=== PATIENT | female | born 1930 | race Asian ===

== ENCOUNTER 2016-11-07 13:39 | Inpatient (IN) | payer MEDICARE, OTHER ==
[~2016-11-07] VITALS: Ht 149.9 cm; Wt 54.9 kg
[~2016-11-07 13:39] MED LIST: ACET-2047 PO; AMLO-145 PO; APIX2.5T PO; DOCU-144 PO; LINA5TAB PO; NIT4 SL; OMEP40CA6 PO
[2016-11-07 17:00] VITALS: BP 135/63; PULSE 96; RESP 18
[2016-11-07 19:21] LABS: ADD UMIC YES; URINE BILIRUBIN (Dip) NEGATIVE (NEGATIVE); URINE BLOOD (Dip) 2+ (NEGATIVE); URINE COLOR LT. YELLOW (YELLOW); URINE KETONES (Dip) TRACE (NEGATIVE); URINE LEUKOCYTE ESTERASE (Dip) NEGATIVE (NEGATIVE); URINE NITRITE (Dip) NEGATIVE (NEGATIVE); URINE TOTAL PROTEIN (Dip) 4+ (NEGATIVE); URINE UROBILINOGEN (Dip) 0.2 E.U./dL (0.1-1.0)
[2016-11-07] MEDS ORDERED: ACETAMINOPHEN 325 MG TAB PO PRN (19:30)
[2016-11-07] MEDS ORDERED: DOCUSATE SODIUM 100 MG CAP PO PRN (19:30)
[2016-11-07 19:35] LABS: BACTERIA,URINE FEW
[2016-11-07] MEDS ORDERED: MAGNESIUM HYDROXIDE 30ML CUP PO PRN (20:00)
[2016-11-07] MEDS ORDERED: NACL 0.9% 3 ML SYG IV SCH (20:00)
[2016-11-07] MEDS ORDERED: BISACODYL 10 MG SUPP PR PRN (20:00)
[2016-11-07] MEDS ORDERED: ONDANSETRON 4 MG INJ IV PRN (20:00)
[2016-11-07] MEDS ORDERED: NITROGLYCERIN (SL) 0.4 MG TAB SL PRN (20:00)
[2016-11-07] MEDS ORDERED: LACTULOSE 30ML CUP PO PRN (20:00)
[2016-11-07] MEDS ORDERED: INSULIN GLARGINE [LANtus] 3 ML PEN SC SCH (20:00)
[2016-11-07] MEDS: ALBUTEROL/IPRATROPIUM (NEB) 3 ML AMP HHN SCH (20:09)
[2016-11-07 20:45] VITALS: BP 149/67; RESP 18
[2016-11-07] MEDS: INSULIN ASPART [NOVOLOG] 3 ML PEN SC SCH (20:54)
[2016-11-07] MEDS: SENNA TAB PO SCH (20:54)
[2016-11-07] MEDS: MEGESTROL (40 MG/ML) 10ML CUP PO SCH (20:54)
[2016-11-07] MEDS: DOCUSATE SODIUM 100 MG CAP PO SCH (20:54)
[2016-11-07] MEDS: METOPROLOL 25 MG TAB PO SCH (20:55)
[2016-11-07] MEDS: AMLODIPINE 5 MG TAB PO SCH (20:55)
[2016-11-07] MEDS: APIXABAN 5 MG TABLET PO SCH (21:10)
[2016-11-07 22:00] VITALS: BP 140/63; PULSE 100; RESP 20
[2016-11-08] MEDS: PANTOPRAZOLE (EC) 40 MG TAB PO SCH (05:31)
[2016-11-08] MEDS ORDERED: FUROSEMIDE 40 MG TAB PO SCH (06:00)
[2016-11-08 06:43] LABS: ADD SCAN DIFF NO
[2016-11-08 06:47] LABS: BASOPHIL # 0.1 10^3/ul (0.0-0.1); BASOPHILS % 0.7 % (0.0-2.0); EOSINOPHILS # 0.3 10^3/ul (0.0-0.5); HEMATOCRIT 28.7 % (37.0-47.0); HEMOGLOBIN 9.3 g/dl (12.0-16.0); LYMPHOCYTES # 1.4 10^3/ul (0.8-2.9); LYMPHOCYTES % 15.3 % (15.0-51.0); MEAN CORPUSCULAR HEMOGLOBIN 30.2 pg (29.0-33.0); MEAN CORPUSCULAR HGB CONC 32.4 g/dl (32.0-37.0); MEAN CORPUSCULAR VOLUME 93.2 fl (82.0-101.0); MEAN PLATELET VOLUME 9.7 fl (7.4-10.4); MONOCYTE # 0.8 10^3/ul (0.3-0.9); MONOCYTES % 9.2 % (0.0-11.0); NEUTROPHIL # 6.4 10^3/ul (1.6-7.5); NEUTROPHILS % 71.4 % (39.0-77.0); NUCLEATED RED BLOOD CELLS% 0.2 /100WBC (0.0-0.0); PLATELET COUNT 376 10^3/UL (140-415); RED BLOOD COUNT 3.08 10^6/ul (4.20-5.40); RED CELL DISTRIBUTION WIDTH 17.5 % (11.5-14.5); WHITE BLOOD COUNT 8.9 10^3/ul (4.8-10.8)
[2016-11-08 07:01] LABS: ALBUMIN 2.8 g/dl (3.3-4.9); POTASSIUM 4.6 mmol/L (3.5-5.1)
[2016-11-08 07:03] LABS: BILIRUBIN,INDIRECT 0.1 mg/dl (0-1.1); BILIRUBIN,TOTAL 0.1 mg/dl (0.2-1.3); CREATININE 3.57 mg/dl (0.44-1.00)
[2016-11-08 07:04] LABS: ALBUMIN/GLOBULIN RATIO 0.73; CALCIUM 7.8 mg/dl (8.4-10.2); TOTAL PROTEIN 6.6 g/dl (6.1-8.1)
[2016-11-08 08:00] VITALS: BP 179/78; PULSE 95; RESP 18
[2016-11-08] MEDS: INSULIN ASPART [NOVOLOG] 3 ML PEN SC SCH ×4 (08:21→21:32)
[2016-11-08] MEDS: DOCUSATE SODIUM 100 MG CAP PO SCH ×2 (08:21→21:26)
[2016-11-08] MEDS: AMLODIPINE 5 MG TAB PO SCH ×2 (08:22→21:26)
[2016-11-08] MEDS: LINAGLIPTIN 5 MG TABLET PO SCH (08:22)
[2016-11-08] MEDS: MEGESTROL (40 MG/ML) 10ML CUP PO SCH ×2 (08:22→21:24)
[2016-11-08] MEDS: METOPROLOL 25 MG TAB PO SCH ×2 (08:22→21:26)
[2016-11-08] MEDS: APIXABAN 5 MG TABLET PO SCH ×2 (08:23→21:25)
[2016-11-08] MEDS: ALBUTEROL/IPRATROPIUM (NEB) 3 ML AMP HHN SCH (08:26)
--- NOTE | 2016-11-08 10:39 | PN ---
DATE: 11/08/2016 CARDIOLOGY FOLLOWUP SUBJECTIVE: Discussed with the staff. The patient has been transferred to rehab. Currently, is mo re awake and alert. Responds appropriately. Denies any chest pain to me. Mild shortness of breath . MEDICATIONS: Reviewed which include: 1. Tradjenta. 2. Lasix 40 mg p.o. b.i.d. 3. Protonix. 4. Amlodipine 5 b.i.d. 5. Eliquis 2.5 b.i.d. 6. Metoprolol 25 b.i.d. 7. Albuterol. 8. Hydralazine p.r.n. PHYSICAL EXAMINATION: VITAL SIGNS: Temperature 99.2, heart rate of 93, blood pressure 140/63, respiratory rate of 20. HEENT: Normocephalic, atraumatic. Elderly female. Pupils are equal. CARDIOVASCULAR: Regular rate and rhythm, systolic murmur. PULMONARY: With no wheezes anteriorly, but diffuse rhonchi. GASTROINTESTINAL: Soft, nontender. EXTREMITIES: Trivial edema. NEUROLOGIC: Awake and alert. Responds appropriately. PSYCHIATRIC: Appears to be calm. LABORATORY DATA: WBC of 8.9, hemoglobin 9.3, platelets 376. Sodium 147, potassium 4.6, BUN of 35, creatinine 3.57, glucose 180, albumin is 2.8. ASSESSMENT AND PLAN: 1. History of heart block. Currently, heart rate has remained stable. 2. Acute renal failure on chronic kidney disease. 3. Congestive heart failure and fluid overload secondary to diastolic dysfunction and renal failure . 4. Anemia. 5. Encephalopathy. 6. Possible pneumonia. 7. Diabetes. 8. History of paroxysmal atrial fibrillation. RECOMMENDATIONS: Diuresis as per renal. Continue current blood pressure medication. Heart rate patel s remained stable. We will hold off on the pacemaker given the multiple comorbidities and worsening function at this point. We will monitor her though. Respiratory care and physical therapy in reha b will be continued as well. Dictated By: SUNDAR JACOBO MD AV/DESTINY Conf#: [id number] DID#: [id number] CC: ROXANA RODRIGUEZ MD;*EndCC*
--- NOTE | 2016-11-08 11:16 | PN ---
DATE: 11/08/2016 SUBJECTIVE: The patient was transferred from [facility] for acute rehabilitation. The patient is cli nically stable, no acute events overnight. No fevers, chills, nausea, vomiting. OBJECTIVE: VITAL SIGNS: Blood pressure is 140/60, respirations 20, pulse 100, temperature 99.2. HEENT: Head is normocephalic. NECK: Supple. HEART: Regular rate. LUNGS: Show diminished breath sounds at the base. ABDOMEN: Soft, nontender to palpation. No rebound or guarding. EXTREMITIES: Negative for clubbing, cyanosis, no edema. DERMATOLOGIC: No rashes. MUSCULOSKELETAL: No joint effusions. NEUROLOGIC: No change in exam. MEDICATIONS: The patient's medications have been reviewed. LABORATORY DATA: Sodium 147, potassium 4.6, chloride 111, BUN 35, creatinine 3.57. White count 8.9 , hemoglobin 9.3, hematocrit 28.7, platelet count 376. ASSESSMENT AND PLAN: 1. Nonoliguric acute kidney injury on top of chronic kidney disease stage IV with unknown baseline creatinine, possibly around 3 mg/dL. The patient's renal function declined in the last 24 hours, kimberly shirley due to diuretic therapy. Plan at this point is to hold Lasix. Will continue to monitor renal function closely. Follow up renal panel in the a.m. and otherwise continue supportive care, renally dose all meds, avoid nephrotoxins. 2. 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 The patient is currently in acute kidney injury as stated above. We will norma nue current treatment plan. Otherwise, disease factor modification with good glycemic and blood pre ssure control. 3. Acute congestive heart failure exacerbation. The patient is clinically improved. Will hold diu retic therapy as renal function has worsened. Continue to monitor. 4. Anemia. Continue to monitor hemoglobin and hematocrit levels. 5. Hypernatremia. Continue to encourage free water intake. 6. Pneumonia. Patient completing antibiotic course. 7. Encephalopathy, etiology is toxic metabolic. Continue to monitor. 8. Acute respiratory failure secondary to congestive heart failure, pneumonia. Continue current tr eatment plan. 9. Diabetes, continue Accu-Cheks and sliding scale. 10. Paroxysmal atrial fibrillation, continue to monitor. Dictated By: TIFFANIE MCHUGH/DESTINY Conf#: [id number] [facility]#: [id number]
--- NOTE | 2016-11-08 11:21 | CONS ---
DATE OF ADMISSION: 11/07/2016 DATE OF CONSULTATION: 11/08/2016 TYPE OF CONSULTATION: Rehabilitation post-admission physician evaluation REHABILITATION IMPAIRMENT CATEGORY: Toxic metabolic encephalopathy superimposed on meningioma. ACTIVE COMORBIDITIES: 1. Dysphagia. 2. Congestive heart failure. 3. Acute on chronic renal insufficiency. 4. Urinary tract infection. 5. Paroxysmal atrial fibrillation. 6. Diabetes mellitus. 7. Hypertension. 8. Anemia 9. History of heart block. 10. Impairments in self-care, mobility and cognition. HISTORY OF PRESENT ILLNESS: The patient is a pleasant 85-year-old Filipina female with a history o f multiple medical comorbidities, who was admitted with increased weakness, confusion and notable de hydration. The patient was also noted to have pneumonia, acute on chronic kidney disease, acute res piratory failure secondary to congestive heart failure. The patient was felt likely to have acute t oxic metabolic encephalopathy contributing to the cognitive impairment. The patient was also noted to have dysphagia requiring mechanical soft diet. The patient's medical status has continued to imp rove. The patient has now been cleared to transfer to the rehabilitation unit for comprehensive int erdisciplinary rehab care. FUNCTIONAL HISTORY: Prior to recent events, she was independent in self-care tasks and mobility. C urrently, she requires maximal assist for self-care and mobility tasks. I have reviewed the preadmission screen and the patient's current functional status is consistent wi th the preadmission screen. SOCIAL HISTORY: The patient reportedly lives at home with family and hopes to return there upon dis charge. PAST MEDICAL HISTORY: 1. Congestive heart failure. 2. Diabetes mellitus type 2. 3. Chronic kidney disease stage IV. 4. Anemia. 5. Paroxysmal atrial fibrillation. 6. Hypertension. 7. Degenerative joint disease. CURRENT MEDICATIONS: 1. Insulin sliding scale. 2. Albuterol inhaler. 3. Norvasc 5 mg p.o. b.i.d. 4. Eliquis 2.5 mg p.o. b.i.d. 5. Lasix 40 mg b.i.d. 6. Lantus 4 units subcutaneous daily. 7. Tradjenta 5 mg p.o. daily. 8. Lopressor 25 mg p.o. b.i.d. 9. Protonix 40 mg p.o. daily. 10. Zofran p.r.n. ALLERGIES: THE PATIENT WITH NO KNOWN DRUG ALLERGIES. PHYSICAL EXAMINATION: VITAL SIGNS: The patient is currently afebrile, blood pressure 179/78, pulse 95, respiratory rate 2 0. HEENT: The extraocular motions appear intact. Oropharynx reveals the patient with dentures in plac e. NECK: Supple. LUNGS: Clear anteriorly. CARDIAC: S1, S2. ABDOMEN: Soft, nontender, positive bowel sounds. NEUROLOGIC: She is awake and oriented to person only. She will follow simple 1-step commands. She demonstrates antigravity strength in bilateral upper extremity and lower extremity. She does have some impaired static and dynamic balance. PLAN: The patient has been admitted for comprehensive interdisciplinary acute rehab and is anticipa hitesh to tolerate 3 hours of daily therapy in divided doses for at least 5/7 days a week. The treatme nt plan will include: 1. Physical therapy to focus on bed mobility, transfers, and household ambulation with the goal of having the patient reach standby assist level. 2. Occupational therapy to focus on hygiene, grooming, dressing, bathing, and toileting activities with the goal of having the patient reach a standby assist level. 3. Speech therapy for full cognitive assessment in addition to dysphagia management with the goal o f having the patient return to baseline cognition and meet nutritional needs by mouth. 4. Rehabilitation nursing for carryover of therapeutic interventions, the goal of continent of roldan l and bladder, and the goal of patient and family education with regards to the aforementioned issue s. ESTIMATED LENGTH OF STAY: 14 days. DISPOSITION GOAL: Home with family. REHABILITATION BARRIER: Dysphagia. INTERVENTION FOR BARRIER: Speech therapy. I acknowledge that I performed a full physical examination on this patient within 24 hours of admiss ion to the rehabilitation unit, and believe the patient is a good candidate for comprehensive interd isciplinary rehab care and is anticipated to make reasonable goals in a reasonable period of time as outlined above. Dictated By: TIM GARSIA/DESTINY Conf#: [id number] DID#: [id number]
[2016-11-08 12:00] VITALS: BP 150/76; PULSE 90; RESP 18
--- NOTE | 2016-11-08 16:01 | HP ---
DATE OF ADMISSION: 11/07/2016 REASON FOR ADMISSION: Generalized weakness, debilitated state, weight loss, status post congestive heart failure exacerbation, mild UTI, bronchitis, and possible pneumonia. HISTORY OF PRESENT ILLNESS: The patient is an 85-year-old Filipina female, very well known to me, w ith a history of diabetes mellitus, hypertension, anemia, CKD stage IV, a history of meningioma, a h istory of heart block, previously refused pacemaker placement, paroxysmal atrial fibrillation, on El iquis, who unfortunately has been declining over the past few weeks. She has been losing weight and not eating much, noted to be more confused and more subdued. The patient was admitted to the [facility] as she was found to have possible early pneumonia, a mild UTI and congestive heart failure exace rbation. During her hospital stay the patient was treated at [facility] with Roce phin, azithromycin and diuretic therapy and she was seen by multiple physicians, including Dr. Maxwell flores, the rehabilitation aide/scheduler, and Dr. Triana, the tree faller. The patient improved, but overall remains q uite debilitated, still slightly withdrawn, and it was decided to send her to acute rehab for rehabi litation, strengthening, with the goal for her to get stronger and go back home. In addition, pace maker placement is also being delayed or postponed, as clinically the patient's condition and functi onal capacity has worsened. She was transferred to rehab for further care. I have been in touch wi th her daughter on a regular basis. Her name is Edwige. Upon evaluation of the patient, the patient today appears to be slightly better and no specific complaints. Currently denies any chest pain or shortness of breath. The patient is admitted for further care. PAST MEDICAL HISTORY: Includes diabetes mellitus, hypertension, osteoarthritis, meningioma, rina escobar fracture of the vertebral body, CKD, I would say stage IV, a history of paroxysmal atrial fibri llation, and diastolic dysfunction heart failure. ALLERGIES: NO KNOWN DRUG ALLERGIES. SOCIAL HISTORY: No history of IV drug use, alcohol or tobacco use. The patient is +3. 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 She is from the [facility]. SURGICAL HISTORY: Cataract surgery. FAMILY HISTORY: Noncontributory. PREVIOUS MEDICATIONS: Include: 1. Eliquis 2.5 b.i.d. 2. Amlodipine 5 mg daily. 3. Nitrostat p.r.n. 4. Tylenol p.r.n. 5. Colace p.r.n. 6. Omeprazole 40 mg daily. 7. Tradjenta 5 mg daily. Current medications since her recent hospitalization include: 1. Tradjenta 5 mg daily. 2. Protonix 40 mg daily. 3. Norvasc 5 mg b.i.d. 4. Eliquis 2.5 b.i.d. 5. Colace 100 b.i.d. 6. Insulin aspart per sliding scan. 7. Megace 400 b.i.d. 8. Lopressor 25 b.i.d. 9. Senna 1 tab at bedtime. 10. DuoNeb q.6h. 11. Hydralazine p.r.n. 12. Lantus 4 units every day. 13. Milk of Magnesia p.r.n. 14. Nitroglycerin p.r.n. 15. Zofran p.r.n. 16. Tylenol p.r.n. 17. Dulcolax and Lactulose p.r.n. 18. DuoNebs p.r.n. 19. Colace p.r.n. PAST SURGICAL HISTORY: No surgery, but she had recently a GI workup back in 2010 that showed esopha gitis, gastritis and . In 2011 a colonoscopy showed external hemorrhoids, anal tag, and poor p reparation. PHYSICAL EXAMINATION: VITAL SIGNS: Temperature is 99.2, pulse 93, respirations 20, blood pressure 140/63, saturation 96% on 2 liters. GENERAL: The patient in no acute distress. The patient is pale. HEENT: The patient has dentures. CARDIOVASCULAR: S1 and S2. A positive systolic ejection murmur heard throughout. LUNGS: Decreased bilaterally, but now clear. ABDOMEN: Soft, nontender. EXTREMITIES: No clubbing, cyanosis, or edema. Patient with a slight depressed mood. LABORATORY: White count is 8.9, hemoglobin 9.3, hematocrit 29, platelet count 376, with normal diff erential. Chemistry: Sodium 147, potassium 4.6, chloride 111, bicarbonate 25, BUN 35, creatinine w orsened to 3.57, glucose of 180. Glucose levels are slightly high at 205 and 159. Labs done at a r ecent hospitalization at that time CEA was 4.2, B12 was greater than 1000, iron levels showed TIBC w as low at 147, iron levels were normal, and stool occult blood was negative. ASSESSMENT AND PLAN: This is an 85-year-old [place] Citizen female with a history of diastolic dysfunction heart failure, paroxysmal atrial fibrillation, diabetes mellitus, CKD stage IV, anemia and osteoart hritis, who is status post recent hospitalization. She was treated for CHF exacerbation, possible b ronchitis, pneumonia and a mild urinary tract infection. Overall she has been declining over the co urse of a few weeks, with significant weight loss and clinically more withdrawn. 1. Respiratory. Hold diuretic therapy as currently kidney function has worsened and clinically no evidence of fluid overload state. Continue O2 support as needed and will monitor. Status post annie tment with Rocephin and azithromycin for possible pulmonary infection. 2. Cardiovascular. The patient previously was recommended to have a pacemaker placed. In the meant milo, continue medical management. The patient is on Eliquis and beta blockers. Cardiology is foll owing. Further discussion regarding a pacemaker will be made with the tree faller. 3. Decreased p.o. intake. I started the patient on Megace. Speech therapy to follow regarding laura d consistency and safety. 4. Continue deep vein thrombosis prophylaxis and gastrointestinal prophylaxis. The patient is on E liquis and Protonix. 5. Anemia. The patient with anemia of chronic disease. Observe. May benefit from Epogen. 6. Chronic kidney disease with acute component secondary to diuretic therapy. Lasix is now placed on hold. Will continue to monitor kidney function. Will discontinue the Self, as we now finish he r Lasix treatment. 7. Continue stool softeners. 8. May consider an antidepressant and may consider a psychology consult, as her mood appears to be somewhat depressed. 9. Diabetes mellitus. On Tradjenta. Will increase insulin sliding, as glucose levels are in the h igh 100s to low 200s. Will monitor the patient closely. Case discussed with the daughter, Edwige. Dictated By: ROXNAA JEFFRIES/DESTINY Conf#: [id number] DID#: [id number]
[2016-11-08] MEDS ORDERED: INSULIN GLARGINE [LANtus] 3 ML PEN SC SCH (20:00)
[2016-11-08 20:06] VITALS: BP 159/75; RESP 18
[2016-11-08] MEDS: SENNA TAB PO SCH (21:26)
[2016-11-09] MEDS: PANTOPRAZOLE (EC) 40 MG TAB PO SCH (05:39)
[2016-11-09 07:42] LABS: ADD SCAN DIFF NO; BASOPHIL # 0.1 10^3/ul (0.0-0.1); BASOPHILS % 0.5 % (0.0-2.0); EOSINOPHILS # 0.3 10^3/ul (0.0-0.5); HEMATOCRIT 29.3 % (37.0-47.0); HEMOGLOBIN 9.5 g/dl (12.0-16.0); LYMPHOCYTES # 1.2 10^3/ul (0.8-2.9); MEAN CORPUSCULAR HEMOGLOBIN 30.5 pg (29.0-33.0); MEAN CORPUSCULAR HGB CONC 32.4 g/dl (32.0-37.0); MEAN CORPUSCULAR VOLUME 94.2 fl (82.0-101.0); MONOCYTE # 0.7 10^3/ul (0.3-0.9); MONOCYTES % 7.7 % (0.0-11.0); NEUTROPHILS % 75.3 % (39.0-77.0); PLATELET COUNT 387 10^3/UL (140-415); RED BLOOD COUNT 3.11 10^6/ul (4.20-5.40); WHITE BLOOD COUNT 9.4 10^3/ul (4.8-10.8)
[2016-11-09 08:00] VITALS: BP 166/67; PULSE 93; RESP 20
[2016-11-09 08:05] LABS: POTASSIUM 4.5 mmol/L (3.5-5.1)
[2016-11-09 08:08] LABS: CREATININE 3.41 mg/dl (0.44-1.00)
[2016-11-09 08:09] LABS: MAGNESIUM 2.1 mg/dl (1.7-2.5); PHOSPHORUS 3.8 mg/dl (2.5-4.9)
[2016-11-09] MEDS: INSULIN ASPART [NOVOLOG] 3 ML PEN SC SCH ×4 (08:24→21:17)
[2016-11-09] MEDS: APIXABAN 5 MG TABLET PO SCH ×2 (08:25→20:51)
[2016-11-09] MEDS: LINAGLIPTIN 5 MG TABLET PO SCH (08:25)
[2016-11-09] MEDS: DOCUSATE SODIUM 100 MG CAP PO SCH ×2 (08:25→20:50)
[2016-11-09] MEDS: AMLODIPINE 5 MG TAB PO SCH ×2 (08:26→20:50)
[2016-11-09] MEDS: METOPROLOL 25 MG TAB PO SCH ×2 (08:26→20:51)
[2016-11-09] MEDS: MEGESTROL (40 MG/ML) 10ML CUP PO SCH ×2 (08:26→20:50)
[2016-11-09] MEDS: ALBUTEROL/IPRATROPIUM (NEB) 3 ML AMP NEB PRN (10:30)
--- NOTE | 2016-11-09 10:32 | PN ---
DATE: SUBJECTIVE: The patient is noted to have ____ on examination. The patient overnight, however, was stable on 2 liters nasal cannula. No hemoptysis, hematemesis, or hematochezia. OBJECTIVE: VITAL SIGNS: Blood pressure 115/75, respiration 18, pulse 95, temperature 98.3. HEENT: Head is normocephalic. NECK: Supple. HEART: Regular rate. LUNGS: Positive expiratory wheezes, mild rhonchi, no rales noted. ABDOMEN: Soft, nontender to palpation. No rebound or guarding. EXTREMITIES: Negative for clubbing, cyanosis, no edema. DERMATOLOGIC: No rashes. MUSCULOSKELETAL: No joint effusions. NEUROLOGIC: No change in exam. LABORATORY DATA: Shows sodium 146, potassium 4.5, chloride 109, BUN 35, creatinine 3.41, calcium 8. 0. White count 9.4, hemoglobin 9.5, hematocrit 29.3, platelet count is 387. ASSESSMENT AND PLAN: 1. Nonoliguric acute kidney injury on top of chronic kidney disease stage IV with previous baseline creatinine presumed to be around 3 mg/dL. Etiology of current acute kidney injury was secondary to hemodynamics, likely diuretic therapy. The patient's Lasix has been on hold. Creatinine has mildl y improved in the last 24 hours. At this point, continue to hold diuretic therapy and monitor renal function closely. 2. Chronic kidney disease, stage IIIB/IV, with nephrotic range proteinuria. Etiology is likely sec ondary to diabetic nephropathy. The patient is currently in acute kidney injury as stated above. C ontinue current treatment plan. Continue disease factor modification, good glycemic and blood press ure control. 3. Acute congestive heart failure exacerbation. The patient appears clinically improved, holding d iuretic therapy as worsening renal function. We will monitor closely. 4. Acute respiratory failure. Etiology is secondary to congestive heart failure, pneumonia, possib le component of reactive airway disease. Continue nebulizer therapy. Continue supplemental oxygen. Continue antibiotic therapy. Holding diuretic therapy as stated above due to worsening renal func tion. 5. Anemia. Continue to monitor hemoglobin and hematocrit levels. 6. Hypernatremia. Continue to encourage free water intake. 7. Sepsis secondary to pneumonia. Continue current antibiotic regimen. 8. Encephalopathy, etiology toxic metabolic. The patient's mental status appears stable. 9. Diabetes. Continue Accu-Cheks and sliding scale. 10. Paroxysmal atrial fibrillation. Continue current medical management and monitor. Dictated By: TIFFANIE MCHUGH/DESTINY Conf#: [id number] DID#: [id number]
--- NOTE | 2016-11-09 13:05 | CONS ---
Date/Time of Note Date/Time of Note DATE: 11/09/16 TIME: 13:04 Consult Date/Type/Reason Admit Date/Time Nov 07, 2016 at 16:51 Initial Consult Date Subjective Comfortable Objective pulm-cta abd-soft Vital Signs Date Time Temp Pulse Resp B/P Pulse Ox O2 Delivery O2 Flow Rate FiO2 11/09/16 10:30 96 22 95 Nasal Cannula 2.0 11/08/16 20:06 98.3 159/75 Intake and Output 11/08/16 11/08/16 11/09/16 14:59 22:59 06:59 Intake Total 400 ml 800 ml Output Total 700 ml 500 ml Balance -700 ml -100 ml 800 ml Results/Medications Result Diagram: 11/09/16 0647 11/09/16 0647 Results 24 hrs Laboratory Tests Test 11/08/16 17:24 11/08/16 21:18 11/09/16 02:26 11/09/16 06:47 Bedside Glucose 200 233 H 192 Anion Gap 17 H Basophils # 0.1 Basophils % 0.5 Blood Urea Nitrogen 35 H Calcium Level 8.0 L Carbon Dioxide Level 25 Chloride Level 109 Creatinine 3.41 H Eosinophils # 0.3 Eosinophils % 3.0 Glucose Level 203 Hematocrit 29.3 L Hemoglobin 9.5 L Lymphocytes # 1.2 Lymphocytes % 13.0 L Magnesium Level 2.1 Mean Corpuscular Hemoglobin 30.5 Mean Corpuscular Hemoglobin Concent 32.4 Mean Corpuscular Volume 94.2 Mean Platelet Volume 10.0 Monocytes # 0.7 Monocytes % 7.7 Neutrophils # 7.0 Neutrophils % 75.3 Nucleated Red Blood Cells # 0.0 Nucleated Red Blood Cells % 0.0 Phosphorus Level 3.8 Platelet Count 387 Potassium Level 4.5 Red Blood Count 3.11 L Red Cell Distribution Width 18.0 H Sodium Level 146 H White Blood Count 9.4 Test 11/09/16 07:54 11/09/16 12:17 Bedside Glucose 209 195 Medications Current Medications Amlodipine Besylate (Norvasc) 5 mg BID PO Last administered on 11/09/16 08:26 ; Admin Dose 5 MG; Start 11/07/16 at 21:00 Apixaban (Eliquis) 2.5 mg BID PO Last administered on 11/09/16 08:25; Admin Dose 2.5 MG; Start 11/07/16 at 21:00 Docusate Sodium (Colace) 100 mg Q12H PRN PO CONSTIPATION; Start 11/07/16 at 19: 30 Docusate Sodium (Colace) 100 mg BID PO Last administered on 11/09/16 08:25; Admin Dose 100 MG; Start 11/07/16 at 21:00 Hydralazine HCl (Apresoline) 25 mg Q4H PRN PO ELEVATED SYSTOLIC BP; Start 11/07 at 20:00 Linagliptin (Tradjenta) 5 mg DAILY PO Last administered on 11/09/16 08:25; Admin Dose 5 MG; Start 11/08/16 at 09:00 Magnesium Hydroxide (Milk Of Mag) 30 ml DAILY PRN PO CONSTIPATION; Start at 20:00 Megestrol Acetate (Megace Susp) 400 mg BID PO Last administered on 11/09/16 08 :26; Admin Dose 400 MG; Start 11/07/16 at 21:00 Metoprolol Tartrate (Lopressor) 25 mg BID PO Last administered on 11/09/16 08: 26; Admin Dose 25 MG; Start 11/07/16 at 21:00 Nitroglycerin (Nitroglycerin (Sl Tab) 0.4 Mg) 1 tab [id number] PRN SL CHEST PAIN ; Start 11/07/16 at 20:00 Ondansetron HCl (Zofran Inj) 4 mg Q6H PRN IV NAUSEA AND/OR VOMITING; Start at 20:00 Pantoprazole (Protonix Tab) 40 mg DAILY@06 PO Last administered on 11/09/16 05 :39; Admin Dose 40 MG; Start 11/08/16 at 06:00 Senna (Senokot) 1 tab HS PO Last administered on 11/08/16 21:26; Admin Dose 1 TAB; Start 11/07/16 at 21:00 Acetaminophen (Tylenol Tab) 650 mg Q4H PRN PO PAIN; Start 11/07/16 at 20:00 Bisacodyl (Dulcolax Supp) 10 mg DAILY PRN [place] CONSTIPATION; Start 11/07/16 at 20 :00 Lactulose (Enulose) 20 gm DAILY PRN PO CONSTIPATION; Start 11/07/16 at 20:00 Insulin Glargine (Lantus) 6 unit DAILY@20 SC Last administered on 11/08/16t 21: 33; Admin Dose 6 UNIT; Start 11/08/16 at 20:00 Assessment/Plan Additional Assessment/Plan Rehab- Toxic metabolic encephalopathy superimposed on meningioma. [place] current rehab program Dysphagia. Congestive heart failure. Acute on chronic renal insufficiency. Urinary tract infection. Paroxysmal atrial fibrillation. Diabetes mellitus. Hypertension. Anemia History of heart block. TIM HORTON MD Nov 09, 2016 13:04
[2016-11-09] MEDS: ACETAMINOPHEN 325 MG TAB PO PRN (14:39)
--- NOTE | 2016-11-09 17:56 | PN ---
DATE: 11/09/2016 SUBJECTIVE: The patient seen lying in bed comfortably. She takes off oxygen, but overall feels com fortable. The patient with no specific complaints. She denies any shortness of breath. PHYSICAL EXAMINATION: VITAL SIGNS: Temperature 98.3, pulse 76, respirations 22, blood pressure 159/75, saturation 95% on 2 liters. GENERAL: The patient is in no acute distress. The patient is pale. Decreased dentition, the patie nt has dentures. CARDIOVASCULAR: S1 and S2, regular rate. LUNGS: Faint rhonchi. ABDOMEN: Soft, nontender. EXTREMITIES: No clubbing, cyanosis, or edema. LABORATORY DATA: White count is 9.4, hemoglobin 9.5, hematocrit 29, platelet count 387, neutrophils 75%, lymphocytes 13%. Chemistry: Sodium 146, potassium 4.5, chloride 109, bicarbonate 25, BUN is 35, creatinine 3.41, yesterday was 3.57 so there is improvement, glucose of 203, recent glucose leve ls are 195 and 209. Urine culture negative. MRSA of the nares negative. CURRENT MEDICATIONS: Include: 1. Lantus 6 units daily. 2. Tradjenta 5 mg daily. 3. Protonix 40 mg daily. 4. Norvasc 5 mg b.i.d. 5. Eliquis 2.5 b.i.d. 6. Colace 100 b.i.d. 7. Insulin aspart per sliding scale. 8. Megace 400 b.i.d. 9. Metoprolol tartrate 25 b.i.d. 10. Senna 1 tab at bedtime. 11. Hydralazine p.r.n. 12. Milk of magnesia p.r.n. 13. Nitroglycerin p.r.n. 14. Zofran p.r.n. 15. Tylenol p.r.n. 16. Dulcolax p.r.n. 17. Lactulose p.r.n. 18. DuoNeb p.r.n. 19. Colace p.r.n. ASSESSMENT AND PLAN: This is an 85-year-old Filip[place] female with history of diastolic dysfunction h eart failure, paroxysmal atrial fibrillation, heart block, diabetes mellitus, chronic kidney disease stage IV, anemia, osteoarthritis, who was admitted recently for congestive heart failure exacerbati on, possible acute bronchitis and pneumonia and urinary tract infection. Overall, she unfortunately has been declining at home in the past few weeks with decreased p.o. intake, weight loss and she is more withdrawn. 1. Respiratory, appears to be stable, status post diuretic therapy for CHF. Diuretics now on hold secondary to worsening kidney function. The patient appears to be now euvolemic. Observe. Status post antibiotic treatment for pulmonary infection. 2. Cardiovascular. The patient is too weak to undergo any invasive procedure such as pacemaker duy cement. In the meantime, we will monitor closely. Cardiology has been following her. Remains on m edical treatment on Eliquis for deep venous prophylaxis, for paroxysmal atrial fibrillation. On aml odipine, Lopressor, p.r.n. hydralazine. Again, titrate blood pressure medications up as needed to k eep normotensive. Further discussion regarding pacemaker placement will be made pending patient's f unctional status. 3. Decreased p.o. intake, now on Megace. Observe. 4. Continue deep vein thrombosis prophylaxis and gastrointestinal prophylaxis. 5. Anemia. Hemoglobin and hematocrit are stable. No need for transfusion. May benefit from Epoge n as patient has anemia of chronic disease secondary to chronic kidney disease. 6. Acute on chronic renal insufficiency stage IV. Lasix is on hold. Kidney function slightly impr oving. Currently no indication for dialysis. Self was removed. 7. Continue stool softeners. 8. May consider antidepressants as patient has a depressed mood. May benefit from psychiatry evalu ation. 9. Diabetes mellitus. Increase further Levemir to 8 units. Continue Tradjenta. Continue to monit or glucose level. 10. Generalized weakness and debilitated state. The patient is undergoing physical therapy, occupa tional therapy, speech therapy, help with activities of daily living. We will monitor progress. 11. The patient is FULL CODE. We will follow closely. Dictated By: ROXANA JEFFRIES/DESTINY Conf#: [id number] DID#: [id number]
--- NOTE | 2016-11-09 19:57 | PN ---
DATE: 11/09/2016 SUBJECTIVE: Discussed with the staff, Dr. Weiner. No new cardiac event. The patient with no report ed chest pain or pressure. Her heart rate and blood pressure have been overall stable. MEDICATIONS: Reviewed. PHYSICAL EXAMINATION: VITAL SIGNS: Temperature 98.3, heart rate of 96, blood pressure 115/75, respiratory rate of 22, sat urating 95%. HEENT: Normocephalic, atraumatic. Pupils are equal. CARDIOVASCULAR: Regular rate and rhythm. PULMONARY: No wheezes anteriorly. GASTROINTESTINAL: Soft, nontender. EXTREMITIES: Trivial edema. NEUROLOGIC: Awake and alert. LABORATORY: WBC of 9.4, hemoglobin 9.5, platelets of 387. Sodium 146, potassium 4.5, BUN of 35, cr eatinine of 3.41, glucose of 203. ASSESSMENT AND PLAN: 1. Acute renal failure. 2. Fluid overload secondary to congestive heart failure. 3. Status post respiratory failure. 4. Severe anemia. 5. History of heart block. 6. Hypertension. 7. Diabetes. 8. Paroxysmal atrial fibrillation, on anticoagulation. RECOMMENDATIONS: Diuresis will be deferred to renal team. Continue physical therapy and rehab. Bl ood pressure control will be continued. Anticoagulation for the time being will be continued. I sukumar salazar check the EKG as well. Dictated By: SUNDAR MAHER/DESTINY Conf#: [id number] DID#: [id number]
[2016-11-09 20:00] VITALS: BP 133/87; RESP 18
[2016-11-09] MEDS: SENNA TAB PO SCH (20:50)
[2016-11-09] MEDS: INSULIN GLARGINE [LANtus] 3 ML PEN SC SCH (21:18)
[2016-11-10] MEDS: ALBUTEROL/IPRATROPIUM (NEB) 3 ML AMP NEB PRN (04:30)
[2016-11-10] MEDS: PANTOPRAZOLE (EC) 40 MG TAB PO SCH (06:04)
--- NOTE | 2016-11-10 08:26 | CONS ---
Date/Time of Note Date/Time of Note DATE: 11/10/16 TIME: 08:26 Consult Date/Type/Reason Admit Date/Time Nov 07, 2016 at 16:51 Subjective No new complaints Objective pulm-cta abd-soft Vital Signs Date Time Temp Pulse Resp B/P Pulse Ox O2 Delivery O2 Flow Rate FiO2 11/10/16 04:32 2.0 11/10/16 04:32 95 20 96 Nasal Cannula 11/09/16 20:00 98.2 133/87 Intake and Output 11/09/16 11/09/16 11/10/16 15:00 23:00 07:00 Intake Total 450 ml 300 ml Output Total 300 ml Balance 150 ml 300 ml Results/Medications Result Diagram: 11/09/16 0647 11/09/16 0647 Results 24 hrs Laboratory Tests Test 11/09/16 12:17 11/09/16 17:09 11/09/16 20:42 11/10/16 02:17 Bedside Glucose 195 221 H 219 192 Test 11/10/16 07:46 Bedside Glucose 227 H Medications Current Medications Amlodipine Besylate (Norvasc) 5 mg BID PO Last administered on 11/09/16 20:50 ; Admin Dose 5 MG; Start 11/07/16 at 21:00 Apixaban (Eliquis) 2.5 mg BID PO Last administered on 11/09/16 20:51; Admin Dose 2.5 MG; Start 11/07/16 at 21:00 Docusate Sodium (Colace) 100 mg Q12H PRN PO CONSTIPATION; Start 11/07/16 at 19: 30 Docusate Sodium (Colace) 100 mg BID PO Last administered on 11/09/16 20:50; Admin Dose 100 MG; Start 11/07/16 at 21:00 Hydralazine HCl (Apresoline) 25 mg Q4H PRN PO ELEVATED SYSTOLIC BP; Start 11/07 at 20:00 Linagliptin (Tradjenta) 5 mg DAILY PO Last administered on 11/09/16 08:25; Admin Dose 5 MG; Start 11/08/16 at 09:00 Magnesium Hydroxide (Milk Of Mag) 30 ml DAILY PRN PO CONSTIPATION; Start at 20:00 Megestrol Acetate (Megace Susp) 400 mg BID PO Last administered on 11/09/16 20 :50; Admin Dose 400 MG; Start 11/07/16 at 21:00 Metoprolol Tartrate (Lopressor) 25 mg BID PO Last administered on 11/09/16 20: 51; Admin Dose 25 MG; Start 11/07/16 at 21:00 Nitroglycerin (Nitroglycerin (Sl Tab) 0.4 Mg) 1 tab [id number] PRN SL CHEST PAIN ; Start 11/07/16 at 20:00 Ondansetron HCl (Zofran Inj) 4 mg Q6H PRN IV NAUSEA AND/OR VOMITING; Start at 20:00 Pantoprazole (Protonix Tab) 40 mg DAILY@06 PO Last administered on 11/10/16 06 :04; Admin Dose 40 MG; Start 11/08/16 at 06:00 Senna (Senokot) 1 tab HS PO Last administered on 11/09/16 20:50; Admin Dose 1 TAB; Start 11/07/16 at 21:00 Acetaminophen (Tylenol Tab) 650 mg Q4H PRN PO PAIN Last administered on 14:39; Admin Dose 650 MG; Start 11/07/16 at 20:00 Bisacodyl (Dulcolax Supp) 10 mg DAILY PRN [place] CONSTIPATION; Start 11/07/16 at 20 :00 Lactulose (Enulose) 20 gm DAILY PRN PO CONSTIPATION; Start 11/07/16 at 20:00 Insulin Glargine (Lantus) 8 unit DAILY@20 SC Last administered on 11/09/16 21: 18; Admin Dose 8 UNIT; Start 11/09/16 at 20:00 Assessment/Plan Additional Assessment/Plan Rehab- Toxic metabolic encephalopathy superimposed on meningioma. Needs encouragement for activities. Continue rehab program Dysphagia. Congestive heart failure. Acute on chronic renal insufficiency. Urinary tract infection. Paroxysmal atrial fibrillation. Diabetes mellitus. Hypertension. Anemia History of heart block. TIM HORTON MD Nov 10, 2016 08:26
[2016-11-10] MEDS: INSULIN ASPART [NOVOLOG] 3 ML PEN SC SCH ×4 (08:31→21:15)
[2016-11-10] MEDS: DOCUSATE SODIUM 100 MG CAP PO SCH ×2 (08:31→21:10)
[2016-11-10] MEDS: MEGESTROL (40 MG/ML) 10ML CUP PO SCH ×2 (08:31→21:10)
[2016-11-10] MEDS: APIXABAN 5 MG TABLET PO SCH ×2 (08:33→21:11)
[2016-11-10] MEDS: AMLODIPINE 5 MG TAB PO SCH ×2 (08:34→21:11)
[2016-11-10] MEDS: METOPROLOL 25 MG TAB PO SCH ×2 (08:34→21:11)
[2016-11-10] MEDS: LINAGLIPTIN 5 MG TABLET PO SCH (08:34)
[2016-11-10 08:43] VITALS: BP 190/84; PULSE 97; RESP 18
--- NOTE | 2016-11-10 09:21 | CONS ---
Date/Time of Note Date/Time of Note DATE: 11/10/16 TIME: 09:19 Consult Date/Type/Reason Admit Date/Time Nov 07, 2016 at 16:51 Initial Consult Date Subjective The patient overnight, however, was stable on 2 liters nasal cannula. No hemoptysis, hematemesis, or hematochezia. continues good uo. poc reviewed with dr. lagos. OBJECTIVE: HEENT: Head is normocephalic. NECK: Supple. HEART: Regular rate. LUNGS: Positive expiratory wheezes, mild rhonchi, no rales noted. ABDOMEN: Soft, nontender to palpation. No rebound or guarding. EXTREMITIES: Negative for clubbing, cyanosis, no edema. DERMATOLOGIC: No rashes. MUSCULOSKELETAL: No joint effusions. NEUROLOGIC: No change in exam. Objective Vital Signs Date Time Temp Pulse Resp B/P Pulse Ox O2 Delivery O2 Flow Rate FiO2 11/10/16 08:43 97 18 190/84 97 Nasal Cannula 2.0 11/09/16 20:00 98.2 Intake and Output 11/09/16 11/09/16 11/10/16 15:00 23:00 07:00 Intake Total 450 ml 300 ml Output Total 300 ml Balance 150 ml 300 ml Results/Medications Result Diagram: 11/09/16 0647 11/09/16 0647 Results 24 hrs Laboratory Tests Test 11/09/16 12:17 11/09/16 17:09 11/09/16 20:42 11/10/16 02:17 Bedside Glucose 195 221 H 219 192 Test 11/10/16 07:46 Bedside Glucose 227 H Medications Current Medications Amlodipine Besylate (Norvasc) 5 mg BID PO Last administered on 11/10/16 08:34 ; Admin Dose 5 MG; Start 11/07/16 at 21:00 Apixaban (Eliquis) 2.5 mg BID PO Last administered on 11/10/16 08:33; Admin Dose 2.5 MG; Start 11/07/16 at 21:00 Docusate Sodium (Colace) 100 mg Q12H PRN PO CONSTIPATION; Start 11/07/16 at 19: 30 Docusate Sodium (Colace) 100 mg BID PO Last administered on 11/10/16 08:31; Admin Dose 100 MG; Start 11/07/16 at 21:00 Hydralazine HCl (Apresoline) 25 mg Q4H PRN PO ELEVATED SYSTOLIC BP; Start 11/07 at 20:00 Linagliptin (Tradjenta) 5 mg DAILY PO Last administered on 11/10/16 08:34; Admin Dose 5 MG; Start 11/08/16 at 09:00 Magnesium Hydroxide (Milk Of Mag) 30 ml DAILY PRN PO CONSTIPATION; Start at 20:00 Megestrol Acetate (Megace Susp) 400 mg BID PO Last administered on 11/10/16 08 :31; Admin Dose 400 MG; Start 11/07/16 at 21:00 Metoprolol Tartrate (Lopressor) 25 mg BID PO Last administered on 11/10/16 08: 34; Admin Dose 25 MG; Start 11/07/16 at 21:00 Nitroglycerin (Nitroglycerin (Sl Tab) 0.4 Mg) 1 tab [id number] PRN SL CHEST PAIN ; Start 11/07/16 at 20:00 Ondansetron HCl (Zofran Inj) 4 mg Q6H PRN IV NAUSEA AND/OR VOMITING; Start at 20:00 Pantoprazole (Protonix Tab) 40 mg DAILY@06 PO Last administered on 11/10/16 06 :04; Admin Dose 40 MG; Start 11/08/16 at 06:00 Senna (Senokot) 1 tab HS PO Last administered on 11/09/16 20:50; Admin Dose 1 TAB; Start 11/07/16 at 21:00 Acetaminophen (Tylenol Tab) 650 mg Q4H PRN PO PAIN Last administered on 14:39; Admin Dose 650 MG; Start 11/07/16 at 20:00 Bisacodyl (Dulcolax Supp) 10 mg DAILY PRN [place] CONSTIPATION; Start 11/07/16 at 20 :00 Lactulose (Enulose) 20 gm DAILY PRN PO CONSTIPATION; Start 11/07/16 at 20:00 Insulin Glargine (Lantus) 8 unit DAILY@20 SC Last administered on 11/09/16 21: 18; Admin Dose 8 UNIT; Start 11/09/16 at 20:00 Assessment/Plan Chief Complaint/Hosp Course ASSESSMENT AND PLAN: 1. Nonoliguric acute kidney injury on top of chronic kidney disease stage IV with previous baseline creatinine presumed to be around 3 mg/dL. Etiology of current acute kidney injury was secondary to hemodynamics, likely diuretic therapy. The patient's Lasix has been on hold. Creatinine has mildly improved in the last 24 hours. At this point, continue to hold diuretic therapy and monitor renal function closely. 2. Chronic kidney disease, stage IIIB/IV, with nephrotic range proteinuria. Etiology is likely secondary to diabetic nephropathy. The patient is currently in acute kidney injury as stated above. Continue current treatment plan. Continue disease factor modification, good glycemic and blood pressure control. 3. Acute congestive heart failure exacerbation. The patient appears clinically improved, holding diuretic therapy as worsening renal function. We will monitor closely. 4. Acute respiratory failure. Etiology is secondary to congestive heart failure, pneumonia, possible component of reactive airway disease. Continue nebulizer therapy. Continue supplemental oxygen. Continue antibiotic therapy. Holding diuretic therapy as stated above due to worsening renal function. 5. Anemia. Continue to monitor hemoglobin and hematocrit levels. 6. Hypernatremia. Continue to encourage free water intake. 7. Sepsis secondary to pneumonia. Continue current antibiotic regimen. 8. Encephalopathy, etiology toxic metabolic. The patient's mental status appears stable. 9. Diabetes. Continue Accu-Cheks and sliding scale. 10. Paroxysmal atrial fibrillation. Continue current medical management and monitor. Problems: HANK GARCÍA MD Nov 10, 2016 09:20
[2016-11-10 11:10] LABS: POTASSIUM 4.2 mmol/L (3.5-5.1)
[2016-11-10 11:13] LABS: CREATININE 3.46 mg/dl (0.44-1.00)
[2016-11-10 11:14] LABS: CALCIUM 8.5 mg/dl (8.4-10.2); MAGNESIUM 2.1 mg/dl (1.7-2.5); PHOSPHORUS 3.9 mg/dl (2.5-4.9)
[2016-11-10] MEDS: ACETAMINOPHEN 325 MG TAB PO PRN (13:24)
--- NOTE | 2016-11-10 14:51 | PN ---
DATE: 11/10/2016 SUBJECTIVE: Patient seen lying in bed comfortably. She stated she had some back pain, now better. The patient denies any shortness of breath. Noted nephrology input. Blood pressure slightly eleva hitesh today. PHYSICAL EXAMINATION: VITAL SIGNS: Temperature 98.2, pulse 97, respirations 18, blood pressure 190/84, saturation 97% on 2 liters. GENERAL: The patient is in no distress. The patient is pale. The patient has dentures. No lympha denopathy. CARDIOVASCULAR: Positive S1 and S2, regular rate. LUNGS: Decreased bilaterally. ABDOMEN: Soft, nontender. EXTREMITIES: No clubbing, cyanosis, or edema. LABORATORY DATA: White count is 9.4 with hemoglobin of 9.5 yesterday. Basic metabolic panel: [place] um 145, potassium 4.2, chloride 109, bicarbonate 24, BUN 40, creatinine 3.46, glucose of 132. Last glucose level 130. This BNP is from today. Urine culture negative. MRSA of the nares negative. MEDICATIONS: Include: 1. Lantus 8 units every day. 2. Tradjenta 5 mg daily. 3. Protonix 40 mg daily. 4. Norvasc 5 mg b.i.d. 5. Eliquis 2.5 b.i.d. 6. Colace 100 b.i.d. 7. Insulin aspart per sliding scale. 8. Megace 400 b.i.d. 9. Lopressor 25 b.i.d. 10. Senna 1 tab at bedtime. 11. Hydralazine p.r.n. 12. Milk of magnesia p.r.n. 13. Nitroglycerin p.r.n. 14. Zofran p.r.n. 15. Tylenol p.r.n. 16. Dulcolax p.r.n. 17. Lactulose p.r.n. 18. DuoNeb p.r.n. 19. Colace p.r.n. ASSESSMENT AND PLAN: This is an 85-year-old [place] female with history of diastolic dysfunction, heart failure, paroxysmal atrial fibrillation, heart block, diabetes mellitus, chronic kidney diseas e stage IV, anemia, osteoarthritis who was admitted recently for CHF exacerbation, and mild urinary tract infection and pneumonia. In addition, she has been declining over the past few weeks with cornelia oing weight loss and more withdrawn in general. 1. Respiratory. Stable. Diuretic therapy is on hold secondary to worsening kidney function. Clin ically appears to be euvolemic. 2. Cardiovascular. The patient with tendency to tachycardia on beta blockers. Cardiology to cammie santo May consider possible digoxin to lower patient's heart rate. Cardiology continues to follow. C kaye Lexyshurichie as patient has paroxysmal atrial fibrillation. May need to start her on hydralazine routine, as blood pressure is more elevated today. Continue with low salt diet. 3. Decreased p.o. intake. Continue Megace. Monitor weight. Monitor p.o. intake. 4. Continue deep vein thrombosis prophylaxis and gastrointestinal prophylaxis. 5. Acute on chronic renal insufficiency, now off diuretic therapy, continue to monitor electrolytes . Nephrology is following closely. Currently, no indication for hemodialysis. 8. May consider antidepressants. The patient does have a depressed mood. May benefit from psychol ogy/psychiatry followup. 9. Diabetes mellitus, currently glucose level in the low 100s. Continue Levemir 18 units at night and Tradjenta daily. 10. Generalized weakness, debilitated state, undergoing physical therapy, help with activities of d aily living. Make sure patient is comfortable. We will follow. Dictated By: ROXANA JEFFRIES/DESTINY Conf#: [id number] DID#: [id number]
[2016-11-10 21:00] VITALS: BP 150/62; PULSE 96; RESP 21
[2016-11-10] MEDS: SENNA TAB PO SCH (21:10)
[2016-11-10] MEDS: INSULIN GLARGINE [LANtus] 3 ML PEN SC SCH (21:16)
[2016-11-11] MEDS: PANTOPRAZOLE (EC) 40 MG TAB PO SCH (05:25)
[2016-11-11] MEDS: INSULIN ASPART [NOVOLOG] 3 ML PEN SC SCH ×7 (07:35→20:52)
[2016-11-11 08:19] VITALS: BP 149/87; PULSE 95; RESP 20
[2016-11-11] MEDS: DOCUSATE SODIUM 100 MG CAP PO SCH ×2 (09:00→20:47)
[2016-11-11] MEDS: MEGESTROL (40 MG/ML) 10ML CUP PO SCH ×2 (09:20→20:46)
[2016-11-11] MEDS: APIXABAN 5 MG TABLET PO SCH ×2 (09:20→20:48)
[2016-11-11] MEDS: METOPROLOL 25 MG TAB PO SCH ×2 (09:20→20:47)
[2016-11-11] MEDS: LINAGLIPTIN 5 MG TABLET PO SCH (09:21)
[2016-11-11] MEDS: AMLODIPINE 5 MG TAB PO SCH ×2 (09:21→20:47)
--- NOTE | 2016-11-11 11:42 | CONS ---
Date/Time of Note Date/Time of Note DATE: 11/11/16 TIME: 11:42 Consult Date/Type/Reason Admit Date/Time Nov 07, 2016 at 16:51 Subjective The patient overnight, however, was stable on 2 liters nasal cannula. No hemoptysis, hematemesis, or hematochezia. continues good uo. poc reviewed with dr. lagos. OBJECTIVE: HEENT: Head is normocephalic. NECK: Supple. HEART: Regular rate. LUNGS: Positive expiratory wheezes, mild rhonchi, no rales noted. ABDOMEN: Soft, nontender to palpation. No rebound or guarding. EXTREMITIES: Negative for clubbing, cyanosis, no edema. DERMATOLOGIC: No rashes. MUSCULOSKELETAL: No joint effusions. NEUROLOGIC: No change in exam Objective Vital Signs Date Time Temp Pulse Resp B/P Pulse Ox O2 Delivery O2 Flow Rate FiO2 11/11/16 08:33 Nasal Cannula 2.0 11/11/16 08:19 98.4 95 20 149/87 100 Intake and Output 11/10/16 11/10/16 11/11/16 15:00 23:00 07:00 Intake Total 240 ml Balance 240 ml Results/Medications Result Diagram: 11/09/16 0647 11/10/16 1047 Results 24 hrs Laboratory Tests Test 11/10/16 11:46 11/10/16 16:51 11/10/16 20:15 11/11/16 02:31 Bedside Glucose 130 252 H 319 H 106 Test 11/11/16 07:45 Bedside Glucose 126 Medications Current Medications Amlodipine Besylate (Norvasc) 5 mg BID PO Last administered on 11/11/16 09:21 ; Admin Dose 5 MG; Start 11/07/16 at 21:00 Apixaban (Eliquis) 2.5 mg BID PO Last administered on 11/11/16 09:20; Admin Dose 2.5 MG; Start 11/07/16 at 21:00 Docusate Sodium (Colace) 100 mg Q12H PRN PO CONSTIPATION; Start 11/07/16 at 19: 30 Docusate Sodium (Colace) 100 mg BID PO Last administered on 11/10/16 21:10; Admin Dose 100 MG; Start 11/07/16 at 21:00 Hydralazine HCl (Apresoline) 25 mg Q4H PRN PO ELEVATED SYSTOLIC BP; Start 11/07 at 20:00 Linagliptin (Tradjenta) 5 mg DAILY PO Last administered on 11/11/16 09:21; Admin Dose 5 MG; Start 11/08/16 at 09:00 Magnesium Hydroxide (Milk Of Mag) 30 ml DAILY PRN PO CONSTIPATION; Start at 20:00 Megestrol Acetate (Megace Susp) 400 mg BID PO Last administered on 11/11/16 09 :20; Admin Dose 400 MG; Start 11/07/16 at 21:00 Metoprolol Tartrate (Lopressor) 25 mg BID PO Last administered on 11/11/16 09: 20; Admin Dose 25 MG; Start 11/07/16 at 21:00 Nitroglycerin (Nitroglycerin (Sl Tab) 0.4 Mg) 1 tab [id number] PRN SL CHEST PAIN ; Start 11/07/16 at 20:00 Ondansetron HCl (Zofran Inj) 4 mg Q6H PRN IV NAUSEA AND/OR VOMITING; Start at 20:00 Pantoprazole (Protonix Tab) 40 mg DAILY@06 PO Last administered on 11/11/16 05 :25; Admin Dose 40 MG; Start 11/08/16 at 06:00 Senna (Senokot) 1 tab HS PO Last administered on 11/10/16 21:10; Admin Dose 1 TAB; Start 11/07/16 at 21:00 Acetaminophen (Tylenol Tab) 650 mg Q4H PRN PO PAIN Last administered on 13:24; Admin Dose 650 MG; Start 11/07/16 at 20:00 Bisacodyl (Dulcolax Supp) 10 mg DAILY PRN [place] CONSTIPATION; Start 11/07/16 at 20 :00 Lactulose (Enulose) 20 gm DAILY PRN PO CONSTIPATION; Start 11/07/16 at 20:00 Insulin Glargine (Lantus) 8 unit DAILY@20 SC Last administered on 11/10/16 21: 16; Admin Dose 8 UNIT; Start 11/09/16 at 20:00 Assessment/Plan Chief Complaint/Hosp Course ASSESSMENT AND PLAN: 1. Nonoliguric acute kidney injury on top of chronic kidney disease stage IV with previous baseline creatinine presumed to be around 3 mg/dL. Etiology of current acute kidney injury was secondary to hemodynamics, likely diuretic therapy. The patient's Lasix has been on hold. Creatinine has mildly improved in the last 24 hours. At this point, continue to hold diuretic therapy and monitor renal function closely. 2. Chronic kidney disease, stage IIIB/IV, with nephrotic range proteinuria. Etiology is likely secondary to diabetic nephropathy. The patient is currently in acute kidney injury as stated above. Continue current treatment plan. Continue disease factor modification, good glycemic and blood pressure control. 3. Acute congestive heart failure exacerbation. The patient appears clinically improved, holding diuretic therapy as worsening renal function. We will monitor closely. 4. Acute respiratory failure. Etiology is secondary to congestive heart failure, pneumonia, possible component of reactive airway disease. Continue nebulizer therapy. Continue supplemental oxygen. Continue antibiotic therapy. Holding diuretic therapy as stated above due to worsening renal function. 5. Anemia. Continue to monitor hemoglobin and hematocrit levels. 6. Hypernatremia. Continue to encourage free water intake. 7. Sepsis secondary to pneumonia. Continue current antibiotic regimen. 8. Encephalopathy, etiology toxic metabolic. The patient's mental status appears stable. 9. Diabetes. Continue Accu-Cheks and sliding scale. 10. Paroxysmal atrial fibrillation. Continue current medical management and monitor. Problems: HANK GARCÍA MD Nov 11, 2016 11:42
--- NOTE | 2016-11-11 17:49 | PN ---
DATE: 11/11/2016 SUBJECTIVE: Patient seen at bedside, currently with no complaints, lying in bed comfortably. Case discussed with nursing staff. PHYSICAL EXAMINATION: VITAL SIGNS: The patient is afebrile. Temperature 98.4, pulse is 95. Still remains with heart rat e in the high normal range, respirations 20, blood pressure 149/87, saturation is 100% on 2 liters. GENERAL: The patient is in no acute distress. The patient is pale. HEENT: Decreased dentition. She has dentures. CARDIOVASCULAR: S1 and S2. LUNGS: Decreased bilaterally, the patient has faint wheezing. ABDOMEN: Soft, nontender. EXTREMITIES: No clubbing, cyanosis, or edema. LABORATORY DATA: No new labs today. Labs on 11/09/2016 were all reviewed. Last glucose levels imp roved 131, 126 and 106, as I started her on around the clock NovoLog as patient's glucose levels wer e noted to be higher yesterday evening. Case discussed with nursing staff. MEDICATIONS: Include: 1. Insulin aspart 4 units q.a.c. meals. 2. Lantus 8 units daily. 3. Tradjenta 5 mg daily. 4. Protonix 40 mg daily. 5. Norvasc 5 mg b.i.d. 6. Eliquis 2.5 b.i.d. 7. Colace 100 b.i.d. 8. Insulin aspart per sliding scale. 9. Megace 400 b.i.d. 10. Lopressor 25 b.i.d. 11. Senna 1 tab at bedtime. 12. Hydralazine p.r.n. 13. Milk of magnesia p.r.n. 14. Nitroglycerin p.r.n. 15. Zofran p.r.n. 16. Hypoglycemia protocol p.r.n. 17. Lactulose p.r.n. 18. DuoNebs p.r.n. 19. Colace p.r.n. ASSESSMENT AND PLAN: This is an 85-year-old Filip[place] female with history of diastolic dysfunction, heart failure, paroxysmal atrial fibrillation, heart block, diabetes mellitus, chronic kidney diseas e stage IV, anemia, osteoarthritis who was admitted recently for CHF exacerbation and mild urinary t ract infection and pneumonia. She has been unfortunately declining over the past few weeks with cornelia oing weight loss and appears to be more withdrawn. 1. Respiratory. Stable status post diuretic therapy and treat with antibiotics and breathing treat ments. Observe. 2. Cardiovascular. Patient with history of tachycardia on beta blockers previously, history of hea rt block. Previously was recommended to undergo pacemaker placement. Until now she refused, but no w family may consider it but the patient is too weak. Cardiology to follow and further recommendati ons to follow. 3. Decreased p.o. intake is improved on Megace. Monitor weight. Monitor p.o. intake. 4. Continue deep vein thrombosis prophylaxis and gastrointestinal prophylaxis. 5. Acute on chronic renal insufficiency. Monitor electrolytes. 6. The patient has stage IV chronic kidney disease. Follow up a.m. labs. The patient recently was on diuretic therapy with slightly worsened kidney function. 7. May consider antidepressants may benefit from psychology or psychiatry followup. May consider S SRI. 8. Diabetes mellitus, improved with above regimen of NovoLog 4 units q.a.c. meals and Lantus 8 unit s at bedtime. Continue Tradjenta, as well. 9. Generalized weakness, debilitated state and ongoing decline over the past few weeks. Undergoing physical therapy, occupational therapy, help with activities of daily living. The patient's daught er, Edwige, is well aware of the patient's condition and plan of care. We will follow. Dictated By: ROXANA JEFFRIES/DESTINY Conf#: [id number] DID#: [id number]
[2016-11-11 19:49] VITALS: BP 144/65; RESP 18
[2016-11-11] MEDS: SENNA TAB PO SCH (20:47)
[2016-11-11] MEDS: INSULIN GLARGINE [LANtus] 3 ML PEN SC SCH (20:51)
[2016-11-12] MEDS: PANTOPRAZOLE (EC) 40 MG TAB PO SCH (06:21)
[2016-11-12 06:31] LABS: ADD SCAN DIFF NO
[2016-11-12 06:52] LABS: BASOPHIL # 0.1 10^3/ul (0.0-0.1); EOSINOPHILS # 0.2 10^3/ul (0.0-0.5); EOSINOPHILS % 2.3 % (0.0-7.0); HEMATOCRIT 31.3 % (37.0-47.0); LYMPHOCYTES # 1.5 10^3/ul (0.8-2.9); MAGNESIUM 2.1 mg/dl (1.7-2.5); MEAN CORPUSCULAR HEMOGLOBIN 29.8 pg (29.0-33.0); MEAN CORPUSCULAR HGB CONC 31.9 g/dl (32.0-37.0); MEAN CORPUSCULAR VOLUME 93.2 fl (82.0-101.0); MEAN PLATELET VOLUME 9.7 fl (7.4-10.4); MONOCYTE # 0.6 10^3/ul (0.3-0.9); MONOCYTES % 8.7 % (0.0-11.0); NEUTROPHIL # 4.9 10^3/ul (1.6-7.5); NEUTROPHILS % 67.6 % (39.0-77.0); NUCLEATED RED BLOOD CELLS% 0.3 /100WBC (0.0-0.0); PHOSPHORUS 4.3 mg/dl (2.5-4.9); PLATELET COUNT 415 10^3/UL (140-415); RED BLOOD COUNT 3.36 10^6/ul (4.20-5.40); RED CELL DISTRIBUTION WIDTH 18.5 % (11.5-14.5); WHITE BLOOD COUNT 7.3 10^3/ul (4.8-10.8)
[2016-11-12 06:53] LABS: POTASSIUM 4.9 mmol/L (3.5-5.1)
[2016-11-12 06:55] LABS: CREATININE 3.75 mg/dl (0.44-1.00)
[2016-11-12 06:56] LABS: CALCIUM 8.6 mg/dl (8.4-10.2)
[2016-11-12 07:30] VITALS: BP 161/74; RESP 18
[2016-11-12] MEDS: INSULIN ASPART [NOVOLOG] 3 ML PEN SC SCH ×7 (07:35→21:21)
[2016-11-12] MEDS: MEGESTROL (40 MG/ML) 10ML CUP PO SCH ×2 (08:39→21:08)
[2016-11-12] MEDS: APIXABAN 5 MG TABLET PO SCH ×2 (08:39→21:23)
[2016-11-12] MEDS: AMLODIPINE 5 MG TAB PO SCH ×2 (08:39→21:10)
[2016-11-12] MEDS: LINAGLIPTIN 5 MG TABLET PO SCH (08:40)
[2016-11-12] MEDS: DOCUSATE SODIUM 100 MG CAP PO SCH ×2 (08:40→21:10)
[2016-11-12] MEDS: METOPROLOL 25 MG TAB PO SCH ×2 (08:40→21:09)
[2016-11-12] MEDS: ALBUTEROL/IPRATROPIUM (NEB) 3 ML AMP NEB PRN (09:26)
[2016-11-12] MEDS ORDERED: AL HYDROX/MG HYDROX/SIMETH 30 ML CUP PO PRN ×2 (12:00)
--- NOTE | 2016-11-12 12:05 | CONS ---
Date/Time of Note Date/Time of Note DATE: 11/12/16 TIME: 12:04 Consult Date/Type/Reason Admit Date/Time Nov 07, 2016 at 16:51 Subjective Nausea/vomitting this morning Objective Vital Signs Date Time Temp Pulse Resp B/P Pulse Ox O2 Delivery O2 Flow Rate FiO2 11/12/16 09:26 90 24 98 21 11/11/16 22:28 Nasal Cannula 2.0 11/11/16 19:49 98.2 144/65 Intake and Output 11/11/16 11/11/16 11/12/16 15:00 23:00 07:00 Intake Total 1180 ml 240 ml Output Total 200 ml 150 ml Balance 980 ml 90 ml INTERDISCIPLINARY TEAM CONFERENCE BOWEL- Cont BLADDER-Cont/incont SKIN- intact OT- DRESSING-mod BATHING-mod TOILETING-mod PT- BED MOBILITY-mod TRANSFERS-mod AMBULATION-mod SPEECH- COGNITION-mod DYPHAGIA A/P- Interdisciplinary team conference held today. Please see interdisciplinary sheet. Working toward d.c. on 11/16 with post discharge follow up of physical therapy, occupational therapy. Results/Medications Result Diagram: 11/12/16 0615 11/12/16 0500 Results 24 hrs Laboratory Tests Test 11/11/16 12:17 11/11/16 17:21 11/11/16 20:36 11/12/16 02:17 Bedside Glucose 131 163 229 H 155 Test 11/12/16 05:00 11/12/16 06:15 11/12/16 07:34 Anion Gap 16 Blood Urea Nitrogen 50 H Calcium Level 8.6 Carbon Dioxide Level 23 Chloride Level 111 H Creatinine 3.75 H Glucose Level 115 Potassium Level 4.9 Sodium Level 145 H Basophils # 0.1 Basophils % 1.0 Eosinophils # 0.2 Eosinophils % 2.3 Hematocrit 31.3 L Hemoglobin 10.0 L Lymphocytes # 1.5 Lymphocytes % 20.0 Magnesium Level 2.1 Mean Corpuscular Hemoglobin 29.8 Mean Corpuscular Hemoglobin Concent 31.9 L Mean Corpuscular Volume 93.2 Mean Platelet Volume 9.7 Monocytes # 0.6 Monocytes % 8.7 Neutrophils # 4.9 Neutrophils % 67.6 Nucleated Red Blood Cells # 0.0 Nucleated Red Blood Cells % 0.3 H Phosphorus Level 4.3 Platelet Count 415 Red Blood Count 3.36 L Red Cell Distribution Width 18.5 H White Blood Count 7.3 # Bedside Glucose 108 Medications Current Medications Amlodipine Besylate (Norvasc) 5 mg BID PO Last administered on 11/12/16 08:39 ; Admin Dose 5 MG; Start 11/07/16 at 21:00 Apixaban (Eliquis) 2.5 mg BID PO Last administered on 11/12/16 08:39; Admin Dose 2.5 MG; Start 11/07/16 at 21:00 Docusate Sodium (Colace) 100 mg Q12H PRN PO CONSTIPATION; Start 11/07/16 at 19: 30 Docusate Sodium (Colace) 100 mg BID PO Last administered on 11/12/16 08:40; Admin Dose 100 MG; Start 11/07/16 at 21:00 Hydralazine HCl (Apresoline) 25 mg Q4H PRN PO ELEVATED SYSTOLIC BP; Start 11/07 at 20:00 Linagliptin (Tradjenta) 5 mg DAILY PO Last administered on 11/12/16 08:40; Admin Dose 5 MG; Start 11/08/16 at 09:00 Magnesium Hydroxide (Milk Of Mag) 30 ml DAILY PRN PO CONSTIPATION; Start at 20:00 Megestrol Acetate (Megace Susp) 400 mg BID PO Last administered on 11/12/16 08 :39; Admin Dose 400 MG; Start 11/07/16 at 21:00 Metoprolol Tartrate (Lopressor) 25 mg BID PO Last administered on 11/12/16 08: 40; Admin Dose 25 MG; Start 11/07/16 at 21:00 Nitroglycerin (Nitroglycerin (Sl Tab) 0.4 Mg) 1 tab [id number] PRN SL CHEST PAIN ; Start 11/07/16 at 20:00 Ondansetron HCl (Zofran Inj) 4 mg Q6H PRN IV NAUSEA AND/OR VOMITING Last administered on 11/12/16 08:57; Admin Dose 4 MG; Start 11/07/16 at 20:00 Pantoprazole (Protonix Tab) 40 mg DAILY@06 PO Last administered on 11/12/16 06 :21; Admin Dose 40 MG; Start 11/08/16 at 06:00 Senna (Senokot) 1 tab HS PO Last administered on 11/11/16 20:47; Admin Dose 1 TAB; Start 11/07/16 at 21:00 Acetaminophen (Tylenol Tab) 650 mg Q4H PRN PO PAIN Last administered on 13:24; Admin Dose 650 MG; Start 11/07/16 at 20:00 Bisacodyl (Dulcolax Supp) 10 mg DAILY PRN [place] CONSTIPATION; Start 11/07/16 at 20 :00 Lactulose (Enulose) 20 gm DAILY PRN PO CONSTIPATION; Start 11/07/16 at 20:00 Insulin Glargine (Lantus) 8 unit DAILY@20 SC Last administered on 11/11/16 20: 51; Admin Dose 8 UNIT; Start 11/09/16 at 20:00 Al Hydrox/Mg Hydrox/Simethicone (Mag-Al Plus) 30 ml BID PRN PO GASTROINTESTINAL UPSET; Start 11/12/16 at 12:00 TIM HORTON MD Nov 12, 2016 12:05
--- NOTE | 2016-11-12 12:55 | RADRPT ---
PROCEDURE: CHEST 1VW CLINICAL INDICATION: Shortness of breath TECHNIQUE: Single frontal view of the chest was obtained COMPARISON: 11/04/2016 FINDINGS: The cardiac size is mild to moderately enlarged. Aortic vascular calcifications are demonstrated. There is mild pulmonary vascular congestion. The lungs are otherwise clear. No consolidation, effusion, or pneumothorax. Mild degenerative changes of the visualized osseous structures are visualized. IMPRESSION: 1. Stable cardiomegaly with stable mild pulmonary vascular congestion. 2. Atherosclerosis. RPTAT:PP .Gary Montero MD, MD Date Time Electronically viewed and signed by .Gary Montero MD, MD on 11/12/2016 12:55 .V/
--- NOTE | 2016-11-12 15:13 | PN ---
DATE: 11/12/2016 SUBJECTIVE: This morning, the patient has noted to be coughing with active wheezing. No other even ts noted. No hemoptysis, hematemesis. OBJECTIVE: VITAL SIGNS: Blood pressure is 144/65, respiration 18, pulse 97, temperature 98.2. HEENT: Head is normocephalic. NECK: Supple. HEART: Regular rate. LUNGS: Showed mild diminished breath sounds at base. Positive audible wheezing. EXTREMITIES: Negative for clubbing, cyanosis, no edema. DERMATOLOGIC: No rashes. MUSCULOSKELETAL: No joint effusions. NEUROLOGIC: No change on exam. MEDICATIONS: The patient's medications have been reviewed. LABORATORY DATA: Shows a sodium 145, potassium ____, chloride 111, BUN 50, creatinine 3.75. White count 7.3, hemoglobin 10.0, hematocrit 31.3, platelet count 450. ASSESSMENT AND PLAN: 1. Nonoliguric acute kidney injury on top of chronic kidney disease stage IV with a previous baseli ne creatinine presumed to be around 3 mg/dL. Etiology of acute kidney injury is multifactorial sec ondary to acute tubular necrosis and hemodynamics. The patient's renal function has declined over t he last 24 to 48 hours and this may be due to underlying hemodynamics. At this point, plan would be to encourage free water intake. Will repeat urinalysis. Will otherwise continue supportive care, renally dose all meds, avoid nephrotoxins. There is no immediate need for renal replacement therapy at this time. 2. Hypernatremia. The patient has free water deficit of approximately 1 liter. Would encourage to increase free water intake. 3. Chronic kidney disease, stage IIIB/IV with nephrotic range proteinuria. Etiology is likely seco ndary to diabetic nephropathy. The patient is currently in acute kidney injury as stated above. Co ntinue current treatment plan. Continue disease factor modification. 4. Congestive heart failure exacerbation. The patient appears clinically improved. Will hold diur etic therapy. We will repeat an x-ray. 5. Acute respiratory failure secondary to congestive heart failure exacerbation, pneumonia and reac tive airway disease. The patient has no wheezing on exam. Continue nebulizer therapy, holding diur etic therapy at this time. 6. Anemia. Continue to monitor hemoglobin and hematocrit. 7. Sepsis secondary to pneumonia. Patient is completing antibiotic course. 9. Follow up encephalopathy, etiology is toxic metabolic. Continue to monitor. 10. Diabetes, continue Accu-Cheks and sliding scale. 11. Paroxysmal atrial fibrillation. Continue current medical management. Dictated By: TIFFANIE MCHUGH/DESTINY Conf#: [id number] DID#: [id number]
[2016-11-12 20:21] VITALS: BP 145/67; RESP 20
[2016-11-12] MEDS: SENNA TAB PO SCH (21:11)
[2016-11-12] MEDS: INSULIN GLARGINE [LANtus] 3 ML PEN SC SCH (21:19)
[2016-11-13] MEDS: PANTOPRAZOLE (EC) 40 MG TAB PO SCH (05:47)
[2016-11-13 06:41] LABS: ADD SCAN DIFF NO
[2016-11-13 06:45] LABS: BASOPHIL # 0.1 10^3/ul (0.0-0.1); BASOPHILS % 0.9 % (0.0-2.0); EOSINOPHILS # 0.2 10^3/ul (0.0-0.5); EOSINOPHILS % 3.1 % (0.0-7.0); HEMATOCRIT 30.1 % (37.0-47.0); HEMOGLOBIN 9.5 g/dl (12.0-16.0); LYMPHOCYTES # 1.4 10^3/ul (0.8-2.9); LYMPHOCYTES % 19.3 % (15.0-51.0); MEAN CORPUSCULAR HGB CONC 31.6 g/dl (32.0-37.0); MEAN PLATELET VOLUME 9.4 fl (7.4-10.4); MONOCYTE # 0.7 10^3/ul (0.3-0.9); MONOCYTES % 9.9 % (0.0-11.0); NEUTROPHIL # 4.7 10^3/ul (1.6-7.5); NEUTROPHILS % 66.4 % (39.0-77.0); PLATELET COUNT 403 10^3/UL (140-415); RED BLOOD COUNT 3.17 10^6/ul (4.20-5.40); RED CELL DISTRIBUTION WIDTH 18.4 % (11.5-14.5); WHITE BLOOD COUNT 7.1 10^3/ul (4.8-10.8)
[2016-11-13 07:00] VITALS: BP 164/74; RESP 18
[2016-11-13 07:10] LABS: CREATININE 4.18 mg/dl (0.44-1.00)
[2016-11-13 07:11] LABS: CALCIUM 8.3 mg/dl (8.4-10.2); MAGNESIUM 2.1 mg/dl (1.7-2.5); PHOSPHORUS 5.1 mg/dl (2.5-4.9)
--- NOTE | 2016-11-13 07:57 | PN ---
DATE: 11/12/2016 The nursing staff reported the patient had episodes of nausea and vomiting, possibly due to dyspepsi a. In addition, they were concerned about possible aspiration. Video swallow was ordered. The pat ient is being monitored. The patient upon evaluation of the patient, the patient with no complaints , appears to be comfortable. PHYSICAL EXAMINATION: VITAL SIGNS: Temperature 98.1, pulse 90, respirations 24, blood pressure 161/74, saturation 98% on room air. GENERAL: The patient is pale, in no distress. HEENT: The patient has dentures. CARDIOVASCULAR: S1 and S2. LUNGS: Clear. ABDOMEN: Soft, nontender. EXTREMITIES: No clubbing, cyanosis, or edema. LABORATORY DATA: White count 7.2, hemoglobin 10, hematocrit 31, platelet count is 415. Normal diff erential. Chemistry: Sodium is 145, potassium 4.9, chloride 111, bicarbonate 23, BUN is 50, creati nine 3.75. Actually, her kidney function has worsened. Glucose of 199. MEDICATIONS: Include 1. Milk of Magnesia 30 mL p.r.n. 2. Insulin aspart 4 units q.a.c. meals. 3. Insulin Lantus 8 units daily. 4. Tradjenta 5 mg daily. 5. Protonix 40 mg daily. 6. Norvasc 5 mg b.i.d. 7. Eliquis 2.5 b.i.d. 8. Colace 100 b.i.d. 9. Insulin aspart per sliding scale. 10. Megace 400 b.i.d. 11. Lopressor 25 b.i.d. 12. Senna 1 tab at bedtime. 13. Hydralazine p.r.n. 14. Milk of magnesia p.r.n. 15. Zofran p.r.n. 16. Tylenol p.r.n. 17. Lactulose p.r.n. 18. DuoNebs p.r.n. 19. Colace p.r.n. ASSESSMENT AND PLAN: This is an 85-year-old Filip[place] female with history of diastolic dysfunction h eart failure, paroxysmal atrial fibrillation, heart, diabetes mellitus, chronic kidney disease stage IV, anemia, osteoarthritis who was admitted recently with congestive heart failure exacerbation and mild urinary tract infection and pneumonia. Unfortunately, she has been declining with increased w eight loss, decreased p.o. intake, more withdrawn. 1. Respiratory. We will follow up video swallow to make sure she does not aspirate. The patient a gain as mentioned above is more weak in the past few weeks. 2. Cardiovascular: Continue medical management. The patient is on beta blockers, Eliquis, Norvasc and p.r.n. hydralazine. 3. Diabetes mellitus. Accu-Cheks are as follows: 199, 106, 108, will continue the same regimen. 4. Stage IV renal chronic kidney disease with worsening today. Urine studies were obtained. We wi ll follow. I prefer not to hydrate her as she goes easily into congestive heart failure, again, we will follow. 5. May consider antidepressant as she has slightly flat affect. May benefit from SSRI. 6. Generalized weakness, undergoing physical therapy and occupational therapy. We will follow. Dictated By: ROXANA JEFFRIES/DESTINY Conf#: [id number] DID#: [id number] CC: TIM HORTON MD;*EndCC*
--- NOTE | 2016-11-13 07:58 | PN ---
DATE: 11/12/2016 CARDIOLOGY FOLLOWUP PROGRESS NOTE SUBJECTIVE: Discussed with the staff. The patient with no reported chest pain or pressure has been weak today and tired after exercise. MEDICATIONS: Reviewed. OBJECTIVE: VITAL SIGNS: Temperature 98.8, heart rate 78, blood pressure 145/65, respiration rate of 20. HEENT: Normocephalic, atraumatic. Pupils are equal. CARDIOVASCULAR: Regular rate and rhythm. PULMONARY: No wheezes. GASTROINTESTINAL: Soft. EXTREMITIES: Trivial edema. NEUROLOGIC: Awake. LABORATORY: Sodium 145, potassium 4.9, BUN of 50, creatinine 3.75, glucose 115. ASSESSMENT AND PLAN: 1. History of heart block, currently appears to be stable. 2. Renal failure. 3. Hypertension. 4. Anemia. 5. Debility. 6. Diabetes. 7. Paroxysmal atrial fibrillation. RECOMMENDATIONS: We will continue with the current cardiac care. Dictated By: SUNDAR MAHER/DESTINY Conf#: [id number] DID#: [id number]
[2016-11-13] MEDS: INSULIN ASPART [NOVOLOG] 3 ML PEN SC SCH ×7 (08:38→20:56)
[2016-11-13] MEDS: APIXABAN 5 MG TABLET PO SCH ×2 (08:40→20:58)
[2016-11-13] MEDS: DOCUSATE SODIUM 100 MG CAP PO SCH ×2 (08:40→20:57)
[2016-11-13] MEDS: AMLODIPINE 5 MG TAB PO SCH ×2 (08:41→20:57)
[2016-11-13] MEDS: LINAGLIPTIN 5 MG TABLET PO SCH (08:41)
[2016-11-13] MEDS: MEGESTROL (40 MG/ML) 10ML CUP PO SCH ×2 (08:42→20:56)
[2016-11-13] MEDS: METOPROLOL 25 MG TAB PO SCH ×2 (09:25→20:58)
--- NOTE | 2016-11-13 10:45 | PN ---
DATE: 11/13/2016 SUBJECTIVE: The patient is stable. Patient does have episodes of confusion. Yesterday the patient had some shortness of breath that has improved. No other events noted. OBJECTIVE: VITAL SIGNS: Blood pressure 145/67, respirations 20, pulse 78, temperature 98.8. HEENT: Head is normocephalic. NECK: Supple. HEART: Regular rate. LUNGS: Show diminished breath sounds at base. ABDOMEN: Soft, nontender to palpation. No rebound or guarding. EXTREMITIES: Negative for clubbing, cyanosis, no edema. DERMATOLOGIC: No rashes. MUSCULOSKELETAL: No joint effusions. NEUROLOGIC: No change in exam. MEDICATIONS: The patient's medications have been reviewed. LABORATORY DATA: Shows a white count 7.1, hemoglobin 9.5, hematocrit 30.1, platelet count is 403. Sodium 144, potassium 5.0, chloride 108, BUN 55, creatinine 4.18, phosphorus 5.1. ASSESSMENT AND PLAN: 1. Nonoliguric acute kidney injury on top of chronic kidney disease stage IV with a previous baseli ne creatinine presumed to be around 3 mg/dL. Etiology of acute kidney injury is secondary to acute tubular necrosis. The patient's urinalysis does show coarse granular casts. The patient's renal fu nction continues to decline as the patient is likely in injury phase of acute tubular necrosis. Pos sible hemodynamic component is also a consideration. At this point, we will give the patient an alb umin challenge with 100 mL q. 8 hours for 3 doses. Will repeat a urinalysis, repeat urine electroly eloy. Otherwise, continue supportive care, renally dose meds, avoid nephrotoxins, there is no immedi ate need for renal replacement therapy at this time, but if renal functions further decline and the patient should develop overt uremic symptoms dialysis may be necessary. 2. Hyponatremia, improved. Continue current free water intake. 3. Chronic kidney disease, stage IV, with nephrotic range proteinuria. Etiology is likely due to d iabetic nephropathy. The patient is currently in acute kidney injury as stated above. Continue cur rent treatment plan. Continue disease factor modification. 4. History of congestive heart failure and the patient appears compensated. Will give gentle fluid challenge. Monitor I's and O's closely. 4. Respiratory failure secondary to reactive airway disease, pneumonia and the patient is status po st chest x-ray yesterday. No acute findings. We will continue current medical management. Continu e to hold diuretics. Continue nebulizers. 7. Anemia of chronic disease. Continue to monitor hemoglobin and hematocrit levels. 8. Sepsis secondary to pneumonia. Continue current antibiotic course. 9. Diabetes. Continue Accu-Cheks, insulin sliding scale. 10. Paroxysmal atrial fibrillation, continue current medical management. 11. Encephalopathy. The patient is clinically improving and etiology is likely toxic metabolic. C ontinue to monitor. Dictated By: TIFFANIE MCHUGH/DESTINY Conf#: [id number] DID#: [id number]
[2016-11-13] MEDS: ACETAMINOPHEN 325 MG TAB PO PRN (11:03)
[2016-11-13] MEDS ORDERED: ALBUMIN HUMAN 25% 100 ML IV SCH (12:00)
--- NOTE | 2016-11-13 12:39 | CONS ---
Date/Time of Note Date/Time of Note DATE: 11/13/16 TIME: 12:36 Consult Date/Type/Reason Admit Date/Time Nov 07, 2016 at 16:51 Subjective Better today Objective pulm-cta mod assist transfer Vital Signs Date Time Temp Pulse Resp B/P Pulse Ox O2 Delivery O2 Flow Rate FiO2 11/13/16 07:00 98.0 86 18 164/74 96 11/12/16 20:00 Nasal Cannula 2.0 11/12/16 09:26 21 Intake and Output 11/12/16 11/12/16 11/13/16 15:00 23:00 07:00 Intake Total 240 ml Balance 240 ml Results/Medications Result Diagram: 11/13/16 0608 11/13/16 0608 Results 24 hrs Laboratory Tests Test 11/12/16 17:12 11/12/16 20:59 11/13/16 02:06 11/13/16 06:08 Bedside Glucose 199 225 H 198 Anion Gap 19 H Basophils # 0.1 Basophils % 0.9 Blood Urea Nitrogen 55 H Calcium Level 8.3 L Carbon Dioxide Level 22 Chloride Level 108 Creatinine 4.18 H Eosinophils # 0.2 Eosinophils % 3.1 Glucose Level 164 Hematocrit 30.1 L Hemoglobin 9.5 L Lymphocytes # 1.4 Lymphocytes % 19.3 Magnesium Level 2.1 Mean Corpuscular Hemoglobin 30.0 Mean Corpuscular Hemoglobin Concent 31.6 L Mean Corpuscular Volume 95.0 Mean Platelet Volume 9.4 Monocytes # 0.7 Monocytes % 9.9 Neutrophils # 4.7 Neutrophils % 66.4 Nucleated Red Blood Cells # 0.0 Nucleated Red Blood Cells % 0.0 Phosphorus Level 5.1 H Platelet Count 403 Potassium Level 5.0 Red Blood Count 3.17 L Red Cell Distribution Width 18.4 H Sodium Level 144 White Blood Count 7.1 Test 11/13/16 07:55 11/13/16 11:52 Bedside Glucose 160 136 Medications Current Medications Amlodipine Besylate (Norvasc) 5 mg BID PO Last administered on 11/13/16 08:41 ; Admin Dose 5 MG; Start 11/07/16 at 21:00 Apixaban (Eliquis) 2.5 mg BID PO Last administered on 11/13/16 08:40; Admin Dose 2.5 MG; Start 11/07/16 at 21:00 Docusate Sodium (Colace) 100 mg Q12H PRN PO CONSTIPATION; Start 11/07/16 at 19: 30 Docusate Sodium (Colace) 100 mg BID PO Last administered on 11/13/16 08:40; Admin Dose 100 MG; Start 11/07/16 at 21:00 Hydralazine HCl (Apresoline) 25 mg Q4H PRN PO ELEVATED SYSTOLIC BP; Start 11/07 at 20:00 Linagliptin (Tradjenta) 5 mg DAILY PO Last administered on 11/13/16 08:41; Admin Dose 5 MG; Start 11/08/16 at 09:00 Magnesium Hydroxide (Milk Of Mag) 30 ml DAILY PRN PO CONSTIPATION; Start at 20:00 Megestrol Acetate (Megace Susp) 400 mg BID PO Last administered on 11/13/16 08 :42; Admin Dose 400 MG; Start 11/07/16 at 21:00 Metoprolol Tartrate (Lopressor) 25 mg BID PO Last administered on 11/13/16 09: 25; Admin Dose 25 MG; Start 11/07/16 at 21:00 Nitroglycerin (Nitroglycerin (Sl Tab) 0.4 Mg) 1 tab [id number] PRN SL CHEST PAIN ; Start 11/07/16 at 20:00 Ondansetron HCl (Zofran Inj) 4 mg Q6H PRN IV NAUSEA AND/OR VOMITING Last administered on 11/12/16 08:57; Admin Dose 4 MG; Start 11/07/16 at 20:00 Pantoprazole (Protonix Tab) 40 mg DAILY@06 PO Last administered on 11/13/16 05 :47; Admin Dose 40 MG; Start 11/08/16 at 06:00 Senna (Senokot) 1 tab HS PO Last administered on 11/12/16 21:11; Admin Dose 1 TAB; Start 11/07/16 at 21:00 Acetaminophen (Tylenol Tab) 650 mg Q4H PRN PO PAIN Last administered on 11:03; Admin Dose 650 MG; Start 11/07/16 at 20:00 Bisacodyl (Dulcolax Supp) 10 mg DAILY PRN [place] CONSTIPATION; Start 11/07/16 at 20 :00 Lactulose (Enulose) 20 gm DAILY PRN PO CONSTIPATION; Start 11/07/16 at 20:00 Insulin Glargine (Lantus) 8 unit DAILY@20 SC Last administered on 11/12/16 21: 19; Admin Dose 8 UNIT; Start 11/09/16 at 20:00 Al Hydrox/Mg Hydrox/ Simethicone 30 ml 30 ml BID PRN PO GASTROINTESTINAL UPSET Last administered on 11/12/16 21:09; Admin Dose 30 ML; Start 11/12/16 at 12:00 Albumin Human (Albumin Human 25%) 100 ml @ 100 mls/hr Q8H IV ; Start 11/13/16 at 12:00; Stop 11/14/16 at 04:59 Assessment/Plan Additional Assessment/Plan Rehab- Toxic metabolic encephalopathy superimposed on meningioma. Patient improving with rehab therapies. Continue treatment plan Dysphagia-speech therapy Congestive heart failure. Acute on chronic renal insufficiency. Urinary tract infection. Paroxysmal atrial fibrillation. Diabetes mellitus. Hypertension. Anemia History of heart block. TIM HORTON MD Nov 13, 2016 12:39
[2016-11-13] MEDS ORDERED: GLUCAGON 1 MG INJ IM PRN (16:30)
[2016-11-13] MEDS ORDERED: GLUCOSE GEL 15 GRAM TUBE BUCCAL PRN (16:30)
[2016-11-13] MEDS ORDERED: GLUCOSE GEL 15 GRAM TUBE PO PRN ×2 (16:30)
[2016-11-13] MEDS ORDERED: DEXTROSE 50% 50 ML SYRINGE IV PRN ×2 (16:30)
[2016-11-13 20:09] VITALS: BP 166/76; RESP 20
[2016-11-13] MEDS: INSULIN GLARGINE [LANtus] 3 ML PEN SC SCH (20:55)
[2016-11-13] MEDS: SENNA TAB PO SCH (20:57)
--- NOTE | 2016-11-14 00:15 | PN ---
DATE: 11/13/2016 SUBJECTIVE: The patient seen lying comfortably in bed. Unfortunately, kidney function has worsened . Case discussed with Dr. Chaudhari, as we are concerned that patient may need dialysis soon in the s etting of CHF and fluid overload state at times. PHYSICAL EXAMINATION: VITAL SIGNS: The patient is afebrile. Temperature 98, pulse 76, respirations 18, blood pressure __ __/74, saturation 96% on 2 liters. GENERAL: The patient is in no acute distress. The patient is pale. The patient has dentures. CARDIOVASCULAR: S1, S2. LUNGS: There is faint wheezing bilaterally, left greater than right. ABDOMEN: Soft, nontender. EXTREMITIES: There is no clubbing, cyanosis, or edema. LABORATORY DATA: Today shows a white count of 7.1, hemoglobin 9.5, hematocrit 30, platelet count 40 3, neutrophils 63%, lymphocytes 19%. Chemistry: Sodium is 144, potassium 5.0, chloride 108, bicarb [place] 22, BUN is 65, creatinine 4.18, glucose of 164. Last glucose levels of 205, 136, and 160, sli ghtly high. Urinalysis on admission shows a WBC 0 to 2, leukocyte esterase and nitrites were negati ve. The patient's urine culture was negative. MRSA of the nares was negative. The patient's chest x-ray dated yesterday shows stable cardiomegaly with stable mild pulmonary vascular congestion and atherosclerosis is seen. MEDICATIONS: 1. Hypoglycemia protocol. 2. Mylanta p.r.n. for dyspepsia. 3. Insulin aspart 4 units q.a.c. meals. 4. Lantus 8 units every day. 5. Tradjenta 5 mg daily. 6. Protonix 40 mg daily. 7. Norvasc 5 mg b.i.d. 8. Eliquis 2.5 b.i.d. 9. Colace 100 b.i.d. 10. Insulin aspart per sliding scale. 11. Megace 400 b.i.d. 12. Lopressor 25 b.i.d. 13. Senna 1 tab at bedtime. 14. Hydralazine p.r.n. 15. Milk of magnesia p.r.n. 16. Nitroglycerin p.r.n. 17. Zofran p.r.n. 18. Tylenol p.r.n. 19. Dulcolax p.r.n. 20. Lactulose p.r.n. 21. DuoNebs. 22. Colace p.r.n. ASSESSMENT AND PLAN: This is an 85-year-old Filipina female with history of diastolic dysfunction, heart failure, paroxysmal atrial fibrillation. Diabetes mellitus, chronic kidney disease stage IV, anemia, osteoarthritis who was admitted recently for congestive heart failure exacerbation, mild uri nary tract infection, and pneumonia. Unfortunately, has been declining with increased weight loss, decreased p.o. intake, as patient is more withdrawn. 1. Respiratory. Continue to monitor her eating. Speech therapy to follow. Maximize safety. The patient has a tendency to go into congestive heart failure, observe. Currently, off diuretics since also kidney function has worsened. 2. Acute on chronic renal insufficiency. Observe. May need to initiate dialysis soon. This may b e the reason may be why she has not been doing very well. 3. Diabetes mellitus. Continue current regimen. Titrate insulin up as needed. 4. May consider antidepressants, such as Lexapro, which I will start today. 5. Generalized weakness. Continue physical therapy, occupational therapy, speech therapy. Appears to be overall stable. We will follow. Dictated By: ROXANA JEFFRIES/DESTINY Conf#: [id number] DID#: [id number] CC: TIM HORTON MD;*End*
--- NOTE | 2016-11-14 00:34 | PN ---
DATE: 11/13/2016 CARDIOLOGY FOLLOWUP SUBJECTIVE: No new cardiac event. The patient with no chest pain or pressure. Denies any complain ts. MEDICATIONS: Reviewed. PHYSICAL EXAMINATION: VITAL SIGNS: Temperature 98, heart rate of 86, blood pressure 164/74, respiration rate of 18, satur ating 96%. HEENT: Normocephalic, atraumatic. Pupils are equal. CARDIOVASCULAR: Regular rate and rhythm. PULMONARY: No wheezes. GASTROINTESTINAL: Soft. EXTREMITIES: Trivial edema. NEUROLOGIC: Awake and alert. LABORATORY: WBC of 7.1, hemoglobin 9.5, platelets 403. Sodium 144, potassium 5, BUN of 55, creatin ine of 4.18, glucose of 164. ASSESSMENT AND PLAN: 1. History of heart block, currently appears to be stable. Heart rate remains stable. 2. Renal failure. 3. Electrolyte abnormalities with hyponatremia. 4. History of congestive heart failure, currently appears to be compensated. 5. Status post pneumonia and sepsis. 6. Diabetes. 7. Paroxysmal atrial fibrillation. RECOMMENDATIONS: We will continue with the current cardiac care. Physical therapy and rehab will b e continued. Dictated By: SUNDAR JACOBO MD AV/NTS Conf#: [id number] DID#: [id number] CC: TIM HORTON MD; ROXANA RODRIGUEZ MD;*[facility]*
[2016-11-14] MEDS: ALBUTEROL/IPRATROPIUM (NEB) 3 ML AMP NEB PRN ×3 (05:49→22:53)
[2016-11-14] MEDS: PANTOPRAZOLE (EC) 40 MG TAB PO SCH (06:16)
[2016-11-14 07:29] LABS: ADD SCAN DIFF NO
[2016-11-14 07:30] VITALS: BP 171/76; RESP 18
[2016-11-14 07:37] LABS: BASOPHIL # 0.1 10^3/ul (0.0-0.1); BASOPHILS % 0.7 % (0.0-2.0); EOSINOPHILS # 0.2 10^3/ul (0.0-0.5); EOSINOPHILS % 2.7 % (0.0-7.0); HEMATOCRIT 30.3 % (37.0-47.0); HEMOGLOBIN 9.8 g/dl (12.0-16.0); LYMPHOCYTES % 23.5 % (15.0-51.0); MEAN CORPUSCULAR HEMOGLOBIN 30.7 pg (29.0-33.0); MEAN CORPUSCULAR HGB CONC 32.3 g/dl (32.0-37.0); MEAN PLATELET VOLUME 9.4 fl (7.4-10.4); MONOCYTE # 0.7 10^3/ul (0.3-0.9); MONOCYTES % 8.1 % (0.0-11.0); NEUTROPHIL # 5.6 10^3/ul (1.6-7.5); NEUTROPHILS % 64.7 % (39.0-77.0); PLATELET COUNT 409 10^3/UL (140-415); RED BLOOD COUNT 3.19 10^6/ul (4.20-5.40); RED CELL DISTRIBUTION WIDTH 18.4 % (11.5-14.5); WHITE BLOOD COUNT 8.7 10^3/ul (4.8-10.8)
[2016-11-14 07:48] LABS: POTASSIUM 4.9 mmol/L (3.5-5.1)
[2016-11-14 07:50] LABS: CREATININE 4.05 mg/dl (0.44-1.00)
[2016-11-14 07:51] LABS: CALCIUM 8.7 mg/dl (8.4-10.2); PHOSPHORUS 4.9 mg/dl (2.5-4.9)
--- NOTE | 2016-11-14 08:15 | RADRPT ---
Vent Rate: 82 bpm RR Interval: 0 msec [place] Interval: 0 msec QRS Duration: 84 msec QT Interval: 370 msec QTC Interval: 432 msec P-R-T [place]: 0 - 73 - 74 degrees Atrial fibrillation Abnormal ECG Electronically Signed By: Gualberto Cohn [id number]
[2016-11-14] MEDS: INSULIN ASPART [NOVOLOG] 3 ML PEN SC SCH ×7 (08:28→21:14)
[2016-11-14] MEDS: MEGESTROL (40 MG/ML) 10ML CUP PO SCH ×2 (08:29→21:11)
[2016-11-14] MEDS: DOCUSATE SODIUM 100 MG CAP PO SCH ×2 (08:29→21:11)
[2016-11-14] MEDS: AMLODIPINE 5 MG TAB PO SCH ×2 (08:30→21:12)
[2016-11-14] MEDS: ESCITALOPRAM 10 MG TAB PO SCH (08:30)
[2016-11-14] MEDS: APIXABAN 5 MG TABLET PO SCH ×2 (08:31→21:11)
[2016-11-14] MEDS: LINAGLIPTIN 5 MG TABLET PO SCH (08:32)
[2016-11-14] MEDS: METOPROLOL 25 MG TAB PO SCH ×2 (08:32→21:11)
[2016-11-14 10:04] LABS: ADD UMIC YES; URINE BILIRUBIN (Dip) NEGATIVE (NEGATIVE); URINE BLOOD (Dip) 1+ (NEGATIVE); URINE COLOR LT. YELLOW (YELLOW); URINE KETONES (Dip) NEGATIVE (NEGATIVE); URINE LEUKOCYTE ESTERASE (Dip) NEGATIVE (NEGATIVE); URINE NITRITE (Dip) NEGATIVE (NEGATIVE); URINE TOTAL PROTEIN (Dip) 4+ (NEGATIVE); URINE UROBILINOGEN (Dip) 0.2 E.U./dL (0.1-1.0)
[2016-11-14 10:22] LABS: BACTERIA,URINE FEW
[2016-11-14 10:25] LABS: PROTEIN URINE > 200.0 mg/dl (0.0-9.9)
--- NOTE | 2016-11-14 11:12 | PN ---
DATE: 11/14/2016 SUBJECTIVE: The patient is stable. The patient is pending a barium swallow evaluation today. Yest erday the patient was unable to get IV hydration as access could not be obtained. Will attempt agai n today. If IV access is unable to be obtained, will likely require a PICC line. No other events n oted. Please note that yesterday I did speak with the patient's daughter, discussing about the possibiliti es of dialysis if the patient's renal function does not improve. The patient's daughter understood and was aware that dialysis is a consideration. All questions were answered. OBJECTIVE: VITAL SIGNS: Blood pressure 166/76, respiration 20, pulse 93, temperature 98.5. HEENT: Head is normocephalic. NECK: Supple. HEART: Regular rate. LUNGS: Show diminished breath sounds at the base. ABDOMEN: Soft, nontender to palpation without rebound or guarding. EXTREMITIES: Negative for clubbing, cyanosis, edema. DERMATOLOGIC: No rashes. MUSCULOSKELETAL: No joint effusions. NEUROLOGIC: No change in exam. LABORATORY DATA: Sodium is 145, potassium 4.9, chloride 110, BUN 60, creatinine 4.05. White count 8.7, hemoglobin 9.8, hematocrit 30.3, platelet count is 409. ASSESSMENT AND PLAN: 1. Nonoliguric acute kidney injury on top of chronic kidney disease stage IV with a previous baseli ne creatinine presumed to be around 3 mg/dL. Etiology of acute kidney injury is secondary to acute tubular necrosis. The patient's urinalysis showed coarse granular casts consistent with tubular inj ury. The patient's renal function has declined over the last several days. I did speak with the alfredo walker's daughter yesterday about the possibility of dialysis if there is no significant improvement. There may be a component of hemodynamics and volume depletion as patient has poor oral intake. IV hydration has been ordered and is currently pending once access is obtained. Would otherwise norma nue supportive care, renally dose all meds, avoid nephrotoxins. There is no immediate need for vitaliy l replacement therapy at this time. 2. Hypernatremia. Will encourage free water intake. Will start the patient on half normal saline at 50 mL an hour. 3. 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 The patient's current acute kidney injury as stated above. Continue current treatme nt plan, disease factor modification. 4. History of congestive heart failure. The patient appears compensated. Monitor closely with flu id challenge. 5. Respiratory failure, reactive airway disease. Continue current medical management. Continue ge ntle diuretic therapy. 6. Anemia of chronic disease. Continue to monitor hemoglobin and hematocrit levels. 7. Sepsis secondary to pneumonia. Continue current antibiotic course. 8. Diabetes. Continue Accu-Cheks and sliding scale. 9. Paroxysmal atrial fibrillation, continue current medical management. 10. Encephalopathy, etiology is multifactorial, possible component of uremia with toxic metabolic. Continue to monitor closely. Dictated By: TIFFANIE REZA DO NR/NTS Conf#: [id number] DID#: [id number]
--- NOTE | 2016-11-14 12:21 | CONS ---
Date/Time of Note Date/Time of Note DATE: 11/14/16 TIME: 12:21 Consult Date/Type/Reason Admit Date/Time Nov 07, 2016 at 16:51 Subjective patient showered today Objective pulm-cta abd-soft sba ambulation with encouragement Vital Signs Date Time Temp Pulse Resp B/P Pulse Ox O2 Delivery O2 Flow Rate FiO2 11/14/16 05:49 88 22 98 21 11/13/16 20:09 98.5 166/76 11/13/16 20:00 Nasal Cannula 2.0 Intake and Output 11/13/16 11/13/16 11/14/16 15:00 23:00 07:00 Intake Total 630 ml 460 ml Balance 630 ml 460 ml Exam Rehab- Toxic metabolic encephalopathy superimposed on meningioma. Needs encouragement for activities Dysphagia-speech therapy Congestive heart failure. Acute on chronic renal insufficiency. Urinary tract infection. Paroxysmal atrial fibrillation. Diabetes mellitus. Hypertension. Anemia History of heart block. Results/Medications Result Diagram: 11/14/16 0622 11/14/16 0622 Results 24 hrs Laboratory Tests Test 11/13/16 17:19 11/13/16 20:38 11/14/16 02:13 11/14/16 05:15 Bedside Glucose 205 203 194 Urine Color LT. YELLOW Urine Clarity CLEAR Urine pH 5.5 Urine Specific [place] 1.025 Urine Ketones NEGATIVE Urine Nitrite NEGATIVE Urine Bilirubin NEGATIVE Urine Urobilinogen 0.2 E.U./dL Urine Leukocyte Esterase NEGATIVE Urine Microscopic RBC 2-5 Urine Microscopic WBC 2-5 Urine Epithelial Cells FEW Urine Bacteria FEW Urine Yeast MODERATE Urine Hemoglobin 1+ H Urine Random Creatinine 128.85 Urine Random Sodium 31 Urine Glucose 0.25% H Urine Total Protein > 200.0 H Test 11/14/16 06:22 11/14/16 07:42 White Blood Count 8.7 # Red Blood Count 3.19 L Hemoglobin 9.8 L Hematocrit 30.3 L Mean Corpuscular Volume 95.0 Mean Corpuscular Hemoglobin 30.7 Mean Corpuscular Hemoglobin Concent 32.3 Red Cell Distribution Width 18.4 H Platelet Count 409 Mean Platelet Volume 9.4 Neutrophils % 64.7 Lymphocytes % 23.5 Monocytes % 8.1 Eosinophils % 2.7 Basophils % 0.7 Nucleated Red Blood Cells % 0.0 Neutrophils # 5.6 Lymphocytes # 2.0 Monocytes # 0.7 Eosinophils # 0.2 Basophils # 0.1 Nucleated Red Blood Cells # 0.0 Sodium Level 145 H Potassium Level 4.9 Chloride Level 110 Carbon Dioxide Level 22 Anion Gap 18 H Blood Urea Nitrogen 60 H Creatinine 4.05 H Glucose Level 111 # Calcium Level 8.7 Phosphorus Level 4.9 Magnesium Level 2.0 Bedside Glucose 167 Medications Current Medications Amlodipine Besylate (Norvasc) 5 mg BID PO Last administered on 11/14/16 08:30 ; Admin Dose 5 MG; Start 11/07/16 at 21:00 Apixaban (Eliquis) 2.5 mg BID PO Last administered on 11/14/16 08:31; Admin Dose 2.5 MG; Start 11/07/16 at 21:00 Docusate Sodium (Colace) 100 mg Q12H PRN PO CONSTIPATION; Start 11/07/16 at 19: 30 Docusate Sodium (Colace) 100 mg BID PO Last administered on 11/14/16 08:29; Admin Dose 100 MG; Start 11/07/16 at 21:00 Hydralazine HCl (Apresoline) 25 mg Q4H PRN PO ELEVATED SYSTOLIC BP; Start 11/07 at 20:00 Linagliptin (Tradjenta) 5 mg DAILY PO Last administered on 11/14/16 08:32; Admin Dose 5 MG; Start 11/08/16 at 09:00 Magnesium Hydroxide (Milk Of Mag) 30 ml DAILY PRN PO CONSTIPATION; Start at 20:00 Megestrol Acetate (Megace Susp) 400 mg BID PO Last administered on 11/14/16 08 :29; Admin Dose 400 MG; Start 11/07/16 at 21:00 Metoprolol Tartrate (Lopressor) 25 mg BID PO Last administered on 11/14/16 08: 32; Admin Dose 25 MG; Start 11/07/16 at 21:00 Nitroglycerin (Nitroglycerin (Sl Tab) 0.4 Mg) 1 tab [id number] PRN SL CHEST PAIN ; Start 11/07/16 at 20:00 Ondansetron HCl (Zofran Inj) 4 mg Q6H PRN IV NAUSEA AND/OR VOMITING Last administered on 11/12/16 08:57; Admin Dose 4 MG; Start 11/07/16 at 20:00 Pantoprazole (Protonix Tab) 40 mg DAILY@06 PO Last administered on 11/14/16 06 :16; Admin Dose 40 MG; Start 11/08/16 at 06:00 Senna (Senokot) 1 tab HS PO Last administered on 11/13/16 20:57; Admin Dose 1 TAB; Start 11/07/16 at 21:00 Acetaminophen (Tylenol Tab) 650 mg Q4H PRN PO PAIN Last administered on 11:03; Admin Dose 650 MG; Start 11/07/16 at 20:00 Bisacodyl (Dulcolax Supp) 10 mg DAILY PRN [place] CONSTIPATION; Start 11/07/16 at 20 :00 Lactulose (Enulose) 20 gm DAILY PRN PO CONSTIPATION; Start 11/07/16 at 20:00 Insulin Glargine (Lantus) 8 unit DAILY@20 SC Last administered on 11/13/16 20: 55; Admin Dose 8 UNIT; Start 11/09/16 at 20:00 Al Hydrox/Mg Hydrox/Simethicone (Mag-Al Plus) 30 ml BID PRN PO GASTROINTESTINAL UPSET Last administered on 11/12/16 21:09; Admin Dose 30 ML; Start 11/12/16 at 12:00 Miscellaneous Information 1 ea NOTE XX ; Start 11/13/16 at 16:30 Glucose (Glutose) 15 gm Q15M PRN PO DECREASED GLUCOSE; Start 11/13/16 at 16:30 Glucose (Glutose) 22.5 gm Q15M PRN PO DECREASED GLUCOSE; Start 11/13/16 at 16: 30 Dextrose (D50w Syringe) 25 ml Q15M PRN IV DECREASED GLUCOSE; Start 11/13/16 at 16:30 Dextrose (D50w Syringe) 50 ml Q15M PRN IV DECREASED GLUCOSE; Start 11/13/16 at 16:30 Glucagon (Glucagen) 1 mg Q15M PRN IM DECREASED GLUCOSE; Start 11/13/16 at 16:30 Glucose (Glutose) 15 gm Q15M PRN BUCCAL DECREASED GLUCOSE; Start 11/13/16 at 16 :30 Escitalopram Oxalate 5 mg 5 mg DAILY PO Last administered on 11/14/16 08:30; Admin Dose 5 MG; Start 11/14/16 at 09:00 Sodium Chloride (1/2 NS) 1,000 ml @ 50 mls/hr Q20H IV ; Start 11/14/16 at 10:00 TIM HORTON MD Nov 14, 2016 12:21
[2016-11-14] MEDS: SOD CHLORIDE 0.45% 1,000 ML IV SCH (16:05)
--- NOTE | 2016-11-14 16:41 | RADRPT ---
PROCEDURE: Video-fluoroscopy swallowing study. CLINICAL INDICATION: Dysphagia. TECHNIQUE: Fluoroscopic guided video swallowing study was done in conjunction with the speech ther apist. The study was confined to the oral, pharyngeal, and cervical phases of the swallowing mechani sm. 3.6 minutes of fluoroscopy time was used. COMPARISON: No prior study is available for comparison. FINDINGS: There is aspiration during swallowing of nectar-thick liquids by straw. There is no cough reflex. There is also aspiration during swallowing of thin liquids by cup. IMPRESSION: 1. Abnormal study with silent aspiration. 2. Please refer to the speech therapist's recommendations for future feedings. RPTAT: QQ .Jonathan York MD, MD Date Time Electronically viewed and signed by .Jonathan York MD, on 11/14/2016 16:41 .R/
--- NOTE | 2016-11-14 19:07 | PN ---
DATE: 11/14/2016 SUBJECTIVE: Patient seen, noted occupation therapy notes. We will try to encourage the patient to participate more. This patient has been feeling weak and fatigued. In addition, we are concerned a bout patient's worsening kidney function as she is predialysis stage. PHYSICAL EXAMINATION: VITAL SIGNS: Temperature 98.1, afebrile, pulse is 82, respirations 18 to 28, blood pressure slightl y elevated at 171/76, saturation 97% on room air. GENERAL: The patient is in no acute distress. The patient is pale. Patient has dentures. CARDIOVASCULAR: S1 and S2. LUNGS: Decreased bilaterally. ABDOMEN: Soft, nontender. EXTREMITIES: No clubbing, cyanosis, or edema. LABORATORY DATA: Done today shows a white count of 8.7, hemoglobin 9.8, hematocrit 30, platelet cou nt 409, neutrophils 65%, lymphocytes 24%. Chemistry: Sodium is 145, potassium 4.9, chloride 110, b icarbonate 22, BUN is 60, creatinine 4.05, glucose of 111. Urinalysis on 11/14/2016, which is today , nitrites and leukocyte esterase negative. WBC 2 to 5, epithelial cells. Hemoglobin +1. She has significant proteinuria as noted. MEDICATIONS 1. IV fluids was ordered. Normal saline at 50 mL an hour, Lexapro 5 mg daily. 2. Hypoglycemia protocol. 3. Milk of magnesia as directed. 4. Insulin NovoLog 4 units before meals. 5. Insulin Lantus 8 units daily. 6. Tradjenta 5 mg daily. 7. Protonix 40 mg daily. 8. Norvasc 5 mg b.i.d. 9. Eliquis 2.5 b.i.d. 10. Colace 100 b.i.d. 11. Insulin aspart per sliding scale. 12. Megace 400 b.i.d. 13. Lopressor 25 b.i.d. 14. Senna 1 tab at bedtime. 15. Hydralazine p.r.n. 16. Milk of magnesia p.r.n. 17. Nitroglycerin p.r.n. 18. Zofran p.r.n. 19. Tylenol p.r.n. 20. Dulcolax p.r.n. 21. Lactulose p.r.n. 22. DuoNeb p.r.n. 23. Colace p.r.n. 24. The patient's Accu-Cheks are as follows 192, 167 and 194, on the labs ____was 111. Speech study was done and a video swallow showed abnormal study with silent aspiration. Please note speech therapy's recommendation for tube feeding. IMPRESSION: This is an 85-year-old Filipina female with history of diastolic dysfunction heart fail ure, paroxysmal atrial fibrillation, diabetes mellitus, chronic kidney disease stage IV, approaching V. Anemia, osteoarthritis, who was recently admitted for congestive heart failure exacerbation, p neumonia and mild urinary tract infection. Unfortunately, she has been declining over the course of weeks and also kidney function has worsened and undergoing physical therapy. 1. Respiratory, monitor for fluid overload state. The patient to be initiated on gentle hydration because of worsening kidney function. Continue O2 support, breathing treatment as needed and monito r. 2. Acute on chronic renal insufficiency. A trial of gentle hydration will be given. The patient m ay need to be initiated on dialysis. 3. Diabetes mellitus. Continue current regimen, glucose level in the high 100s. 4. Depression. I started the patient on low dose Lexapro. 5. Generalized weakness, undergoing physical therapy. 6. Decreased p.o. intake, remains on Megace. 7. Paroxysmal atrial fibrillation on Eliquis 2.5 b.i.d. 8. Renal failure. 9. Stool softeners as needed are being provided. The patient will be monitored closely. Dictated By: ROXANA JEFFRIES/DESTINY Conf#: [id number] DID#: [id number]
[2016-11-14 19:55] VITALS: BP 146/67; RESP 18
[2016-11-14] MEDS: SENNA TAB PO SCH (21:11)
[2016-11-14] MEDS: INSULIN GLARGINE [LANtus] 3 ML PEN SC SCH (21:14)
--- NOTE | 2016-11-14 22:29 | CONS ---
DATE OF ADMISSION: 11/07/2016 DATE OF CONSULTATION: 11/14/2016 TYPE OF CONSULTATION: Psychological. REFERRING PHYSICIAN: Jass Cheng MD CONSULTING PSYCHOLOGIST: Carrington Ordonez, PhD REASON FOR CONSULTATION: This consultation was requested by Dr. Belen Cheng in order to evaluate the cognitive and emotional functioning of this patient related to her present medical condition. HISTORY OF PRESENT ILLNESS: The patient is an 85-year-old female. The patient has a history of mul tiple medical problems. The patient has recently had increased weakness, confusion, and notable deh ydration. The patient was noted to have pneumonia and acute and chronic kidney disease, as well as acute respiratory failure secondary to congestive heart failure. The patient was treated and stabil ized medically, and then sent to the acute multidisciplinary rehabilitation unit for acute multidisc iplinary rehabilitation. The patient does have some acute toxic metabolic encephalopathy that relat es to some level of cognitive impairment. The patient speaks mainly Tagalog, but some Latvian. [place] The patient was interviewed with the assistance of a nursing staff, who translated to Tagalog, as well as dealt with Latvian. FAMILY/SOCIAL HISTORY: The patient lives with her daughter in an apartment with her 3 grandchildren as well. The patient does want to return home after discharge. MEDICATIONS: The patient is currently on Lexapro 5 mg daily. SUBSTANCE USE: The patient denies any use of alcohol or other drugs. The patient reports that she does not smoke. MENTAL STATUS EXAMINATION: APPEARANCE: The patient was seen sitting in her wheelchair. She is of average height and weight. The patient is right-handed. BEHAVIOR: The patient was cooperative during the consultation. The patient did attempt to answer a ll questions presented to her by the interviewer or through the nursing staff. MOOD AND AFFECT: The patient's mood appears to be depressed. Affect does appear to be just slightl y anxious. The patient does report that she is depressed and has been for the last 3 years, as her 3 years ago. PERCEPTION: The patient reports no hallucinations or delusions. The patient was alert to person, b ut not exactly to place, situation, and time. MEMORY AND COGNITION: The patient's memory and cognition are impaired at the present time. The pat ient was unable to say the month or the year. The patient was not able to give the name of the hosp ital. The patient appeared to be confused on many of the questions asked of her. At the present ti me, it appears that the patient is having some dementing process. INTELLIGENCE: Intelligence appeared to fall in the average range when she was functioning adequatel y. INSIGHT: Poor. JUDGMENT: Poor. THOUGHT CONTENT: The patient is concerned about her present medical condition. The patient does wa nt to return back and live with her daughter. The patient is motivated to get better. The patient does clearly state that she has some anxiety and depression, and that she wants to be able to recove r. DISCUSSION: The patient may be able to benefit from some cognitive/behavioral psychotherapy while s he is on the unit. This psychotherapy would focus on her underlying level of depression, as well as trying to deal with all her medical problems. DIAGNOSTIC IMPRESSION: 1. F33.1: Major depressive disorder, recurrent, moderate. 2. 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 Thank you very much, Dr. Belen Cheng, for referring this individual. Please do not hesitate to ca ll if you have additional questions. Dictated By: CARRINGTON ORDONEZ PHD ARTUR/DESTINY Conf#: [id number] DID#: [id number]
[2016-11-15] MEDS: PANTOPRAZOLE (EC) 40 MG TAB PO SCH (05:30)
[2016-11-15] MEDS: SOD CHLORIDE 0.45% 1,000 ML IV SCH (06:00)
[2016-11-15 06:45] LABS: ADD SCAN DIFF NO
[2016-11-15 06:53] LABS: BASOPHILS % 0.5 % (0.0-2.0); EOSINOPHILS # 0.1 10^3/ul (0.0-0.5); EOSINOPHILS % 1.8 % (0.0-7.0); HEMATOCRIT 30.5 % (37.0-47.0); MEAN CORPUSCULAR HEMOGLOBIN 30.5 pg (29.0-33.0); MEAN CORPUSCULAR HGB CONC 32.8 g/dl (32.0-37.0); MEAN PLATELET VOLUME 9.8 fl (7.4-10.4); MONOCYTE # 0.7 10^3/ul (0.3-0.9); MONOCYTES % 9.5 % (0.0-11.0); NEUTROPHIL # 5.8 10^3/ul (1.6-7.5); NEUTROPHILS % 74.6 % (39.0-77.0); RED BLOOD COUNT 3.28 10^6/ul (4.20-5.40); RED CELL DISTRIBUTION WIDTH 18.8 % (11.5-14.5); WHITE BLOOD COUNT 7.8 10^3/ul (4.8-10.8)
[2016-11-15 07:03] LABS: CREATININE 4.29 mg/dl (0.44-1.00)
[2016-11-15 07:04] LABS: CALCIUM 8.7 mg/dl (8.4-10.2); PHOSPHORUS 4.9 mg/dl (2.5-4.9)
[2016-11-15 07:17] LABS: PLATELET COUNT 313 10^3/UL (140-415)
[2016-11-15 07:30] VITALS: BP 179/82; RESP 20
[2016-11-15] MEDS: INSULIN ASPART [NOVOLOG] 3 ML PEN SC SCH ×7 (08:37→20:47)
[2016-11-15] MEDS: DOCUSATE SODIUM 100 MG CAP PO SCH ×2 (08:38→20:12)
[2016-11-15] MEDS: AMLODIPINE 5 MG TAB PO SCH ×2 (08:39→20:14)
[2016-11-15] MEDS: APIXABAN 5 MG TABLET PO SCH ×2 (08:39→20:12)
[2016-11-15] MEDS: MEGESTROL (40 MG/ML) 10ML CUP PO SCH ×2 (08:39→20:12)
[2016-11-15] MEDS: LINAGLIPTIN 5 MG TABLET PO SCH (08:40)
[2016-11-15] MEDS: ESCITALOPRAM 10 MG TAB PO SCH (08:40)
[2016-11-15] MEDS: METOPROLOL 25 MG TAB PO SCH ×2 (08:41→20:14)
--- NOTE | 2016-11-15 10:48 | PN ---
DATE: 11/15/2016 CARDIOLOGY FOLLOWUP SUBJECTIVE: Discussed with the staff. Rhythm strip was reviewed. The patient complains of cough a nd shortness of breath and weakness. No chest pain or pressure. No palpitation. No bleeding. MEDICATIONS: Reviewed. PHYSICAL EXAMINATION: VITAL SIGNS: Temperature 99.2, heart rate of 98, blood pressure 146/67, respiration rate of 28, sat urating 98% on 2 liter. HEENT: Normocephalic, atraumatic. Elderly female. Pupils are equal. CARDIOVASCULAR: Irregularly irregular. PULMONARY: Anteriorly with no wheezes, mild rhonchi at the base. GASTROINTESTINAL: Soft, nontender. EXTREMITIES: Trivial edema. NEUROLOGIC: Awake and alert. PSYCHIATRIC: Calm, pleasant. LABORATORY: WBC of 7.8, hemoglobin 10, platelet 330. Sodium 144, potassium 5, BUN of 67, creatinin e of 4.29, glucose 210. ASSESSMENT AND PLAN: 1. History of heart block. 2. Paroxysmal atrial fibrillation. 3. Acute renal failure on chronic kidney disease. 4. Debility. 5. History of congestive heart failure and fluid overload. 6. Status post pneumonia and sepsis. 7. Diabetes. RECOMMENDATIONS: I will order another chest x-ray for today. We will continue the rest of her card iac care. Fluid management as per renal given her renal dysfunction. Last EKG shows the patient patel s atrial fibrillation. Will continue to monitor. Heart rate has remained stable. Physical therapy and rehab as tolerated. Dictated By: SUNDAR JACOBO MD AV/DESTINY Conf#: [id number] DID#: [id number] CC: ROXANA RODRIGUEZ MD;*End*
--- NOTE | 2016-11-15 11:39 | PN ---
DATE: 11/15/2016 SUBJECTIVE: The patient is noted to have intermittent wheezing this morning. The patient is curren tly on IV fluids. The patient remains confused. No other acute events noted. OBJECTIVE: VITAL SIGNS: Blood pressure is 146/67, respiration 18, pulse 89, temperature 99.2. HEENT: Head is normocephalic. NECK: Supple. HEART: Regular rate. LUNGS: Show diminished breath sounds at base. Positive wheezing, inspiratory/expiratory. EXTREMITIES: Negative for clubbing, cyanosis, no edema. DERMATOLOGIC: No rashes. MUSCULOSKELETAL: No joint effusions. NEUROLOGIC: No change in exam. MEDICATIONS: The patient's medications have been reviewed. LABORATORY DATA: Shows white count 7.8, hemoglobin 10.0, hematocrit 30.5, platelet count is 313. S odium 144, potassium 5.0, chloride 109, BUN 67, creatinine 4.29. The patient's repeat urinalysis wa s reviewed, no active sediment, positive proteinuria, FENa approximately 1%. ASSESSMENT AND PLAN: 1. Nonoliguric acute kidney injury on top of chronic kidney disease stage IV with a previous baseli ne creatinine of presumed to be around 3 mg/dL. Etiology of acute kidney injury is secondary to acu te tubular necrosis. The patient's renal function is continuing to decline over the last several da ys. The patient was initiated on IV fluids yesterday to rule out a possible hemodynamic component. The patient's urinalysis was reviewed. FENa is approximately 1%. At this point, will continue gen tle IV hydration for another 24 hours. If renal function does not improve and if the patient should develop overt uremic symptoms, would consider initiating renal replacement therapy. 2. Hyponatremia. Continue current free water intake. Continue hypertonic fluids. 3. 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 The patient is currently in acute kidney injury as stated above. Continue current t reatment plan. Disease factor modification. 4. History of congestive heart failure. The patient is currently on IV fluids and monitor closely. 5. Respiratory failure secondary to reactive airway disease. Continue medical management. Continu e bronchodilators. 6. Anemia. Monitor hemoglobin and hematocrit levels. 7. Sepsis secondary to pneumonia. The patient is completing antibiotic course. 8. Diabetes. Continue Accu-Cheks and sliding scale. 9. Paroxysmal atrial fibrillation. Currently sinus rhythm. Continue medical management. 10. Encephalopathy. Etiology is multifactorial with possible uremia. Continue to monitor closely. Dictated By: TIFFANIE MCHUGH/DESTINY Conf#: [id number] DID#: [id number]
--- NOTE | 2016-11-15 12:35 | RADRPT ---
PROCEDURE: XR Chest. CLINICAL INDICATION: Shortness of breath. TECHNIQUE: Single frontal view. COMPARISON: 11/12/2016. FINDINGS: There is mild pulmonary edema, unchanged. There is mild atelectasis at the lung bases, also unchang ed. There is a 1.7 cm nodular density at the left lung base laterally. The lungs are otherwise keny ar. The heart is enlarged. There is calcification in the aorta consistent with atherosclerosis. There is a moderate right pleural effusion and small left pleural effusion. There is no pneumothorax. IMPRESSION: 1. Mild pulmonary edema, unchanged. 2. Nodular density at the left lung base measuring 1.[address] scan advised. 3. No other change from 11/12/2016. RPTAT: QQ .Jonathan York MD, Date Time Electronically viewed and signed by .Jonathan York MD, MD on 11/15/2016 12:35 .R/
--- NOTE | 2016-11-15 13:40 | CONS ---
Date/Time of Note Date/Time of Note DATE: 11/15/16 TIME: 13:38 Consult Date/Type/Reason Admit Date/Time Nov 07, 2016 at 16:51 Objective pulm-cta abd-soft sba ambulation Vital Signs Date Time Temp Pulse Resp B/P Pulse Ox O2 Delivery O2 Flow Rate FiO2 11/15/16 02:43 2.0 11/14/16 22:55 98 28 98 Nasal Cannula 11/14/16 19:55 99.2 146/67 11/14/16 16:43 21 Intake and Output 11/14/16 11/14/16 11/15/16 15:00 23:00 07:00 Intake Total 500 ml 720 ml 175 ml Balance 500 ml 720 ml 175 ml Exam Rehab- Toxic metabolic encephalopathy superimposed on meningioma. Working towards home tomorrow Dysphagia-speech therapy Congestive heart failure. Acute on chronic renal insufficiency. Urinary tract infection. Paroxysmal atrial fibrillation. Diabetes mellitus. Hypertension. Anemia History of heart block. Results/Medications Result Diagram: 11/15/1614 11/15/16 0614 Results 24 hrs Laboratory Tests Test 11/14/16 17:31 11/14/16 20:26 11/15/16 01:55 11/15/16 06:14 Bedside Glucose 200 217 282 H White Blood Count 7.8 Red Blood Count 3.28 L Hemoglobin 10.0 L Hematocrit 30.5 L Mean Corpuscular Volume 93.0 Mean Corpuscular Hemoglobin 30.5 Mean Corpuscular Hemoglobin Concent 32.8 Red Cell Distribution Width 18.8 H Platelet Count 313 # Mean Platelet Volume 9.8 Neutrophils % 74.6 Lymphocytes % 13.0 L Monocytes % 9.5 Eosinophils % 1.8 Basophils % 0.5 Nucleated Red Blood Cells % 0.0 Neutrophils # 5.8 Lymphocytes # 1.0 Monocytes # 0.7 Eosinophils # 0.1 Basophils # 0.0 Nucleated Red Blood Cells # 0.0 Sodium Level 144 Potassium Level 5.0 Chloride Level 109 Carbon Dioxide Level 20 L Anion Gap 20 H Blood Urea Nitrogen 67 H Creatinine 4.29 H Glucose Level 210 Calcium Level 8.7 Phosphorus Level 4.9 Magnesium Level 2.0 Test 11/15/16 07:30 11/15/16 12:08 Bedside Glucose 210 77 Medications Current Medications Amlodipine Besylate (Norvasc) 5 mg BID PO Last administered on 11/15/16 08:39 ; Admin Dose 5 MG; Start 11/07/16 at 21:00 Apixaban (Eliquis) 2.5 mg BID PO Last administered on 11/15/16 08:39; Admin Dose 2.5 MG; Start 11/07/16 at 21:00 Docusate Sodium (Colace) 100 mg Q12H PRN PO CONSTIPATION; Start 11/07/16 at 19: 30 Docusate Sodium (Colace) 100 mg BID PO Last administered on 11/15/16 08:38; Admin Dose 100 MG; Start 11/07/16 at 21:00 Hydralazine HCl (Apresoline) 25 mg Q4H PRN PO ELEVATED SYSTOLIC BP; Start 11/07 at 20:00 Linagliptin (Tradjenta) 5 mg DAILY PO Last administered on 11/15/16 08:40; Admin Dose 5 MG; Start 11/08/16 at 09:00 Magnesium Hydroxide (Milk Of Mag) 30 ml DAILY PRN PO CONSTIPATION; Start at 20:00 Megestrol Acetate (Megace Susp) 400 mg BID PO Last administered on 11/15/16 08 :39; Admin Dose 400 MG; Start 11/07/16 at 21:00 Metoprolol Tartrate (Lopressor) 25 mg BID PO Last administered on 11/15/16 08: 41; Admin Dose 25 MG; Start 11/07/16 at 21:00 Nitroglycerin (Nitroglycerin (Sl Tab) 0.4 Mg) 1 tab [id number] PRN SL CHEST PAIN ; Start 11/07/16 at 20:00 Ondansetron HCl (Zofran Inj) 4 mg Q6H PRN IV NAUSEA AND/OR VOMITING Last administered on 11/12/16 08:57; Admin Dose 4 MG; Start 11/07/16 at 20:00 Pantoprazole (Protonix Tab) 40 mg DAILY@06 PO Last administered on 11/15/16 05 :30; Admin Dose 40 MG; Start 11/08/16 at 06:00 Senna (Senokot) 1 tab HS PO Last administered on 11/14/16 21:11; Admin Dose 1 TAB; Start 11/07/16 at 21:00 Acetaminophen (Tylenol Tab) 650 mg Q4H PRN PO PAIN Last administered on 11:03; Admin Dose 650 MG; Start 11/07/16 at 20:00 Bisacodyl (Dulcolax Supp) 10 mg DAILY PRN SD CONSTIPATION; Start 11/07/16 at 20 :00 Lactulose (Enulose) 20 gm DAILY PRN PO CONSTIPATION; Start 11/07/16 at 20:00 Insulin Glargine (Lantus) 8 unit DAILY@20 SC Last administered on 11/14/16 21: 14; Admin Dose 8 UNIT; Start 11/09/16 at 20:00 Al Hydrox/Mg Hydrox/Simethicone (Mag-Al Plus) 30 ml BID PRN PO GASTROINTESTINAL UPSET Last administered on 11/12/16 21:09; Admin Dose 30 ML; Start 11/12/16 at 12:00 Miscellaneous Information 1 ea NOTE XX ; Start 11/13/16 at 16:30 Glucose (Glutose) 15 gm Q15M PRN PO DECREASED GLUCOSE; Start 11/13/16 at 16:30 Glucose (Glutose) 22.5 gm Q15M PRN PO DECREASED GLUCOSE; Start 11/13/16 at 16: 30 Dextrose (D50w Syringe) 25 ml Q15M PRN IV DECREASED GLUCOSE; Start 11/13/16 at 16:30 Dextrose (D50w Syringe) 50 ml Q15M PRN IV DECREASED GLUCOSE; Start 11/13/16 at 16:30 Glucagon (Glucagen) 1 mg Q15M PRN IM DECREASED GLUCOSE; Start 11/13/16 at 16:30 Glucose (Glutose) 15 gm Q15M PRN BUCCAL DECREASED GLUCOSE; Start 11/13/16 at 16 :30 Escitalopram Oxalate 5 mg 5 mg DAILY PO Last administered on 11/15/16 08:40; Admin Dose 5 MG; Start 11/14/16 at 09:00 Sodium Chloride (1/2 NS) 1,000 ml @ 50 mls/hr Q20H IV Last administered on 16:05; Admin Dose 50 MLS/HR; Start 11/14/16 at 10:00 TIM HORTON MD Nov 15, 2016 13:40
[2016-11-15 16:48] LABS: MICROALBUMIN 406.6 mg/dL
--- NOTE | 2016-11-15 19:53 | PN ---
DATE: SUBJECTIVE: The patient seen. Unfortunately, patient's kidney function continues to worsen. BUN a nd creatinine of 67/4.29. In addition, chest x-ray, which was done, shows ongoing congestion, mild pulmonary edema. In addition, CAT scan shows nodular density at the left lung base measuring 1.[address] scan is advised. I discussed the case with the acute rehab nursing staff and with Dr. Glover, as the patient will need to be dialyzed. So the plan is to transfer her to the [facility] for further care. The patient is overall quite weak. She is not participating too much with therapy here. PHYSICAL EXAMINATION: VITAL SIGNS: Temperature 98.5, pulse 88, respirations 20, blood pressure 179/82, saturation 97% on 2 liters. GENERAL: The patient is in no acute distress. The patient is pale. CARDIOVASCULAR: S1 and S2. LUNGS: Faint wheezing, more upper respiratory. ABDOMEN: Soft, nontender. EXTREMITIES: No clubbing, cyanosis, or edema. LABORATORY DATA: White count is 7.8, hemoglobin 10, hematocrit 31, platelet count 313, neutrophils 75%, lymphocytes 13%. Chemistry: Sodium 144, potassium 5.0, chloride 109, bicarbonate 20, BUN is 6 7, creatinine 4.29, glucose of 210. Last glucose levels 115 and 77. Urine culture on 11/07/2016 is negative. MRSA of the nares negative. The patient's chest x-ray done today shows mild pulmonary e kassidy, unchanged nodular density at the left lung base measuring 1.[address] scan is advised. No other changes. MEDICATIONS: All reviewed and include the followin. Normal saline at 50 mL an hour. 2. Lexapro 5 mg daily. 3. Hypoglycemia protocol. 4. Insulin aspart 4 units q.a.c. meals. 5. Insulin Lantus 8 units daily. 6. Tradjenta 5 mg daily. 7. Protonix 40 mg daily. 8. Norvasc 5 mg b.i.d. 9. Eliquis 2.5 b.i.d. 10. Colace 100 b.i.d. 11. Megace 400 b.i.d. 12. Lopressor 25 b.i.d. 13. Senna 1 tab at bedtime. 14. Hydralazine p.r.n. 15. Milk of magnesia p.r.n. 16. Nitroglycerin p.r.n. 17. Zofran p.r.n. 18. Tylenol p.r.n. 19. Dulcolax p.r.n. 20. Lactulose p.r.n. 21. DuoNebs p.r.n. 22. Colace p.r.n. ASSESSMENT AND PLAN: This is an 85-year-old [place] female with history of diastolic dysfunction, ____ of paroxysmal atrial fibrillation, diabetes mellitus, chronic kidney disease stage IV, approach ing V; anemia, osteoarthritis, admitted recently due to congestive heart exacerbation, pneumonia, an d urinary tract infection. Unfortunately, the patient is overall weak over the past few weeks, now undergoing physical therapy, but unfortunately we are seeing that her kidney function is worsening a nd there is some evidence of chest congestion. 1. Respiratory. We are concerned about fluid overload in the setting of renal failure. The patien t will need to be dialyzed. Case discussed with Dr. Chaudhari, as we will initiate dialysis. Again, will limit fluids. Continue O2 support. 2. Acute renal failure. Again, patient will need dialysis and as her GFR is less than 10. I spoke in detail with the daughter, Edwige, and she is in agreement. The patient will likely need to be tr ansferred to the acute rehabilitation for ongoing care. 3. Diabetes mellitus. Continue current regimen. 4. Poor p.o. intake. Continue Megace and encourage patient to eat more. 5. Paroxysmal atrial fibrillation. Continue Eliquis 2.5 mg b.i.d. 6. Continue stool softeners as needed. 7. Depression. I started the patient on Lexapro 5 mg daily. Overall, hopefully she will improve o nce we start dialysis. We will follow. Dictated By: ROXANA JEFFRIES/DESTINY Conf#: DID#: [id number] CC: TIM HORTON MD;*End*
[2016-11-15] MEDS: SENNA TAB PO SCH (20:12)
[2016-11-15] MEDS: INSULIN GLARGINE [LANtus] 3 ML PEN SC SCH (20:48)
[2016-11-15 23:39] VITALS: BP 146/83; PULSE 80
--- NOTE | 2016-11-16 10:12 | PN ---
DATE: 11/16/2016 CARDIOLOGY FOLLOWUP SUBJECTIVE: Discussed with Dr. Chaudhari. Discussed with the staff. No new cardiac events. The pat ient has been transferred to floor though, anticipation for possible hemodialysis. The patient stil l complaining of weakness. No chest pain or pressure. MEDICATIONS: Reviewed. PHYSICAL EXAMINATION: VITAL SIGNS: Temperature 96.7, heart rate of 88, blood pressure 145/67, respiration rate of 22, sat urating 96%. HEENT: Normocephalic, atraumatic. Pupils equal and round. CARDIOVASCULAR: Irregularly irregular. Systolic murmur. PULMONARY: With no wheezes anteriorly, mild rhonchi at the base. GASTROINTESTINAL: Soft, nontender. EXTREMITIES: Positive edema. NEUROLOGIC: Awake and alert. PSYCHIATRIC: Calm. LABORATORY: WBC of 7.5, hemoglobin 9.2, platelets 371, sodium 144, potassium 4.9, BUN of 67, creati nine 4.16, glucose 70. Chest x-ray done yesterday shows mild pulmonary edema, unchanged. Nodule de nsity left base 1.7 cm. ASSESSMENT AND PLAN: 1. Renal failure, awaiting dialysis now. 2. Atrial fibrillation, paroxysmal. 3. History of heart block. Currently, heart rate has remained stable, though. 4. Diabetes. 5. Encephalopathy. 6. Depression. RECOMMENDATIONS: Fluid management, dialysis as per renal. We will continue with the current [facility] care. Blood pressure currently better controlled. Diabetic management as per Dr. Rodriguez will be c ontinued as well. Dictated By: SUNDAR JACOBO MD AV/NTS Conf#: [id number] DID#: [id number] CC: ROXANA RODRIGUEZ MD;*EndCC*
== END 2016-11-16 00:17 | disposition short-term general hospital (02) | DRG 91 ==
LOC: VRC 16:51
PROVIDERS: ADMIT Physical Medicine & Rehabilitation; ATTEND Internal Medicine
DX: G92 Toxic encephalopathy (principal); N17.0 Acute kidney failure with tubular necrosis; J96.90 Respiratory failure, unspecified, unspecified whether with hypoxia or hypercapnia; E87.0 Hyperosmolality and hypernatremia; I48.0 Paroxysmal atrial fibrillation; E11.21 Type 2 diabetes mellitus with diabetic nephropathy; F03.90 Unspecified dementia, unspecified severity, without behavioral disturbance, psychotic disturbance, mood disturbance, and anxiety; R13.10 Dysphagia, unspecified; G31.84 Mild cognitive impairment of uncertain or unknown etiology; N39.0 Urinary tract infection, site not specified; N17.9 Acute kidney failure, unspecified; F33.1 Major depressive disorder, recurrent, moderate; D32.9 Benign neoplasm of meninges, unspecified; Z74.09 Other reduced mobility; D64.9 Anemia, unspecified; Z79.02 Long term (current) use of antithrombotics/antiplatelets; Z79.4 Long term (current) use of insulin; R11.2 Nausea with vomiting, unspecified
CPT/HCPCS: 71010; 74230; 80048; 80053; 81001; 81003; 82043; 82962; 83735; 84100; 84155; 84300; 85025; 87081; 87086; 92507; 92523; 92526; 92610; 92611; 93005; 94640; 94664; 97110; 97150; 97163; 97167; 97530; 97535; J1815; J2405; P9047

== ENCOUNTER 2016-11-16 00:30 | Inpatient (IN) | payer MEDICARE, OTHER ==
[2016-11-16 00:30] VITALS: BP_SYST 150; BP_DIAS 71; BP_DIAS 72; PULSE 80; RESP 18; RESP 19
[2016-11-16] MEDS ORDERED: GLUCOSE GEL 15 GRAM TUBE PO PRN ×2 (02:00)
[2016-11-16] MEDS ORDERED: NITROGLYCERIN (SL) 0.4 MG TAB SL PRN (02:00)
[2016-11-16] MEDS ORDERED: DEXTROSE 50% 50 ML SYRINGE IV PRN ×2 (02:00)
[2016-11-16] MEDS ORDERED: GLUCOSE GEL 15 GRAM TUBE BUCCAL PRN (02:00)
[2016-11-16] MEDS ORDERED: GLUCAGON 1 MG INJ IM PRN (02:00)
[2016-11-16] MEDS ORDERED: AL HYDROX/MG HYDROX/SIMETH 30 ML CUP PO PRN (02:00)
[2016-11-16] MEDS ORDERED: ACETAMINOPHEN 325 MG TAB PO PRN (02:00)
[2016-11-16] MEDS ORDERED: MAGNESIUM HYDROXIDE 30ML CUP PO PRN (02:00)
[2016-11-16] MEDS ORDERED: LACTULOSE 30ML CUP PO PRN (02:00)
[2016-11-16] MEDS ORDERED: BISACODYL 10 MG SUPP PR PRN (02:00)
[2016-11-16] MEDS ORDERED: DOCUSATE SODIUM 100 MG CAP PO PRN (02:00)
[2016-11-16] MEDS ORDERED: ONDANSETRON 4 MG INJ IV PRN (02:00)
[2016-11-16] MEDS ORDERED: NACL 0.9% 3 ML SYG IV SCH (02:30)
[2016-11-16] MEDS ORDERED: ALBUTEROL/IPRATROPIUM (NEB) 3 ML AMP HHN SCH (03:00)
[2016-11-16] MEDS: PANTOPRAZOLE (EC) 40 MG TAB PO SCH (05:42)
[2016-11-16 07:09] LABS: ADD SCAN DIFF NO
[2016-11-16 07:13] LABS: BASOPHIL # 0.1 10^3/ul (0.0-0.1); BASOPHILS % 0.9 % (0.0-2.0); EOSINOPHILS # 0.2 10^3/ul (0.0-0.5); EOSINOPHILS % 2.5 % (0.0-7.0); HEMATOCRIT 28.8 % (37.0-47.0); HEMOGLOBIN 9.2 g/dl (12.0-16.0); LYMPHOCYTES % 13.6 % (15.0-51.0); MEAN CORPUSCULAR HEMOGLOBIN 30.3 pg (29.0-33.0); MEAN CORPUSCULAR HGB CONC 31.9 g/dl (32.0-37.0); MEAN CORPUSCULAR VOLUME 94.7 fl (82.0-101.0); MEAN PLATELET VOLUME 9.9 fl (7.4-10.4); MONOCYTE # 0.5 10^3/ul (0.3-0.9); MONOCYTES % 7.2 % (0.0-11.0); NEUTROPHIL # 5.7 10^3/ul (1.6-7.5); NEUTROPHILS % 75.4 % (39.0-77.0); PLATELET COUNT 371 10^3/UL (140-415); RED BLOOD COUNT 3.04 10^6/ul (4.20-5.40); RED CELL DISTRIBUTION WIDTH 19.1 % (11.5-14.5); WHITE BLOOD COUNT 7.5 10^3/ul (4.8-10.8)
[2016-11-16 07:17] LABS: INR 1.21; PROTIME 15.4 Sec (12.2-14.2); PT RATIO 1.2
[2016-11-16 07:30] LABS: POTASSIUM 4.9 mmol/L (3.5-5.1)
[2016-11-16] MEDS: Insulin NOVOLOG SS MILD Algorithm (SS with meals and bedtime) SC SCH ×4 (07:30→21:00)
[2016-11-16 07:33] LABS: CREATININE 4.16 mg/dl (0.44-1.00)
[2016-11-16 07:34] LABS: CALCIUM 8.8 mg/dl (8.4-10.2)
[2016-11-16 08:38] VITALS: BP 145/67; RESP 22
[2016-11-16] MEDS: MEGESTROL (40 MG/ML) 10ML CUP PO SCH ×2 (09:04→21:01)
[2016-11-16] MEDS: ESCITALOPRAM 10 MG TAB PO SCH (09:04)
[2016-11-16] MEDS: APIXABAN 5 MG TABLET PO SCH ×2 (09:05→20:58)
[2016-11-16] MEDS: LINAGLIPTIN 5 MG TABLET PO SCH (09:05)
[2016-11-16] MEDS: METOPROLOL 25 MG TAB PO SCH ×2 (09:05→21:00)
[2016-11-16] MEDS: AMLODIPINE 5 MG TAB PO SCH ×2 (09:06→21:01)
[2016-11-16] MEDS: NOVOLOG PEN INSULIN ASPART (BOLUS with meals) SC SCH ×3 (09:08→18:11)
[2016-11-16] MEDS: DOCUSATE SODIUM 100 MG CAP PO SCH ×2 (09:08→20:55)
--- NOTE | 2016-11-16 10:49 | PN ---
DATE: 11/16/2016 SUBJECTIVE: The patient was transferred from acute rehab to med/surg for possibility of initiating dialysis. I spoke today with the patient's daughter, informing her of the decline in renal function of her mother. I recommend dialysis to the patient's daughter; however, Geraldine does not wish to sta rt dialysis at this time. She wants to continue to observe her mother's renal function. We will th erefore continue to monitor. No other events noted. OBJECTIVE: VITAL SIGNS: Blood pressure is 145/67, respirations 22, pulse 88, temperature 97.6. HEENT: Head is normocephalic. NECK: Supple. HEART: Regular rate. LUNGS: Show diminished breath sounds at base. ABDOMEN: Soft, nontender to palpation. No rebound or guarding. EXTREMITIES: Negative for clubbing, cyanosis. No edema. DERMATOLOGIC: No rashes. MUSCULOSKELETAL: No joint effusions. NEUROLOGIC: No change in exam. MEDICATIONS: The patient's medications have been reviewed. LABORATORY DATA: Showed sodium 144, potassium 4.9, BUN 67, creatinine 4.16. White count 7.5, hemog lobin 9.2, hematocrit 28.8, platelet count is 371. ASSESSMENT AND PLAN: 1. Nonoliguric acute kidney injury on top of chronic kidney disease, stage IV, with a previous base line creatinine around 3 mg/dL. Etiology of acute kidney injury is secondary to acute tubular necro sis. The patient's renal function has declined over the last several days with mild improvement in the last 24 hours; however, the patient continues to have a GFR around 10 mL per minute. I spoke wi th the patient's daughter, informing her about dialysis. The patient's daughter at this point does not want to start dialysis and wishes to continue to monitor. I explained the risks and benefits of not doing dialysis including ____ uremia, possible aspiration. The patient's daughter was aware. We will therefore continue current treatment plan, supportive care, and renally dose all meds. The patient is status post IV fluids. 2. Hypernatremia. Continue current free water intake. 3. Chronic kidney disease, stage IV, with nephrotic range proteinuria. Etiology is secondary to di abetic nephropathy. The patient is currently in acute kidney injury as stated above. We will norma nue disease factor modification. 4. History of congestive heart failure. Continue medical management. 5. Respiratory failure with reactive airway disease. Continue current treatment plan. Continue br onchodilators. 6. Anemia. Continue to monitor H and H levels. We will give Epogen as needed. 7. Sepsis secondary to pneumonia. The patient is completing antibiotic course. 8. Diabetes. Continue Accu-Cheks and sliding scale. 9. Encephalopathy. Etiology is multifactorial secondary to uremia, underlying dementia, toxic meta bolic. Continue to monitor. Dictated By: TIFFANIE REZA DO NR/NTS Conf#: [id number] DID#: [id number]
--- NOTE | 2016-11-16 16:42 | RADRPT ---
PROCEDURE: CT Chest without contrast. CLINICAL INDICATION: 85-year-old female with a 1.7 cm nodular density in the left lung base. TECHNIQUE: CT scan of the chest without contrast was performed on a multidetector high-resolution CT scanner. Coronal and sagittal reformatted images were obtained from the axial source images. The total exam CTDI equals 13.4 mGy and the total exam DLP equals 489 mGy-cm. One or more of the following dose reduction techniques were used: - Automated exposure control. - Adjustment of the mA and/or kV according to patient size. Use of iterative reconstruction technique. COMPARISON: Chest x-ray 11/15/2016. FINDINGS: The thyroid gland and tract are unremarkable. There are vascular calcifications in the aortic arch and great vessels of the superior mediastinum. There are bilateral pleural effusions. The right is larger than left and appears partially loculated. The heart is enlarged. No pericardial effusion is identified. There are vascular calcifications in the coronary arteries. There ground-glass infiltrates in the right upper lobe. There is compressive atelectasis in the right and left lower lobes. No pulmonary nodule is identifi ed. A repeat chest x-ray with nipple markers is recommended. There is a prominent left nipple. The liver measured 13.75 cm AP. There are small calcifications in the right lobe of the liver which are likely result of small granulomas. The spleen is normal. A 1.7 cm mass is identified in the left adrenal gland with Hounsfield units measuring -10. This is likely a benign adrenal adenoma. There are vascular calcifications in the abdominal aorta and celiac artery. There are vascular calc ifications in the splenic artery and hepatic artery. The stomach is incompletely distended. There is barium in the splenic flexure of the colon. The visible portions of the pancreas are normal. There are degenerative osteophytes in the thoracic and upper lumbar spine. No acute bony fracture o r bone metastasis is identified. There is an old T12 compression fracture with 50% loss of body hei ght. IMPRESSION: 1. The nodular density seen on the chest x-ray of 11/15/2016 likely corresponds to a nipple shadow. A repeat chest x-ray with a nipple marker is recommended for confirmation. 2. There are bilateral pleural effusions with compressive atelectasis in the right left lower lobes . Ground-glass infiltrates in the right upper lobe. The right pleural effusion is partially locula hitesh. 3. Cardiomegaly. Atherosclerotic vascular calcifications in the coronary arteries. 4. Atherosclerotic vascular disease involving the great vessels of the superior mediastinum, thoraci c and abdominal aorta and its iliac artery and its branches. 5. 1.6 cm benign left adrenal adenoma. 6. Old T12 compression fracture with 50% loss of body height. There are RPTAT:AAJJ Baljeet Garcia Physician Date Time Electronically viewed and signed by Baljeet Garcia Physician on 11/16/2016 16:41 BEATRIZ/
[2016-11-16] MEDS: LEVOFLOXACIN 250MG/D5W (PMX) 50 ML IVPB SCH (17:00)
--- NOTE | 2016-11-16 17:38 | HP ---
DATE OF ADMISSION: 11/16/2016 REASON FOR ADMISSION: Acute renal failure, acute exacerbation of CHF and generalized debilitated state. HISTORY OF PRESENT ILLNESS: The patient is an unfortunate 85-year-old Sammarinese female very well known to me with a history of CKD, diabetes mellitus, anemia, history of meningioma, heart block previously family refused pacemaker, also, history of paroxysmal atrial fibrillation on Eliquis. Unfortunately, the patient has been doing poorly recently with decreased p.o. intake, weight loss and more of a flat affect. She was admitted to the hospital where she was found to have mild UTI and pneumonia. She was treated with antibiotics and then transferred to the acute rehab for physical therapy. Unfortunately at physical therapy, the patient remains quite debilitated, did not participate too much with therapy. We noted that patient's kidney function had worsened, with fluid administration she would become more congested and overall we decided to transfer to the acute hospital as patient was not improving and overall was declining further. Upon discussion with Dr. Chaudhari, he recommend hemodialysis and currently this is in discussion with the family. The patient is admitted for further care. 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 ALLERGIES: NO KNOWN DRUG ALLERGIES. SOCIAL HISTORY: No history of alcohol, tobacco or IV drug use. The patient is +3. 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 She is from the [facility] [place]. SURGICAL HISTORY: Cataract surgery. FAMILY HISTORY: Noncontributory. MEDICATIONS: Prior to admission included: 1. Eliquis 2.5 b.i.d. 2. Amlodipine 5 mg daily. 3. Nitrostat p.r.n. 4. Tylenol p.r.n. 5. Colace p.r.n. 6. Omeprazole 40 mg daily. 7. Tradjenta 5 mg daily. CURRENT MEDICATIONS: All reviewed. Previous GI workup showed esophagitis and gastritis. Colonoscopy showed poor prep, but did show external hemorrhoids. The patient's recent chest x-ray on showed a nodular density at the left lung base measuring 1.[address] is advised. Also mild pulmonary edema. PHYSICAL EXAMINATION: VITAL SIGNS: Temperature 98.5, pulse 88, respirations 20, blood pressure 146/82 , saturation 96% on room air. GENERAL: The patient is weak looking, pale. She has dentures. CARDIOVASCULAR: S1 and S2. LUNGS: Faint rhonchi. ABDOMEN: Soft, nontender. EXTREMITIES: No clubbing, cyanosis, or edema. LABORATORY DATA: White count 7.5, hemoglobin 9.2, hematocrit 29, platelet count 371, neutrophils 75%, lymphocytes 14%. Chemistry: Sodium 144, potassium 4.9, chloride 109, bicarbonate 21, BUN 67, creatinine 4.16, glucose of 70. Last glucose levels were 84, 74, 79, so it is running on the low side. IMAGING: CT scan of the chest was just done, which I ordered, shows the following: The nodular density seen on the chest x-ray likely corresponds to a nipple shadow. Repeat chest x-ray with nipple markers is recommended for confirmation. There are bilateral pleural effusions with compressive atelectasis in the right lower lobe, ground-glass infiltrate in the right upper lobe is seen. The right pleural effusion is partially loculated. Cardiomegaly. There is vascular calcification. There is atherosclerotic vascular disease involving the great vessels of the superior mediastinum, abdominal aorta and its iliac artery and it branches. There is 1.6 cm benign left adrenal adenoma. There is an old T12 compression fracture with 50% loss of body height. . ASSESSMENT AND PLAN: This is an 85-year-old Filipina female with history of diastolic dysfunction heart failure, paroxysmal atrial fibrillation, diabetes mellitus, chronic kidney disease stage IV to V, anemia, osteoarthritis, who unfortunately has been losing weigh, eating less, also with worsening kidney function, congestive heart failure exacerbation and possible now pneumonia. 1. Respiratory. CT scan suggests possible right upper lung infiltrate. May consider starting her on antibiotics. Clinically appears afebrile with normal white count. Continue supportive care, breathing treatment, O2 support. May consider pulmonary consultation as patient's CT scan suggests a partial loculated effusion. 2. Cardiovascular. The patient with diastolic dysfunction heart failure. Diuretic therapy is needed, we are concerned about hydration if patient goes into congestive heart failure. Continue deep venous prophylaxis, as the patient is already on Eliquis for atrial fibrillation. 3. Acute renal failure. Further treatment per Dr. Chaudhari. Fluid challenge versus dialysis versus other. We will follow. 4. Diabetes mellitus. Continue current insulin regimen. 5. Decreased p.o. intake. Continue Megace. Add Ensure or Nepro shakes. 6. Stool softeners as needed. 7. Depression. Start the patient on Lexapro for her mood. 8. Physical therapy as tolerated. The patient likely will need detention facility placement upon discharge. We will follow. Dictated By: ROXANA JEFFRIES/DESTINY Conf#: [id number] DID#: [id number] MTDD
[2016-11-16 20:40] VITALS: BP 140/60; RESP 20
[2016-11-16] MEDS: INSULIN GLARGINE [LANtus] 3 ML PEN SC SCH (20:55)
[2016-11-16] MEDS: SENNA TAB PO SCH (21:01)
[2016-11-17] MEDS: ACCUCHECK AT 2AM (Patients on SS coverage) XX SCH (01:58)
[2016-11-17] MEDS: PANTOPRAZOLE (EC) 40 MG TAB PO SCH (05:39)
[2016-11-17 06:12] LABS: ADD SCAN DIFF NO
[2016-11-17 06:14] LABS: BASOPHIL # 0.1 10^3/ul (0.0-0.1); BASOPHILS % 0.8 % (0.0-2.0); EOSINOPHILS # 0.1 10^3/ul (0.0-0.5); HEMOGLOBIN 9.3 g/dl (12.0-16.0); LYMPHOCYTES # 1.1 10^3/ul (0.8-2.9); LYMPHOCYTES % 16.4 % (15.0-51.0); MEAN CORPUSCULAR HEMOGLOBIN 30.5 pg (29.0-33.0); MEAN CORPUSCULAR HGB CONC 32.1 g/dl (32.0-37.0); MEAN CORPUSCULAR VOLUME 95.1 fl (82.0-101.0); MEAN PLATELET VOLUME 9.9 fl (7.4-10.4); MONOCYTE # 0.6 10^3/ul (0.3-0.9); MONOCYTES % 8.4 % (0.0-11.0); NEUTROPHIL # 4.8 10^3/ul (1.6-7.5); NEUTROPHILS % 72.1 % (39.0-77.0); PLATELET COUNT 391 10^3/UL (140-415); RED BLOOD COUNT 3.05 10^6/ul (4.20-5.40); RED CELL DISTRIBUTION WIDTH 19.8 % (11.5-14.5); WHITE BLOOD COUNT 6.7 10^3/ul (4.8-10.8)
[2016-11-17 06:31] LABS: POTASSIUM 5.2 mmol/L (3.5-5.1)
[2016-11-17 06:34] LABS: CREATININE 4.53 mg/dl (0.44-1.00)
[2016-11-17 06:35] LABS: CALCIUM 8.8 mg/dl (8.4-10.2); MAGNESIUM 2.1 mg/dl (1.7-2.5); PHOSPHORUS 5.5 mg/dl (2.5-4.9)
[2016-11-17] MEDS: Insulin NOVOLOG SS MILD Algorithm (SS with meals and bedtime) SC SCH ×4 (07:30→21:00)
[2016-11-17 07:35] VITALS: BP 150/70; RESP 18
[2016-11-17] MEDS: NOVOLOG PEN INSULIN ASPART (BOLUS with meals) SC SCH ×3 (08:36→17:16)
[2016-11-17] MEDS: MEGESTROL (40 MG/ML) 10ML CUP PO SCH ×2 (08:37→21:40)
[2016-11-17] MEDS: ESCITALOPRAM 10 MG TAB PO SCH (08:38)
[2016-11-17] MEDS: APIXABAN 5 MG TABLET PO SCH ×2 (08:39→21:39)
[2016-11-17] MEDS: LINAGLIPTIN 5 MG TABLET PO SCH (08:40)
[2016-11-17] MEDS: DOCUSATE SODIUM 100 MG CAP PO SCH ×2 (08:40→21:43)
[2016-11-17] MEDS: METOPROLOL 25 MG TAB PO SCH ×2 (08:40→21:38)
[2016-11-17] MEDS: AMLODIPINE 5 MG TAB PO SCH ×2 (08:40→21:39)
[2016-11-17] MEDS: SOD CHLORIDE 0.45% 1,000 ML IV SCH (10:58)
--- NOTE | 2016-11-17 11:09 | PN ---
DATE: 11/17/2016 SUBJECTIVE: The patient is lethargic but arousable, no other acute events noted. Please note, yest kelli I did speak with the patient's daughter offering hemodialysis. The patient's daughter did not wish to pursue dialysis at this time. No other events noted. OBJECTIVE: VITAL SIGNS: Blood pressure is 150/70, respirations 18, pulse 74, temperature 99.1. HEENT: Head is normocephalic. NECK: Supple. HEART: Regular rate. LUNGS: Show diminished breath sounds at the bases. ABDOMEN: Soft, nontender to palpation. No rebound or guarding. EXTREMITIES: Negative for clubbing, cyanosis. No edema. DERMATOLOGIC: No rashes. MUSCULOSKELETAL: No joint effusions. NEUROLOGIC: No change in exam. MEDICATIONS: The patient's medications have been reviewed. LABORATORY DATA: Shows a sodium of 146, potassium 5.2, chloride 112, BUN 71, creatinine 4.53, phosp horus 5.5. White count 6.7, hemoglobin 9.3, hematocrit 29.0, platelet count is 391. CT scan of the chest was reviewed, it showed nodular density in the chest, compressive atelectasis r ight lower lobe, ground-glass infiltrates and compression fracture. ASSESSMENT AND PLAN: 1. Nonoliguric acute kidney injury on top of chronic kidney disease stage IV with a previous baseli ne creatinine around 3. Etiology of acute kidney injury secondary to acute tubular necrosis. The p atoly's renal function has been fluctuating but continues to decline. Her GFR is around 8 to 10 mL /minute. I spoke with the patient's daughter yesterday about dialysis. At this point, she wishes t o defer. We will give the patient a fluid challenge to see if there is any component of volume depl etion, although doubt it. At this point, the patient does appear to be uremic and recommendation fo r dialysis was made but however, as stated above, the patient's daughter has refused. We will othe rwise continue current treatment plan, supportive care, renally dose all meds, avoid nephrotoxins. 2. Hypernatremia. We will start the patient on hypertonic fluid half NS 50 mL/hour. 3. Mild hyperkalemia secondary to chronic kidney disease. We will continue to monitor closely. We will repeat a BMP level. If potassium levels continue to rise, would readdress the issue of hemodi alysis and/or giving temporizing measures. 4. 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 The patient is currently in acute kidney injury as stated above. 5. History of congestive heart failure. The patient appears euvolemic. Continue to monitor closel y and IV fluids. 6. Respiratory failure with reactive airway disease. Continue current treatment plan. 7. Anemia. Continue to monitor hemoglobin and hematocrit levels. 8. Sepsis secondary to pneumonia. The patient is completing antibiotic course. 9. Diabetes. Continue Accu-Cheks and insulin sliding scale. 10. Encephalopathy. Etiology is multifactorial, toxic metabolic, uremic. We will continue to jeremiah owens. Dictated By: TIFFANIE MCHUGH/DESTINY Conf#: [id number] DID#: [id number]
--- NOTE | 2016-11-17 13:14 | PN ---
DATE: 11/17/2016 SUBJECTIVE: Patient seen. Unfortunately, patient's kidney function continued to worsen as most lik dayron she would not require initiation of hemodialysis. I spoke yesterday with the daughter. She sta hitesh that if the patient would need dialysis she will allow us to proceed with it. As I noted, the kidney function is worsening. Noted nephrology input regarding fluid challenge. PHYSICAL EXAMINATION: VITAL SIGNS: Temperature was 99.1, pulse 84, respirations 18, blood pressure 150/70, saturation 98% on 2 liters. GENERAL: The patient is frail, weak, responding appropriately. At baseline, the patient is pale. HEENT: Decreased dentition. She has dentures. CARDIOVASCULAR: S1, S2. LUNGS: Clear. ABDOMEN: Soft, nontender. EXTREMITIES: No clubbing, cyanosis, or edema. LABORATORY DATA: White count is 6.7, hemoglobin 9.2, hematocrit 29, platelet count 291, neutrophils 72%, lymphocytes 16%. Chemistry: Sodium is 146, potassium 5.2, chloride 112, bicarbonate 22, BUN 71, creatinine 4.53, glucose of 139. Last glucose level was 113 and 125. Again, CT scan of the jaycee st which was done yesterday was reviewed. The right pleural effusion is partially loculated with T1 2 compression fracture. Again, CAT scan was reviewed. MEDICATIONS: Include: 1. Normal saline at 50 mL an hour. 2. Accu-Cheks q.a.c. and at bedtime. 3. Senna 1 tab at bedtime. 4. Lantus 8 units daily. 5. Levaquin 250 IV q.48h., renally dosed. 6. Norvasc 5 mg b.i.d. 7. Eliquis 2.5 b.i.d. 8. Colace 100 b.i.d. 9. Lexapro 5 mg daily. 10. Tradjenta 5 mg daily. 11. Megace 400 b.i.d. 12. Lopressor 25 b.i.d. 13. NovoLog ____ units q.a.c. meals. 14. Insulin aspart per sliding scale. 15. Protonix 40 mg daily. 16. DuoNeb q.4h. p.r.n. 17. Tylenol p.r.n. 18. Milk of magnesia p.r.n. 19. Dulcolax p.r.n. 20. Hypoglycemia protocol as directed. 21. Colace p.r.n. 22. Hydralazine p.r.n. 23. Lactulose p.r.n. 24. Milk of magnesia p.r.n. 25. Zofran p.r.n. ASSESSMENT AND PLAN: This is an 85-year-old Filipina female with history of diastolic dysfunction, heart failure, paroxysmal atrial fibrillation, diabetes mellitus, chronic kidney disease stage V now , anemia, osteoarthritis who unfortunately has been losing weight, eating less and also with worseni ng kidney function with tendency for congestive heart failure. Also, CT scan suggests pneumonia. 1. Respiratory. Continue with Levaquin. Continue O2 support, observe and monitor for fluid overlo ad state as the patient is now receiving a fluid challenge. 2. Cardiovascular. Stable. Monitor for congestive heart failure. Continue Eliquis for anticoagul ation for atrial fibrillation. Previously family refused pacemaker. Blood pressure is better contr olled. 3. Acute renal failure, worsening. Again, patient to undergo fluid challenge yesterday. Will sat itor. We will discuss with family again. They are thinking about dialysis and likely will need chao t, as the patient may be not feeling well for the past weeks is somewhat related to that. She is pr obably slightly uremic. 3. Diabetes mellitus, currently controlled with current regimen. 4. Encourage her to eat. Continue Megace and protein supplements. 5. Depression. I added Lexapro. 6. Physical therapy as tolerated. I have been in touch with the daughter on a regular basis. We w ill follow. Dictated By: ROXANA JEFFRIES/DESTINY Conf#: [id number] DID#: [id number]
[2016-11-17 16:19] LABS: POTASSIUM 4.8 mmol/L (3.5-5.1)
[2016-11-17 16:22] LABS: CALCIUM 8.7 mg/dl (8.4-10.2); CREATININE 4.38 mg/dl (0.44-1.00)
[2016-11-17 20:52] VITALS: BP 143/66; RESP 19
[2016-11-17] MEDS: INSULIN GLARGINE [LANtus] 3 ML PEN SC SCH (21:35)
[2016-11-17] MEDS: SENNA TAB PO SCH (21:38)
[2016-11-18] MEDS: ACCUCHECK AT 2AM (Patients on SS coverage) XX SCH (02:00)
[2016-11-18] MEDS: ALBUTEROL/IPRATROPIUM (NEB) 3 ML AMP HHN PRN ×2 (03:33→08:59)
[2016-11-18] MEDS: PANTOPRAZOLE (EC) 40 MG TAB PO SCH (05:41)
[2016-11-18 06:05] LABS: ADD SCAN DIFF NO
[2016-11-18 06:11] LABS: BASOPHIL # 0.1 10^3/ul (0.0-0.1); BASOPHILS % 0.9 % (0.0-2.0); EOSINOPHILS # 0.1 10^3/ul (0.0-0.5); EOSINOPHILS % 1.8 % (0.0-7.0); HEMATOCRIT 29.2 % (37.0-47.0); HEMOGLOBIN 9.4 g/dl (12.0-16.0); LYMPHOCYTES # 1.2 10^3/ul (0.8-2.9); LYMPHOCYTES % 16.1 % (15.0-51.0); MEAN CORPUSCULAR HEMOGLOBIN 30.8 pg (29.0-33.0); MEAN CORPUSCULAR HGB CONC 32.2 g/dl (32.0-37.0); MEAN CORPUSCULAR VOLUME 95.7 fl (82.0-101.0); MEAN PLATELET VOLUME 9.5 fl (7.4-10.4); MONOCYTE # 0.6 10^3/ul (0.3-0.9); MONOCYTES % 8.4 % (0.0-11.0); NEUTROPHIL # 5.5 10^3/ul (1.6-7.5); NEUTROPHILS % 72.3 % (39.0-77.0); PLATELET COUNT 378 10^3/UL (140-415); RED BLOOD COUNT 3.05 10^6/ul (4.20-5.40); RED CELL DISTRIBUTION WIDTH 19.6 % (11.5-14.5); WHITE BLOOD COUNT 7.6 10^3/ul (4.8-10.8)
[2016-11-18 06:28] LABS: CREATININE 4.29 mg/dl (0.44-1.00)
[2016-11-18 06:29] LABS: CALCIUM 8.7 mg/dl (8.4-10.2); MAGNESIUM 2.2 mg/dl (1.7-2.5); PHOSPHORUS 5.4 mg/dl (2.5-4.9)
[2016-11-18] MEDS: SOD CHLORIDE 0.45% 1,000 ML IV SCH (06:49)
[2016-11-18] MEDS: Insulin NOVOLOG SS MILD Algorithm (SS with meals and bedtime) SC SCH ×4 (07:30→20:51)
[2016-11-18 08:27] VITALS: BP 164/72; RESP 19
[2016-11-18] MEDS: DOCUSATE SODIUM 100 MG CAP PO SCH ×2 (09:16→20:51)
[2016-11-18] MEDS: ESCITALOPRAM 10 MG TAB PO SCH (09:17)
[2016-11-18] MEDS: MEGESTROL (40 MG/ML) 10ML CUP PO SCH ×2 (09:17→20:51)
[2016-11-18] MEDS: APIXABAN 5 MG TABLET PO SCH ×2 (09:17→20:51)
[2016-11-18] MEDS: LINAGLIPTIN 5 MG TABLET PO SCH (09:18)
[2016-11-18] MEDS: METOPROLOL 25 MG TAB PO SCH ×2 (09:18→20:57)
[2016-11-18] MEDS: AMLODIPINE 5 MG TAB PO SCH ×2 (09:19→20:57)
[2016-11-18] MEDS: NOVOLOG PEN INSULIN ASPART (BOLUS with meals) SC SCH ×3 (09:22→17:19)
[2016-11-18] MEDS: LEVOFLOXACIN 250MG/D5W (PMX) 50 ML IVPB SCH (17:16)
--- NOTE | 2016-11-18 18:02 | PN ---
DATE: 11/18/2016 SUBJECTIVE: Patient seen lying in bed. She denies any complaints, almost lying flat and she does n ot want me to elevate her head. PHYSICAL EXAMINATION: VITAL SIGNS: Temperature 98.7, pulse 88, respiration 19, blood pressure /72, saturation 98% on 2 to 4 liters. GENERAL: The patient is in no acute distress, lying in bed flat. The patient is pale, slight JVD a bout 4 to 5 cm. LUNGS: Mild rhonchi bilaterally. ABDOMEN: Soft, nontender. EXTREMITIES: No clubbing, cyanosis, or edema. LABORATORY DATA: White count 7.6, hemoglobin 9.4, hematocrit 29, platelet count 278 with normal dif ferential. Chemistry: Sodium 140, potassium 5.0, chloride 109, bicarbonate 21, BUN 72, creatinine 4.29, slightly better. Glucose level 223 and 116. MEDICATIONS: Include: 1. Accu-Cheks q.a.c. and at bedtime. 2. Senna 1 tab at bedtime. 3. Lantus 8 units daily. 4. Levaquin 250 q.48 hours. 5. Amlodipine 5 mg b.i.d. 6. Eliquis 2.5 b.i.d. 7. Colace 100 b.i.d. 8. Lexapro 5 mg daily. 9. Tradjenta 5 mg daily. 10. Megace 400 b.i.d. 11. Lopressor 25 b.i.d. 12. Insulin Aspart 3 units with meals. 13. Protonix 40 mg daily. 14. DuoNeb every 4 p.r.n. 15. Tylenol p.r.n. 16. Milk of magnesia p.r.n. 17. Dulcolax p.r.n. 18. Hypoglycemia protocol as directed. 19. Colace p.r.n. 20. Hydralazine p.r.n. 21. Lactulose p.r.n. 22. Nitroglycerin p.r.n. 23. Zofran p.r.n. ASSESSMENT AND PLAN: This is an 85-year-old Filipina female with history of diastolic dysfunction h eart failure, paroxysmal atrial fibrillation, diabetes mellitus, heart block, chronic kidney disease (CKD) stage IV-V, osteoarthritis, unfortunately has been losing weight and doing poorly in the past few weeks, also with worsening kidney function and tendency for congestive heart failure (CHF). CT scan suggests also pneumonia. 1. Respiratory. Continue oral Levaquin. Continue O2 support, currently receiving fluid challenge secondary to worsening kidney function. Monitor for fluid overload state. Again, patient may need dialysis. 2. Cardiovascular. Continue Eliquis for anticoagulation for atrial fibrillation, previously refuse d pacemaker, now patient is overall quite debilitated to undergo any procedures. 3. Acute renal failure, observe. Currently, status post fluid challenge. Again, will follow. May consider dialysis. Will discuss with family and with nephrology as patient has a tendency to fluid overload, she may be somewhat uremic as well. 4. Diabetes mellitus. Continue current regimen. 5. Encourage her to eat, on Megace and protein supplement. 6. Depression. On Lexapro. 7. Physical therapy as tolerated. Long-term prognosis is guarded. I believe she may benefit from dialysis. I have been in touch with the daughter on a routine basis. Her name is . We will follow. Dictated By: ROXANA JEFFRIES/DESTINY Conf#: [id number] DID#: [id number]
[2016-11-18] MEDS: INSULIN GLARGINE [LANtus] 3 ML PEN SC SCH (20:49)
[2016-11-18] MEDS: SENNA TAB PO SCH (20:51)
[2016-11-18 22:33] VITALS: BP 169/75; RESP 20
[2016-11-19] VITALS (11 sets, daily range): BP systolic 150–189; BP diastolic 48–89; PULSE 8–88; RESP 19–20
[2016-11-19] MEDS: ACCUCHECK AT 2AM (Patients on SS coverage) XX SCH (02:00)
[2016-11-19] MEDS: PANTOPRAZOLE (EC) 40 MG TAB PO SCH (05:09)
[2016-11-19 05:56] LABS: ADD SCAN DIFF NO
[2016-11-19 06:17] LABS: PHOSPHORUS 5.8 mg/dl (2.5-4.9)
[2016-11-19 06:18] LABS: MAGNESIUM 2.1 mg/dl (1.7-2.5)
[2016-11-19 06:23] LABS: BASOPHIL # 0.1 10^3/ul (0.0-0.1); BASOPHILS % 0.6 % (0.0-2.0); EOSINOPHILS # 0.1 10^3/ul (0.0-0.5); EOSINOPHILS % 1.6 % (0.0-7.0); HEMATOCRIT 28.7 % (37.0-47.0); LYMPHOCYTES # 0.7 10^3/ul (0.8-2.9); LYMPHOCYTES % 9.3 % (15.0-51.0); MEAN CORPUSCULAR HEMOGLOBIN 30.4 pg (29.0-33.0); MEAN CORPUSCULAR HGB CONC 31.4 g/dl (32.0-37.0); MEAN PLATELET VOLUME 9.7 fl (7.4-10.4); MONOCYTE # 0.6 10^3/ul (0.3-0.9); MONOCYTES % 7.5 % (0.0-11.0); NEUTROPHIL # 6.2 10^3/ul (1.6-7.5); NEUTROPHILS % 80.6 % (39.0-77.0); PLATELET COUNT 363 10^3/UL (140-415); RED BLOOD COUNT 2.96 10^6/ul (4.20-5.40); RED CELL DISTRIBUTION WIDTH 19.3 % (11.5-14.5); WHITE BLOOD COUNT 7.7 10^3/ul (4.8-10.8)
[2016-11-19 06:24] LABS: ALBUMIN 3.1 g/dl (3.3-4.9)
[2016-11-19 06:25] LABS: POTASSIUM 5.6 mmol/L (3.5-5.1)
[2016-11-19 06:27] LABS: ALBUMIN/GLOBULIN RATIO 0.83; BILIRUBIN,INDIRECT 0.3 mg/dl (0-1.1); BILIRUBIN,TOTAL 0.3 mg/dl (0.2-1.3); CREATININE 4.72 mg/dl (0.44-1.00); TOTAL PROTEIN 6.8 g/dl (6.1-8.1)
[2016-11-19 06:28] LABS: CALCIUM 8.7 mg/dl (8.4-10.2)
[2016-11-19] MEDS ORDERED: hydrALAzine 20 MG INJ IV ONE (06:30)
[2016-11-19] MEDS: Insulin NOVOLOG SS MILD Algorithm (SS with meals and bedtime) SC SCH ×4 (07:30→20:56)
--- NOTE | 2016-11-19 07:59 | PN ---
DATE: 11/18/2016 SUBJECTIVE: The patient is stable, no acute events overnight. Still remains lethargic, poor p.o. i ntake. The patient's daughter is at bedside. Discussed again benefits versus the risks of dialysis . She is considering starting dialysis tomorrow. OBJECTIVE: VITAL SIGNS: Blood pressure is 164/72, respirations 19, pulse 88, temperature 98.7. HEENT: Head is normocephalic. NECK: Supple. HEART: Regular rate. LUNGS: Show diminished breath sounds at base. ABDOMEN: Soft, nontender to palpation without rebound or guarding. EXTREMITIES: Negative for clubbing, cyanosis. No edema. DERMATOLOGIC: No rashes. MUSCULOSKELETAL: No joint effusions. NEUROLOGIC: No change in exam. MEDICATIONS: Reviewed. LABORATORY DATA: Showed sodium 140, potassium 5.0, BUN 72, creatinine 4.29. White count 7.6, hemog lobin 9.4, hematocrit 29.2, platelet count is 368. ASSESSMENT AND PLAN: 1. Nonoliguric acute kidney injury on top of chronic kidney disease stage IV with previous baseline creatinine around . Etiology of acute kidney injury is secondary to acute tubular necrosis. The patient's renal function remains slow around a glomerular filtration rate of 8 to 10 mL per min isaura. I spoke with the patient's daughter at bedside about initiating hemodialysis. She is consideri ng it and may decide to start dialysis tomorrow. Would otherwise continue supportive care, renally dose all meds, avoid nephrotoxins. 2. Hypernatremia, improved. We will discontinue hypertonic fluid. 3. Mild hyperkalemia secondary to chronic kidney disease, improved. Continue to monitor. 4. History of congestive heart failure. Continue current treatment plan. We will discontinue intr avenous fluids. 5. Respiratory failure secondary to reactive airway disease. Continue current medical regimen. 6. Anemia. Continue to monitor hemoglobin and hematocrit levels. 7. Sepsis secondary to pneumonia. Patient is completing an antibiotic course. 8. Diabetes. Continue Accu-Cheks and sliding scale. 9. Encephalopathy. Etiology is multifactorial, toxic metabolic, uremic. Continue to monitor. Dictated By: TIFFANIE MCHUGH/DESTINY Conf#: [id number] DID#: [id number]
[2016-11-19] MEDS: MEGESTROL (40 MG/ML) 10ML CUP PO SCH ×2 (08:34→20:55)
[2016-11-19] MEDS: LINAGLIPTIN 5 MG TABLET PO SCH (08:34)
[2016-11-19] MEDS: AMLODIPINE 5 MG TAB PO SCH ×2 (08:35→20:55)
[2016-11-19] MEDS: ESCITALOPRAM 10 MG TAB PO SCH (08:35)
[2016-11-19] MEDS: METOPROLOL 25 MG TAB PO SCH ×2 (08:35→20:55)
[2016-11-19] MEDS: APIXABAN 5 MG TABLET PO SCH ×2 (08:36→20:55)
[2016-11-19] MEDS: DOCUSATE SODIUM 100 MG CAP PO SCH ×2 (08:36→20:55)
[2016-11-19] MEDS: NOVOLOG PEN INSULIN ASPART (BOLUS with meals) SC SCH ×3 (08:37→18:04)
[2016-11-19] MEDS: ALBUTEROL/IPRATROPIUM (NEB) 3 ML AMP HHN PRN ×2 (09:29→18:20)
--- NOTE | 2016-11-19 11:11 | PN ---
DATE: 11/19/2016 SUBJECTIVE: The patient continues to be confused. The patient's family has agreed to dialysis per her primary, Dr. Weiner. We will order a Spike catheter placement for today. Once the catheter is placed, the patient will be dialyzed. No other events noted. OBJECTIVE: VITAL SIGNS: Blood pressure 164/72, respiratory rate 20, pulse 89, temperature 97.4. HEENT: Head is normocephalic. NECK: Supple. HEART: Regular rate. LUNGS: Show diminished breath sounds at base. ABDOMEN: Soft and nontender to palpation without rebound or guarding. EXTREMITIES: Negative for clubbing, cyanosis, no edema. DERMATOLOGIC: No rashes. MUSCULOSKELETAL: No joint effusions. NEUROLOGIC: No change in exam. MEDICATIONS: The patient's medications have been reviewed. LABORATORY DATA: Sodium 145, potassium 5.6, chloride 111, BUN 43, creatinine 4.72. White count 7.7 , hemoglobin 9.0, hematocrit of 28.7, platelet count 363. ASSESSMENT AND PLAN: 1. Nonoliguric acute kidney injury on top of chronic kidney disease stage IV with previous baseline creatinine around 3.0 mg/dL. The patient's etiology of acute kidney injury is secondary to acute tu bular necrosis. Patient's renal function continues to decline without improvement. The patient's f amily has agreed to dialysis. Plan is for a Spike catheter placement. Once placed, the patient wi ll be dialyzed for 2 hours on 2K bath and calcium 2.5. 2. Hyperkalemia secondary to chronic kidney disease. Plan for dialysis today and 2 potassium bath. 3. Hypernatremia. We will encourage free water intake. Plan on dialysis 140 sodium bath. 4. History of congestive heart failure. Continue medical management. We will ultrafiltrate with di alysis. 5. Respiratory failure secondary to reactive airway disease. Continue current medical management. 6. Anemia. Continue to monitor hemoglobin and hematocrit levels. 7. Sepsis secondary to pneumonia. The patient is completing antibiotic course. 8. Diabetes. Continue Accu-Cheks and sliding scale. 9. Encephalopathy. Etiology is multifactorial. Continue to monitor. Dictated By: TIFFANIE MCHUGH/DESTINY Conf#: [id number] DID#: [id number]
[2016-11-19] MEDS ORDERED: HEPARIN 1000 UNITS/ML 10 ML INJ ONE (14:53)
--- NOTE | 2016-11-19 15:11 | PN ---
DATE: 11/19/2016 The patient was seen and will have a Spike catheter placed for dialysis. The patient with ongoing worsening kidney function despite fluid challenge. Patient with tendency for CHF and overall has b een doing poorly, also with significant electrolyte abnormalities including hyperkalemia. Again Manoj nton catheter will be done by IR today. Also, the patient can proceed with dialysis as dialysis is being initiated. The patient overall complaining of generalized body aches. PHYSICAL EXAMINATION: VITAL SIGNS: Temperature 97.4, pulse 88, respirations 22, blood pressure 160/72, saturation 93% on 4 liters. GENERAL: The patient is in no acute distress. HEENT: Normocephalic, atraumatic. CARDIOVASCULAR: Positive S1, S2, regular rate. LUNGS: Clear. ABDOMEN: Soft, nontender. EXTREMITIES: No clubbing, cyanosis, or edema. LABORATORY DATA: Today, white count is 7.7, hemoglobin 9, hematocrit 29, platelet count 263, neutro phils 81%, lymphocytes 9%. Chemistry: Sodium is 145, potassium 5.6, chloride 111, bicarbonate 23, BUN 73, creatinine 4.72, glucose of 86. Albumin 3.1. CURRENT MEDICATIONS: Include the followin. Accu-Chek at bedtime at bedtime and before meals. 2. Senna at bedtime. 3. Lantus 8 units daily. 4. Levaquin 250 every 48 hours. 5. Norvasc 5 mg b.i.d. 6. Eliquis 2.5 b.i.d. 7. Colace 100 b.i.d. 8. Lexapro 5 mg daily. 9. Tradjenta 5 mg daily. 10. Megace 400 b.i.d. 11. Lopressor 25 b.i.d. 12. Insulin aspart with meals. 13. Protonix 40 mg daily. 14. DuoNeb as directed. 15. Tylenol p.r.n. 16. Milk of magnesia p.r.n. 17. Dulcolax 18. Hypoglycemia protocol p.r.n. 19. Colace p.r.n. 20. Hydralazine p.r.n. 21. Lactulose p.r.n. 22. Milk of magnesia p.r.n. 23. Nitroglycerin. 24 Zofran p.r.n. ASSESSMENT AND PLAN: This is an unfortunate 85-year-old Filipina female with history of congestive heart failure, more for diastolic dysfunction, paroxysmal atrial fibrillation, history of heart bloc k, diabetes mellitus, chronic kidney disease, stage V. Unfortunately, she has been losing weight, d oing poorly with worsening kidney function, also being treated for pneumonia. 1. Pneumonia. Continue Levaquin. Lung sounds better. 2. Cardiovascular. Patient on anticoagulation with Eliquis for atrial fibrillation, dose per age a nd renal dose. 3. Acute renal failure with worsening hyperkalemia. The patient to be started on dialysis. Zulema n catheter will be placed by IR. 4. Diabetes mellitus. Sugar levels are as follows, 90, 80 and 103. So, we will reduce patient's i nsulin to prevent hypoglycemia. 5. Decreased p.o. intake, on Megace and encourage her to eat more, observe. 6. Depression on Lexapro. 7. Chronic pain. Start the patient on Tylenol routine around the clock and try to control also for pain but try to avoid over sedation. I have been in touch with the daughter routinely. Her name i s Edwige. We will follow. Dictated By: ROXANA JEFFRIES/DESTINY Conf#: [id number] DID#: [id number]
--- NOTE | 2016-11-19 16:35 | RADRPT ---
PROCEDURE: PLACEMENT OF RIGHT INTERNAL JUGULAR VENOUS TEMPORARY DIALYSIS CATHETER . CLINICAL INDICATION: Acute kidney injury. TECHNIQUE: Informed consent was obtained. The risks including bleeding and infection were explained to the pat rogeliont. The patient understood and was willing to proceed. A procedural pause was performed. The alfredo walker's name, date of , and procedure to be performed were verified. Limited sonography of the right neck was performed. Noted is a patent right internal jugular vein. The central line was inse rted with all elements of maximal sterile barrier technique. All of the following were used: head co vering, facial mask, sterile gown, sterile gloves, a large sterile sheet, hand hygiene, and 2% chlo rhexidine for cutaneous antisepsis. The right neck and anterior superior chest wall was prepped and draped in the usual sterile fashion. Using local anesthesia, sterile technique, and ultrasound guidance, a 20-gauge needle was advanced i nto the right internal jugular vein in the supraclavicular region. The 0.018 inch floppy tip guidew valentina was advanced through the needle into the superior vena cava with fluoroscopic guidance. A 5-Shahram nch sheath was advanced over the guidewire. The guidewire was removed and a 0.035 inch Amplatz wire was advanced into the superior vena cava, then the right atrium. Serial dilatation was performed t o 12 [place]. The temporary dialysis catheter was then advanced over the guidewire such that the tip was placed in the right atrium. A 16 cm long, 11.5 [place] Citizen Mahurkar temporary dialysis catheter was used. Tip position was confirmed in the right atrium with fluoroscopy. The two ports were each fl ushed with 1.5 ml of 1:1000 heparin. The catheter was secured to the skin with 2-0 monofilament. The site was dressed. The patient tolerated the procedure well. COMPARISON: None. FINDINGS: Ultrasound images were recorded and stored in the patient's medical record. Final radiographic images demonstrate the tip of the catheter in the upper right atrium. A total of 0.1 minutes of fluoroscopy time was used. The ultrasound images demonstrate the needle entering th e internal jugular vein. IMPRESSION: 1. Satisfactory insertion of right internal jugular vein temporary dialysis catheter with ultrasoun d and fluoroscopic guidance. RPTAT: QQ .Jonathan York MD, MD Date Time Electronically viewed and signed by .Jonathan York MD, MD on 11/19/2016 16:35 .R/
--- NOTE | 2016-11-19 17:20 | RADRPT ---
PROCEDURE: Ultrasound guidance for placement of needle in right internal jugular vein. CLINICAL INDICATION: Venous access. TECHNIQUE: Prior to the procedure, informed consent was obtained. Risks including bleeding, infection, and pneu mothorax were explained to the patient. The patient understood and was willing to proceed. A procedu ral pause was performed. The patient's name, date of , and procedure to be performed were verif ied. The central line was inserted with all elements of maximal sterile barrier technique. All of th e following were used: head covering, facial mask, sterile gown, sterile gloves, a large sterile she et, hand hygiene, and 2% chlorhexidine for cutaneous antisepsis. The right neck and anterior/super ior chest wall was prepped and draped in usual sterile fashion. Limited sonography of the right neck was then performed. Noted is a patent right internal jugular ve in. Ultrasound images were recorded and stored in the patient's medical record. Following the local injection of Xylocaine, the right internal jugular vein was punctured under sono graphic guidance with a 20-gauge needle through which a 0.018 inch floppy tip guidewire was advanced into the superior vena cava. The patient tolerated the procedure well. The remainder of the proce dure was performed and dictated under separate cover. COMPARISON: None. FINDINGS: The ultrasound images demonstrate a patent right internal jugular vein. The subsequent images demon strate the needle entering the right internal jugular vein. IMPRESSION: 1. Ultrasound guidance for a needle placement in right internal jugular vein. RPTAT: QQ .Jonathan York MD, Date Time Electronically viewed and signed by .Jonathan Yokr MD, on 11/19/2016 17:19 .R/
[2016-11-19] MEDS: SENNA TAB PO SCH (20:55)
[2016-11-19] MEDS: INSULIN GLARGINE [LANtus] 3 ML PEN SC SCH (20:57)
[2016-11-20] VITALS (9 sets, daily range): BP systolic 134–168; BP diastolic 64–80; PULSE 64–80; RESP 20
[2016-11-20] MEDS: ACCUCHECK AT 2AM (Patients on SS coverage) XX SCH (02:00)
[2016-11-20] MEDS: PANTOPRAZOLE (EC) 40 MG TAB PO SCH (05:17)
--- NOTE | 2016-11-20 07:23 | PN ---
DATE: 11/19/2016 SUBJECTIVE: The patient with no chest pain, no pressure. The patient denies palpitations ____ or s yncope to me, however is not reliable. MEDICATIONS: Reviewed. PHYSICAL EXAMINATION: VITAL SIGNS: Temperature 97.4, heart rate of 88, blood pressure 164/72, respiratory rate of 20, sat urating 100%. HEENT: Normocephalic, atraumatic. Elderly female. Pupils are equal. CARDIOVASCULAR: Regular rate and rhythm. PULMONARY: No wheezes anteriorly. GASTROINTESTINAL: Soft, nontender. EXTREMITIES: Trivial edema. NEUROLOGIC: Awake. ASSESSMENT AND PLAN: 1. Acute renal failure. Plan for dialysis. 2. History of heart block. Currently heart rate has remained stable. Conservative therapy for now . 3. Hypertension ____. 4. Hyperkalemia, still requires dialysis. 5. Fluid overload ____ congestive heart failure secondary to diastolic dysfunction. 6. Status post sepsis and pneumonia. 7. ____ diabetes. RECOMMENDATIONS: Hemodialysis as per Renal. Will continue ____ cardiac care. Will order EKG for t omorrow as well. Dictated By: SUNDAR JACOBO MD AV/NTS Conf#: [id number] DID#: [id number] CC: ROXANA RODRIGUEZ MD;*End*
[2016-11-20] MEDS: Insulin NOVOLOG SS MILD Algorithm (SS with meals and bedtime) SC SCH ×4 (07:30→20:51)
[2016-11-20] MEDS: LINAGLIPTIN 5 MG TABLET PO SCH (08:46)
[2016-11-20] MEDS: METOPROLOL 25 MG TAB PO SCH ×2 (08:46→20:51)
[2016-11-20] MEDS: MEGESTROL (40 MG/ML) 10ML CUP PO SCH ×2 (08:46→20:49)
[2016-11-20] MEDS: AMLODIPINE 5 MG TAB PO SCH ×2 (08:46→20:50)
[2016-11-20] MEDS: APIXABAN 5 MG TABLET PO SCH ×2 (08:47→20:50)
[2016-11-20] MEDS: DOCUSATE SODIUM 100 MG CAP PO SCH ×2 (08:47→20:50)
[2016-11-20] MEDS: ESCITALOPRAM 10 MG TAB PO SCH (08:48)
[2016-11-20] MEDS: NOVOLOG PEN INSULIN ASPART (BOLUS with meals) SC SCH ×4 (08:48→17:47)
[2016-11-20 09:53] LABS: ADD SCAN DIFF NO
[2016-11-20 09:58] LABS: BASOPHILS % 0.4 % (0.0-2.0); EOSINOPHILS # 0.1 10^3/ul (0.0-0.5); EOSINOPHILS % 1.1 % (0.0-7.0); HEMATOCRIT 29.1 % (37.0-47.0); HEMOGLOBIN 9.3 g/dl (12.0-16.0); LYMPHOCYTES # 0.7 10^3/ul (0.8-2.9); MEAN CORPUSCULAR HEMOGLOBIN 30.9 pg (29.0-33.0); MEAN CORPUSCULAR VOLUME 96.7 fl (82.0-101.0); MEAN PLATELET VOLUME 9.4 fl (7.4-10.4); MONOCYTE # 0.5 10^3/ul (0.3-0.9); NEUTROPHIL # 6.2 10^3/ul (1.6-7.5); NEUTROPHILS % 82.4 % (39.0-77.0); PLATELET COUNT 324 10^3/UL (140-415); RED BLOOD COUNT 3.01 10^6/ul (4.20-5.40); RED CELL DISTRIBUTION WIDTH 19.6 % (11.5-14.5); WHITE BLOOD COUNT 7.5 10^3/ul (4.8-10.8)
[2016-11-20 10:08] LABS: POTASSIUM 4.9 mmol/L (3.5-5.1)
[2016-11-20 10:11] LABS: CREATININE 3.85 mg/dl (0.44-1.00)
[2016-11-20 10:12] LABS: CALCIUM 8.6 mg/dl (8.4-10.2); PHOSPHORUS 5.1 mg/dl (2.5-4.9)
[2016-11-20 11:50] LABS: HAAIG REFLEX REFLEX FILED
[2016-11-20] MEDS ORDERED: HEPARIN 1000 UNITS/ML 10 ML INJ CATHETER ONE (12:00)
--- NOTE | 2016-11-20 12:45 | PN ---
DATE: 11/20/2016 SUBJECTIVE: The patient is stable. The patient was initiated on hemodialysis yesterday and tolerat ed it well. Patient is more alert today, less congested. OBJECTIVE: VITAL SIGNS: Blood pressure 116/72, respiratory rate 20, pulse 81, temperature 98.6. HEENT: Head is normocephalic. NECK: Supple. HEART: Regular rate. LUNGS: Show diminished breath sounds at the base. ABDOMEN: Soft, nontender to palpation without rebound or guarding. EXTREMITIES: Negative for clubbing, cyanosis, no edema. DERMATOLOGIC: No rashes. MUSCULOSKELETAL: No joint effusions. NEUROLOGIC: No change in exam. MEDICATIONS: The patient's medications have been reviewed. LABORATORY DATA: Shows sodium 139, potassium ____, chloride 106, BUN 53, creatinine 3.85, phosphoru s 5.1, hemoglobin 7.5, hemoglobin 9.3, hematocrit 29.1, platelet count is 324. ASSESSMENT AND PLAN: 1. Nonoliguric acute kidney injury on top of chronic kidney disease, stage IV. The patient now may have progressed to end-stage renal disease. The patient was initiated on hemodialysis yesterday an d tolerated it well. Plan for dialysis again today for 3 hours, 2K bath, calcium 2.5, ultrafiltrate as tolerated. 2. Hyperkalemia secondary to acute kidney injury and chronic kidney disease, improved. Continue di alysis on a low potassium bath. 3. Hypernatremia, improved. Continue to encourage free water intake. 4. History of congestive heart failure. Continue current medical management. Continue ultrafiltrat ion dialysis. 5. Anemia. Continue to monitor hemoglobin and hematocrit levels. We will give Epogen as needed. 6. Sepsis secondary to pneumonia. The patient is completing an antibiotic course. 7. Diabetes. Continue Accu-Cheks and sliding scale. 8. Encephalopathy, improving, etiology in part due to uremia. Continue hemodialysis. Dictated By: TIFFANIE MCHUGH/DESTINY Conf#: [id number] DID#: [id number]
--- NOTE | 2016-11-20 13:22 | PN ---
DATE: 11/20/2016 SUBJECTIVE: The patient is status post Spike cath placement in the right internal jugular vein. The patient is status post dialysis yesterday. Clinically, she looks better. I discussed with nurs ing staff. Plan for another round of dialysis today. The patient still with marginal appetite. OBJECTIVE: VITAL SIGNS: Temperature 98.6, pulse 81, respirations 20, blood pressure 168/72, saturation 94% on 3 liters. GENERAL: The patient is in no acute distress. The patient is pale. CARDIOVASCULAR: S1, S2, regular rate. LUNGS: Clear. ABDOMEN: Soft, nontender. EXTREMITIES: No clubbing, cyanosis, no edema. LABORATORY DATA: White blood cell count 7.5, hemoglobin 9.3, hematocrit 29, platelet count 324, pamela trophils 82%, lymphocytes 9%. Chemistry: Sodium 129, potassium 4.9, chloride 106, bicarbonate 24, BUN 53, creatinine 3.85, glucose 129. MEDICATIONS: Include: 1. Levaquin 250 every 8 hours. 2. Lantus 4 units day. 3. Accu-Chek q.a.c. and at bedtime. 4. Senna 1 tab at bedtime. 5. Norvasc 5 mg b.i.d. 6. Eliquis 2.5 mg b.i.d. 7. Colace 100 b.i.d. 8. Lexapro 5 mg daily. 9. Tradjenta 5 mg daily. 10. Megace 400 b.i.d. 11. Lopressor 25 b.i.d. 12. Insulin aspart per sliding scale. 13. Insulin aspart 3 units q.a.c. meals. 14. Protonix 40 mg daily. 15. DuoNeb p.r.n. 15. Tylenol p.r.n. 16. Milk of magnesia p.r.n. 17. Hypoglycemia protocol as noted. 18. Hydralazine. 19. Lactulose. Accu-Cheks: 86, 119, 160 and 120. ASSESSMENT AND PLAN: This is an 85-year-old Filipina female with history of congestive heart failur e, diastolic dysfunction heart failure, paroxysmal atrial fibrillation, history of heart block, diab etes mellitus, CKD, now on dialysis, who presented with pneumonia, weight loss with worsening functi onal capacity and a tendency for fluid overload and worsening kidney function. 1. Pneumonia. Continue Levaquin dose per pharmacy. 2. Acute renal failure. Dialysis was initiated; clinically better. The patient will need a Perm-A -Cath placed. 3. Cardiovascular. Continue Eliquis for atrial fibrillation. Titrate blood pressure medications u p as patient remains hypertensive. 4. Diabetes mellitus. Glucose levels are controlled. Continue the same regimen of insulin and ora l medications. 5. Decreased p.o. intake. Continue protein supplements and encourage her to eat. Continue Ensure for now. 6. Depression. On Lexapro. 7. Chronic pain. Start the patient on Tylenol. She has been complaining of back pain. We will discuss with the family discharge planning. The patient may benefit from halfway fa cility for monitoring of patient's weight and strength. Dictated By: ROXANA JEFFRIES/DESTINY Conf#: [id number] DID#: [id number]
[2016-11-20 14:08] LABS: HEPATITIS B CORE ANTIBODY REACTIVE (NEGATIVE)
[2016-11-20] MEDS ORDERED: LEVOFLOXACIN 250 MG TAB PO SCH (17:00)
--- NOTE | 2016-11-20 17:17 | PN ---
DATE: 11/20/2016 CARDIOLOGY FOLLOWUP SUBJECTIVE: The patient is status post hemodialysis yesterday and today. Has been trying to get of f of Phenergan and getting confused. Heart rate has remained stable. The patient with no reported chest pain or pressure, no shortness of breath; however, poor historian. MEDICATIONS: Reviewed as per medication reconciliation, personally reviewed. PHYSICAL EXAMINATION: VITAL SIGNS: Temperature 98.6, heart rate of 78, blood pressure 130/68, respiration rate of 20, sat urating 97%. HEENT: Normocephalic, atraumatic. Elderly female. Pupils are equal. CARDIOVASCULAR: Irregularly irregular. Systolic murmur. PULMONARY: With no wheezes. GASTROINTESTINAL: Soft, nontender. EXTREMITIES: Trivial edema. NEUROLOGIC: Awake and alert. PSYCHIATRIC: Appears to be calm. LABORATORY: WBC of 7.5, hemoglobin 9.3, platelets 324, sodium 139, potassium 4.9, BUN of 53, creati nine 3.85, glucose 129. ASSESSMENT AND PLAN: 1. Renal failure, dialysis done. 2. Paroxysmal atrial fibrillation. 3. History of heart block. Currently, heart rate has remained stable. 4. Hypertension. 5. Electrolyte abnormality, hyperkalemia and fluid overload. 6. Status post sepsis and pneumonia. 7. Diabetes. RECOMMENDATIONS: Dialysis as per renal. We will continue with blood pressure control. Diabetic co ntrol as per Dr. Rodriguez. Dictated By: SUNDAR JACOBO MD AV/NTS Conf#: [id number] DID#: [id number] CC: ROXANA RODRIGUEZ MD;*End*
[2016-11-20] MEDS: INSULIN GLARGINE [LANtus] 3 ML PEN SC SCH (20:50)
[2016-11-20] MEDS: SENNA TAB PO SCH (20:51)
[2016-11-20] MEDS: ACETAMINOPHEN 500 MG TAB PO SCH (20:51)
[2016-11-21] VITALS (11 sets, daily range): BP systolic 104–170; BP diastolic 54–75; PULSE 78–88; RESP 18
[2016-11-21] MEDS: ACCUCHECK AT 2AM (Patients on SS coverage) XX SCH (01:36)
[2016-11-21] MEDS: PANTOPRAZOLE (EC) 40 MG TAB PO SCH (05:17)
[2016-11-21 06:49] LABS: ADD SCAN DIFF NO
[2016-11-21 06:51] LABS: BASOPHILS % 0.5 % (0.0-2.0); EOSINOPHILS # 0.2 10^3/ul (0.0-0.5); EOSINOPHILS % 2.9 % (0.0-7.0); HEMATOCRIT 29.7 % (37.0-47.0); HEMOGLOBIN 9.4 g/dl (12.0-16.0); LYMPHOCYTES % 16.5 % (15.0-51.0); MEAN CORPUSCULAR HEMOGLOBIN 30.8 pg (29.0-33.0); MEAN CORPUSCULAR HGB CONC 31.6 g/dl (32.0-37.0); MEAN CORPUSCULAR VOLUME 97.4 fl (82.0-101.0); MEAN PLATELET VOLUME 9.9 fl (7.4-10.4); MONOCYTE # 0.6 10^3/ul (0.3-0.9); MONOCYTES % 10.3 % (0.0-11.0); NEUTROPHIL # 4.3 10^3/ul (1.6-7.5); NEUTROPHILS % 69.5 % (39.0-77.0); PLATELET COUNT 287 10^3/UL (140-415); RED BLOOD COUNT 3.05 10^6/ul (4.20-5.40); RED CELL DISTRIBUTION WIDTH 19.3 % (11.5-14.5); WHITE BLOOD COUNT 6.2 10^3/ul (4.8-10.8)
[2016-11-21 07:10] LABS: POTASSIUM 4.2 mmol/L (3.5-5.1)
[2016-11-21 07:13] LABS: CREATININE 3.17 mg/dl (0.44-1.00)
[2016-11-21 07:14] LABS: CALCIUM 8.1 mg/dl (8.4-10.2); MAGNESIUM 1.9 mg/dl (1.7-2.5); PHOSPHORUS 3.8 mg/dl (2.5-4.9)
[2016-11-21] MEDS: Insulin NOVOLOG SS MILD Algorithm (SS with meals and bedtime) SC SCH ×4 (07:30→21:00)
[2016-11-21] MEDS: METOPROLOL 25 MG TAB PO SCH (09:00)
[2016-11-21] MEDS: AMLODIPINE 5 MG TAB PO SCH (09:00)
[2016-11-21] MEDS: MEGESTROL (40 MG/ML) 10ML CUP PO SCH (09:39)
[2016-11-21] MEDS: APIXABAN 5 MG TABLET PO SCH (09:39)
[2016-11-21] MEDS: ESCITALOPRAM 10 MG TAB PO SCH (09:39)
[2016-11-21] MEDS: ACETAMINOPHEN 500 MG TAB PO SCH (09:39)
[2016-11-21] MEDS: DOCUSATE SODIUM 100 MG CAP PO SCH (09:39)
[2016-11-21] MEDS: LINAGLIPTIN 5 MG TABLET PO SCH (09:39)
[2016-11-21] MEDS: NOVOLOG PEN INSULIN ASPART (BOLUS with meals) SC SCH ×3 (09:41→17:35)
--- NOTE | 2016-11-21 10:27 | PN ---
DATE: 11/21/2016 CARDIOLOGY FOLLOWUP SUBJECTIVE: The patient complains of weakness. No chest pain or pressure. No palpitation. MEDICATIONS: Reviewed. PHYSICAL EXAMINATION: VITAL SIGNS: Temperature 99.7, heart rate of 72, blood pressure 170/74, respiration rate of 18, sat urating 95%. HEENT: Normocephalic, atraumatic. . Pupils are equal. CARDIOVASCULAR: Irregularly irregular. Systolic murmur. PULMONARY: No wheezes anteriorly. GASTROINTESTINAL: Soft, nontender. EXTREMITIES: Trivial edema. NEUROLOGIC: Awake. PSYCHIATRIC: Appears to be calm and pleasant. LABORATORY: WBC of 6.2, hemoglobin 9.4, platelets 287. Sodium 137, potassium 4.2, BUN of 33, creat inine 3.17, glucose 135. Mag is 1.9. ASSESSMENT AND PLAN: 1. Renal failure, acute on chronic, on dialysis. 2. History of heart block. Currently, heart rate has remained stable. 3. Paroxysmal atrial fibrillation. 4. Hypertension. 5. General weakness. Status post sepsis and pneumonia 6. Diabetes. RECOMMENDATIONS: Antibiotic as per Dr. Rodriguez. Continue blood pressure medications. For some reaso n blood pressure medication was on hold. Dialysis as per renal. Dictated By: SUNDAR JACOBO MD AV/NTS Conf#: [id number] DID#: [id number] CC: ROXANA RODRIGUEZ MD;*End*
--- NOTE | 2016-11-21 10:27 | PN ---
DATE: 11/21/2016 SUBJECTIVE: The patient is stable, no acute events overnight. No fevers, chills, nausea, vomiting. The patient is more alert. OBJECTIVE: VITAL SIGNS: Blood pressure 170/74, respirations 18, pulse 72, temperature 99.7. HEENT: Head is normocephalic. NECK: Supple. HEART: Regular rate. LUNGS: Show diminished breath sounds at the bases. ABDOMEN: Soft, nontender to palpation. No rebound or guarding. EXTREMITIES: Negative for clubbing, cyanosis. No edema. DERMATOLOGIC: No rashes. MUSCULOSKELETAL: No joint effusions. NEUROLOGIC: No change in exam. MEDICATIONS: The patient's medications have been reviewed. LABORATORY DATA: Shows white count 6.2, hemoglobin 9.4, hematocrit 29.7, platelet count is 287. So dium 137, potassium 4.2, chloride 103, BUN 33, creatinine 3.17. ASSESSMENT AND PLAN: 1. Nonoliguric acute kidney injury on top of chronic kidney disease stage IV with possible progress ion to end-stage renal disease. The patient was placed on hemodialysis for uremic symptoms. The alfredo walker is tolerating dialysis well. Anticipate dialysis again today for 3 hours, K bath, calciu m 2.5. We will ultrafiltrate as tolerated. 2. Hyperkalemia secondary to acute kidney injury, resolved. 3. Hypernatremia, resolved. 4. History of congestive heart failure. Continue current medical management. Continue ultrafiltra tion dialysis. 5. Anemia. Continue to monitor hemoglobin and hematocrit levels. Continue Epogen. 6. Sepsis secondary to pneumonia. Continue current antibiotic course. 7. Diabetes. Continue Accu-Cheks and insulin sliding scale. 8. Encephalopathy, improving. Etiology is likely secondary to underlying uremia. Continue to [facility]. Dictated By: TIFFANIE MCHUGH/DESTINY Conf#: [id number] DID#: [id number]
--- NOTE | 2016-11-21 14:57 | RADRPT ---
Vent Rate: 85 bpm RR Interval: 0 msec [place] Interval: 0 msec QRS Duration: 80 msec QT Interval: 388 msec QTC Interval: 461 msec P-R-T [place]: 0 - -11 - 85 degrees SR with 1AVB rhythm Indeterminate axis Abnormal ECG Electronically Signed By: Salo Rodgers [id number]
--- NOTE | 2016-11-21 21:50 | PN ---
DATE: 11/21/2016 SUBJECTIVE: The patient is status post 2 days of straight dialysis on Saturday and Saturday. Family i s at bedside. The patient is overall doing better after initiation of dialysis. The patient unfort unately today had a low-grade temperature of 99.7. She is already on Levaquin for possible pneumoni a as noted on recent CT scan. The patient also had actually dialysis today, so 3 days in a row. PHYSICAL EXAMINATION: VITAL SIGNS: Temperature 99.7, pulse 72, respirations 18, blood pressure 117/74, saturation 95% on 3 to 4 L. GENERAL: The patient is in no acute distress, pale. CARDIOVASCULAR: S1 and S2. Regular rate. LUNGS: Decreased bilaterally, otherwise clear. ABDOMEN: Soft, nontender. EXTREMITIES: No clubbing, cyanosis or edema. LABORATORY DATA: White count 6.2, hemoglobin 9.4, hematocrit 30, platelet count 287. Neutrophils 7 0%, lymphocytes 17%, monocytes 10%. Chemistry: Sodium 137, potassium 4.2, chloride 103, bicarbonat e 28, BUN 33, creatinine 3.17, glucose of 135. Glucose level 84, 188 and 108. MEDICATIONS: Reviewed, include: 1. Tylenol 500 b.i.d. 2. Levaquin 250 q.48 hours. 3. Lantus 4 units daily. 4. Accu-Chek q.a.c. and at bedtime. 5. Senna 1 tablet at bedtime. 6. Norvasc 5 mg b.i.d. 7. Eliquis 2.5 b.i.d. 8. Colace 100 b.i.d. 9. Lexapro 5 mg daily. 10. Tradjenta 5 mg daily. 11. Megace 400 b.i.d. 12. Lopressor 25 b.i.d. 13. Insulin NovoLog 3 units q.a.c. meals. 14. Protonix 40 mg daily. 15. DuoNeb p.r.n. 16. Tylenol p.r.n. 15. Milk of magnesia p.r.n. 16. Dulcolax p.r.n. 17. Hypoglycemia protocol p.r.n. 18. Colace 100 q.12 p.r.n. 19. Hydralazine p.r.n. 20. Lactulose p.r.n. 21. Milk of magnesia p.r.n. 22. Nitroglycerin p.r.n. 23. Zofran p.r.n. ASSESSMENT AND PLAN: This is an 85-year-old [place] female with history of congestive heart failur e, diastolic dysfunction heart failure, paroxysmal atrial fibrillation, history of heart block, diab etes mellitus, chronic kidney disease, now on dialysis who initially presented with pneumonia and wo rsening functional capacity of weight loss. Overall, she has been declining. 1. Pneumonia. Switch Levaquin to cefepime, observe. 2. Acute renal failure, now on dialysis. 3. Cardiovascular. The patient with atrial fibrillation, on Eliquis. Titrate blood pressure medic ations up. 4. Diabetes mellitus, controlled with current regimen. 5. Decreased oral intake, improved after dialysis. Continue with protein supplements. 6. Depression. I started her on Lexapro. 7. Chronic pain. Tylenol t.i.d. for back pain. 8. Disposition either to home if family can take care of her or a group home facility. Case d iscussed with correctional case records supervisor and daughter. We will follow. Dictated By: ROXANA JEFFRIES/DESTINY Conf#: [id number] DID#: [id number]
[2016-11-22] MEDS: CEFEPIME 1GM/50 ML (PMX) 50 ML IVPB SCH ×3 (00:34→21:05)
[2016-11-22] MEDS: INSULIN GLARGINE [LANtus] 3 ML PEN SC SCH ×2 (00:34→21:08)
[2016-11-22] MEDS: MEGESTROL (40 MG/ML) 10ML CUP PO SCH ×3 (00:35→21:09)
[2016-11-22] MEDS: METOPROLOL 25 MG TAB PO SCH ×3 (00:35→21:09)
[2016-11-22] MEDS: ACETAMINOPHEN 500 MG TAB PO SCH ×3 (00:35→21:09)
[2016-11-22] MEDS: APIXABAN 5 MG TABLET PO SCH ×3 (00:35→21:08)
[2016-11-22] MEDS: DOCUSATE SODIUM 100 MG CAP PO SCH ×3 (00:35→21:07)
[2016-11-22] MEDS: AMLODIPINE 5 MG TAB PO SCH ×3 (00:35→21:08)
[2016-11-22] MEDS: SENNA TAB PO SCH ×2 (00:36→21:08)
[2016-11-22] MEDS: ACCUCHECK AT 2AM (Patients on SS coverage) XX SCH (00:56)
[2016-11-22] MEDS: PANTOPRAZOLE (EC) 40 MG TAB PO SCH (05:13)
[2016-11-22 06:05] LABS: ADD SCAN DIFF NO
[2016-11-22 06:09] LABS: BASOPHIL # 0.1 10^3/ul (0.0-0.1); BASOPHILS % 0.7 % (0.0-2.0); EOSINOPHILS # 0.2 10^3/ul (0.0-0.5); EOSINOPHILS % 2.3 % (0.0-7.0); HEMATOCRIT 31.2 % (37.0-47.0); LYMPHOCYTES # 1.6 10^3/ul (0.8-2.9); LYMPHOCYTES % 21.1 % (15.0-51.0); MEAN CORPUSCULAR HEMOGLOBIN 30.8 pg (29.0-33.0); MEAN CORPUSCULAR HGB CONC 32.1 g/dl (32.0-37.0); MEAN PLATELET VOLUME 9.9 fl (7.4-10.4); MONOCYTE # 0.9 10^3/ul (0.3-0.9); MONOCYTES % 11.7 % (0.0-11.0); NEUTROPHIL # 4.7 10^3/ul (1.6-7.5); NEUTROPHILS % 63.9 % (39.0-77.0); PLATELET COUNT 285 10^3/UL (140-415); RED BLOOD COUNT 3.25 10^6/ul (4.20-5.40); RED CELL DISTRIBUTION WIDTH 18.7 % (11.5-14.5); WHITE BLOOD COUNT 7.4 10^3/ul (4.8-10.8)
[2016-11-22 06:30] LABS: POTASSIUM 3.6 mmol/L (3.5-5.1)
[2016-11-22 06:33] LABS: CREATININE 2.17 mg/dl (0.44-1.00)
[2016-11-22 06:34] LABS: CALCIUM 8.1 mg/dl (8.4-10.2)
[2016-11-22 06:47] LABS: MAGNESIUM 1.7 mg/dl (1.7-2.5); PHOSPHORUS 2.7 mg/dl (2.5-4.9)
[2016-11-22] MEDS: Insulin NOVOLOG SS MILD Algorithm (SS with meals and bedtime) SC SCH ×4 (07:30→21:00)
[2016-11-22 07:35] VITALS: BP 143/62; RESP 18
--- NOTE | 2016-11-22 09:15 | PN ---
DATE: 11/22/2016 SUBJECTIVE: The patient is stable, more alert. No acute events overnight. OBJECTIVE: VITAL SIGNS: Blood pressure 108/70, respirations 14, pulse 84, temperature 98.2. HEENT: Head is normocephalic. NECK: Supple. HEART: Regular rate. LUNGS: Showed diminished breath sounds at the base. ABDOMEN: Soft, nontender to palpation. No rebound or guarding. EXTREMITIES: Negative for clubbing or cyanosis. No edema. DERMATOLOGIC: No rashes. MUSCULOSKELETAL: Have no joint effusion. NEUROLOGIC: No change in exam. LABORATORY DATA: Shows a white count of 7.4, hemoglobin 10.0, hematocrit of 31.2, platelet count 28 5. Sodium 136, potassium 3.6, hematocrit 16, creatinine 2.17. ASSESSMENT AND PLAN: 1. Nonoliguric acute kidney injury on top of chronic kidney disease stage IV, with possible progres escobar to end-stage renal disease. The patient was initiated on hemodialysis for symptoms. The patient has had 3 sessions and tolerated it well. Will hold dialysis today to see if there is any evidence of renal recovery. 2. Hyperkalemia. Resolved. 3. Hypernatremia. Resolved. 4. History of congestive heart failure. Continue the current medical management. 5. Anemia. Continue to monitor hemoglobin and hematocrit levels. Continue Epogen. 6. Sepsis secondary to pneumonia. Continue the current antibiotic course. 7. Diabetes. Continue Accu-Cheks and insulin sliding scale. 8. Encephalopathy. Improving. Continue to monitor. Dictated By: TIFFANIE MCHUGH/DESTINY Conf#: [id number] DID#: [id number]
--- NOTE | 2016-11-22 09:26 | PN ---
DATE: 11/22/2016 CARDIOLOGY FOLLOWUP PROGRESS NOTE SUBJECTIVE: Discussed with the staff. Rhythm strip reviewed. The patient remained chest pain-free . Complains of weakness. No palpitation. Blood pressure has remained stable. MEDICATIONS: Reviewed. PHYSICAL EXAMINATION: VITAL SIGNS: Temperature 98.8, heart rate of 80, blood pressure 143/62, respiratory rate of 18, sat urating 96%. HEENT: Normocephalic, atraumatic. Pupils are equal. CARDIOVASCULAR: Irregularly irregular. Systolic murmur. PULMONARY: No wheezes anteriorly. GASTROINTESTINAL: Soft, nontender. EXTREMITIES: With trivial edema. NEUROLOGIC: Awake, responds appropriately. PSYCHIATRIC: Appears to be calm. LABORATORY: WBC of 7.4, hemoglobin 10, platelets of 285. Sodium 136, potassium 3.6, BUN of 16, cre atinine 2.17, glucose of 123. ASSESSMENT AND PLAN: 1. Renal failure, on dialysis now. 2. Paroxysmal atrial fibrillation. 3. History of heart block, currently stable. 4. Pneumonia. 5. Hypertension. 6. Diabetes. 7. General weakness and debility. RECOMMENDATIONS: Dialysis as per renal. Continue with the current blood pressure medications. Ant ibiotic as per Dr. Rodriguez and associates. Diabetic control as per Dr. Rodriguez. Will check the EKG. Dictated By: SUNDAR JACOBO MD AV/DESTINY Conf#: [id number] DID#: [id number] CC: ROXANA RODRIGUEZ MD;*EndCC*
[2016-11-22] MEDS: ESCITALOPRAM 10 MG TAB PO SCH (09:37)
[2016-11-22] MEDS: LINAGLIPTIN 5 MG TABLET PO SCH (09:37)
[2016-11-22] MEDS: NOVOLOG PEN INSULIN ASPART (BOLUS with meals) SC SCH ×3 (09:44→18:07)
[2016-11-22] MEDS ORDERED: HYDROCODONE/APAP (5/325) TAB PO PRN (14:30)
--- NOTE | 2016-11-22 14:59 | PN ---
DATE: 11/22/2016 SUBJECTIVE: The patient is seen at the bedside. The patient appears to be more alert, but is compl aining of a headache. Case discussed with the nursing staff. Tylenol apparently is not working. PHYSICAL EXAMINATION: VITAL SIGNS: Temperature is 98.8, now afebrile for 24 hours. Pulse 80, respirations 18, blood pres sure 142/62, saturations 96% on 4 liters. GENERAL: In no acute distress. The patient is pale, looks clinically better. CARDIOVASCULAR: S1, S2, regular rate. LUNGS: Clear. ABDOMEN: Soft, nontender. EXTREMITIES: No clubbing, cyanosis, or edema. LABORATORY: White count 7.4, hemoglobin 10, hematocrit 31, platelet count 285, neutrophils 64%, lym phocytes 21%. Chemistry: Sodium 136, potassium 3.6, chloride 101, bicarbonate 28, BUN is 16, creat inine 2.17, glucose of 123. MEDICATIONS: 1. Cefepime 1 gram q.12. 2. Tylenol b.i.d. 3. Lantus 4 units daily. 4. Accu-Chek before meals and at bedtime. 5. Senna 1 tab at bedtime. 6. Norvasc 5 mg b.i.d. 7. Eliquis 2.5 b.i.d. 8. Colace 100 b.i.d. 9. Lexapro 5 mg daily. 10. Tradjenta 5 mg daily. 11. Megace 400 b.i.d. 12. Lopressor 25 b.i.d. 13. Insulin Aspart 3 units before meals. 14. Protonix 40 mg daily. 15. DuoNeb every 4 hours p.r.n. 16. Tylenol p.r.n. 17. Hypoglycemia protocol as directed. 18. Colace p.r.n. 19. Hydralazine p.r.n. 20. Lactulose p.r.n. 21. Milk of Magnesia p.r.n. 22. Accu-Cheks are 115, 110 and 131, overall good glycemic control. ASSESSMENT AND PLAN: This is an 85-year-old [place] female with a history of CHF, diastolic dysfun ction heart failure, paroxysmal atrial fibrillation, history heart block, diabetes mellitus, chronic kidney disease, who was started on dialysis secondary to overall decline, fluid overload, and uremi a, and also being treated for pneumonia. 1. Pneumonia. Continue cefepime. Now afebrile. 2. Acute renal failure. Kidney function improved after 3 sessions of dialysis. Dialysis will be p laced on hold and monitor for renal recovery. 3. Cardiovascular. Patient with atrial fibrillation, on Eliquis. Titrate blood pressure medication as needed. Cardiology is following. EKG was ordered. 4. Diabetes mellitus. Controlled with current regimen. 5. Headaches. P.r.n. meds will be given. Tylenol around the clock and p.r.n. [place]. May consider NSAIDs if [place] is too sedating. 6. Depression. Continue Lexapro. 7. Chronic pain, as she has back pain. Continue Tylenol routine b.i.d. 8. Disposition. Will discuss with the daughter, Edwige. Options include alf facility f or strengthening versus going home with home health. We will follow. Dictated By: ROXANA JEFFRIES/DESTINY Conf#: [id number] DID#: [id number]
[2016-11-22 21:22] VITALS: BP 135/60; RESP 20
[2016-11-23] MEDS: ACCUCHECK AT 2AM (Patients on SS coverage) XX SCH (02:00)
[2016-11-23] MEDS: PANTOPRAZOLE (EC) 40 MG TAB PO SCH (05:54)
[2016-11-23 06:59] LABS: ADD SCAN DIFF NO
[2016-11-23 07:08] LABS: BASOPHIL # 0.1 10^3/ul (0.0-0.1); BASOPHILS % 0.8 % (0.0-2.0); EOSINOPHILS # 0.2 10^3/ul (0.0-0.5); EOSINOPHILS % 3.4 % (0.0-7.0); HEMATOCRIT 33.7 % (37.0-47.0); HEMOGLOBIN 10.8 g/dl (12.0-16.0); LYMPHOCYTES # 1.3 10^3/ul (0.8-2.9); LYMPHOCYTES % 20.1 % (15.0-51.0); MEAN CORPUSCULAR HEMOGLOBIN 30.7 pg (29.0-33.0); MEAN CORPUSCULAR VOLUME 95.7 fl (82.0-101.0); MONOCYTE # 0.7 10^3/ul (0.3-0.9); MONOCYTES % 11.6 % (0.0-11.0); NEUTROPHIL # 4.1 10^3/ul (1.6-7.5); NEUTROPHILS % 63.8 % (39.0-77.0); PLATELET COUNT 316 10^3/UL (140-415); RED BLOOD COUNT 3.52 10^6/ul (4.20-5.40); RED CELL DISTRIBUTION WIDTH 18.6 % (11.5-14.5); WHITE BLOOD COUNT 6.4 10^3/ul (4.8-10.8)
[2016-11-23 07:18] LABS: POTASSIUM 3.8 mmol/L (3.5-5.1)
[2016-11-23 07:20] LABS: CREATININE 3.14 mg/dl (0.44-1.00)
[2016-11-23 07:21] LABS: CALCIUM 8.4 mg/dl (8.4-10.2); PHOSPHORUS 3.4 mg/dl (2.5-4.9)
[2016-11-23 07:22] LABS: MAGNESIUM 1.9 mg/dl (1.7-2.5)
[2016-11-23] MEDS: Insulin NOVOLOG SS MILD Algorithm (SS with meals and bedtime) SC SCH ×4 (07:30→23:03)
[2016-11-23 07:35] VITALS: BP 138/84; RESP 18
[2016-11-23] MEDS: ACETAMINOPHEN 500 MG TAB PO SCH ×2 (08:28→23:01)
[2016-11-23] MEDS: ESCITALOPRAM 10 MG TAB PO SCH (08:28)
[2016-11-23] MEDS: MEGESTROL (40 MG/ML) 10ML CUP PO SCH (08:28)
[2016-11-23] MEDS: APIXABAN 5 MG TABLET PO SCH ×2 (08:28→23:01)
[2016-11-23] MEDS: DOCUSATE SODIUM 100 MG CAP PO SCH ×2 (08:28→22:55)
[2016-11-23] MEDS: AMLODIPINE 5 MG TAB PO SCH ×2 (08:29→23:02)
[2016-11-23] MEDS: METOPROLOL 25 MG TAB PO SCH ×2 (08:29→23:05)
[2016-11-23] MEDS: LINAGLIPTIN 5 MG TABLET PO SCH (08:29)
[2016-11-23] MEDS: NOVOLOG PEN INSULIN ASPART (BOLUS with meals) SC SCH ×3 (08:31→17:04)
[2016-11-23] MEDS: CEFEPIME 1GM/50 ML (PMX) 50 ML IVPB SCH (08:33)
--- NOTE | 2016-11-23 10:47 | PN ---
DATE: 11/23/2016 SUBJECTIVE: The patient is stable, no acute events overnight, no fever, chills, nausea, or vomiting . OBJECTIVE: VITAL SIGNS: Blood pressure 138/84, respiration 18, pulse 86, temperature 98.6. HEENT: Head is normocephalic. NECK: Supple. HEART: Regular rate. LUNGS: Show diminished breath sounds at base. ABDOMEN: Soft, nontender to palpation. No rebound or guarding. EXTREMITIES: Negative for clubbing, cyanosis. No edema. DERMATOLOGIC: No rashes. MUSCULOSKELETAL: No joint effusions. NEUROLOGIC: No change in exam. MEDICATIONS: The patient's medications have been reviewed. LABORATORY DATA: Shows sodium 137, potassium , chloride 102, BUN 27, creatinine 3.14. White c ount 6.4, hemoglobin 10.8, hematocrit 38.7, platelet count is 316. ASSESSMENT AND PLAN: 1. Nonoliguric acute kidney injury on top of chronic kidney disease with possible progression to e nd-stage renal disease. The patient was initiated on hemodialysis, has had 3 sessions, tolerated we ll. We will continue to hold dialysis to monitor for any renal recovery. Monitor renal function da tano. 2. History of congestive heart failure. The patient is currently stable. Continue medical managem ent. 3. Anemia of chronic disease. Continue to monitor H and H levels. Continue Epogen. 4. Mineral bone disorder. Continue to monitor calcium and phosphorus levels. 5. Sepsis secondary to pneumonia. The patient is completing antibiotic course. 6. Diabetes, continue Accu-Cheks and sliding scale. 7. Encephalopathy. Etiology is in part due to uremia, improving. Continue to monitor. Dictated By: TIFFANIE MCHUGH/DESTINY Conf#: [id number] DID#: [id number]
--- NOTE | 2016-11-23 14:03 | RADRPT ---
Vent Rate: 66 bpm RR Interval: 0 msec HI Interval: 0 msec QRS Duration: 94 msec QT Interval: 426 msec QTC Interval: 446 msec P-R-T [place]: 118 - 75 - 70 degrees Atrial flutter with 4:1 AV conduction Pulmonary disease pattern Abnormal ECG Electronically Signed By: Salo Rodgers [id number]
[2016-11-23] MEDS ORDERED: IBUPROFEN 400 MG TAB PO PRN (16:30)
--- NOTE | 2016-11-23 16:33 | PN ---
DATE: 11/23/2016 SUBJECTIVE: The patient is lying in bed, says that she is still not feeling very well. She is comp laining of headaches intermittently. Case discussed with the classification case manager regarding placement. I a lso spoke with Dr. Chaudhari, the patient services rep, regarding ongoing dialysis. Will continue to monitor kidney function and reassess regarding the need for PermCath placement and outpatient dialysis. PHYSICAL EXAMINATION: VITAL SIGNS: Temperature is 98.6, pulse is 86, respirations 18, blood pressure 138/84, saturation 9 6% on 3 liters. GENERAL: The patient is in no acute distress. HEENT: Normocephalic, atraumatic. The patient is pale. CARDIOVASCULAR: S1 and S2. LUNGS: Decreased bilaterally. ABDOMEN: Soft, nontender. EXTREMITIES: No clubbing, cyanosis, or edema. LABORATORY: White count is 6.4, hemoglobin 10.8, hematocrit 24, platelet count 316, neutrophils 64% , lymphocytes 20%. Chemistry: Sodium 137, potassium 3.8, chloride 102, bicarbonate 28, BUN is 27, creatinine 3.14, glucose of 88. Hepatitis A, B and C were negative. She is immune to hepatitis B, and antibody is reactive. Stool occult blood was negative as well, even though I was informed the p atient has positive blood in stool by nursing staff yesterday morning. CURRENT MEDICATIONS: Include: 1. Cefepime 1 gram daily. 2. [place] p.r.n. 3. Tylenol p.r.n. 4. Lantus 4 units daily. 5. Accu-Chek before meals and at bedtime. 6. Senna 1 tab at bedtime. 7. Norvasc 5 mg b.i.d. 8. Eliquis 2.5 b.i.d. 9. Colace 100 b.i.d. 10. Lexapro 5 mg daily. 11. Tradjenta 5 mg daily. 12. Megace 400 b.i.d. 13. Lopressor 25 b.i.d. 14. Insulin Aspart 3 units before meals. 15. Insulin Aspart per sliding scale. 16. Protonix 40 mg daily. 17. DuoNebs p.r.n. 18. Tylenol p.r.n. 19. Dulcolax p.r.n. 20. Hypoglycemia protocol p.r.n. 21. Lactulose p.r.n. 22. Milk of Magnesia p.r.n. 23. 24. Zofran p.r.n. ASSESSMENT AND PLAN: This is an 85-year-old Filipina female with a history of CHF, diastolic dysfunc tion, atrial fibrillation, history of heart block, diabetes mellitus, chronic kidney disease, who was started on dialysis secondary to overall decline and kidney function, also currently being t reated for pneumonia. 1. Pneumonia. On cefepime. Now afebrile. Observe. 2. Acute renal failure. Kidney function worsened today. Creatinine jumped up again from 2.17 to 3 .14. Continue to monitor. May need to continue dialysis. We will follow. 3. Cardiovascular. Patient with paroxysmal atrial fibrillation. On Eliquis. Cardiology is follow ing. 4. Diabetes mellitus. On low dose insulin. Accu-Cheks are 153, 78 and 166. Continue the current regimen for now. 5. Headaches. Continue Tylenol and p.r.n. [place]. May consider NSAIDs if the patient still has a h eadache. 6. Depression. Continue Lexapro. 7. Disposition. Soon the patient likely will need a higher level of care. Case discussed with margaux e management regarding placement in a pen[facility]iary facility. 8. Will discontinue Megace. Continue to monitor the patient's p.o. intake. 9. Continue stool softeners. Observe. We will follow. Of note, previous GI workup back in 2011 at that time showed external hemorrhoids, anal tag, and poo r preparation. Otherwise a negative colonoscopy to the cecum. Again, Dr. Bowen to follow. If the patient continues to have bleeding, may consider further testing. We will follow. Dictated By: ROXANA JEFFRIES/DESTINY Conf#: [id number] DID#: [id number]
--- NOTE | 2016-11-23 19:08 | CONS ---
Date/Time of Note Date/Time of Note DATE: 11/23/16 TIME: 19:06 Assessment/Plan Assessment/Plan Additional Assessment/Plan 1. Rectal bleeding which is stopped 2. Pneumonia 3. Atrial fibrillation 4. Renal failure 5. Depression 6. Anorexia Plan Continue present care Continue Eliquis unless patient has acute bleeding Patient had a EGD and colonoscopy 6 years ago which just showed a hemorrhoid. Consultation Date/Type/Reason Admit Date/Time Nov 16, 2016 at 00:30 Initial Consult Date 24 HR Interval Summary Free Text/Dictation Discussed with the staff patient has no rectal bleeding. Constitutional: improved, no complaints Exam/Review of Systems Vital Signs Vitals Vital Signs Date Time Temp Pulse Resp B/P Pulse Ox O2 Delivery O2 Flow Rate FiO2 11/23/16 09:02 Nasal Cannula 3.0 11/23/16 07:35 98.6 86 18 138/84 96 Intake and Output 11/22/16 11/22/16 11/23/16 15:00 23:00 07:00 Intake Total 50 ml 490 ml 200 ml Balance 50 ml 490 ml 200 ml Exam Constitutional: alert, oriented, well developed Psych: nl mood/affect, no complaints Head: atraumatic, normocephalic Eyes: EOMI, PERRL, nl conjunctiva, nl lids, nl sclera ENMT: nl external ears & nose, nl lips & teeth, nl nasal mucosa & septum Neck: non-tender, supple Respiratory: clear to auscultation, normal air movement Cardiovascular: nl pulses, regular rate and rhythm Gastrointestinal: nl liver, spleen, non-tender, soft Musculoskeletal: nl extremities to inspection, nl gait and stance Extremities: normal pulses 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: GLASS BENDER II-XII intact, nl mental status, nl speech, nl strength Skin: nl turgor, No rash or lesions Lymph: nl lymph nodes Results Result Diagram: 11/23/16 0545 11/23/16 0545 Results 24 hrs Laboratory Tests Test 11/22/16 20:35 11/23/16 05:45 11/23/16 07:49 11/23/16 09:50 Bedside Glucose 166 78 White Blood Count 6.4 Red Blood Count 3.52 L Hemoglobin 10.8 L Hematocrit 33.7 L Mean Corpuscular Volume 95.7 Mean Corpuscular Hemoglobin 30.7 Mean Corpuscular Hemoglobin Concent 32.0 Red Cell Distribution Width 18.6 H Platelet Count 316 Mean Platelet Volume 10.0 Neutrophils % 63.8 Lymphocytes % 20.1 Monocytes % 11.6 H Eosinophils % 3.4 Basophils % 0.8 Nucleated Red Blood Cells % 0.0 Neutrophils # 4.1 Lymphocytes # 1.3 Monocytes # 0.7 Eosinophils # 0.2 Basophils # 0.1 Nucleated Red Blood Cells # 0.0 Sodium Level 137 Potassium Level 3.8 Chloride Level 102 Carbon Dioxide Level 28 Anion Gap 11 Blood Urea Nitrogen 27 #H Creatinine 3.14 H Glucose Level 88 Calcium Level 8.4 Phosphorus Level 3.4 Magnesium Level 1.9 Stool Occult Blood NEGATIVE Test 11/23/16 11:22 11/23/16 16:34 Bedside Glucose 153 105 Medications Medications Current Medications Acetaminophen (Tylenol Tab) 650 mg Q4H PRN PO PAIN AND OR ELEVATED TEMP Last administered on 11/20/16 13:47; Admin Dose 650 MG; Start 11/16/16 at 02:00 Al Hydrox/Mg Hydrox/Simethicone (Mag-Al Plus) 30 ml BID PRN PO GASTROINTESTINAL UPSET; Start 11/16/16 at 02:00 Amlodipine Besylate (Norvasc) 5 mg BID PO Last administered on 11/23/16 08:29 ; Admin Dose 5 MG; Start 11/16/16 at 09:00 Apixaban (Eliquis) 2.5 mg BID PO Last administered on 11/23/16 08:28; Admin Dose 2.5 MG; Start 11/16/16 at 09:00 Bisacodyl (Dulcolax Supp) 10 mg DAILY PRN NE CONSTIPATION; Start 11/16/16 at 02 :00 Miscellaneous Information 1 ea NOTE XX ; Start 11/16/16 at 02:00 Glucose (Glutose) 15 gm Q15M PRN PO DECREASED GLUCOSE; Start 11/16/16 at 02:00 Glucose (Glutose) 22.5 gm Q15M PRN PO DECREASED GLUCOSE; Start 11/16/16 at 02: 00 Dextrose (D50w Syringe) 25 ml Q15M PRN IV DECREASED GLUCOSE; Start 11/16/16 at 02:00 Dextrose (D50w Syringe) 50 ml Q15M PRN IV DECREASED GLUCOSE; Start 11/16/16 at 02:00 Glucagon (Glucagen) 1 mg Q15M PRN IM DECREASED GLUCOSE; Start 11/16/16 at 02:00 Glucose (Glutose) 15 gm Q15M PRN BUCCAL DECREASED GLUCOSE; Start 11/16/16 at 02 :00 Docusate Sodium (Colace) 100 mg Q12H PRN PO CONSTIPATION; Start 11/16/16 at 02: 00 Docusate Sodium (Colace) 100 mg BID PO Last administered on 11/23/16 08:28; Admin Dose 100 MG; Start 11/16/16 at 09:00 Escitalopram Oxalate (Lexapro) 5 mg DAILY PO Last administered on 11/23/16 08: 28; Admin Dose 5 MG; Start 11/16/16 at 09:00 Diagnostic Test (Pha) (Accu-Chek) 1 ea 02 XX ; Start 11/17/16 at 02:00 Hydralazine HCl (Apresoline) 25 mg Q4H PRN PO ELEVATED SYSTOLIC BP Last administered on 11/19/16 05:18; Admin Dose 25 MG; Start 11/16/16 at 02:00 Lactulose (Enulose) 20 gm DAILY PRN PO CONSTIPATION; Start 11/16/16 at 02:00 Linagliptin (Tradjenta) 5 mg DAILY PO Last administered on 11/23/16 08:29; Admin Dose 5 MG; Start 11/16/16 at 09:00 Magnesium Hydroxide (Milk Of Mag) 30 ml DAILY PRN PO CONSTIPATION; Start at 02:00 Metoprolol Tartrate (Lopressor) 25 mg BID PO Last administered on 11/23/16 08: 29; Admin Dose 25 MG; Start 11/16/16 at 09:00 Nitroglycerin (Nitroglycerin (Sl Tab) 0.4 Mg) 1 tab Q5M PRN SL CHEST PAIN; Start 11/16/16 at 02:00 Ondansetron HCl (Zofran Inj) 4 mg Q6H PRN IV NAUSEA AND/OR VOMITING Last administered on 11/18/16 03:00; Admin Dose 4 MG; Start 11/16/16 at 02:00 Pantoprazole (Protonix Tab) 40 mg DAILY@06 PO Last administered on 11/22/16 05 :13; Admin Dose 40 MG; Start 11/16/16 at 06:00 Senna (Senokot) 1 tab HS PO Last administered on 11/22/16 21:08; Admin Dose 1 TAB; Start 11/16/16 at 21:00 Insulin Glargine (Lantus) 4 unit DAILY@20 SC Last administered on 11/22/16 21: 08; Admin Dose 4 UNIT; Start 11/19/16 at 20:00 Acetaminophen (Tylenol Tab) 500 mg BID PO Last administered on 11/23/16 08:28 ; Admin Dose 500 MG; Start 11/20/16 at 21:00 Acetaminophen/ Hydrocodone Bitart 1 tab 1 tab Q4H PRN PO pain, headaches; Start 11/22/16 at 14:30 Cefepime HCl (Maxipime 1gm/50 ml (Pmx)) 50 ml @ 100 mls/hr DAILY IVPB ; Start 11/24/16 at 09:00 Ibuprofen (Motrin) 400 mg Q6H PRN PO PAIN OR TEMP ABOVE 38C; Start 11/23/16 at 16:30 RADHA PRETTY MD Nov 23, 2016 19:08
--- NOTE | 2016-11-23 19:11 | PN ---
DATE: 11/23/2016 CARDIOLOGY FOLLOWUP SUBJECTIVE: Discussed with the staff. Rhythm strip was reviewed. The patient says still not feeli ng better and is weak. he has had headache. Denies any chest pain or pressure to me. Denies any palpitations to me. MEDICATIONS: Reviewed. PHYSICAL EXAMINATION: VITAL SIGNS: Temperature 98.6, heart rate of 86, blood pressure 138/84, respiratory rate of 18. Sa turating 96%. HEENT: Normocephalic, atraumatic. Pupils are equal. CARDIOVASCULAR: Regular rate and rhythm. PULMONARY: With no wheezes heard. GASTROINTESTINAL: Soft, nontender. EXTREMITIES: Trivial edema. NEUROLOGIC: Awake, responds appropriately. PSYCHIATRIC: Appears to be calm and pleasant, but depressed mood. DIAGNOSTIC DATA: EKG was personally reviewed. EKG ordered by Dr. Rodgers shows atrial flutter. LABORATORY: WBC of 6.4, hemoglobin 10.8, platelets 316. is negative. Sodium 137, potassium 3.8, BUN of 27, creatinine 3.14. ASSESSMENT AND PLAN: 1. Paroxysmal atrial fibrillation and flutter. 2. History of heart block. Currently, heart rate has remained stable. 3. Renal failure on dialysis. 4. Fluid overload, congestive heart failure and has been managed by dialysis. 5. Hypertension. RECOMMENDATIONS: We will continue with the current cardiac care. Antibiotic as per Dr. Weiner. Norma lysis will be continued and managed as per renal. Dictated By: SUNDAR JACOBO MD AV/DESTINY Conf#: [id number] DID#: [id number] CC: ROXANA WEINER MD;*End*
[2016-11-23 21:36] VITALS: BP 151/67; RESP 18
[2016-11-23] MEDS: INSULIN GLARGINE [LANtus] 3 ML PEN SC SCH (23:03)
[2016-11-23] MEDS: SENNA TAB PO SCH (23:06)
[2016-11-24] MEDS: ACCUCHECK AT 2AM (Patients on SS coverage) XX SCH (02:20)
--- NOTE | 2016-11-24 06:05 | CONS ---
DATE OF ADMISSION: 11/16/2016 DATE OF CONSULTATION: 11/22/2016 TYPE OF CONSULTATION: Gastroenterology. REFERRING PHYSICIAN: Dr. Asher Weiner TIME OF CONSULT: 8:00 p.m. REASON FOR CONSULTATION: Rectal bleeding. HISTORY OF PRESENT ILLNESS; The patient is an 85-year-old Banglades[place] female with chronic kidney disea se, diabetes mellitus, anemia, history of meningioma and heart block. She declined a pacemaker and has got paroxysmal atrial fibrillation and she is on Eliquis. The patient was admitted to the hospital for infection and pneumonia. She was placed on antibiotic. GI consult was called in for rectal bleeding. The blood was fresh in color. The patient denies h aving any abdominal pain, no nausea, no vomiting, no chest pain, and no shortness of breath. PAST MEDICAL HISTORY: As described. ALLERGIES: NO KNOWN DRUG ALLERGIES. SOCIAL HISTORY: Does not smoke or drink. The patient is with 3 children. MEDICATIONS: All reviewed PHYSICAL EXAMINATION VITAL SIGNS: Stable. HEENT: Unremarkable. NECK: Supple, no thyromegaly, no lymphadenopathy. CARDIOVASCULAR: No murmur, gallop or click. LUNGS: Clear. EXTREMITIES: No edema. CENTRAL NERVOUS SYSTEM: Grossly within normal limits. The patient had an EGD and colonoscopy in the past. EGD showed gastritis. Colonoscopy showed a poo r prep. LABORATORY DATA: Hematocrit is 31, creatinine is 3.14. INR was within normal limits. He had a CAT scan of the chest which shows a 1.7 cm left adrenal mass, bilateral pleural effusion, and a T12 com pression fracture. IMPRESSION: 1. Rectal bleeding appears to be hemorrhoidal. We will observe, especially when patient is on Eliqu is. 2. Renal failure. 3. Diabetes mellitus. 4. Anorexia. 5. Depression. 6. Diastolic heart failure. 7. Pneumonia. PLAN: To continue present care. We will monitor H and H, and if there is active bleeding, then we will stop Eliquis. Stool for occult blood has been sent. Dictated By: RADHA ALDANA/DESTINY Conf#: [id number] DID#: [id number]
[2016-11-24] MEDS: PANTOPRAZOLE (EC) 40 MG TAB PO SCH (06:12)
[2016-11-24] MEDS: Insulin NOVOLOG SS MILD Algorithm (SS with meals and bedtime) SC SCH ×4 (07:30→21:00)
[2016-11-24 08:00] VITALS: BP 182/77; RESP 19
[2016-11-24] MEDS: NOVOLOG PEN INSULIN ASPART (BOLUS with meals) SC SCH ×2 (09:32→11:40)
[2016-11-24] MEDS: DOCUSATE SODIUM 100 MG CAP PO SCH ×2 (09:32→21:12)
[2016-11-24] MEDS: APIXABAN 5 MG TABLET PO SCH ×2 (09:32→21:13)
[2016-11-24] MEDS: ESCITALOPRAM 10 MG TAB PO SCH (09:34)
[2016-11-24] MEDS: METOPROLOL 25 MG TAB PO SCH ×2 (09:37→21:13)
[2016-11-24] MEDS: LINAGLIPTIN 5 MG TABLET PO SCH (09:37)
[2016-11-24] MEDS: ACETAMINOPHEN 500 MG TAB PO SCH ×2 (09:37→21:14)
[2016-11-24] MEDS: AMLODIPINE 5 MG TAB PO SCH ×2 (09:38→21:14)
[2016-11-24 10:00] VITALS: BP 156/68
--- NOTE | 2016-11-24 10:59 | PN ---
DATE: 11/24/2016 SUBJECTIVE: The patient is stable. No events overnight. No fevers, chills, nausea, vomiting. OBJECTIVE: VITAL SIGNS: Blood pressure 192/77, respiration is 19, pulse 61, temperature 99.2. HEENT: Head is normocephalic. NECK: Supple. HEART: Regular rate. LUNGS: Show diminished breath sounds at base. ABDOMEN: Soft, nontender to palpation. No rebound or guarding. EXTREMITIES: Negative for clubbing, cyanosis, no edema. DERMATOLOGIC: No rashes. MUSCULOSKELETAL: No joint effusions. NEUROLOGIC: No change in exam. MEDICATIONS: The patient's medications have been reviewed. LABORATORY DATA: Have been reviewed. No new labs. ASSESSMENT AND PLAN: 1. Nonoliguric acute kidney injury on top of chronic kidney disease with possible progression to en d-stage renal disease. Patient is on hemodialysis, has had 3 sessions. We will continue to hold he modialysis. We will follow up renal panel tomorrow. If there are no signs of recovery, will procee d to have a Perm-A-Cath placement and arrange for outpatient hemodialysis. 2. History of congestive heart failure, currently stable. Continue medical management. 3. Anemia of chronic disease. Continue to monitor hemoglobin and hematocrit levels. Continue Epo gen. 4. Mineral bone disorder. Continue to monitor calcium and phosphorus levels. 5. Sepsis secondary to pneumonia. The patient is completing antibiotic course. 6. Diabetes. Continue Accu-Cheks, insulin sliding scale. 7. Encephalopathy. Etiology is from uremia, slowly improving. Continue to monitor. 8. Hematochezia. Rectal bleeding is likely hemorrhoidal. Continue to monitor and follow up with [facility]. Dictated By: TIFFANIE MCHUGH/DESTINY Conf#: [id number] DID#: [id number]
[2016-11-24] MEDS: CEFEPIME 1GM/50 ML (PMX) 50 ML IVPB SCH (11:34)
--- NOTE | 2016-11-24 16:28 | PN ---
DATE: 11/24/2016 The patient is seen lying in bed comfortably, with no complaints. Case discussed with Dr. Fara campo the patient's ongoing dialysis. Will continue to monitor kidney function. If there is no recovery, again, the patient may need to continue on dialysis. PHYSICAL EXAMINATION: VITAL SIGNS: Temperature 98.5, pulse 61, respirations 19, blood pressure 156/68. Average blood pre ssure runs from the 130s to 180s over the past couple of days. GENERAL: The patient is in no acute distress. The patient is pale. CARDIOVASCULAR: Positive S1 and S2. Regular rate and rhythm. LUNGS: Clear bilaterally. ABDOMEN: Soft, nontender. EXTREMITIES: No clubbing, cyanosis, or edema. LABORATORY: No labs today. Labs yesterday were reviewed. CBC showed a white count of 6.4, hemoglo bin 10.8. Last glucose levels were 93, 91 and 85. Chemistry yesterday shows a BUN and creatinine o f 27/3.14, as the kidney functions worsened yesterday. Again, we will follow tomorrow's labs. MEDICATIONS: Include: 1. Cefepime 1 gram daily. 2. Motrin p.r.n. 3. [place] p.r.n. 4. Tylenol b.i.d. 5. Lantus 4 units daily. 6. Accu-Cheks before meals and at bedtime. 7. Norvasc 5 mg b.i.d. 8. Eliquis 2.5 b.i.d. 9. Colace 100 b.i.d. 10. Lexapro 5 mg daily. 11. Tradjenta 5 mg daily. 12. Lopressor 25 b.i.d. 13. Insulin Aspart 3 units before meals. 14. Protonix 40 mg daily. 15. DuoNeb q.4 p.r.n. 16. Tylenol p.r.n. 17. Milk of Magnesia p.r.n. 18. Dulcolax p.r.n. 19. Hypoglycemia protocol as directed. 20. Colace p.r.n. 21. Lorazepam p.r.n. 22. Lactulose p.r.n. 23. Nitroglycerin p.r.n. 24. Zofran p.r.n. ASSESSMENT AND PLAN: This is an 85-year-old Filipina female with a history of congestive heart fail ure, diastolic dysfunction, with paroxysmal atrial fibrillation, history of heart block, diabetes me llitus, CKD, with recently uremia, fluid overload and worsening kidney function, who briefly was on dialysis x3 rounds. Also currently being treated for pneumonia. 1. Pneumonia. Continue cefepime. Continue it for a total of 7 days. 2. Acute renal failure. Continue to monitor kidney function. Will reassess the need for dialysis. 3. Cardiovascular. Patient with paroxysmal atrial fibrillation. Continue Eliquis for anticoagulat ion. 4. Diabetes mellitus. Glucose levels are good. May even decrease her premeal insulin. 5. Depression. Continue Lexapro. 6. Physical therapy as tolerated. 7. Weight loss. Continue to monitor the patient's p.o. intake and follow up weekly weights. The patient needs a lot of care. I discussed with the daughter regarding placement in a skilled [facility] facility. 8. Brief rectal bleeding. Stool occult blood came back negative. H and H is stable. Will continu e to monitor for now. 9. Hypertension. On Norvasc 5 mg b.i.d. and Lopressor 25 b.i.d. Titrate medication up if needed. We will follow. Dictated By: ROXANA JEFFRIES/DESTINY Conf#: [id number] DID#: [id number]
--- NOTE | 2016-11-24 19:24 | CONS ---
Date/Time of Note Date/Time of Note DATE: 11/24/16 TIME: 19:22 Assessment/Plan Assessment/Plan Additional Assessment/Plan IMPRESSION: 1. Rectal bleeding appears to be hemorrhoidal. We will observe, especially when patient is on Eliquis. 2. Renal failure. 3. Diabetes mellitus. 4. Anorexia. 5. Depression. 6. Diastolic heart failure. 7. Pneumonia. Plan Monitor H&H physical therapy Consultation Date/Type/Reason Admit Date/Time Nov 16, 2016 at 00:30 24 HR Interval Summary Constitutional: improved, no complaints Exam/Review of Systems Vital Signs Vitals Vital Signs Date Time Temp Pulse Resp B/P Pulse Ox O2 Delivery O2 Flow Rate FiO2 11/24/16 10:00 156/68 11/24/16 08:30 98.5 11/24/16 08:00 61 19 93 11/24/16 08:00 Nasal Cannula 3.0 Intake and Output 11/23/16 11/23/16 11/24/16 15:00 23:00 07:00 Intake Total 50 ml 540 ml 250 ml Balance 50 ml 540 ml 250 ml Exam Constitutional: alert, oriented, well developed Psych: nl mood/affect, no complaints Head: atraumatic, normocephalic Eyes: EOMI, PERRL, nl conjunctiva, nl lids, nl sclera ENMT: nl external ears & nose, nl lips & teeth, nl nasal mucosa & septum Neck: non-tender, supple Respiratory: clear to auscultation, normal air movement Cardiovascular: nl pulses, regular rate and rhythm Gastrointestinal: nl liver, spleen, non-tender, soft Musculoskeletal: nl extremities to inspection, nl gait and stance Extremities: normal pulses 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, nl mental status, nl speech, nl strength Skin: nl turgor, No rash or lesions Lymph: nl lymph nodes Results Result Diagram: 11/23/16 0545 11/23/16 0545 Results 24 hrs Laboratory Tests Test 11/23/16 21:01 11/24/16 02:02 11/24/16 07:57 11/24/16 11:38 Bedside Glucose 211 85 91 93 Test 11/24/16 17:25 Bedside Glucose 140 Medications Medications Current Medications Acetaminophen (Tylenol Tab) 650 mg Q4H PRN PO PAIN AND OR ELEVATED TEMP Last administered on 11/20/16t 13:47; Admin Dose 650 MG; Start 11/16/16 at 02:00 Al Hydrox/Mg Hydrox/Simethicone (Mag-Al Plus) 30 ml BID PRN PO GASTROINTESTINAL UPSET; Start 11/16/16 at 02:00 Amlodipine Besylate (Norvasc) 5 mg BID PO Last administered on 11/24/16 09:38; Admin Dose 5 MG; Start 11/16/16 at 09:00 Apixaban (Eliquis) 2.5 mg BID PO Last administered on 11/24/16 09:32; Admin Dose 2.5 MG; Start 11/16/16 at 09:00 Bisacodyl (Dulcolax Supp) 10 mg DAILY PRN [place] CONSTIPATION; Start 11/16/16 at 02 :00 Miscellaneous Information 1 ea NOTE XX ; Start 11/16/16 at 02:00 Glucose (Glutose) 15 gm Q15M PRN PO DECREASED GLUCOSE; Start 11/16/16 at 02:00 Glucose (Glutose) 22.5 gm Q15M PRN PO DECREASED GLUCOSE; Start 11/16/16 at 02: 00 Dextrose (D50w Syringe) 25 ml Q15M PRN IV DECREASED GLUCOSE; Start 11/16/16 at 02:00 Dextrose (D50w Syringe) 50 ml Q15M PRN IV DECREASED GLUCOSE; Start 11/16/16 at 02:00 Glucagon (Glucagen) 1 mg Q15M PRN IM DECREASED GLUCOSE; Start 11/16/16 at 02:00 Glucose (Glutose) 15 gm Q15M PRN BUCCAL DECREASED GLUCOSE; Start 11/16/16 at 02 :00 Docusate Sodium (Colace) 100 mg Q12H PRN PO CONSTIPATION; Start 11/16/16 at 02: 00 Docusate Sodium (Colace) 100 mg BID PO Last administered on 11/24/16 09:32; Admin Dose 100 MG; Start 11/16/16 at 09:00 Escitalopram Oxalate (Lexapro) 5 mg DAILY PO Last administered on 11/24/16 09: 34; Admin Dose 5 MG; Start 11/16/16 at 09:00 Diagnostic Test (Pha) (Accu-Chek) 1 ea 02 XX Last administered on 11/24/16 02: 20; Admin Dose 1 EA; Start 11/17/16 at 02:00 Hydralazine HCl (Apresoline) 25 mg Q4H PRN PO ELEVATED SYSTOLIC BP Last administered on 11/19/16 05:18; Admin Dose 25 MG; Start 11/16/16 at 02:00 Lactulose (Enulose) 20 gm DAILY PRN PO CONSTIPATION; Start 11/16/16 at 02:00 Linagliptin (Tradjenta) 5 mg DAILY PO Last administered on 11/24/16 09:37; Admin Dose 5 MG; Start 11/16/16 at 09:00 Magnesium Hydroxide (Milk Of Mag) 30 ml DAILY PRN PO CONSTIPATION Last administered on 11/24/16 17:29; Admin Dose 30 ML; Start 11/16/16 at 02:00 Metoprolol Tartrate (Lopressor) 25 mg BID PO Last administered on 11/24/16 09: 37; Admin Dose 25 MG; Start 11/16/16 at 09:00 Nitroglycerin (Nitroglycerin (Sl Tab) 0.4 Mg) 1 tab Q5M PRN SL CHEST PAIN; Start 11/16/16 at 02:00 Ondansetron HCl (Zofran Inj) 4 mg Q6H PRN IV NAUSEA AND/OR VOMITING Last administered on 11/18/16 03:00; Admin Dose 4 MG; Start 11/16/16 at 02:00 Pantoprazole (Protonix Tab) 40 mg DAILY@06 PO Last administered on 11/24/16 06: 12; Admin Dose 40 MG; Start 11/16/16 at 06:00 Senna (Senokot) 1 tab HS PO Last administered on 11/23/16 23:06; Admin Dose 1 TAB; Start 11/16/16 at 21:00 Insulin Glargine (Lantus) 4 unit DAILY@20 SC Last administered on 11/23/16 23: 03; Admin Dose 4 UNIT; Start 11/19/16 at 20:00 Acetaminophen (Tylenol Tab) 500 mg BID PO Last administered on 11/24/16 09:37; Admin Dose 500 MG; Start 11/20/16 at 21:00 Acetaminophen/ Hydrocodone Bitart 1 tab 1 tab Q4H PRN PO pain, headaches; Start 11/22/16 at 14:30 Cefepime HCl (Maxipime 1gm/50 ml (Pmx)) 50 ml @ 100 mls/hr DAILY IVPB Last administered on 11/24/16t 11:34; Admin Dose 100 MLS/HR; Start 11/24/16 at 09:00 Ibuprofen (Motrin) 400 mg Q6H PRN PO PAIN OR TEMP ABOVE 38C; Start 11/23/16 at 16:30 RADHA PRETTY MD Nov 24, 2016 19:24
[2016-11-24 20:34] VITALS: BP 181/71; RESP 16
[2016-11-24] MEDS: SENNA TAB PO SCH (21:14)
[2016-11-24] MEDS: INSULIN GLARGINE [LANtus] 3 ML PEN SC SCH (21:16)
[2016-11-25] MEDS: ACCUCHECK AT 2AM (Patients on SS coverage) XX SCH (02:00)
[2016-11-25] MEDS: PANTOPRAZOLE (EC) 40 MG TAB PO SCH (05:07)
[2016-11-25] MEDS: Insulin NOVOLOG SS MILD Algorithm (SS with meals and bedtime) SC SCH ×4 (07:30→21:00)
[2016-11-25 07:44] LABS: ADD SCAN DIFF NO
[2016-11-25 07:52] LABS: BASOPHIL # 0.1 10^3/ul (0.0-0.1); BASOPHILS % 1.1 % (0.0-2.0); EOSINOPHILS # 0.2 10^3/ul (0.0-0.5); EOSINOPHILS % 3.8 % (0.0-7.0); HEMATOCRIT 32.4 % (37.0-47.0); HEMOGLOBIN 10.3 g/dl (12.0-16.0); LYMPHOCYTES # 1.3 10^3/ul (0.8-2.9); LYMPHOCYTES % 19.6 % (15.0-51.0); MEAN CORPUSCULAR HEMOGLOBIN 30.7 pg (29.0-33.0); MEAN CORPUSCULAR HGB CONC 31.8 g/dl (32.0-37.0); MEAN CORPUSCULAR VOLUME 96.7 fl (82.0-101.0); MEAN PLATELET VOLUME 10.6 fl (7.4-10.4); MONOCYTE # 0.8 10^3/ul (0.3-0.9); MONOCYTES % 12.2 % (0.0-11.0); NEUTROPHILS % 63.1 % (39.0-77.0); PLATELET COUNT 284 10^3/UL (140-415); RED BLOOD COUNT 3.35 10^6/ul (4.20-5.40); RED CELL DISTRIBUTION WIDTH 18.4 % (11.5-14.5); WHITE BLOOD COUNT 6.4 10^3/ul (4.8-10.8)
[2016-11-25 08:10] VITALS: BP 175/89; PULSE 43
[2016-11-25 08:28] LABS: POTASSIUM 3.8 mmol/L (3.5-5.1)
[2016-11-25 08:31] LABS: CREATININE 4.32 mg/dl (0.44-1.00); PHOSPHORUS 4.7 mg/dl (2.5-4.9)
[2016-11-25 08:32] VITALS: BP 202/78; RESP 16
[2016-11-25 08:32] LABS: CALCIUM 8.4 mg/dl (8.4-10.2)
[2016-11-25] MEDS: CEFEPIME 1GM/50 ML (PMX) 50 ML IVPB SCH (08:58)
[2016-11-25] MEDS: DOCUSATE SODIUM 100 MG CAP PO SCH ×2 (08:59→20:40)
[2016-11-25] MEDS: METOPROLOL 25 MG TAB PO SCH ×2 (09:00→20:39)
[2016-11-25] MEDS: ACETAMINOPHEN 500 MG TAB PO SCH ×2 (09:01→20:40)
[2016-11-25] MEDS: LINAGLIPTIN 5 MG TABLET PO SCH (09:01)
[2016-11-25] MEDS: ESCITALOPRAM 10 MG TAB PO SCH (09:01)
[2016-11-25] MEDS: AMLODIPINE 5 MG TAB PO SCH ×2 (09:02→20:32)
[2016-11-25] MEDS: APIXABAN 5 MG TABLET PO SCH ×2 (09:03→20:40)
--- NOTE | 2016-11-25 10:18 | PN ---
DATE: 11/25/2016 SUBJECTIVE: The patient is stable. No acute events overnight. No fevers, chills, nausea, vomiting . OBJECTIVE: VITAL SIGNS: Blood pressure is 200/78, respirations 16, pulse 74, temperature 98.2. HEENT: Head is normocephalic. NECK: Supple. HEART: Regular rate. LUNGS: Show diminished breath sounds at base. ABDOMEN: Soft, nontender to palpation without rebound or guarding. EXTREMITIES: Negative for clubbing, cyanosis, no edema. DERMATOLOGIC: No rashes. MUSCULOSKELETAL: No joint effusions. NEUROLOGIC: No change in exam. MEDICATIONS: The patient's medications have been reviewed. LABORATORY DATA: Shows sodium 141, potassium 2.8, BUN 43, creatinine 4.32. White count 6.4, hemogl obin 10.3, hematocrit 32.4, platelet count is 284. ASSESSMENT AND PLAN: 1. Nonoliguric acute kidney injury on top of chronic kidney disease, stage IV, with likely progress ion to end-stage renal disease. The patient has had 3 sessions of dialysis. Hemodialysis has been on hold. The patient unfortunately has no signs of renal recovery. We will likely need to proceed with dialysis for the foreseeable future. We will discuss with Dr. Weiner about possible placement o f PermCath in the next 24 hours and will arrange for outpatient hemodialysis. We will also arrange for dialysis tomorrow for 3 hours on 3 K bath, calcium 2.5. 2. History of congestive heart failure, currently stable. Continue medical management. Continue u ltrafiltration dialysis. 3. Hypertension. Blood pressure is markedly elevated. Continue current blood pressure regimen. W e will also dialyze the patient for volume removal if blood pressures cannot be controlled medically . 4. Anemia of chronic disease. Continue to monitor hemoglobin and hematocrit levels. Continue Epog en. 5. Mineral bone disorder. Continue to monitor calcium and phosphorus levels. 6. Sepsis secondary to pneumonia. Continue current antibiotic course. 7. Diabetes. Continue Accu-Cheks and sliding scale. 8. Encephalopathy in part due to underlying uremia. Continue to monitor. 9. Hematochezia. Continue to monitor H and H levels. Follow up with GI. Dictated By: TIFFANIE MCHUGH/NTS Conf#: [id number] DID#: [id number]
[2016-11-25 10:30] VITALS: BP 152/69; PULSE 53
--- NOTE | 2016-11-25 15:58 | PN ---
DATE: 11/25/2016 SUBJECTIVE: Patient seen. The patient with no complaints. Unfortunately, kidney function has wors ened and patient will need dialysis permanently. Noted Dr. Chaudhari and nephrology input. The patie nt will need a Perm-A-Cath. PHYSICAL EXAMINATION: VITAL SIGNS: Temperature 98.2, pulse 63, respirations 16, blood pressure 152/69. Patient had now t endency for bradycardia and worsening hypertension. His beta blockers are on hold. I did place him on hydralazine routine and p.r.n. The patient has been on hydralazine p.r.n. since admission. PHYSICAL EXAMINATION: GENERAL: The patient is pale. CARDIOVASCULAR: S1 and S2. LUNGS: Clear. ABDOMEN: Soft, nontender. EXTREMITIES: No clubbing, cyanosis, or edema. LABORATORY DATA: Sodium 141, potassium 3.8, chloride 104, bicarbonate 25, BUN is 43, creatinine 4.3 2, glucose of 111. White count 6.4, hemoglobin 10.2, hematocrit 32, platelet count 284, neutrophils 63%, lymphocytes 20%. MEDICATIONS: Include: 1. Hydralazine 50 mg t.i.d. 2. Hydralazine 25 q.6 p.r.n. 3. Cefepime 1 gram daily. 4. Ibuprofen p.r.n. 5. [place] p.r.n. 6. Tylenol p.r.n. 7. Lantus 4 units daily. 8. Accu-Chek q.a.c. and at bedtime. 9. Senna 1 tab at bedtime. 10. Norvasc 5 mg b.i.d. 11. Eliquis 2.5 b.i.d. 12. Colace 100 b.i.d. 13. Lexapro 5 mg daily. 14. Tradjenta 5 mg daily. 15. Metoprolol 25 mg b.i.d. 16. Insulin aspart per sliding scale. 17. Protonix 40 mg daily. 18. DuoNeb p.r.n. 19. Tylenol p.r.n. 20. Milk of magnesia p.r.n. 21. Dulcolax p.r.n. 22. Hypoglycemia protocol p.r.n. 23. Colace p.r.n. 24. Hydralazine p.r.n. 25. Lactulose p.r.n. 26. Zofran p.r.n. ASSESSMENT AND PLAN: This is an 85-year-old [place] female with history of congestive heart failur e, diastolic dysfunction heart failure, paroxysmal atrial fibrillation, history of heart block, diab etes mellitus, chronic kidney disease, recently with uremia and fluid overload; was initiated on hem odialysis. After 3 cycles of dialysis, kidneys did not recover and creatinine went up from 2 to 4 i n the past 2 days. Also being treated for pneumonia. 1. Respiratory. Continue cefepime for a total of 7 days for pneumonia. 2. Acute renal failure. The patient will need dialysis. Perm-A-Cath will need to be placed prior to discharge and outpatient hemodialysis to be arranged. 3. Cardiovascular. The patient is bradycardic, off beta blockers. Previously Dr. Triana recommend ed pacemaker placement. Will discuss with Dr. Triana. Continue anticoagulation for now with Eliqui s. Titrate blood pressure medications up, as patient is on Norvasc, now hydralazine. May consider clonidine patch. Again, Cardiology is following as well. 4. Diabetes mellitus. Glucose levels are good; they are 109, 112 and 138, now only on basal insuli n. 5. Weight loss, encourage her to eat. The patient is definitely more awake and alert after multipl e dialysis treatments. 6. Brief rectal bleeding. Stool occult blood turned out to be negative. Dr. Bowen is following. Continue Protonix for GI prophylaxis. 7. Continue stool softeners. 8. Disposition: Pending patient strength, as the patient may need higher level of care for physica l therapy. Dictated By: ROXANA JEFFRIES/DESTINY Conf#: [id number] DID#: [id number]
--- NOTE | 2016-11-25 16:57 | CONS ---
Date/Time of Note Date/Time of Note DATE: 11/25/16 TIME: 16:55 Assessment/Plan Assessment/Plan Additional Assessment/Plan Additional Assessment/Plan IMPRESSION: 1. Rectal bleeding appears to be hemorrhoidal. We will observe, especially when patient is on Eliquis. 2. Renal failure. 3. Diabetes mellitus. 4. Anorexia. 5. Depression. 6. Diastolic heart failure. 7. Pneumonia. Plan Monitor H&H physical therapy Patient will need hemodialysis Consultation Date/Type/Reason Admit Date/Time Nov 16, 2016 at 00:30 24 HR Interval Summary Free Text/Dictation Discussed with the staff and patient no active bleeding. Patient had no further rectal bleeding. Exam/Review of Systems Vital Signs Vitals Vital Signs Date Time Temp Pulse Resp B/P Pulse Ox O2 Delivery O2 Flow Rate FiO2 11/25/16 10:30 53 152/69 11/25/16 08:32 98.2 16 100 11/25/16 08:00 3.0 11/24/16 20:00 Nasal Cannula Intake and Output 11/24/16 11/24/16 11/25/16 15:00 23:00 07:00 Intake Total 50 ml 700 ml 50 ml Balance 50 ml 700 ml 50 ml Exam Constitutional: alert, oriented, well developed Psych: nl mood/affect, no complaints Head: atraumatic, normocephalic Eyes: EOMI, PERRL, nl conjunctiva, nl lids, nl sclera ENMT: nl external ears & nose, nl lips & teeth, nl nasal mucosa & septum Neck: non-tender, supple Respiratory: clear to auscultation, normal air movement Cardiovascular: nl pulses, regular rate and rhythm Gastrointestinal: nl liver, spleen, non-tender, soft Musculoskeletal: nl extremities to inspection, nl gait and stance Extremities: normal pulses 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: 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, nl mental status, nl speech, nl strength Skin: nl turgor, No rash or lesions Lymph: nl lymph nodes Results Result Diagram: 11/25/16 0548 11/25/16 0548 Results 24 hrs Laboratory Tests Test 11/24/16 17:25 11/24/16 21:10 11/25/16 05:48 11/25/16 08:01 Bedside Glucose 140 138 112 White Blood Count 6.4 Red Blood Count 3.35 L Hemoglobin 10.3 L Hematocrit 32.4 L Mean Corpuscular Volume 96.7 Mean Corpuscular Hemoglobin 30.7 Mean Corpuscular Hemoglobin Concent 31.8 L Red Cell Distribution Width 18.4 H Platelet Count 284 Mean Platelet Volume 10.6 H Neutrophils % 63.1 Lymphocytes % 19.6 Monocytes % 12.2 H Eosinophils % 3.8 Basophils % 1.1 Nucleated Red Blood Cells % 0.0 Neutrophils # 4.0 Lymphocytes # 1.3 Monocytes # 0.8 Eosinophils # 0.2 Basophils # 0.1 Nucleated Red Blood Cells # 0.0 Sodium Level 141 Potassium Level 3.8 Chloride Level 104 Carbon Dioxide Level 25 Anion Gap 16 Blood Urea Nitrogen 43 H Creatinine 4.32 H Glucose Level 111 Calcium Level 8.4 Phosphorus Level 4.7 Magnesium Level 2.0 Test 11/25/16 11:55 11/25/16 16:52 Bedside Glucose 109 128 Medications Medications Current Medications Acetaminophen (Tylenol Tab) 650 mg Q4H PRN PO PAIN AND OR ELEVATED TEMP Last administered on 11/20/16 13:47; Admin Dose 650 MG; Start 11/16/16 at 02:00 Al Hydrox/Mg Hydrox/Simethicone (Mag-Al Plus) 30 ml BID PRN PO GASTROINTESTINAL UPSET; Start 11/16/16 at 02:00 Amlodipine Besylate (Norvasc) 5 mg BID PO Last administered on 11/25/16 09:02; Admin Dose 5 MG; Start 11/16/16 at 09:00 Apixaban (Eliquis) 2.5 mg BID PO Last administered on 11/25/16 09:03; Admin Dose 2.5 MG; Start 11/16/16 at 09:00 Bisacodyl (Dulcolax Supp) 10 mg DAILY PRN [place] CONSTIPATION; Start 11/16/16 at 02 :00 Miscellaneous Information 1 ea NOTE XX ; Start 11/16/16 at 02:00 Glucose (Glutose) 15 gm Q15M PRN PO DECREASED GLUCOSE; Start 11/16/16 at 02:00 Glucose (Glutose) 22.5 gm Q15M PRN PO DECREASED GLUCOSE; Start 11/16/16 at 02: 00 Dextrose (D50w Syringe) 25 ml Q15M PRN IV DECREASED GLUCOSE; Start 11/16/16 at 02:00 Dextrose (D50w Syringe) 50 ml Q15M PRN IV DECREASED GLUCOSE; Start 11/16/16 at 02:00 Glucagon (Glucagen) 1 mg Q15M PRN IM DECREASED GLUCOSE; Start 11/16/16 at 02:00 Glucose (Glutose) 15 gm Q15M PRN BUCCAL DECREASED GLUCOSE; Start 11/16/16 at 02 :00 Docusate Sodium (Colace) 100 mg Q12H PRN PO CONSTIPATION; Start 11/16/16 at 02: 00 Docusate Sodium (Colace) 100 mg BID PO Last administered on 11/25/16 08:59; Admin Dose 100 MG; Start 11/16/16 at 09:00 Escitalopram Oxalate (Lexapro) 5 mg DAILY PO Last administered on 11/25/16 09: 01; Admin Dose 5 MG; Start 11/16/16 at 09:00 Diagnostic Test (Pha) (Accu-Chek) 1 ea 02 XX Last administered on 11/24/16 02: 20; Admin Dose 1 EA; Start 11/17/16 at 02:00 Hydralazine HCl (Apresoline) 25 mg Q4H PRN PO ELEVATED SYSTOLIC BP Last administered on 11/19/16 05:18; Admin Dose 25 MG; Start 11/16/16 at 02:00 Lactulose (Enulose) 20 gm DAILY PRN PO CONSTIPATION; Start 11/16/16 at 02:00 Linagliptin (Tradjenta) 5 mg DAILY PO Last administered on 11/25/16 09:01; Admin Dose 5 MG; Start 11/16/16 at 09:00 Magnesium Hydroxide (Milk Of Mag) 30 ml DAILY PRN PO CONSTIPATION Last administered on 11/24/16 17:29; Admin Dose 30 ML; Start 11/16/16 at 02:00 Metoprolol Tartrate (Lopressor) 25 mg BID PO Last administered on 11/24/16 21: 13; Admin Dose 25 MG; Start 11/16/16 at 09:00 Nitroglycerin (Nitroglycerin (Sl Tab) 0.4 Mg) 1 tab Q5M PRN SL CHEST PAIN; Start 11/16/16 at 02:00 Ondansetron HCl (Zofran Inj) 4 mg Q6H PRN IV NAUSEA AND/OR VOMITING Last administered on 11/18/16 03:00; Admin Dose 4 MG; Start 11/16/16 at 02:00 Pantoprazole (Protonix Tab) 40 mg DAILY@06 PO Last administered on 11/25/16 05: 07; Admin Dose 40 MG; Start 11/16/16 at 06:00 Senna (Senokot) 1 tab HS PO Last administered on 11/24/16 21:14; Admin Dose 1 TAB; Start 11/16/16 at 21:00 Insulin Glargine (Lantus) 4 unit DAILY@20 SC Last administered on 11/24/16 21: 16; Admin Dose 4 UNIT; Start 11/19/16 at 20:00 Acetaminophen (Tylenol Tab) 500 mg BID PO Last administered on 11/25/16 09:01; Admin Dose 500 MG; Start 11/20/16 at 21:00 Acetaminophen/ Hydrocodone Bitart 1 tab 1 tab Q4H PRN PO pain, headaches; Start 11/22/16 at 14:30 Cefepime HCl (Maxipime 1gm/50 ml (Pmx)) 50 ml @ 100 mls/hr DAILY IVPB Last administered on 11/25/16 08:58; Admin Dose 100 MLS/HR; Start 11/24/16 at 09:00 Ibuprofen (Motrin) 400 mg Q6H PRN PO PAIN OR TEMP ABOVE 38C; Start 11/23/16 at 16:30 Hydralazine HCl (Apresoline) 25 mg Q6H PRN PO hypertension Last administered on 11/25/16 06:58; Admin Dose 25 MG; Start 11/25/16 at 06:30 Hydralazine HCl (Apresoline) 50 mg TID PO ; Start 11/25/16 at 21:00 RADHA PRETTY MD Nov 25, 2016 16:57
[2016-11-25] MEDS: INSULIN GLARGINE [LANtus] 3 ML PEN SC SCH (20:01)
[2016-11-25 20:08] VITALS: BP 176/74; RESP 18
[2016-11-25] MEDS: SENNA TAB PO SCH (20:40)
[2016-11-25 23:00] VITALS: BP 136/72; PULSE 59; RESP 18
[2016-11-26] VITALS (11 sets, daily range): BP systolic 128–183; BP diastolic 63–84; PULSE 68–80; RESP 16–18
[2016-11-26] MEDS: ACCUCHECK AT 2AM (Patients on SS coverage) XX SCH (02:00)
[2016-11-26 05:58] LABS: ADD SCAN DIFF NO
[2016-11-26] MEDS: PANTOPRAZOLE (EC) 40 MG TAB PO SCH (06:06)
[2016-11-26 06:16] LABS: CREATININE 4.88 mg/dl (0.44-1.00)
[2016-11-26 06:17] LABS: CALCIUM 8.6 mg/dl (8.4-10.2); PHOSPHORUS 4.9 mg/dl (2.5-4.9)
[2016-11-26 06:18] LABS: BASOPHIL # 0.1 10^3/ul (0.0-0.1); BASOPHILS % 0.7 % (0.0-2.0); EOSINOPHILS # 0.1 10^3/ul (0.0-0.5); EOSINOPHILS % 1.3 % (0.0-7.0); HEMATOCRIT 32.4 % (37.0-47.0); HEMOGLOBIN 10.4 g/dl (12.0-16.0); LYMPHOCYTES # 0.9 10^3/ul (0.8-2.9); LYMPHOCYTES % 10.1 % (15.0-51.0); MEAN CORPUSCULAR HEMOGLOBIN 30.6 pg (29.0-33.0); MEAN CORPUSCULAR HGB CONC 32.1 g/dl (32.0-37.0); MEAN CORPUSCULAR VOLUME 95.3 fl (82.0-101.0); MEAN PLATELET VOLUME 10.2 fl (7.4-10.4); MONOCYTE # 0.8 10^3/ul (0.3-0.9); MONOCYTES % 8.6 % (0.0-11.0); NEUTROPHIL # 7.3 10^3/ul (1.6-7.5); NEUTROPHILS % 79.1 % (39.0-77.0); PLATELET COUNT 274 10^3/UL (140-415); RED CELL DISTRIBUTION WIDTH 18.6 % (11.5-14.5); WHITE BLOOD COUNT 9.2 10^3/ul (4.8-10.8)
[2016-11-26] MEDS: Insulin NOVOLOG SS MILD Algorithm (SS with meals and bedtime) SC SCH ×4 (07:30→21:00)
[2016-11-26] MEDS: METOPROLOL 25 MG TAB PO SCH ×2 (08:45→22:14)
[2016-11-26] MEDS: AMLODIPINE 5 MG TAB PO SCH ×2 (08:45→22:14)
[2016-11-26] MEDS: DOCUSATE SODIUM 100 MG CAP PO SCH ×2 (09:00→22:09)
[2016-11-26] MEDS: CEFEPIME 1GM/50 ML (PMX) 50 ML IVPB SCH (09:03)
[2016-11-26] MEDS: ESCITALOPRAM 10 MG TAB PO SCH (09:11)
[2016-11-26] MEDS: LINAGLIPTIN 5 MG TABLET PO SCH (09:11)
[2016-11-26] MEDS: ACETAMINOPHEN 500 MG TAB PO SCH ×2 (09:11→22:09)
[2016-11-26] MEDS: APIXABAN 5 MG TABLET PO SCH (09:11)
--- NOTE | 2016-11-26 12:09 | PN ---
DATE: 11/26/2016 SUBJECTIVE: The patient is stable. No events overnight. No fevers, chills, nausea/vomiting. OBJECTIVE: VITAL SIGNS: Blood pressure 176/78, respiration 18, pulse 61, temperature 98.2. HEENT: Head is normocephalic. NECK: Supple. HEART: Regular rate. LUNGS: Show diminished breath sounds at base. ABDOMEN: Soft, nontender to palpation. No rebound or guarding. EXTREMITIES: Negative for clubbing, cyanosis. No edema. DERMATOLOGIC: No rashes. MUSCULOSKELETAL: No joint effusions. NEUROLOGIC: No change in exam. MEDICATIONS: The patient's medications have been reviewed. LABORATORY DATA: Shows sodium 139, potassium 4.0, chloride 108, BUN 33, creatinine 4.88, white coun t 9.2, platelet count is currently 274. ASSESSMENT AND PLAN: 1. Nonoliguric acute kidney injury, stage IV, now likely progressed to end-stage renal disease. Th e patient was showing no signs of renal recovery. Plan is to resume dialysis. We will place a Perm -A-Cath and also arrange outpatient hemodialysis at [facility]. 2. History of congestive heart failure, currently stable. Continue medical management. Continue u ltrafiltration dialysis. 3. Hypertension. Continue current blood pressure regimen. Continue ultrafiltration with hemodialy sis. 4. Anemia of chronic disease. Continue to monitor hemoglobin and hematocrit levels. Continue Epog en. 5. Mineral bone disorder. Continue to monitor calcium and phosphorus levels. 6. Sepsis secondary to pneumonia. Continue current antibiotic regimen. 7. Diabetes, continue Accu-Cheks and sliding scale. 8. Encephalopathy due to underlying uremia, improving. Continue dialysis. 9. Hematochezia, resolved. Dictated By: TIFFANIE MCHUGH/DESTINY Conf#: [id number] DID#: [id number]
--- NOTE | 2016-11-26 18:55 | CONS ---
Date/Time of Note Date/Time of Note DATE: 11/26/16 TIME: 18:53 Assessment/Plan Assessment/Plan Additional Assessment/Plan IMPRESSION: 1. Rectal bleeding appears to be hemorrhoidal. We will observe, especially when patient is on Eliquis. 2. Renal failure. 3. Diabetes mellitus. 4. Anorexia. 5. Depression. 6. Diastolic heart failure. 7. Pneumonia. Plan Monitor H&H physical therapy Patient had hemodialysis today Permacath tomorrow colonoscopy on Saturday Consultation Date/Type/Reason Admit Date/Time Nov 16, 2016 at 00:30 24 HR Interval Summary Free Text/Dictation had rectal bleeding again Exam/Review of Systems Vital Signs Vitals Vital Signs Date Time Temp Pulse Resp B/P Pulse Ox O2 Delivery O2 Flow Rate FiO2 11/26/16 08:07 98.2 61 18 176/78 91 11/26/16 08:00 Nasal Cannula 3.0 Intake and Output 11/25/16 11/25/16 11/26/16 15:00 23:00 07:00 Intake Total 50 ml 480 ml 450 ml Balance 50 ml 480 ml 450 ml Exam Constitutional: alert, oriented, well developed Psych: nl mood/affect, no complaints Head: atraumatic, normocephalic Eyes: EOMI, PERRL, nl conjunctiva, nl lids, nl sclera ENMT: nl external ears & nose, nl lips & teeth, nl nasal mucosa & septum Neck: non-tender, supple Respiratory: clear to auscultation, normal air movement Cardiovascular: nl pulses, regular rate and rhythm Gastrointestinal: nl liver, spleen, non-tender, soft Musculoskeletal: nl extremities to inspection, nl gait and stance Extremities: normal pulses 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: WIRER MAINTENANCE II-XII intact, nl mental status, nl speech, nl strength Skin: nl turgor, No rash or lesions Lymph: nl lymph nodes Results Result Diagram: 11/26/16 0555 11/26/16 0555 Results 24 hrs Laboratory Tests Test 11/25/16 19:59 11/25/16 21:53 11/26/16 05:55 11/26/16 08:23 Bedside Glucose 126 146 106 White Blood Count 9.2 # Red Blood Count 3.40 L Hemoglobin 10.4 L Hematocrit 32.4 L Mean Corpuscular Volume 95.3 Mean Corpuscular Hemoglobin 30.6 Mean Corpuscular Hemoglobin Concent 32.1 Red Cell Distribution Width 18.6 H Platelet Count 274 Mean Platelet Volume 10.2 Neutrophils % 79.1 H Lymphocytes % 10.1 L Monocytes % 8.6 Eosinophils % 1.3 Basophils % 0.7 Nucleated Red Blood Cells % 0.0 Neutrophils # 7.3 Lymphocytes # 0.9 Monocytes # 0.8 Eosinophils # 0.1 Basophils # 0.1 Nucleated Red Blood Cells # 0.0 Sodium Level 139 Potassium Level 4.0 Chloride Level 108 Carbon Dioxide Level 24 Anion Gap 11 Blood Urea Nitrogen 53 H Creatinine 4.88 H Glucose Level 108 Calcium Level 8.6 Phosphorus Level 4.9 Magnesium Level 2.0 Test 11/26/16 09:02 11/26/16 12:10 11/26/16 17:35 Lab Scanned Report REFERENCE LAB Bedside Glucose 130 176 Medications Medications Current Medications Acetaminophen (Tylenol Tab) 650 mg Q4H PRN PO PAIN AND OR ELEVATED TEMP Last administered on 11/20/16 13:47; Admin Dose 650 MG; Start 11/16/16 at 02:00 Al Hydrox/Mg Hydrox/Simethicone (Mag-Al Plus) 30 ml BID PRN PO GASTROINTESTINAL UPSET; Start 11/16/16 at 02:00 Amlodipine Besylate (Norvasc) 5 mg BID PO Last administered on 11/25/16 20:32; Admin Dose 5 MG; Start 11/16/16 at 09:00 Apixaban (Eliquis) 2.5 mg BID PO Last administered on 11/26/16 09:11; Admin Dose 2.5 MG; Start 11/16/16 at 09:00; Status Future Hold Bisacodyl (Dulcolax Supp) 10 mg DAILY PRN AL CONSTIPATION; Start 11/16/16 at 02 :00 Miscellaneous Information 1 ea NOTE XX ; Start 11/16/16 at 02:00 Glucose (Glutose) 15 gm Q15M PRN PO DECREASED GLUCOSE; Start 11/16/16 at 02:00 Glucose (Glutose) 22.5 gm Q15M PRN PO DECREASED GLUCOSE; Start 11/16/16 at 02: 00 Dextrose (D50w Syringe) 25 ml Q15M PRN IV DECREASED GLUCOSE; Start 11/16/16 at 02:00 Dextrose (D50w Syringe) 50 ml Q15M PRN IV DECREASED GLUCOSE; Start 11/16/16 at 02:00 Glucagon (Glucagen) 1 mg Q15M PRN IM DECREASED GLUCOSE; Start 11/16/16 at 02:00 Glucose (Glutose) 15 gm Q15M PRN BUCCAL DECREASED GLUCOSE; Start 11/16/16 at 02 :00 Docusate Sodium (Colace) 100 mg Q12H PRN PO CONSTIPATION; Start 11/16/16 at 02: 00 Docusate Sodium (Colace) 100 mg BID PO Last administered on 11/25/16 20:40; Admin Dose 100 MG; Start 11/16/16 at 09:00 Escitalopram Oxalate (Lexapro) 5 mg DAILY PO Last administered on 11/26/16 09: 11; Admin Dose 5 MG; Start 11/16/16 at 09:00 Diagnostic Test (Pha) (Accu-Chek) 1 ea 02 XX Last administered on 11/24/16 02: 20; Admin Dose 1 EA; Start 11/17/16 at 02:00 Hydralazine HCl (Apresoline) 25 mg Q4H PRN PO ELEVATED SYSTOLIC BP Last administered on 11/19/16 05:18; Admin Dose 25 MG; Start 11/16/16 at 02:00 Lactulose (Enulose) 20 gm DAILY PRN PO CONSTIPATION; Start 11/16/16 at 02:00 Linagliptin (Tradjenta) 5 mg DAILY PO Last administered on 11/26/16 09:11; Admin Dose 5 MG; Start 11/16/16 at 09:00 Magnesium Hydroxide (Milk Of Mag) 30 ml DAILY PRN PO CONSTIPATION Last administered on 11/24/16 17:29; Admin Dose 30 ML; Start 11/16/16 at 02:00 Metoprolol Tartrate (Lopressor) 25 mg BID PO Last administered on 11/25/16 20: 39; Admin Dose 25 MG; Start 11/16/16 at 09:00 Nitroglycerin (Nitroglycerin (Sl Tab) 0.4 Mg) 1 tab Q5M PRN SL CHEST PAIN; Start 11/16/16 at 02:00 Ondansetron HCl (Zofran Inj) 4 mg Q6H PRN IV NAUSEA AND/OR VOMITING Last administered on 11/18/16 03:00; Admin Dose 4 MG; Start 11/16/16 at 02:00 Pantoprazole (Protonix Tab) 40 mg DAILY@06 PO Last administered on 11/26/16 06: 06; Admin Dose 40 MG; Start 11/16/16 at 06:00 Senna (Senokot) 1 tab HS PO Last administered on 11/25/16 20:40; Admin Dose 1 TAB; Start 11/16/16 at 21:00 Insulin Glargine (Lantus) 4 unit DAILY@20 SC Last administered on 11/25/16 20: 01; Admin Dose 4 UNIT; Start 11/19/16 at 20:00 Acetaminophen (Tylenol Tab) 500 mg BID PO Last administered on 11/26/16 09:11; Admin Dose 500 MG; Start 11/20/16 at 21:00 Acetaminophen/ Hydrocodone Bitart 1 tab 1 tab Q4H PRN PO pain, headaches; Start 11/22/16 at 14:30 Cefepime HCl (Maxipime 1gm/50 ml (Pmx)) 50 ml @ 100 mls/hr DAILY IVPB Last administered on 11/26/16 09:03; Admin Dose 100 MLS/HR; Start 11/24/16 at 09:00 Ibuprofen (Motrin) 400 mg Q6H PRN PO PAIN OR TEMP ABOVE 38C; Start 11/23/16 at 16:30 Hydralazine HCl (Apresoline) 25 mg Q6H PRN PO hypertension Last administered on 11/25/16 06:58; Admin Dose 25 MG; Start 11/25/16 at 06:30 Hydralazine HCl (Apresoline) 50 mg TID PO Last administered on 11/25/16 20:40; Admin Dose 50 MG; Start 11/25/16 at 21:00 RADHA PRETTY MD Nov 26, 2016 18:55
--- NOTE | 2016-11-26 19:42 | PN ---
DATE: 11/26/2016 SUBJECTIVE: Case discussed with Dr. Chaudhari as the patient will have a Perm-A-Cath done under local anesthesia. I spoke briefly with the anesthesiologist staff. The patient also was noted to be mor e bradycardic. I informed Dr. Triana, the account development executive regarding this. The patient's kidney functi on continues to worsen as the creatinine went up to 4.88. Again, definitely she will need to contin ue dialysis as a Perm-A-Cath is planned. The patient lying in bed, overall appears very weak. She needs full care, overall help with feeding. Unfortunately, the patient is overall very weak. PHYSICAL EXAMINATION: VITAL SIGNS: Temperature 98.2, afebrile, pulse 61, respirations 18, blood pressure is 176/78, satur ation 91% to 98% on 3 liters. GENERAL: The patient is in no acute distress. The patient is pale. HEENT: Decreased dentition. CARDIOVASCULAR: S1, S2, regular rate. LUNGS: Clear. ABDOMEN: Soft, nontender. EXTREMITIES: No clubbing, cyanosis, or edema. LABORATORY DATA: White count 9.2, hemoglobin 10.4, hematocrit 32, platelet count is 274, neutrophil s 79%, lymphocytes 10%. Chemistry: Sodium is 139, potassium 4.0, chloride 108, bicarbonate 24, BUN 63, creatinine 4.88, glucose of 108. Last glucose of 130 and 106. Hepatitis A, B and C are all ne gative. Patient is immune for hepatitis antibodies are reactive for hepatitis B. Stool occul t blood stool negative. Nursing staff told me that patient does have bright red per rectum as she h as some GI bleeding. Dr. Bowen is seeing the patient and is involved. MEDICATIONS: Include: 1. Hydralazine 50 mg t.i.d. 2. Cefepime 1 gram daily. 3. Motrin 400 q. 6 p.r.n. 4. Shannon 1 tab q. 4 p.r.n. 5. Tylenol b.i.d. 6. Lantus 4 units day. 7. Accu-Chek before meals and at bedtime. 8. Senna 1 tab at bedtime. 9. Norvasc 5 mg b.i.d. 10. Eliquis 2.5 b.i.d. 11. Colace 100 b.i.d. 12. Lexapro 5 mg daily. 13. Tradjenta 5 mg daily. 14. Lopressor 25 b.i.d. 15. Protonix 40 mg daily. 16. DuoNeb p.r.n. 17. Tylenol p.r.n. 18. Milk of magnesia p.r.n. 19. Dulcolax p.r.n. 20. Hypoglycemia protocol p.r.n. 21. Colace p.r.n. 22. Hydralazine p.r.n. 23. Lactulose p.r.n. 24. Nitroglycerin p.r.n. 25. Zofran p.r.n. ASSESSMENT AND PLAN: This is an unfortunate 85-year-old Filipina female with history of congestive heart failure, diastolic dysfunction, heart failure, paroxysmal atrial fibrillation, history of hear t block, diabetes mellitus, chronic kidney disease, who recently presented with uremia, fluid overlo ad state, started on dialysis. Now kidney function continues to worsen off dialysis. Also being tr eated for pneumonia. 1. Respiratory. Remains on cefepime for pneumonia. Previously on Levaquin. CT scan suggested pne umonia. Continue antibiotics for now. 2. Acute renal failure, stage V. Perm-A-Cath to be placed and dialysis to be continued. 3. Cardiovascular. The patient is off beta blockers, more bradycardic. Dr. Triana to follow up an d make further recommendations. Continue blood pressure medications and may need to hold Eliquis if there is further bleeding from the rectum. In the meantime, H and H is stable. 4. Diabetes mellitus. Glucose levels are good, but patient is not eating very well. There is over all decline. 5. Encourage her to eat. May need to resume Megace. I left a message with the daughter regarding the patient's condition. 6. Depression. Continue Lexapro. 7. For the diabetes, continue Tradjenta and low-dose basal insulin. Long-term prognosis is guarded . Dictated By: ROXANA JEFFRIES/DESTINY Conf#: [id number] DID#: [id number]
[2016-11-26] MEDS: SENNA TAB PO SCH (22:09)
[2016-11-26] MEDS: INSULIN GLARGINE [LANtus] 3 ML PEN SC SCH (22:10)
[2016-11-27] VITALS (19 sets, daily range): BP systolic 104–187; BP diastolic 43–79; PULSE 74–104; RESP 14–24
--- NOTE | 2016-11-27 01:05 | RADRPT ---
PROCEDURE: XR Chest. CLINICAL INDICATION: Preoperative evaluation. TECHNIQUE: Single frontal view of the chest was obtained COMPARISON: Chest dated 11/15/2016. FINDINGS: Cardiomegaly and atherosclerotic calcifications in the thoracic aorta. Dense right lung pneumonia i s new over interval. Mild left lung base atelectasis versus airspace disease. There are bilateral mild pleural effusions. There is no pneumothorax. IMPRESSION: 1. Dense right lung pneumonia is new over interval. 2. Mild left lung base atelectasis versus airspace disease. 3. There are bilateral mild pleural effusions. RPTAT: [facility] Physician Olayinka Date Time Electronically viewed and signed by Physician Olayinka on 11/27/2016 01:05 RS/
[2016-11-27] MEDS: ACCUCHECK AT 2AM (Patients on SS coverage) XX SCH (01:36)
--- NOTE | 2016-11-27 03:45 | CONS ---
DATE OF ADMISSION: 11/16/2016 DATE OF CONSULTATION: 11/26/2016 TYPE OF CONSULTATION: Surgical. REFERRING PHYSICIAN: 1. Dr. Fred Chaudhari 2. Dr. Asher Weiner CHIEF COMPLAINT: 1. Acute renal failure in need of a longer term access. 2. Recent rectal bleeding secondary to hemorrhoids per GI. 3. Diabetes mellitus. 4. Diastolic heart failure. 5. Pneumonia. 6. Encephalopathy history. 7. Meningioma history 8. Heart block. 9. Paroxysmal atrial fibrillation. 10. Anemia. 11. Hypoalbuminemia. HISTORY OF PRESENT ILLNESS: Katya Keenan is an 85-year-old female with multiple significant comorb idities who has been losing weight with decreased oral intake and flat affect and then was found to have UTI and pneumonia and was eventually transferred to acute rehabilitation for physical therapy. She continued to remain debilitated and was found to eventually have worsening renal function and w as readmitted back to the acute care hospital and found to be in acute renal failure. A Spike was placed by IR, and now surgical consult is obtained for possible conversion to a PermCath. There ar e no reported current fevers or chills. No nausea or vomiting. No abdominal pain. No chest pain, no shortness of breath. No cough or seizure. No blood per mouth; however, she has had some of brig ht red blood per rectum. She is currently on Eliquis due to her paroxysmal atrial fibrillation. PAST MEDICAL HISTORY: 1. Diabetes. 2. Hypertension. 3. Osteoarthritis. 4. Meningioma. 5. Compression fracture of the vertebral bodies. 6. Acute on chronic renal failure. 7. Paroxysmal atrial fibrillation 8. Congestive heart failure with diastolic dysfunction. 9. Iatrogenic coagulopathy. 10. Urinary tract infection. 11. Pneumonia. 12. Decreased oral intake with anorexia. 13. Hemorrhoids. 14. Bright red blood per rectum. 15. Depression. 16. Hypoalbuminemia. 17. Anemia 18. Heart block. 19. Cataracts. 20. Encephalopathy. 21. Flat affect. 22. History of gastroenteritis. 23. History of esophagitis. 24. History of pulmonary edema. PAST SURGICAL HISTORY: Cataract surgery. MEDICATIONS: As per MAR. ALLERGIES: NONE NOTED. SOCIAL HISTORY: No current alcohol, drugs, or tobacco. +3. 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 Devyn jaswant. FAMILY HISTORY: Noncontributory. REVIEW OF SYSTEMS: A 12-point of systems negative unless addressed in HPI. PHYSICAL EXAMINATION: VITAL SIGNS: Temperature 98.5, pulse 80s, blood pressure 146/82. GENERAL: Flat affect, minimally communicative, no acute distress. HEENT: Pupils equal, reactive. No scleral icterus. Mucous membranes are moist. NECK: Supple. Minimal JVD. No crepitus. PULMONARY: Normal respiratory effort. No wheezing. CARDIAC: S1, S2 present. ABDOMEN: Soft, nontender, no rebound, no guarding. EXTREMITIES: No edema. VASCULAR: Cap refill less than 2 seconds. NEUROLOGIC: Alert and responsive; however, flat affect. LABORATORY AND RADIOGRAPHIC: As per chart and HPI. ASSESSMENT AND PLAN: Katya Keenan is an 85-year-old female with multiple significant comorbidities . 1. Acute on chronic renal failure in need of further dialysis. We will need to switch her Spike to a PermCath which we will add for tomorrow. 2. Rectal bleed, probably secondary to hemorrhoids, on Eliquis. The patient is scheduled for colon oscopy to rule out other sources. 3. She also has a history of esophagitis and gastritis. Continue proton pump inhibitor and nutriti onal and lifestyle optimization. 4. Diabetes. Continue nutrition and medication optimization. 5. Hypertension. Continue nutrition and medication optimization. 6. Congestive heart failure. Continue judicious fluid management and cardiac optimization. 7. Depression. Continue medical and psychiatric management. 8. History of pneumonia with lung infiltrate and urinary tract infection status post antibiotics. Continue pulmonary toilet. Thank you very much for consulting me in this patient's care. Dictated By: SOFIA ARNOLD/DESTINY Conf#: [id number] DID#: [id number]
[2016-11-27] MEDS: PANTOPRAZOLE (EC) 40 MG TAB PO SCH (05:30)
--- NOTE | 2016-11-27 07:07 | PN ---
DATE: 11/26/2016 CARDIOLOGY FOLLOWUP SUBJECTIVE: The patient still complains of weakness. No chest pain or pressure. Blood pressure patel s been elevated intermittently. The patient is on dialysis. Intermittently, the patient is noted t o have significant bradycardia. ____ monitor. MEDICATIONS: Reviewed. OBJECTIVE: VITAL SIGNS: Temperature 98.2, heart rate of 72, blood pressure 170/78, respiratory rate of 15. HEENT: Normocephalic, atraumatic. Pupils are equal. CARDIOVASCULAR: Irregularly irregular. PULMONARY: With mild rhonchi. GASTROINTESTINAL: Soft, nontender. EXTREMITIES: Positive edema. NEUROLOGIC: Awake. PSYCHIATRIC: Appears to be calm. No depressed mood. SKIN: There are multiple ecchymoses. LABORATORY: WBC of 9.2, hemoglobin 10.4, platelets of 274. Sodium 139, potassium 4, BUN of 53, cre atinine of 4.98, glucose 108. EKG was personally reviewed which shows atrial flutter with variable AV block. ASSESSMENT AND PLAN: 1. Renal failure on dialysis now. 2. History of heart block. 3. Paroxysmal atrial fibrillation and flutter, currently back in atrial flutter with intermittently slow ventricular response. 4. Hypertension, difficult to control with beta blockers. 5. Diabetes. 6. Depression. RECOMMENDATIONS: We will hold Akbar in anticipation for procedure that is planned. Continue the rest of her cardiac care for now. We will discuss further with the family regarding permanent pacem demi placement. Dictated By: SUNDAR JACOBO MD AV/NTS Conf#: [id number] DID#: [id number] CC: ROXANA RODRIGUEZ MD;*End*
[2016-11-27 07:20] LABS: ADD SCAN DIFF NO
[2016-11-27 07:25] LABS: BASOPHILS % 0.4 % (0.0-2.0); EOSINOPHILS # 0.1 10^3/ul (0.0-0.5); EOSINOPHILS % 1.1 % (0.0-7.0); HEMATOCRIT 31.3 % (37.0-47.0); HEMOGLOBIN 9.9 g/dl (12.0-16.0); LYMPHOCYTES # 0.7 10^3/ul (0.8-2.9); LYMPHOCYTES % 7.4 % (15.0-51.0); MEAN CORPUSCULAR HEMOGLOBIN 30.3 pg (29.0-33.0); MEAN CORPUSCULAR HGB CONC 31.6 g/dl (32.0-37.0); MEAN CORPUSCULAR VOLUME 95.7 fl (82.0-101.0); MEAN PLATELET VOLUME 10.5 fl (7.4-10.4); MONOCYTE # 0.9 10^3/ul (0.3-0.9); MONOCYTES % 9.4 % (0.0-11.0); NEUTROPHIL # 7.4 10^3/ul (1.6-7.5); NEUTROPHILS % 81.3 % (39.0-77.0); PLATELET COUNT 261 10^3/UL (140-415); RED BLOOD COUNT 3.27 10^6/ul (4.20-5.40); RED CELL DISTRIBUTION WIDTH 18.2 % (11.5-14.5); WHITE BLOOD COUNT 9.1 10^3/ul (4.8-10.8)
[2016-11-27] MEDS: Insulin NOVOLOG SS MILD Algorithm (SS with meals and bedtime) SC SCH ×4 (07:30→21:00)
[2016-11-27 07:40] LABS: POTASSIUM 3.5 mmol/L (3.5-5.1)
[2016-11-27 07:41] LABS: INR 1.29; PARTIAL THROMBOPLASTIN TIME 32.9 Sec (25.0-35.0); PROTIME 16.2 Sec (12.2-14.2); PT RATIO 1.3
[2016-11-27 07:43] LABS: CREATININE 3.23 mg/dl (0.44-1.00)
[2016-11-27 07:44] LABS: CALCIUM 8.7 mg/dl (8.4-10.2)
[2016-11-27 07:50] LABS: MAGNESIUM 1.8 mg/dl (1.7-2.5); PHOSPHORUS 3.5 mg/dl (2.5-4.9)
[2016-11-27] MEDS: DEXTROSE 5%-0.9% NACL 1,000 ML IV SCH (09:00)
[2016-11-27] MEDS: AMLODIPINE 5 MG TAB PO SCH ×2 (09:30→21:11)
[2016-11-27] MEDS: DOCUSATE SODIUM 100 MG CAP PO SCH ×2 (09:30→21:10)
[2016-11-27] MEDS: LINAGLIPTIN 5 MG TABLET PO SCH (09:30)
[2016-11-27] MEDS: METOPROLOL 25 MG TAB PO SCH ×2 (09:30→21:11)
[2016-11-27] MEDS: ESCITALOPRAM 10 MG TAB PO SCH (09:30)
[2016-11-27] MEDS: ACETAMINOPHEN 500 MG TAB PO SCH ×2 (09:30→22:12)
[2016-11-27] MEDS ORDERED: PROPOFOL 40 ML ONE (10:18)
--- NOTE | 2016-11-27 10:59 | PN ---
DATE: 11/27/2016 SUBJECTIVE: The patient had hemodialysis yesterday, tolerated it well without any complications. N o other events noted. No hemoptysis, hematemesis or hematochezia. OBJECTIVE: VITAL SIGNS: Blood pressure is 165/72, respirations 18, pulse 67, temperature 98.1. HEENT: Head is normocephalic. NECK: Supple. HEART: Regular rate. LUNGS: Show diminished breath sounds at the bases. ABDOMEN: Soft, nontender to palpation. No rebound or guarding. EXTREMITIES: Negative for clubbing, cyanosis. No edema. DERMATOLOGIC: No rashes. MUSCULOSKELETAL: No joint effusions. NEUROLOGIC: No change in exam. MEDICATIONS: The patient's medications have been reviewed. LABORATORY DATA: Shows sodium 143, potassium 3.5, chloride 103, BUN 37, creatinine 3.23. White cou nt 9.1, hemoglobin 9.9, hematocrit 31.3, platelet count is 261. ASSESSMENT AND PLAN: 1. End-stage renal disease. The patient is planning for a PermCath placement today. Outpatient di alysis is being arranged at [facility]. We will continue dialysis 3 times weekly. 2. Congestive heart failure, clinically improved. Continue ultrafiltration dialysis. 3. Hypertension. Continue current blood pressure regimen. 4. Anemia of chronic disease. Continue to monitor hemoglobin and hematocrit levels. Continue Epog en. 5. Mineral bone disorder. Continue to monitor calcium and phosphorus levels. 6. Sepsis secondary to pneumonia. The patient is completing antibiotic course. 7. Sinus arrhythmia with history of heart block. The patient is pending possible pacemaker placeme nt. Follow up with cardiology. 8. Encephalopathy secondary to uremia, clinically improving. Dictated By: TIFFANIE REZA DO NR/NTS Conf#: [id number] DID#: [id number]
[2016-11-27] MEDS ORDERED: BISACODYL (EC) 5 MG TAB PO ONE ×2 (12:00→20:00)
[2016-11-27] MEDS: CEFEPIME 1GM/50 ML (PMX) 50 ML IVPB SCH (12:11)
[2016-11-27] MEDS ORDERED: IODIXANOL LOCM 50 ML BTL ONE (13:48)
[2016-11-27] MEDS ORDERED: LIDOCAINE 1%/EPI 30 ML INJ ONE ×2 (13:49→15:48)
[2016-11-27] MEDS ORDERED: CEFAZOLIN 2 GM/50 ML (PMX) 50 ML IVPB ONE ×2 (13:49→16:24)
[2016-11-27] MEDS ORDERED: VANCOMYCIN 1 GM (PMX) 250 ML IVPB SCH (14:00)
[2016-11-27] MEDS ORDERED: PEG/ELECTROLYTES 4L BTL PO ONE ×2 (14:00→20:00)
--- NOTE | 2016-11-27 14:17 | PN ---
DATE: 11/27/2016 CARDIOLOGY FOLLOWUP SUBJECTIVE: Discussed with the staff and Dr. Chaudhari, discussed with the patient's daughter. Discu ssed with Dr. Weiner. The patient denies any new complaints. Heart has been variable, between up an d down. Does complain of fatigue still. MEDICATIONS: Reviewed. PHYSICAL EXAMINATION: VITAL SIGNS: Temperature 98.1, heart rate of 79, blood pressure 187/79, respiratory rate of 18. HEENT: Normocephalic, atraumatic. Pupils are equal. CARDIOVASCULAR: Irregular. PULMONARY: With no wheezes, mild rhonchi, diffuse. GASTROINTESTINAL: Soft, nontender. EXTREMITIES: With trivial edema. NEUROLOGIC: Awake, responds appropriately. PSYCHIATRIC: Appears to be calm. LABORATORY: WBC of 9.1, hemoglobin 9.9, platelets of 261. Sodium 143, potassium 3.5, BUN of 27, cr eatinine 3.23, glucose of 101. INR is 1.29. Chest x-ray this morning shows right lower lobe pneumo bridger. ASSESSMENT 1. Heart block with intermittently slow ventricular response. 2. Paroxysmal atrial fibrillation and flutter. 3. Pneumonia. 4. Hypertension, difficult to control without beta blockers. 5. Diabetes with renal failure. RECOMMENDATIONS: I had a long discussion with the patient and her daughter. Both consented for the permanent pacemaker placement. We will proceed with pacemaker and hold off on the other surgeries until the pacemaker is placed. Eliquis is on hold already. Antibiotic is managed as per internal m edicine. The risks ____ of the procedure include risks of infection, vascular complication, bleedin g complication, pneumothorax, hemothorax, infection were discussed with the patient and daughter, co nsent has been obtained. Dictated By: SUNDAR JACOBO MD AV/DSETINY Conf#: [id number] DID#: [id number]
[2016-11-27] MEDS ORDERED: FENTAnyl 50 MCG/ML VIAL ONE (14:19)
[2016-11-27] MEDS ORDERED: PROPOFOL 20 ML ONE (14:20)
[2016-11-27] MEDS ORDERED: BUPIVACAINE 0.5% (SDV) 30 ML INJ ONE ×2 (15:47→15:54)
[2016-11-27] MEDS ORDERED: PROPOFOL 100 ML ONE (15:57)
[2016-11-27] MEDS ORDERED: ACETAMINOPHEN 325 MG TAB PO PRN (16:00)
[2016-11-27] MEDS ORDERED: morphine 2 MG INJ IV PRN (16:00)
--- NOTE | 2016-11-27 16:28 | SP ---
DATE OF PROCEDURE: 11/27/2016 NAME OF PROCEDURE: 1. Left subclavian venogram with radiological interpretation. 2. Implantation of dual chamber pacemaker using a [employer] MRI compatible device. BUSINESS SUPPORT ADMINISTRATOR: Sundar Triana MD. ANESTHESIA: Dr. Sky. INDICATIONS: This is a pleasant 85-year-old female with intermittent high degree AV block as well a s atrial flutter with tachybrady syndrome who was recommended to undergo permanent pacemaker placeme nt. DESCRIPTION OF PROCEDURE: Written informed consent was obtained after risks and benefits discussed with the patient and his daughters in detail. The patient was brought in supine position. Left jaycee st area prepped and draped in sterile fashion. Left subclavian venogram was performed, the patient' s subclavian vein is small with small cephalic vein. The left AC groove area was anesthetized with 1% lidocaine with epinephrine. A 4 cm incision was made in the sacral area. Blunt dissection was c arried out. Cephalic vein was identified and isolated. It was cannulated and a 0.014 wire was adva nced through it into the inferior vena cava. Then, using modified Seldinger technique, we placed a sheath over it, an 8-Malawian sheath. Two wires were advanced through the sheath and the sheath was r emoved and another 8-Malawian sheath was placed over one of the wires in the cephalic vein into the alicia bclavian vein. RV lead was advanced and placed in the right ventricular low septum. Once in good p osition, it was screwed into place. Excellent threshold, no diaphragmatic stimulation at 10 volt wa s noted. Then, good injury pattern was noted. The sheath was peeled away. The second sheath was p laced over the second wire into the cephalic vein. Right atrial lead was placed at the hepatic with good position, it was screwed into place. Threshold could not be checked with the patient in atria l flutter now, but good P waves noted as well as good injury pattern and impedance. Sheath was peel ed away. Both leads were tied down with 0 Ethibond. Pocket was irrigated with antibiotic solution. It was opened and the pocket was entered and closed with 0 Ethibond. The wound was closed in 2 la yers of 2-0 Vicryl and 3-0 Vicryl. Steri-Strip was applied. Pressure were applied. Patient tolera hitesh the procedure without complication. Patient is to be transferred to recovery room after that Dr Joon Winkler's procedure. DEVICE INFORMATION: The device itself is a [employer] lead [employer]urity MRI 2272 pacemaker. Right atria l lead is a [employer] Tendril MRI 46 cm lead. RV lead is a [employer]to Tendril MRI lead. P-wave amplit ude was 3.9, impedance was 450. RV amplitude was 2.8, threshold 0.5 and 0.4, impedance 560. The d evice was set at lower rate of 70, upper rate of 115. CONCLUSION: Successful implantation of dual chamber pacemaker. Dictated By: SUNDAR MAHER/DESTINY Conf#: [id number] DID#: [id number]
--- NOTE | 2016-11-27 16:31 | PN ---
Date/Time of Note Date/Time of Note DATE: 11/27/16 TIME: 16:29 Assessment/Plan Lines/Catheters IV Catheter Type (from [facility]): perma cath Self in Place (from [facility]): No Assessment/Plan Chief Complaint/Hosp Course 1. Acute on chronic renal failure in need of further dialysis. -Permacath today after the pacemaker 2. Rectal bleed, probably secondary to hemorrhoids, on Eliquis. The patient is scheduled for colonoscopy to rule out other sources. 3. Esophagitis and gastritis. -Continue proton pump inhibitor and nutritional and lifestyle optimization. 4. Diabetes. Continue nutrition and medication optimization. 5. Hypertension. Continue nutrition and medication optimization. 6. Congestive heart failure. Continue judicious fluid management and cardiac optimization. 7. Depression. Continue medical and psychiatric management. 8. History of pneumonia with lung infiltrate and urinary tract infection status post antibiotics. Continue pulmonary toilet. Thank you Problems: Subjective 24 Hr Interval Summary No fevers or chills. No nausea vomiting. No chest pain. No shortness of breath. No cough. No seizure. No blood per mouth or rectum. No pyuria. Patient is going for pacemaker first and then will try to do the permacath as discussed with cardiology. Exam/Review of Systems Vital Signs Vitals Vital Signs Date Time Temp Pulse Resp B/P Pulse Ox O2 Delivery O2 Flow Rate FiO2 11/27/16 13:10 79 187/79 11/27/16 07:35 98.1 18 90 11/27/16 04:22 3.0 11/26/16 22:15 Nasal Cannula Intake and Output 11/26/16 11/26/16 11/27/16 14:59 22:59 06:59 Intake Total 50 ml 1040 ml 50 ml Output Total 2000 ml Balance 50 ml -960 ml 50 ml Exam Free Text/Dictation GENERAL: Flat affect, minimally communicative, no acute distress. HEENT: Pupils equal, reactive. No scleral icterus. Mucous membranes are moist. NECK: Supple. Minimal JVD. No crepitus. Right IJ Spike. PULMONARY: Normal respiratory effort. No wheezing. CARDIAC: S1, S2 present. ABDOMEN: Soft, nontender, no rebound, no guarding. EXTREMITIES: No edema. VASCULAR: Cap refill less than 2 seconds. NEUROLOGIC: Alert but confused and responsive; however, flat affect. Results Result Diagram: 11/27/16 0545 11/27/16 0545 SOFIA PRICNE MD Nov 27, 2016 16:31
--- NOTE | 2016-11-27 16:36 | OPR ---
Date/Time of Note Date/Time of Note DATE: 11/27/16 TIME: 16:31 Operative Report Procedure Date: Nov 27, 2016 Preoperative Diagnosis End-stage renal disease on hemodialysis through a Spike and need of permacath Postoperative Diagnosis Same Operation Performed 1. Right internal jugular tunneled dialysis catheter placed insertion, permacath 2. Ultrasound use and guidance 3. Ultrasound interpretation 4. Local anesthetic injection, [id number] Surgeon: SOFIA PRINCE MD Anesthesia: MAC (And local) Anesthesiologist: MIS ENAMORADO MD Estimated Blood Loss: 0 - 10 ml's Specimens None Tubes/Drains 19 cm 14.5 Croatian straight dialysis catheter Complications: None Pt Condition Post Procedure: stable Disposition: PACU Indications Per consult note. Risks benefits alternatives discussed with family and patient including but not limited to bleeding, infection, hematoma, neurovascular injury, with lung injury , cardiac injury, pneumothorax, hemothorax, need for emergent thoracotomy or chest tube, PE, DVT, pneumonia, organ failures, or even . Decision is made to proceed with surgery. Procedure Description Patient was already on the laboratory mechanical technician table for the pacemaker. Pacemaker was placed and patient was stable. Right neck was prepped and draped sterilely. The Spike came out and pressure was well applied at this site to control bleeding. Ultrasound was used to investigate the right neck and the IJ was anterolateral to the carotid and compressible. Under direct visualization 18-gauge needle was inserted into the IJ and the wire was placed which was confirmed in 2 planes. Using Seldinger technique the permacath 19 cm catheter was placed through the right chest tunneled on the subcutaneous tissue into the right neck incision and over the introducer placed into the right IJ and the introducer was peeled away. Both ports easily draw back dark nonpulsatile blood and easily flushed with saline. X-ray confirms good position of the catheter. Heparin was instilled in both ports. Sats maintained. Breath sounds maintained bilaterally. Dressing was applied. Patient tired procedure well and taken back to recovery room in stable condition. All counts were correct at the end the operation 2. SOFIA PRINCE MD Nov 27, 2016 16:36
[2016-11-27] MEDS ORDERED: ONDANSETRON 4 MG INJ IV PRN (17:00)
[2016-11-27] MEDS ORDERED: morphine (1 MG/ML) 10ML SYRINGE IV PRN ×2 (17:00)
[2016-11-27] MEDS ORDERED: DIPHENHYDRAMINE 50 MG INJ IV PRN (17:00)
[2016-11-27] MEDS ORDERED: LABETALOL HCL 20MG INJ IV PRN (17:00)
[2016-11-27] MEDS ORDERED: EPHEDrine SULFATE 50 MG/5 ML SYG IV PRN (17:00)
--- NOTE | 2016-11-27 18:01 | RADRPT ---
PROCEDURE: XR Chest. CLINICAL INDICATION: Pacemaker placement. TECHNIQUE: Single frontal view. COMPARISON: 11/26/2016. FINDINGS: There is a new tunneled right internal jugular vein dialysis catheter with the tip in the cavoatrial junction region. Previously noted right internal jugular vein temporary dialysis catheter is no lo nger present. There is a new left-sided dual lead pacemaker with leads in the right atrium and righ t ventricle. The heart is enlarged. There is calcification in the aorta consistent with atheroscle rosis. Atelectasis in the right mid and lower lung zones and left lower lung zones is unchanged. The lungs are otherwise clear. There is a moderate right pleural effusion and small left pleural effusion. There is no pneumothorax. IMPRESSION: 1. No pneumothorax. 2. Satisfactory position of right internal jugular vein tunneled dialysis catheter and left-sided d ual lead permanent pacemaker. 3. Cardiomegaly and atherosclerosis. 4. Unchanged appearance of the lungs and bilateral pleural effusions. RPTAT: QQ .Jonathan York MD, MD Date Time Electronically viewed and signed by .Jonathan York MD, MD on 11/27/2016 18:01 .R/
--- NOTE | 2016-11-27 19:05 | CONS ---
Date/Time of Note Date/Time of Note DATE: 11/27/16 TIME: 19:02 Assessment/Plan Assessment/Plan Additional Assessment/Plan dditional Assessment/Plan IMPRESSION: 1. Rectal bleeding appears to be hemorrhoidal. We will observe, especially when patient is on Eliquis. 2. Renal failure. 3. Diabetes mellitus. 4. Anorexia. 5. Depression. 6. Diastolic heart failure. 7. Pneumonia. 8. Incision of tunneled dialysis catheter 9. Insertion of dual pacemaker Plan Monitor H&H physical therapy Patient had hemodialysis today colonoscopy on Saturday Consultation Date/Type/Reason Admit Date/Time Nov 16, 2016 at 00:30 24 HR Interval Summary Free Text/Dictation Rectal bleeding as per the staff Exam/Review of Systems Vital Signs Vitals Vital Signs Date Time Temp Pulse Resp B/P Pulse Ox O2 Delivery O2 Flow Rate FiO2 11/27/16 18:39 75 11/27/16 17:52 15 104/43 97 Nasal Cannula 2.0 11/27/16 16:50 98.2 Intake and Output 11/26/16 11/26/16 11/27/16 15:00 23:00 07:00 Intake Total 50 ml 1040 ml 50 ml Output Total 2000 ml Balance 50 ml -960 ml 50 ml Exam Constitutional: alert, oriented, well developed Psych: nl mood/affect, no complaints Head: atraumatic, normocephalic Eyes: EOMI, PERRL, nl conjunctiva, nl lids, nl sclera ENMT: nl external ears & nose, nl lips & teeth, nl nasal mucosa & septum Neck: non-tender, supple Respiratory: clear to auscultation, normal air movement Cardiovascular: nl pulses, regular rate and rhythm Gastrointestinal: nl liver, spleen, non-tender, soft Musculoskeletal: nl extremities to inspection, nl gait and stance Extremities: normal pulses 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: EMBEDDED SOFTWARE DEVELOPER II-XII intact, nl mental status, nl speech, nl strength Skin: nl turgor, No rash or lesions Lymph: nl lymph nodes Results Result Diagram: 11/27/16 0545 11/27/16 0545 Results 24 hrs Laboratory Tests Test 11/26/16 22:08 11/27/16 05:45 11/27/16 05:47 11/27/16 07:57 Bedside Glucose 124 106 White Blood Count 9.1 Red Blood Count 3.27 L Hemoglobin 9.9 L Hematocrit 31.3 L Mean Corpuscular Volume 95.7 Mean Corpuscular Hemoglobin 30.3 Mean Corpuscular Hemoglobin Concent 31.6 L Red Cell Distribution Width 18.2 H Platelet Count 261 Mean Platelet Volume 10.5 H Neutrophils % 81.3 H Lymphocytes % 7.4 L Monocytes % 9.4 Eosinophils % 1.1 Basophils % 0.4 Nucleated Red Blood Cells % 0.0 Neutrophils # 7.4 Lymphocytes # 0.7 L Monocytes # 0.9 Eosinophils # 0.1 Basophils # 0.0 Nucleated Red Blood Cells # 0.0 Sodium Level 143 Potassium Level 3.5 Chloride Level 103 Carbon Dioxide Level 28 Anion Gap 16 Blood Urea Nitrogen 27 #H Creatinine 3.23 #H Glucose Level 101 Calcium Level 8.7 Prothrombin Time 16.2 H Prothrombin Time Ratio 1.3 INR International Normalized Ratio 1.29 Activated Partial Thromboplast Time 32.9 Phosphorus Level 3.5 Magnesium Level 1.8 Test 11/27/16 11:39 Bedside Glucose 114 Medications Medications Current Medications Al Hydrox/Mg Hydrox/Simethicone (Mag-Al Plus) 30 ml BID PRN PO GASTROINTESTINAL UPSET; Start 11/16/16 at 02:00 Amlodipine Besylate (Norvasc) 5 mg BID PO Last administered on 11/26/16t 22:14; Admin Dose 5 MG; Start 11/16/16 at 09:00 Bisacodyl (Dulcolax Supp) 10 mg DAILY PRN [place] CONSTIPATION; Start 11/16/16 at 02 :00 Miscellaneous Information 1 ea NOTE XX ; Start 11/16/16 at 02:00 Glucose (Glutose) 15 gm Q15M PRN PO DECREASED GLUCOSE; Start 11/16/16 at 02:00 Glucose (Glutose) 22.5 gm Q15M PRN PO DECREASED GLUCOSE; Start 11/16/16 at 02: 00 Dextrose (D50w Syringe) 25 ml Q15M PRN IV DECREASED GLUCOSE; Start 11/16/16 at 02:00 Dextrose (D50w Syringe) 50 ml Q15M PRN IV DECREASED GLUCOSE; Start 11/16/16 at 02:00 Glucagon (Glucagen) 1 mg Q15M PRN IM DECREASED GLUCOSE; Start 11/16/16 at 02:00 Glucose (Glutose) 15 gm Q15M PRN BUCCAL DECREASED GLUCOSE; Start 11/16/16 at 02 :00 Docusate Sodium (Colace) 100 mg Q12H PRN PO CONSTIPATION; Start 11/16/16 at 02: 00 Docusate Sodium (Colace) 100 mg BID PO Last administered on 11/26/16 22:09; Admin Dose 100 MG; Start 11/16/16 at 09:00 Escitalopram Oxalate (Lexapro) 5 mg DAILY PO Last administered on 11/26/16 09: 11; Admin Dose 5 MG; Start 11/16/16 at 09:00 Diagnostic Test (Pha) (Accu-Chek) 1 ea 02 XX Last administered on 11/24/16 02: 20; Admin Dose 1 EA; Start 11/17/16 at 02:00 Hydralazine HCl (Apresoline) 25 mg Q4H PRN PO ELEVATED SYSTOLIC BP Last administered on 11/19/16 05:18; Admin Dose 25 MG; Start 11/16/16 at 02:00 Lactulose (Enulose) 20 gm DAILY PRN PO CONSTIPATION; Start 11/16/16 at 02:00 Linagliptin (Tradjenta) 5 mg DAILY PO Last administered on 11/26/16 09:11; Admin Dose 5 MG; Start 11/16/16 at 09:00 Magnesium Hydroxide (Milk Of Mag) 30 ml DAILY PRN PO CONSTIPATION Last administered on 11/24/16 17:29; Admin Dose 30 ML; Start 11/16/16 at 02:00 Metoprolol Tartrate (Lopressor) 25 mg BID PO Last administered on 11/26/16 22: 14; Admin Dose 25 MG; Start 11/16/16 at 09:00 Nitroglycerin (Nitroglycerin (Sl Tab) 0.4 Mg) 1 tab Q5M PRN SL CHEST PAIN; Start 11/16/16 at 02:00 Ondansetron HCl (Zofran Inj) 4 mg Q6H PRN IV NAUSEA AND/OR VOMITING Last administered on 11/18/16 03:00; Admin Dose 4 MG; Start 11/16/16 at 02:00 Pantoprazole (Protonix Tab) 40 mg DAILY@06 PO Last administered on 11/27/16 05: 30; Admin Dose 40 MG; Start 11/16/16 at 06:00 Senna (Senokot) 1 tab HS PO Last administered on 11/26/16 22:09; Admin Dose 1 TAB; Start 11/16/16 at 21:00 Insulin Glargine (Lantus) 4 unit DAILY@20 SC Last administered on 11/26/16 22: 10; Admin Dose 4 UNIT; Start 11/19/16 at 20:00 Acetaminophen (Tylenol Tab) 500 mg BID PO Last administered on 11/26/16 22:09; Admin Dose 500 MG; Start 11/20/16 at 21:00 Acetaminophen/ Hydrocodone Bitart 1 tab 1 tab Q4H PRN PO pain, headaches; Start 11/22/16 at 14:30 Cefepime HCl (Maxipime 1gm/50 ml (Pmx)) 50 ml @ 100 mls/hr DAILY IVPB Last administered on 11/27/16 12:11; Admin Dose 100 MLS/HR; Start 11/24/16 at 09:00 Ibuprofen (Motrin) 400 mg Q6H PRN PO PAIN OR TEMP ABOVE 38C; Start 11/23/16 at 16:30 Hydralazine HCl (Apresoline) 25 mg Q6H PRN PO hypertension Last administered on 11/25/16 06:58; Admin Dose 25 MG; Start 11/25/16 at 06:30 Hydralazine HCl 50 mg 50 mg TID PO Last administered on 11/26/16 22:14; Admin Dose 50 MG; Start 11/25/16 at 21:00 Dextrose/Sodium Chloride (D5-NS) 1,000 ml @ 50 mls/hr Q20H IV Last administered on 11/27/16 09:00; Admin Dose 50 MLS/HR; Start 11/27/16 at 08:00 Acetaminophen (Tylenol Tab) 650 mg Q4H PRN PO NON-CARDIAC PAIN LEVEL (1-3); Start 11/27/16 at 16:00 Morphine Sulfate (morphine) 1 mg Q1H PRN IV PAIN; Start 11/27/16 at 16:00 RADHA PRETTY MD Nov 27, 2016 19:05
--- NOTE | 2016-11-27 19:59 | PN ---
DATE: 11/27/2016 Patient seen in the recovery room. The patient is status post multiple procedures today. She under went pacemaker placement and then she underwent Perm-A-Cath placement in the right internal jugular vein. The patient tolerated both procedures well, currently in the PACU, being transferred to the t elemetry unit. The patient is alert, arousable. Case discussed with nursing staff with patient's v ital signs remain stable. PHYSICAL EXAMINATION: VITAL SIGNS: Temperature earlier was 98.2, pulse 86, respirations 14, blood pressure is 143/62, sat uration 95% on 2 liters. GENERAL: No acute distress. The patient is pale. CARDIOVASCULAR: S1, S2. LUNGS: Decreased bilaterally. ABDOMEN: Soft, nontender. EXTREMITIES: No clubbing, cyanosis, or edema. Patient with left upper extremity in a sling and a b andage on the pacemaker area. She has a right IJ Perm-A-Cath. LABORATORY DATA: White count today 9.1, hemoglobin 9.9, hematocrit 31, platelet count is 261, neutr ophils 81%, lymphocytes 11%. Chemistry: Sodium 143, potassium 3.5, chloride 103, bicarbonate 28, B UN is 27, creatinine 3.23, glucose 101, glucose level is 114 and 106. Chest x-ray done this morning shows dense right lung pneumonia. There is no overt interval, mild left lung base atelectasis vers us airspace disease, bilateral mild pleural effusion. MEDICATIONS: Include: 1. GoLYTELY x1 as she is planned to undergo a colonoscopy tomorrow. 2. Morphine p.r.n. 3. Dulcolax p.r.n. 4. Zofran p.r.n. 5. Labetalol p.r.n.; this was for the procedure. 6. Also, she is on D5 normal saline at 50 mL an hour. 7. Hydralazine 50 t.i.d. 8. Cefepime 1 gram daily. 9. Ibuprofen p.r.n. 10. Maidens p.r.n. 11. Tylenol p.r.n. 12. Lantus 4 units daily. 13. Accu-Chek q.a.c. and at bedtime. 14. Senna 1 tab daily. 15. Norvasc 5 mg b.i.d. 16. Colace 100 b.i.d. 17. Lexapro 5 mg daily. 18. Tradjenta 5 mg daily. 19. Lopressor 25 b.i.d. 20. Protonix 40 mg daily. 21. DuoNeb as directed. 22. Hyperglycemia protocol. 23. P.r.n. meds were all reviewed. ASSESSMENT AND PLAN: This is an unfortunate 85-year-old Filipina female with history of congestive heart failure, diastolic dysfunction heart failure, paroxysmal atrial fibrillation, history of heart block, diabetes mellitus, chronic kidney disease, who recently presented with uremia, fluid overloa d state and started on dialysis. Unfortunately, kidney function did not improve, now she was initia hitesh on permanent dialysis. 1. Respiratory. Chest x-ray shows worsening pneumonia. Follow up chest x-ray again. Continue cef epime for now. 2. Acute renal failure. Perm-A-Cath was placed. Dialysis per Dr. Chaudhari. 3. Cardiovascular. Status post pacemaker placement. Monitor vitals. Titrate blood pressure medic ations up as the patient had tachybrady syndrome and now will be able to give her beta blockers. El iquis was placed on hold secondary to bleeding in the rectum. H and H remain stable. 4. Gastrointestinal bleed, colonoscopy in the a.m. 5. GoLYTELY to be given. 6. Diabetes mellitus, controlled with Tradjenta and low-dose basal insulin. 7. Depression. Continue Lexapro. 8. Encourage patient to eat. Hopefully, after the above procedure, the patient will feel better ov erall and eat more. Otherwise, prognosis remains guarded. I left messages multiple times with the daughter regarding the patient's condition. We will follow. The patient will be transferred to the telemetry unit. Dictated By: ROXANA JEFFRIES/DESTINY Conf#: [id number] DID#: [id number]
[2016-11-27] MEDS: SENNA TAB PO SCH (21:10)
[2016-11-27] MEDS: INSULIN GLARGINE [LANtus] 3 ML PEN SC SCH (21:14)
[2016-11-28] VITALS (20 sets, daily range): BP systolic 99–166; BP diastolic 44–75; PULSE 69–86; RESP 16–20
[2016-11-28] MEDS: ACCUCHECK AT 2AM (Patients on SS coverage) XX SCH (02:00)
[2016-11-28] MEDS: PANTOPRAZOLE (EC) 40 MG TAB PO SCH (07:02)
[2016-11-28] MEDS: DEXTROSE 5%-0.9% NACL 1,000 ML IV SCH (07:04)
[2016-11-28] MEDS: Insulin NOVOLOG SS MILD Algorithm (SS with meals and bedtime) SC SCH ×4 (07:30→21:07)
[2016-11-28 07:39] LABS: ADD SCAN DIFF NO
[2016-11-28 07:52] LABS: BASOPHIL # 0.1 10^3/ul (0.0-0.1); BASOPHILS % 0.7 % (0.0-2.0); EOSINOPHILS # 0.1 10^3/ul (0.0-0.5); EOSINOPHILS % 1.7 % (0.0-7.0); HEMATOCRIT 27.9 % (37.0-47.0); HEMOGLOBIN 8.8 g/dl (12.0-16.0); LYMPHOCYTES # 0.6 10^3/ul (0.8-2.9); MEAN CORPUSCULAR HEMOGLOBIN 31.1 pg (29.0-33.0); MEAN CORPUSCULAR HGB CONC 31.5 g/dl (32.0-37.0); MEAN CORPUSCULAR VOLUME 98.6 fl (82.0-101.0); MEAN PLATELET VOLUME 10.7 fl (7.4-10.4); MONOCYTE # 0.9 10^3/ul (0.3-0.9); MONOCYTES % 11.5 % (0.0-11.0); NEUTROPHILS % 77.6 % (39.0-77.0); PLATELET COUNT 229 10^3/UL (140-415); RED BLOOD COUNT 2.83 10^6/ul (4.20-5.40); RED CELL DISTRIBUTION WIDTH 18.1 % (11.5-14.5); WHITE BLOOD COUNT 7.7 10^3/ul (4.8-10.8)
[2016-11-28 08:01] LABS: POTASSIUM 3.9 mmol/L (3.5-5.1)
[2016-11-28 08:03] LABS: CREATININE 4.11 mg/dl (0.44-1.00)
[2016-11-28 08:04] LABS: CALCIUM 8.4 mg/dl (8.4-10.2)
[2016-11-28 08:08] LABS: MAGNESIUM 1.8 mg/dl (1.7-2.5); PHOSPHORUS 5.3 mg/dl (2.5-4.9)
[2016-11-28] MEDS: DOCUSATE SODIUM 100 MG CAP PO SCH ×2 (09:15→21:05)
[2016-11-28] MEDS: LINAGLIPTIN 5 MG TABLET PO SCH (09:16)
[2016-11-28] MEDS: ESCITALOPRAM 10 MG TAB PO SCH (09:18)
[2016-11-28] MEDS: ACETAMINOPHEN 500 MG TAB PO SCH ×2 (09:19→21:15)
[2016-11-28] MEDS: METOPROLOL 50 MG TAB PO SCH ×2 (09:19→21:05)
[2016-11-28] MEDS: CEFEPIME 1GM/50 ML (PMX) 50 ML IVPB SCH (11:49)
--- NOTE | 2016-11-28 13:14 | PN ---
DATE: 11/28/2016 SUBJECTIVE: The patient had a pacemaker placement and a PermCath placed yesterday. Currently, no o ther acute events. The patient is pending hemodialysis. OBJECTIVE: VITAL SIGNS: Blood pressure is 132/57, respirations 18, pulse 72, temperature 98.2. HEENT: Head is normocephalic. NECK: Supple. HEART: Regular rate. LUNGS: Show diminished breath sounds at the base. ABDOMEN: Soft, nontender to palpation. No rebound or guarding. EXTREMITIES: Negative for clubbing, cyanosis. No edema. DERMATOLOGIC: No rashes. MUSCULOSKELETAL: No joint effusions. NEUROLOGIC: No change in exam. MEDICATIONS: The patient's medications have been reviewed. LABORATORY DATA: Shows sodium 140, potassium 3.9, BUN 38, creatinine 4.11. White count 7.7, hemogl obin 9.8, hematocrit 27.9, platelet count 229. ASSESSMENT AND PLAN: 1. End-stage renal disease. The patient is status post PermCath placement, went for dialysis today for 3 hours and 3 K bath, calcium 2.5. The patient is being arranged for outpatient dialysis. Con cherylue to evaluate. 2. Congestive heart failure, clinically improved. Continue medical management. Continue ultrafilt ration with dialysis. 3. Hypertension. Continue current blood pressure regimen. 4. Anemia of chronic disease. Continue to monitor hemoglobin and hematocrit levels. Continue Epog en. 5. Mineral bone disorder. Continue to monitor calcium and phosphorus levels. 6. Sepsis secondary to pneumonia. Continue current antibiotic regimen. 7. Arrhythmia, status post pacemaker placement. Continue to monitor. 8. Encephalopathy secondary to uremia, improving. Dictated By: TIFFANIE MCHUGH/DESTINY Conf#: [id number] DID#: [id number]
--- NOTE | 2016-11-28 19:06 | CONS ---
Date/Time of Note Date/Time of Note DATE: 11/28/16 TIME: 19:05 Assessment/Plan Assessment/Plan Additional Assessment/Plan dditional Assessment/Plan IMPRESSION: 1. Rectal bleeding appears to be hemorrhoidal. We will observe, especially when patient is on Eliquis. 2. Renal failure. 3. Diabetes mellitus. 4. Anorexia. 5. Depression. 6. Diastolic heart failure. 7. Pneumonia. 8. Incision of tunneled dialysis catheter 9. Insertion of dual pacemaker Plan Monitor H&H physical therapy Patient had hemodialysis today colonoscopy on Saturday as per the daughter. Consultation Date/Type/Reason Admit Date/Time Nov 16, 2016 at 00:30 24 HR Interval Summary Constitutional: improved, no complaints Exam/Review of Systems Vital Signs Vitals Vital Signs Date Time Temp Pulse Resp B/P Pulse Ox O2 Delivery O2 Flow Rate FiO2 11/28/16 18:00 77 18 11/28/16 15:38 98.6 134/66 95 11/28/16 08:00 Nasal Cannula 2.0 Intake and Output 11/27/16 11/27/16 11/28/16 15:00 23:00 07:00 Intake Total 50 ml Balance 50 ml Exam Constitutional: alert, oriented, well developed Psych: nl mood/affect, no complaints Head: atraumatic, normocephalic Eyes: EOMI, PERRL, nl conjunctiva, nl lids, nl sclera ENMT: nl external ears & nose, nl lips & teeth, nl nasal mucosa & septum Neck: non-tender, supple Respiratory: clear to auscultation, normal air movement Cardiovascular: nl pulses, regular rate and rhythm Gastrointestinal: nl liver, spleen, non-tender, soft Musculoskeletal: nl extremities to inspection, nl gait and stance Extremities: normal pulses 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: YARD ENGINEER II-XII intact, nl mental status, nl speech, nl strength Skin: nl turgor, No rash or lesions Lymph: nl lymph nodes Results Result Diagram: 11/28/16 0641 11/28/16 0641 Results 24 hrs Laboratory Tests Test 11/27/16 19:08 11/27/16 21:08 11/28/16 06:41 11/28/16 08:04 Bedside Glucose 130 134 128 White Blood Count 7.7 Red Blood Count 2.83 L Hemoglobin 8.8 L Hematocrit 27.9 L Mean Corpuscular Volume 98.6 Mean Corpuscular Hemoglobin 31.1 Mean Corpuscular Hemoglobin Concent 31.5 L Red Cell Distribution Width 18.1 H Platelet Count 229 Mean Platelet Volume 10.7 H Neutrophils % 77.6 H Lymphocytes % 8.0 L Monocytes % 11.5 H Eosinophils % 1.7 Basophils % 0.7 Nucleated Red Blood Cells % 0.0 Neutrophils # 6.0 Lymphocytes # 0.6 L Monocytes # 0.9 Eosinophils # 0.1 Basophils # 0.1 Nucleated Red Blood Cells # 0.0 Sodium Level 140 Potassium Level 3.9 Chloride Level 109 Carbon Dioxide Level 25 Anion Gap 10 # Blood Urea Nitrogen 38 #H Creatinine 4.11 H Glucose Level 127 Calcium Level 8.4 Phosphorus Level 5.3 H Magnesium Level 1.8 Test 11/28/16 12:05 11/28/16 17:22 11/28/16 18:28 Bedside Glucose 270 H 215 225 H Medications Medications Current Medications Al Hydrox/Mg Hydrox/Simethicone (Mag-Al Plus) 30 ml BID PRN PO GASTROINTESTINAL UPSET; Start 11/16/16 at 02:00 Bisacodyl (Dulcolax Supp) 10 mg DAILY PRN [place] CONSTIPATION; Start 11/16/16 at 02 :00 Miscellaneous Information 1 ea NOTE XX ; Start 11/16/16 at 02:00 Glucose (Glutose) 15 gm Q15M PRN PO DECREASED GLUCOSE; Start 11/16/16 at 02:00 Glucose (Glutose) 22.5 gm Q15M PRN PO DECREASED GLUCOSE; Start 11/16/16 at 02: 00 Dextrose (D50w Syringe) 25 ml Q15M PRN IV DECREASED GLUCOSE; Start 11/16/16 at 02:00 Dextrose (D50w Syringe) 50 ml Q15M PRN IV DECREASED GLUCOSE; Start 11/16/16 at 02:00 Glucagon (Glucagen) 1 mg Q15M PRN IM DECREASED GLUCOSE; Start 11/16/16 at 02:00 Glucose (Glutose) 15 gm Q15M PRN BUCCAL DECREASED GLUCOSE; Start 11/16/16 at 02 :00 Docusate Sodium (Colace) 100 mg Q12H PRN PO CONSTIPATION; Start 11/16/16 at 02: 00 Docusate Sodium (Colace) 100 mg BID PO Last administered on 11/28/16t 09:15; Admin Dose 100 MG; Start 11/16/16 at 09:00 Escitalopram Oxalate (Lexapro) 5 mg DAILY PO Last administered on 11/28/16 09: 18; Admin Dose 5 MG; Start 11/16/16 at 09:00 Diagnostic Test (Pha) (Accu-Chek) 1 ea 02 XX Last administered on 11/24/16 02: 20; Admin Dose 1 EA; Start 11/17/16 at 02:00 Hydralazine HCl (Apresoline) 25 mg Q4H PRN PO ELEVATED SYSTOLIC BP Last administered on 11/19/16 05:18; Admin Dose 25 MG; Start 11/16/16 at 02:00 Lactulose (Enulose) 20 gm DAILY PRN PO CONSTIPATION; Start 11/16/16 at 02:00 Linagliptin (Tradjenta) 5 mg DAILY PO Last administered on 11/28/16 09:16; Admin Dose 5 MG; Start 11/16/16 at 09:00 Magnesium Hydroxide (Milk Of Mag) 30 ml DAILY PRN PO CONSTIPATION Last administered on 11/24/16 17:29; Admin Dose 30 ML; Start 11/16/16 at 02:00 Nitroglycerin (Nitroglycerin (Sl Tab) 0.4 Mg) 1 tab Q5M PRN SL CHEST PAIN; Start 11/16/16 at 02:00 Ondansetron HCl (Zofran Inj) 4 mg Q6H PRN IV NAUSEA AND/OR VOMITING Last administered on 11/18/16 03:00; Admin Dose 4 MG; Start 11/16/16 at 02:00 Pantoprazole (Protonix Tab) 40 mg DAILY@06 PO Last administered on 11/28/16 07: 02; Admin Dose 40 MG; Start 11/16/16 at 06:00 Senna (Senokot) 1 tab HS PO Last administered on 11/27/16 21:10; Admin Dose 1 TAB; Start 11/16/16 at 21:00 Insulin Glargine (Lantus) 4 unit DAILY@20 SC Last administered on 11/27/16 21: 14; Admin Dose 4 UNIT; Start 11/19/16 at 20:00 Acetaminophen (Tylenol Tab) 500 mg BID PO Last administered on 11/28/16 09:19; Admin Dose 500 MG; Start 11/20/16 at 21:00 Acetaminophen/ Hydrocodone Bitart 1 tab 1 tab Q4H PRN PO pain, headaches Last administered on 11/28/16 12:43; Admin Dose 1 TAB; Start 11/22/16 at 14:30 Cefepime HCl (Maxipime 1gm/50 ml (Pmx)) 50 ml @ 100 mls/hr DAILY IVPB Last administered on 11/28/16 11:49; Admin Dose 100 MLS/HR; Start 11/24/16 at 09:00 Ibuprofen (Motrin) 400 mg Q6H PRN PO PAIN OR TEMP ABOVE 38C; Start 11/23/16 at 16:30 Hydralazine HCl (Apresoline) 25 mg Q6H PRN PO hypertension Last administered on 11/25/16 06:58; Admin Dose 25 MG; Start 11/25/16 at 06:30 Hydralazine HCl (Apresoline) 50 mg TID PO Last administered on 11/28/16 09:00; Admin Dose 50 MG; Start 11/25/16 at 21:00 Acetaminophen (Tylenol Tab) 650 mg Q4H PRN PO NON-CARDIAC PAIN LEVEL (1-3); Start 11/27/16 at 16:00 Morphine Sulfate (morphine) 1 mg Q1H PRN IV PAIN; Start 11/27/16 at 16:00 Metoprolol Tartrate (Lopressor) 50 mg BID PO Last administered on 11/28/16 09: 19; Admin Dose 50 MG; Start 11/28/16 at 09:00 RADHA PRETTY MD Nov 28, 2016 19:06
--- NOTE | 2016-11-28 19:37 | PN ---
DATE: 11/28/2016 SUBJECTIVE: The patient is status post pacemaker placement and PermCath placement. The patient is overall weak but in no distress. Case discussed in detail with the daughter, Edwige. Dr. Bowen is planning to likely proceed with a colonoscopy on Saturday. The patient had bright red per rectum. PHYSICAL EXAMINATION: VITAL SIGNS: Temperature is 98.6, pulse 76, respirations 20, blood pressure 134/66, saturation 95%. GENERAL: The patient in no acute distress, weak looking. The patient is pale. CARDIOVASCULAR: S1 and S2. LUNGS: Clear bilaterally. ABDOMEN: Soft, nontender. EXTREMITIES: No clubbing, cyanosis or edema. LABORATORIES TODAY: White count is 7.7, hemoglobin went down to 8.8, hematocrit 28, platelet count 229, neutrophils 78%, lymphocytes 8%. Chemistry: Sodium is 140, potassium is 3.9, chloride 109, bi carbonate 25, BUN is 38, creatinine 4.11, glucose 127. Now glucose level at bedside was about 320, before that was ____, so glucose level is shooting back up. MEDICATIONS: 1. Lopressor 50 mg b.i.d. 2. Tylenol p.r.n. 3. Morphine sulfate 1 mg IV q.1 hour p.r.n. 4. D5 normal saline at 50 mL an hour, which we can discontinue. 5. Hydralazine 50 mg t.i.d. 6. Cefepime 1 gram daily. 7. Motrin p.r.n. 8. [place] p.r.n. 9. Tylenol p.r.n. 10. Lantus 4 units daily. 11. Accu-Chek q.a.c. and at bedtime. 12. Senna 1 tablet at bedtime. 13. Colace 100 b.i.d. 14. Lexapro 5 mg daily. 15. Tradjenta 5 mg daily. 16. Protonix 40 mg daily. 17. DuoNeb p.r.n. 18. Milk of magnesia p.r.n. 19. Dulcolax p.r.n. 20. Hypoglycemia ____ p.r.n. 21. Colace p.r.n. 22. Hydralazine. 23. Lactulose. 24. Milk of magnesia. 25. Nitroglycerin. 26. Zofran p.r.n. ASSESSMENT AND PLAN: This is an 85-year-old Filipina female with history of congestive heart failur e, diastolic dysfunction heart failure, paroxysmal atrial fibrillation, history of heart block, diab etes mellitus, chronic kidney disease who recently presented with uremia, fluid overload state. She was started on dialysis. Unfortunately also was found to have rectal bleeding. 1. Respiratory. Stable. Fluid removal with dialysis. Antibiotics with cefepime for pneumonia. 2. Acute renal failure, status post PermCath placement, right IJ. Dialysis per Dr. Chaudhari. Outpa tient dialysis to be arranged. 3. Cardiovascular. 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 Eliquis is on hold secondary to rectal bleeding. 4. Hyperglycemia, likely from patient's IV fluids. Will Hep-Lock IV fluids and monitor. May incre ase insulin if glucose level remains high. 5. Plan for possible colonoscopy if patient is more strong. 6. Depression, on Lexapro. 7. Encourage her to eat. Monitor the patient's p.o. intake. Overall clinically better. We will c kaye to follow. May need jail facility as the patient needs help with activities of d aily living and close monitoring. I appreciate all the above consultants taking care of the patient. We will follow. Dictated By: ROXANA JEFFRIES/DESTINY Conf#: [id number] DID#: [id number]
[2016-11-28] MEDS: SENNA TAB PO SCH (21:05)
[2016-11-28] MEDS: INSULIN GLARGINE [LANtus] 3 ML PEN SC SCH (21:08)
--- NOTE | 2016-11-28 23:56 | PN ---
Date/Time of Note Date/Time of Note DATE: 11/28/16 TIME: 23:56 Assessment/Plan Lines/Catheters IV Catheter Type (from [facility]): Saline Lock Self in Place (from [facility]): No Assessment/Plan Chief Complaint/Hosp Course 1. Acute on chronic renal failure s/p right IJ Permacath 11/27. -HD 2. Rectal bleed, probably secondary to hemorrhoids, on Eliquis. The patient is scheduled for colonoscopy to rule out other sources by GI 3. Esophagitis and gastritis. -Continue proton pump inhibitor and nutritional and lifestyle optimization. 4. Diabetes. Continue nutrition and medication optimization. 5. Hypertension. Continue nutrition and medication optimization. 6. Congestive heart failure. Continue judicious fluid management and cardiac optimization. 7. Depression. Continue medical and psychiatric management. 8. History of pneumonia with lung infiltrate and urinary tract infection status post antibiotics. Continue pulmonary toilet. Thank you Problems: Subjective 24 Hr Interval Summary s/p Pacemaker and Right IJ Permacath 11/27. No fevers or chills. No nausea vomiting. No chest pain. No shortness of breath. No cough. No seizure. No blood per mouth or rectum. No pyuria. Exam/Review of Systems Vital Signs Vitals Vital Signs Date Time Temp Pulse Resp B/P Pulse Ox O2 Delivery O2 Flow Rate FiO2 11/30/16 12:25 99 11/30/16 11:43 16 165/74 11/30/16 11:37 98.5 100 11/30/16 00:52 3.0 11/29/16 19:00 Nasal Cannula Intake and Output 11/29/16 11/29/16 11/30/16 14:59 22:59 06:59 Intake Total 200 ml 200 ml 240 ml Balance 200 ml 200 ml 240 ml Exam Free Text/Dictation GENERAL: Flat affect, minimally communicative, no acute distress. HEENT: Pupils equal, reactive. No scleral icterus. Mucous membranes are moist. NECK: Supple. Minimal JVD. No crepitus. Right IJ Permacath and left sided pacemaker. PULMONARY: Normal respiratory effort. No wheezing. CARDIAC: S1, S2 present. ABDOMEN: Soft, nontender, no rebound, no guarding. EXTREMITIES: No edema. VASCULAR: Cap refill less than 2 seconds. NEUROLOGIC: Alert but confused and responsive; however, flat affect. Results Result Diagram: 11/30/16 0655 11/30/16 0655 SOFIA PRINCE MD Nov 28, 2016 23:56
[2016-11-29] VITALS (10 sets, daily range): BP systolic 119–161; BP diastolic 59–84; PULSE 69–93; RESP 16
[2016-11-29] MEDS: ACCUCHECK AT 2AM (Patients on SS coverage) XX SCH (02:00)
[2016-11-29] MEDS: PANTOPRAZOLE (EC) 40 MG TAB PO SCH (06:20)
[2016-11-29 07:44] LABS: ADD SCAN DIFF NO
[2016-11-29 07:54] LABS: BASOPHILS % 0.5 % (0.0-2.0); EOSINOPHILS # 0.1 10^3/ul (0.0-0.5); EOSINOPHILS % 1.6 % (0.0-7.0); HEMATOCRIT 25.3 % (37.0-47.0); HEMOGLOBIN 8.1 g/dl (12.0-16.0); LYMPHOCYTES # 0.7 10^3/ul (0.8-2.9); LYMPHOCYTES % 8.4 % (15.0-51.0); MEAN CORPUSCULAR HEMOGLOBIN 31.3 pg (29.0-33.0); MEAN CORPUSCULAR VOLUME 97.7 fl (82.0-101.0); MEAN PLATELET VOLUME 10.7 fl (7.4-10.4); MONOCYTE # 1.2 10^3/ul (0.3-0.9); MONOCYTES % 14.3 % (0.0-11.0); NEUTROPHIL # 6.5 10^3/ul (1.6-7.5); NEUTROPHILS % 74.7 % (39.0-77.0); PLATELET COUNT 209 10^3/UL (140-415); RED BLOOD COUNT 2.59 10^6/ul (4.20-5.40); RED CELL DISTRIBUTION WIDTH 17.6 % (11.5-14.5); WHITE BLOOD COUNT 8.7 10^3/ul (4.8-10.8)
[2016-11-29 08:06] LABS: MAGNESIUM 1.9 mg/dl (1.7-2.5); PHOSPHORUS 3.7 mg/dl (2.5-4.9)
[2016-11-29 08:07] LABS: CALCIUM 8.4 mg/dl (8.4-10.2); CREATININE 3.23 mg/dl (0.44-1.00); POTASSIUM 3.5 mmol/L (3.5-5.1)
--- NOTE | 2016-11-29 08:32 | PN ---
DATE: 11/28/2016 CARDIOLOGY FOLLOWUP SUBJECTIVE: Discussed with the staff. Rhythm strip was reviewed. The patient denies any chest arlyn n or pressure to me. MEDICATIONS: Reviewed. PHYSICAL EXAMINATION: VITAL SIGNS: Temperature 97.4, heart rate of 70, blood pressure of 99/44, respiratory rate of 20. HEENT: Normocephalic, atraumatic. Pupils are equal. CHEST: Status post permanent pacemaker. There is a hematoma noted either. PULMONARY: With no wheezes. GASTROINTESTINAL: Soft, nontender. EXTREMITIES: Trivial edema. NEUROLOGIC: Awake, ____. PSYCHIATRIC: Appeared to be calm and pleasant. LABORATORY: Glucose 134. Chest x-ray was reviewed, no pneumothorax. Status post dual chamber pace maker. ASSESSMENT AND PLAN: 1. Sick sinus syndrome on heart block ____ permanent pacemaker. 2. Renal failure on dialysis. 3. Hypertension, currently better controlled. 4. Atrial fibrillation and flutter. 5. Renal failure on dialysis. 6. Diabetes. 7. Pneumonia. RECOMMENDATIONS: Antibiotic as per internal medicine. I will discontinue the amlodipine and increa se on her beta sis now that she has a pacemaker. Pacemaker interrogated today with normal funct ion. Dictated By: SUNDAR JACOBO MD AV/NTS Conf#: [id number] DID#: [id number] CC: ROXANA RODRIGUEZ MD;*EndCC*
[2016-11-29] MEDS: CEFEPIME 1GM/50 ML (PMX) 50 ML IVPB SCH (08:55)
[2016-11-29] MEDS: LINAGLIPTIN 5 MG TABLET PO SCH (08:55)
[2016-11-29] MEDS: ACETAMINOPHEN 500 MG TAB PO SCH ×2 (08:55→21:39)
[2016-11-29] MEDS: ESCITALOPRAM 10 MG TAB PO SCH (08:55)
[2016-11-29] MEDS: DOCUSATE SODIUM 100 MG CAP PO SCH ×2 (08:56→21:38)
[2016-11-29] MEDS: METOPROLOL 50 MG TAB PO SCH ×3 (09:04→21:39)
[2016-11-29] MEDS: Insulin NOVOLOG SS MILD Algorithm (SS with meals and bedtime) SC SCH ×4 (09:07→21:00)
--- NOTE | 2016-11-29 14:43 | CONS ---
Date/Time of Note Date/Time of Note DATE: 11/29/16 TIME: 14:41 Consult Date/Type/Reason Admit Date/Time Nov 16, 2016 at 00:30 Initial Consult Date Subjective The patient had a pacemaker placement and a PermCath placed and tolerated hd yesterday. Currently, no other acute events. poc reviewed with dr. lagos. OBJECTIVE: HEENT: Head is normocephalic. NECK: Supple. HEART: Regular rate. LUNGS: Show diminished breath sounds at the base. ABDOMEN: Soft, nontender to palpation. No rebound or guarding. EXTREMITIES: Negative for clubbing, cyanosis. No edema. DERMATOLOGIC: No rashes. MUSCULOSKELETAL: No joint effusions. NEUROLOGIC: No change in exam. MEDICATIONS: The patient's medications have been reviewed. Objective Vital Signs Date Time Temp Pulse Resp B/P Pulse Ox O2 Delivery O2 Flow Rate FiO2 11/29/16 12:05 98.4 81 16 140/84 97 11/29/16 08:00 Nasal Cannula 2.0 Intake and Output 11/28/16 11/28/16 11/29/16 14:59 22:59 06:59 Intake Total 600 ml Output Total 3000 ml Balance -2400 ml Results/Medications Result Diagram: 11/29/16 0631 11/29/16 0631 Results 24 hrs Laboratory Tests Test 11/28/16 17:22 11/28/16 18:28 11/28/16 20:57 11/29/16 02:14 Bedside Glucose 215 225 H 321 H 268 H Test 11/29/16 04:31 11/29/16 06:31 11/29/16 07:51 11/29/16 11:41 Phosphorus Level 3.7 Magnesium Level 1.9 White Blood Count 8.7 Red Blood Count 2.59 L Hemoglobin 8.1 L Hematocrit 25.3 L Mean Corpuscular Volume 97.7 Mean Corpuscular Hemoglobin 31.3 Mean Corpuscular Hemoglobin Concent 32.0 Red Cell Distribution Width 17.6 H Platelet Count 209 Mean Platelet Volume 10.7 H Neutrophils % 74.7 Lymphocytes % 8.4 L Monocytes % 14.3 H Eosinophils % 1.6 Basophils % 0.5 Nucleated Red Blood Cells % 0.0 Neutrophils # 6.5 Lymphocytes # 0.7 L Monocytes # 1.2 H Eosinophils # 0.1 Basophils # 0.0 Nucleated Red Blood Cells # 0.0 Sodium Level 142 Potassium Level 3.5 Chloride Level 109 Carbon Dioxide Level 27 Anion Gap 10 Blood Urea Nitrogen 23 #H Creatinine 3.23 H Glucose Level 174 Calcium Level 8.4 Bedside Glucose 154 212 Medications Current Medications Al Hydrox/Mg Hydrox/Simethicone (Mag-Al Plus) 30 ml BID PRN PO GASTROINTESTINAL UPSET; Start 11/16/16 at 02:00 Bisacodyl (Dulcolax Supp) 10 mg DAILY PRN [place] CONSTIPATION; Start 11/16/16 at 02 :00 Miscellaneous Information 1 ea NOTE XX ; Start 11/16/16 at 02:00 Glucose (Glutose) 15 gm Q15M PRN PO DECREASED GLUCOSE; Start 11/16/16 at 02:00 Glucose (Glutose) 22.5 gm Q15M PRN PO DECREASED GLUCOSE; Start 11/16/16 at 02: 00 Dextrose (D50w Syringe) 25 ml Q15M PRN IV DECREASED GLUCOSE; Start 11/16/16 at 02:00 Dextrose (D50w Syringe) 50 ml Q15M PRN IV DECREASED GLUCOSE; Start 11/16/16 at 02:00 Glucagon (Glucagen) 1 mg Q15M PRN IM DECREASED GLUCOSE; Start 11/16/16 at 02:00 Glucose (Glutose) 15 gm Q15M PRN BUCCAL DECREASED GLUCOSE; Start 11/16/16 at 02 :00 Docusate Sodium (Colace) 100 mg Q12H PRN PO CONSTIPATION; Start 11/16/16 at 02: 00 Docusate Sodium (Colace) 100 mg BID PO Last administered on 11/29/16 08:56; Admin Dose 100 MG; Start 11/16/16 at 09:00 Escitalopram Oxalate (Lexapro) 5 mg DAILY PO Last administered on 11/29/16 08: 55; Admin Dose 5 MG; Start 11/16/16 at 09:00 Diagnostic Test (Pha) (Accu-Chek) 1 ea 02 XX Last administered on 11/24/16 02: 20; Admin Dose 1 EA; Start 11/17/16 at 02:00 Hydralazine HCl (Apresoline) 25 mg Q4H PRN PO ELEVATED SYSTOLIC BP Last administered on 11/19/16 05:18; Admin Dose 25 MG; Start 11/16/16 at 02:00 Lactulose (Enulose) 20 gm DAILY PRN PO CONSTIPATION; Start 11/16/16 at 02:00 Linagliptin (Tradjenta) 5 mg DAILY PO Last administered on 11/29/16 08:55; Admin Dose 5 MG; Start 11/16/16 at 09:00 Magnesium Hydroxide (Milk Of Mag) 30 ml DAILY PRN PO CONSTIPATION Last administered on 11/24/16 17:29; Admin Dose 30 ML; Start 11/16/16 at 02:00 Nitroglycerin (Nitroglycerin (Sl Tab) 0.4 Mg) 1 tab Q5M PRN SL CHEST PAIN; Start 11/16/16 at 02:00 Ondansetron HCl (Zofran Inj) 4 mg Q6H PRN IV NAUSEA AND/OR VOMITING Last administered on 11/18/16 03:00; Admin Dose 4 MG; Start 11/16/16 at 02:00 Pantoprazole (Protonix Tab) 40 mg DAILY@06 PO Last administered on 11/29/16 06: 20; Admin Dose 40 MG; Start 11/16/16 at 06:00 Senna (Senokot) 1 tab HS PO Last administered on 11/28/16 21:05; Admin Dose 1 TAB; Start 11/16/16 at 21:00 Insulin Glargine (Lantus) 4 unit DAILY@20 SC Last administered on 11/28/16 21: 08; Admin Dose 4 UNIT; Start 11/19/16 at 20:00 Acetaminophen (Tylenol Tab) 500 mg BID PO Last administered on 11/29/16 08:55; Admin Dose 500 MG; Start 11/20/16 at 21:00 Acetaminophen/ Hydrocodone Bitart 1 tab 1 tab Q4H PRN PO pain, headaches Last administered on 11/28/16 12:43; Admin Dose 1 TAB; Start 11/22/16 at 14:30 Cefepime HCl (Maxipime 1gm/50 ml (Pmx)) 50 ml @ 100 mls/hr DAILY IVPB Last administered on 11/29/16 08:55; Admin Dose 100 MLS/HR; Start 11/24/16 at 09:00 Ibuprofen (Motrin) 400 mg Q6H PRN PO PAIN OR TEMP ABOVE 38C; Start 11/23/16 at 16:30 Hydralazine HCl (Apresoline) 25 mg Q6H PRN PO hypertension Last administered on 11/25/16 06:58; Admin Dose 25 MG; Start 11/25/16 at 06:30 Acetaminophen (Tylenol Tab) 650 mg Q4H PRN PO NON-CARDIAC PAIN LEVEL (1-3); Start 11/27/16 at 16:00 Morphine Sulfate (morphine) 1 mg Q1H PRN IV PAIN; Start 11/27/16 at 16:00 Hydralazine HCl (Apresoline) 25 mg BID PO Last administered on 11/29/16 09:02; Admin Dose 25 MG; Start 11/29/16 at 09:00 Metoprolol Tartrate (Lopressor) 50 mg TID PO Last administered on 11/29/16 14: 22; Admin Dose 50 MG; Start 11/29/16 at 09:00 Assessment/Plan Chief Complaint/Hosp Course ASSESSMENT AND PLAN: 1. End-stage renal disease. The patient is status post PermCath placement, went for dialysis today for 3 hours and 3 K bath, calcium 2.5. The patient is being arranged for outpatient dialysis. Continue to evaluate. 2. Congestive heart failure, clinically improved. Continue medical management. Continue ultrafiltration with dialysis. 3. Hypertension. Continue current blood pressure regimen. 4. Anemia of chronic disease. Continue to monitor hemoglobin and hematocrit levels. Continue Epogen. 5. Mineral bone disorder. Continue to monitor calcium and phosphorus levels. 6. Sepsis secondary to pneumonia. Continue current antibiotic regimen. 7. Arrhythmia, status post pacemaker placement. Continue to monitor. 8. Encephalopathy secondary to uremia, improving. Problems: HANK GARCÍA MD Nov 29, 2016 14:43
--- NOTE | 2016-11-29 17:54 | PN ---
DATE: 11/29/2016 CARDIOLOGY FOLLOWUP SUBJECTIVE: Discussed with the staff. Rhythm strip was reviewed. Patient with atrial fibrillation with ventricular demand pacemaker. Denied any chest pain or pressure to me. MEDICATIONS: Reviewed, which include: 1. Metoprolol 50 b.i.d. 2. Morphine t.i.d. 3. Hydralazine. 4. Cefepime. 5. Insulin. 6. Senna. 7. ____. PHYSICAL EXAMINATION: VITAL SIGNS: Temperature 98.1, heart rate of 95, blood pressure 142/69, respiration 16. HEENT: Normocephalic, atraumatic. No acute distress. Pupils are equal. CHEST: Status post permanent pacemaker with small hematoma and pressure dressing. CARDIOVASCULAR: Irregularly irregular, systolic murmur. PULMONARY: With no wheezes. GASTROINTESTINAL: Soft, nontender. EXTREMITIES: With trivial edema. NEUROLOGIC: Awake, responds appropriately. PSYCHIATRIC: Appears to be calm and very pleasant. There are multiple ecchymoses. LABORATORY: WBC of 8.7, hemoglobin 8.1, platelets of 209, sodium 1, glucose of 154 this morning. ASSESSMENT AND PLAN 1. Sick sinus syndrome ____ permanent pacemaker. 2. Atrial fibrillation flutter. 3. Renal failure on dialysis now. 4. Hypertension. 5. Diabetes. 6. Encephalopathy. 7. Pneumonia. RECOMMENDATIONS: I will increase the beta sis and will cut down on the hydralazine. Continue t he rest of her cardiac care. Diabetic management as per Dr. Rodriguez and associates. Dialysis as per renal. Dictated By: SUNDAR JACOBO MD AV/NTS Conf#: [id number] DID#: [id number] CC: ROXANA RODRIGUEZ MD;*EndCC*
--- NOTE | 2016-11-29 18:41 | CONS ---
Date/Time of Note Date/Time of Note DATE: 11/29/16 TIME: 18:40 Assessment/Plan Assessment/Plan Additional Assessment/Plan dditional Assessment/Plan IMPRESSION: 1. Rectal bleeding appears to be hemorrhoidal. We will observe, especially when patient is on Eliquis. 2. Renal failure. 3. Diabetes mellitus. 4. Anorexia. 5. Depression. 6. Diastolic heart failure. 7. Pneumonia. 8. Incision of tunneled dialysis catheter 9. Insertion of dual pacemaker Plan Monitor H&H physical therapy Patient had hemodialysis today daughter wants to postpone colonoscopy by 1 week Consultation Date/Type/Reason Admit Date/Time Nov 16, 2016 at 00:30 24 HR Interval Summary Constitutional: improved, no complaints Exam/Review of Systems Vital Signs Vitals Vital Signs Date Time Temp Pulse Resp B/P Pulse Ox O2 Delivery O2 Flow Rate FiO2 11/29/16 16:00 92 11/29/16 15:36 97.7 16 119/80 98 11/29/16 08:00 Nasal Cannula 2.0 Intake and Output 11/28/16 11/28/16 11/29/16 15:00 23:00 07:00 Intake Total 600 ml Output Total 3000 ml Balance -2400 ml Exam Constitutional: alert, oriented, well developed Psych: nl mood/affect, no complaints Head: atraumatic, normocephalic Eyes: EOMI, PERRL, nl conjunctiva, nl lids, nl sclera ENMT: nl external ears & nose, nl lips & teeth, nl nasal mucosa & septum Neck: non-tender, supple Respiratory: clear to auscultation, normal air movement Cardiovascular: nl pulses, regular rate and rhythm Gastrointestinal: nl liver, spleen, non-tender, soft Musculoskeletal: nl extremities to inspection, nl gait and stance Extremities: normal pulses 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: CROSSING WATCHMAN II-XII intact, nl mental status, nl speech, nl strength Skin: nl turgor, No rash or lesions Lymph: nl lymph nodes Results Result Diagram: 11/29/1663011/29/16630 Results 24 hrs Laboratory Tests Test 11/28/16 20:57 11/29/16 02:14 11/29/16 04:31 11/29/16 06:31 Bedside Glucose 321 H 268 H Phosphorus Level 3.7 Magnesium Level 1.9 White Blood Count 8.7 Red Blood Count 2.59 L Hemoglobin 8.1 L Hematocrit 25.3 L Mean Corpuscular Volume 97.7 Mean Corpuscular Hemoglobin 31.3 Mean Corpuscular Hemoglobin Concent 32.0 Red Cell Distribution Width 17.6 H Platelet Count 209 Mean Platelet Volume 10.7 H Neutrophils % 74.7 Lymphocytes % 8.4 L Monocytes % 14.3 H Eosinophils % 1.6 Basophils % 0.5 Nucleated Red Blood Cells % 0.0 Neutrophils # 6.5 Lymphocytes # 0.7 L Monocytes # 1.2 H Eosinophils # 0.1 Basophils # 0.0 Nucleated Red Blood Cells # 0.0 Sodium Level 142 Potassium Level 3.5 Chloride Level 109 Carbon Dioxide Level 27 Anion Gap 10 Blood Urea Nitrogen 23 #H Creatinine 3.23 H Glucose Level 174 Calcium Level 8.4 Test 11/29/16 07:51 11/29/16 11:41 11/29/16 17:21 Bedside Glucose 154 212 168 Medications Medications Current Medications Al Hydrox/Mg Hydrox/Simethicone (Mag-Al Plus) 30 ml BID PRN PO GASTROINTESTINAL UPSET; Start 11/16/16 at 02:00 Bisacodyl (Dulcolax Supp) 10 mg DAILY PRN [place] CONSTIPATION; Start 11/16/16 at 02 :00 Miscellaneous Information 1 ea NOTE XX ; Start 11/16/16 at 02:00 Glucose (Glutose) 15 gm Q15M PRN PO DECREASED GLUCOSE; Start 11/16/16 at 02:00 Glucose (Glutose) 22.5 gm Q15M PRN PO DECREASED GLUCOSE; Start 11/16/16 at 02: 00 Dextrose (D50w Syringe) 25 ml Q15M PRN IV DECREASED GLUCOSE; Start 11/16/16 at 02:00 Dextrose (D50w Syringe) 50 ml Q15M PRN IV DECREASED GLUCOSE; Start 11/16/16 at 02:00 Glucagon (Glucagen) 1 mg Q15M PRN IM DECREASED GLUCOSE; Start 11/16/16 at 02:00 Glucose (Glutose) 15 gm Q15M PRN BUCCAL DECREASED GLUCOSE; Start 11/16/16 at 02 :00 Docusate Sodium (Colace) 100 mg Q12H PRN PO CONSTIPATION; Start 11/16/16 at 02: 00 Docusate Sodium (Colace) 100 mg BID PO Last administered on 11/29/16t 08:56; Admin Dose 100 MG; Start 11/16/16 at 09:00 Escitalopram Oxalate (Lexapro) 5 mg DAILY PO Last administered on 11/29/16 08: 55; Admin Dose 5 MG; Start 11/16/16 at 09:00 Diagnostic Test (Pha) (Accu-Chek) 1 ea 02 XX Last administered on 11/24/16 02: 20; Admin Dose 1 EA; Start 11/17/16 at 02:00 Hydralazine HCl (Apresoline) 25 mg Q4H PRN PO ELEVATED SYSTOLIC BP Last administered on 11/19/16 05:18; Admin Dose 25 MG; Start 11/16/16 at 02:00 Lactulose (Enulose) 20 gm DAILY PRN PO CONSTIPATION; Start 11/16/16 at 02:00 Linagliptin (Tradjenta) 5 mg DAILY PO Last administered on 11/29/16 08:55; Admin Dose 5 MG; Start 11/16/16 at 09:00 Magnesium Hydroxide (Milk Of Mag) 30 ml DAILY PRN PO CONSTIPATION Last administered on 11/24/16 17:29; Admin Dose 30 ML; Start 11/16/16 at 02:00 Nitroglycerin (Nitroglycerin (Sl Tab) 0.4 Mg) 1 tab Q5M PRN SL CHEST PAIN; Start 11/16/16 at 02:00 Ondansetron HCl (Zofran Inj) 4 mg Q6H PRN IV NAUSEA AND/OR VOMITING Last administered on 11/18/16 03:00; Admin Dose 4 MG; Start 11/16/16 at 02:00 Pantoprazole (Protonix Tab) 40 mg DAILY@06 PO Last administered on 11/29/16 06: 20; Admin Dose 40 MG; Start 11/16/16 at 06:00 Senna (Senokot) 1 tab HS PO Last administered on 11/28/16 21:05; Admin Dose 1 TAB; Start 11/16/16 at 21:00 Insulin Glargine (Lantus) 4 unit DAILY@20 SC Last administered on 11/28/16 21: 08; Admin Dose 4 UNIT; Start 11/19/16 at 20:00 Acetaminophen (Tylenol Tab) 500 mg BID PO Last administered on 11/29/16 08:55; Admin Dose 500 MG; Start 11/20/16 at 21:00 Acetaminophen/ Hydrocodone Bitart ([place] (5/325)) 1 tab Q4H PRN PO pain, headaches Last administered on 11/28/16 12:43; Admin Dose 1 TAB; Start 11/22/16 at 14:30 Ibuprofen (Motrin) 400 mg Q6H PRN PO PAIN OR TEMP ABOVE 38C; Start 11/23/16 at 16:30 Hydralazine HCl (Apresoline) 25 mg Q6H PRN PO hypertension Last administered on 11/25/16 06:58; Admin Dose 25 MG; Start 11/25/16 at 06:30 Acetaminophen (Tylenol Tab) 650 mg Q4H PRN PO NON-CARDIAC PAIN LEVEL (1-3); Start 11/27/16 at 16:00 Morphine Sulfate (morphine) 1 mg Q1H PRN IV PAIN; Start 11/27/16 at 16:00 Hydralazine HCl (Apresoline) 25 mg BID PO Last administered on 11/29/16 09:02; Admin Dose 25 MG; Start 11/29/16 at 09:00 Metoprolol Tartrate (Lopressor) 50 mg TID PO Last administered on 11/29/16 14: 22; Admin Dose 50 MG; Start 11/29/16 at 09:00 RADHA PRETTY MD Nov 29, 2016 18:41
[2016-11-29] MEDS ORDERED: PEG/ELECTROLYTES 4L BTL PO ONE ×2 (19:00→22:00)
[2016-11-29] MEDS ORDERED: BISACODYL (EC) 5 MG TAB PO ONE (19:00)
--- NOTE | 2016-11-29 19:06 | PN ---
DATE: 11/29/2016 SUBJECTIVE: Patient seen, alert, able to communicate, in no distress, eating more. Noted Dr. Enriqueta david's recommendation to increase the patient's beta blockers and cut down the hydralazine. PHYSICAL EXAMINATION: VITAL SIGNS: Temperature 97.7, pulse 72, respirations 16, blood pressure 119/80, saturation 98%. GENERAL: The patient is in no acute distress. The patient is pale, decreased dentition. CARDIOVASCULAR: S1, S2, regular rate. LUNGS: Clear. ABDOMEN: Soft, nontender. EXTREMITIES: No clubbing, cyanosis, or edema. LABORATORY DATA: White count 8.2, hemoglobin went down to 8.1, hematocrit 25.3, platelet count 209, neutrophils 75%, lymphocytes 8%. Chemistry: Sodium 142, potassium 3.5, chloride 109, bicarbonate 27, BUN 23, creatinine 3.23, glucose 174. Last glucose levels 168, 212 and 154. Will continue to m onitor. MEDICATIONS: All reviewed and include: 1. Hydralazine 25 b.i.d. 2. Lopressor 50 t.i.d. 3. Tylenol p.r.n. 4. Morphine p.r.n. 5. Hydralazine 25 q.6h. p.r.n. 6. Cefepime 1 gram daily. 7. Motrin p.r.n. 8. [place] p.r.n. 9. Lantus 4 units daily. 10. Accu-Cheks as directed. 11. Senna 1 tab at bedtime. 12. Colace 100 b.i.d. 13. Lexapro 5 mg daily. 14. Tradjenta 5 mg daily. 15. Insulin sliding scale. 16. Protonix 40 mg daily. 17. DuoNeb every 4 hours p.r.n. 18. Milk of magnesia p.r.n. 19. Dulcolax p.r.n. 20. Hypoglycemia protocol p.r.n. 21. Nitroglycerin p.r.n. 22. Zofran p.r.n. ASSESSMENT AND PLAN: This is an 85-year-old [place] female with history of congestive heart failur e, paroxysmal atrial fibrillation, heart block, diabetes mellitus, chronic kidney disease recently w as found to be with fluid overload uremia, initiated on dialysis, also was found to have rectal blee ding. 1. Respiratory. Stable. Continue O2 support as needed on antibiotics with cefepime for possible p neumonia. We will discontinue antibiotics tomorrow. 2. Acute renal failure stage V, now on dialysis. Outpatient dialysis to be arranged. She has a ri t IJ Perm-A-Cath. 3. Cardiovascular. Status post pacemaker placement secondary to tachybrady syndrome, now we increa sed her beta sis and titrating down the hydralazine. Continue Eliquis soon, as the patient was recently noted to have gastrointestinal bleed. 4. Gastrointestinal bleed. The patient may be weak to undergo colonoscopy. Further decision per c ardiology and gastrointestinal. Hemoglobin and hematocrit remain stable. 5. Hyperglycemia. Continue current regimen of insulin, now she is off the dextrose solution, so alicia gars are better. 6. Physical therapy as tolerated. 7. Monitor the patient's p.o. intake. Patient likely will need higher level of care. She needs 24 -hour monitoring. May place in a senior care facility soon. Clinically improving. We will fol low. Dictated By: ROXANA JEFFRIES/DESTINY Conf#: [id number] DID#: [id number]
[2016-11-29] MEDS: INSULIN GLARGINE [LANtus] 3 ML PEN SC SCH (20:10)
[2016-11-29] MEDS: SENNA TAB PO SCH (21:41)
[2016-11-30] VITALS (20 sets, daily range): BP systolic 102–184; BP diastolic 44–77; PULSE 79–99; RESP 16–18
[2016-11-30] MEDS: ACCUCHECK AT 2AM (Patients on SS coverage) XX SCH (02:00)
[2016-11-30] MEDS: PANTOPRAZOLE (EC) 40 MG TAB PO SCH (06:08)
[2016-11-30] MEDS: Insulin NOVOLOG SS MILD Algorithm (SS with meals and bedtime) SC SCH ×4 (07:30→22:10)
[2016-11-30 08:18] LABS: ADD SCAN DIFF NO
[2016-11-30 08:26] LABS: BASOPHIL # 0.1 10^3/ul (0.0-0.1); BASOPHILS % 0.6 % (0.0-2.0); EOSINOPHILS # 0.2 10^3/ul (0.0-0.5); EOSINOPHILS % 2.7 % (0.0-7.0); HEMATOCRIT 24.6 % (37.0-47.0); HEMOGLOBIN 7.6 g/dl (12.0-16.0); LYMPHOCYTES # 1.1 10^3/ul (0.8-2.9); LYMPHOCYTES % 12.8 % (15.0-51.0); MEAN CORPUSCULAR HGB CONC 30.9 g/dl (32.0-37.0); MEAN CORPUSCULAR VOLUME 100.4 fl (82.0-101.0); MEAN PLATELET VOLUME 10.9 fl (7.4-10.4); MONOCYTE # 0.8 10^3/ul (0.3-0.9); MONOCYTES % 9.9 % (0.0-11.0); NEUTROPHIL # 6.2 10^3/ul (1.6-7.5); NEUTROPHILS % 73.4 % (39.0-77.0); PLATELET COUNT 194 10^3/UL (140-415); RED BLOOD COUNT 2.45 10^6/ul (4.20-5.40); RED CELL DISTRIBUTION WIDTH 17.6 % (11.5-14.5); WHITE BLOOD COUNT 8.5 10^3/ul (4.8-10.8)
[2016-11-30 08:45] LABS: CALCIUM 8.3 mg/dl (8.4-10.2); CREATININE 4.49 mg/dl (0.44-1.00); POTASSIUM 3.8 mmol/L (3.5-5.1)
[2016-11-30 08:52] LABS: MAGNESIUM 1.9 mg/dl (1.7-2.5); PHOSPHORUS 4.1 mg/dl (2.5-4.9)
[2016-11-30] MEDS ORDERED: SOD CHLORIDE 0.9% 250 ML IV* ONE (11:23)
--- NOTE | 2016-11-30 11:26 | PN ---
Date/Time of Note Date/Time of Note DATE: 11/30/16 TIME: 11:25 Assessment/Plan VTE Prophylaxis VTE Prophylaxis Intervention: other Lines/Catheters IV Catheter Type (from [facility]): PERMACATH Urinary Cath still in place: No Assessment/Plan Assessment/Plan 1. End-stage renal disease. The patient is status post PermCath placemen. The patient is being arranged for outpatient dialysis. Continue to evaluate for her dialytic needs 2. Congestive heart failure, clinically improved. Continue medical management. Continue ultrafiltration with dialysis. 3. Hypertension. Continue current blood pressure regimen. 4. Anemia of chronic disease. will transfuse with next hd 5. Mineral bone disorder. Continue to monitor calcium and phosphorus levels. 6. Sepsis secondary to pneumonia. Continue current antibiotic regimen. 7. Arrhythmia, status post pacemaker placement. Continue to monitor. 8. Encephalopathy secondary to uremia, improving. Subjective 24 Hr Interval Summary Free Text/Dictation renal follow up all noted d/w nursing staff s/p permcath placement tolerating HD treatments well more anemic Currently, no other acute events. poc reviewed with dr. lagos. OBJECTIVE: HEENT: Head is normocephalic. NECK: Supple. HEART: Regular rate. LUNGS: Show diminished breath sounds at the base. ABDOMEN: Soft, nontender to palpation. No rebound or guarding. EXTREMITIES: Negative for clubbing, cyanosis. No edema. DERMATOLOGIC: No rashes. MUSCULOSKELETAL: No joint effusions. NEUROLOGIC: No change in exam. MEDICATIONS: The patient's medications have been reviewed. Exam/Review of Systems Vital Signs Vitals Vital Signs Date Time Temp Pulse Resp B/P Pulse Ox O2 Delivery O2 Flow Rate FiO2 11/30/16 08:51 83 11/30/16 07:21 97.9 18 121/70 96 11/30/16 00:52 3.0 11/29/16 19:00 Nasal Cannula Intake and Output 11/29/16 11/29/16 11/30/16 15:00 23:00 07:00 Intake Total 200 ml 200 ml 240 ml Balance 200 ml 200 ml 240 ml Results Result Diagram: 11/30/16 0655 11/30/16 0655 Results 24 hrs Laboratory Tests Test 11/29/16 11:41 11/29/16 17:21 11/29/16 20:04 11/30/16 02:44 Bedside Glucose 212 168 167 143 Test 11/30/16 06:55 11/30/16 08:08 White Blood Count 8.5 Red Blood Count 2.45 L Hemoglobin 7.6 L Hematocrit 24.6 L Mean Corpuscular Volume 100.4 Mean Corpuscular Hemoglobin 31.0 Mean Corpuscular Hemoglobin Concent 30.9 L Red Cell Distribution Width 17.6 H Platelet Count 194 Mean Platelet Volume 10.9 H Neutrophils % 73.4 Lymphocytes % 12.8 L Monocytes % 9.9 Eosinophils % 2.7 Basophils % 0.6 Nucleated Red Blood Cells % 0.0 Neutrophils # 6.2 Lymphocytes # 1.1 Monocytes # 0.8 Eosinophils # 0.2 Basophils # 0.1 Nucleated Red Blood Cells # 0.0 Sodium Level 140 Potassium Level 3.8 Chloride Level 109 Carbon Dioxide Level 25 Anion Gap 10 Blood Urea Nitrogen 35 #H Creatinine 4.49 #H Glucose Level 143 Calcium Level 8.3 L Phosphorus Level 4.1 Magnesium Level 1.9 Bedside Glucose 139 Medications Medications Current Medications Al Hydrox/Mg Hydrox/Simethicone (Mag-Al Plus) 30 ml BID PRN PO GASTROINTESTINAL UPSET; Start 11/16/16 at 02:00 Bisacodyl (Dulcolax Supp) 10 mg DAILY PRN [place] CONSTIPATION; Start 11/16/16 at 02 :00 Miscellaneous Information 1 ea NOTE XX ; Start 11/16/16 at 02:00 Glucose (Glutose) 15 gm Q15M PRN PO DECREASED GLUCOSE; Start 11/16/16 at 02:00 Glucose (Glutose) 22.5 gm Q15M PRN PO DECREASED GLUCOSE; Start 11/16/16 at 02: 00 Dextrose (D50w Syringe) 25 ml Q15M PRN IV DECREASED GLUCOSE; Start 11/16/16 at 02:00 Dextrose (D50w Syringe) 50 ml Q15M PRN IV DECREASED GLUCOSE; Start 11/16/16 at 02:00 Glucagon (Glucagen) 1 mg Q15M PRN IM DECREASED GLUCOSE; Start 11/16/16 at 02:00 Glucose (Glutose) 15 gm Q15M PRN BUCCAL DECREASED GLUCOSE; Start 11/16/16 at 02 :00 Docusate Sodium (Colace) 100 mg Q12H PRN PO CONSTIPATION; Start 11/16/16 at 02: 00 Docusate Sodium (Colace) 100 mg BID PO Last administered on 11/29/16 21:38; Admin Dose 100 MG; Start 11/16/16 at 09:00 Escitalopram Oxalate (Lexapro) 5 mg DAILY PO Last administered on 11/29/16 08: 55; Admin Dose 5 MG; Start 11/16/16 at 09:00 Diagnostic Test (Pha) (Accu-Chek) 1 ea 02 XX Last administered on 11/24/16 02: 20; Admin Dose 1 EA; Start 11/17/16 at 02:00 Hydralazine HCl (Apresoline) 25 mg Q4H PRN PO ELEVATED SYSTOLIC BP Last administered on 11/19/16 05:18; Admin Dose 25 MG; Start 11/16/16 at 02:00 Lactulose (Enulose) 20 gm DAILY PRN PO CONSTIPATION; Start 11/16/16 at 02:00 Linagliptin (Tradjenta) 5 mg DAILY PO Last administered on 11/29/16 08:55; Admin Dose 5 MG; Start 11/16/16 at 09:00 Magnesium Hydroxide (Milk Of Mag) 30 ml DAILY PRN PO CONSTIPATION Last administered on 11/24/16 17:29; Admin Dose 30 ML; Start 11/16/16 at 02:00 Nitroglycerin (Nitroglycerin (Sl Tab) 0.4 Mg) 1 tab Q5M PRN SL CHEST PAIN; Start 11/16/16 at 02:00 Ondansetron HCl (Zofran Inj) 4 mg Q6H PRN IV NAUSEA AND/OR VOMITING Last administered on 11/18/16 03:00; Admin Dose 4 MG; Start 11/16/16 at 02:00 Pantoprazole (Protonix Tab) 40 mg DAILY@06 PO Last administered on 11/30/16 06: 08; Admin Dose 40 MG; Start 11/16/16 at 06:00 Senna (Senokot) 1 tab HS PO Last administered on 11/29/16 21:41; Admin Dose 1 TAB; Start 11/16/16 at 21:00 Insulin Glargine (Lantus) 4 unit DAILY@20 SC Last administered on 11/29/16 20: 10; Admin Dose 4 UNIT; Start 11/19/16 at 20:00 Acetaminophen (Tylenol Tab) 500 mg BID PO Last administered on 11/29/16 21:39; Admin Dose 500 MG; Start 11/20/16 at 21:00 Acetaminophen/ Hydrocodone Bitart ([place] (5/325)) 1 tab Q4H PRN PO pain, headaches Last administered on 11/28/16 12:43; Admin Dose 1 TAB; Start 11/22/16 at 14:30 Ibuprofen (Motrin) 400 mg Q6H PRN PO PAIN OR TEMP ABOVE 38C; Start 11/23/16 at 16:30 Hydralazine HCl (Apresoline) 25 mg Q6H PRN PO hypertension Last administered on 11/25/16 06:58; Admin Dose 25 MG; Start 11/25/16 at 06:30 Acetaminophen (Tylenol Tab) 650 mg Q4H PRN PO NON-CARDIAC PAIN LEVEL (1-3); Start 11/27/16 at 16:00 Morphine Sulfate (morphine) 1 mg Q1H PRN IV PAIN; Start 11/27/16 at 16:00 Hydralazine HCl (Apresoline) 25 mg BID PO Last administered on 11/29/16 21:38; Admin Dose 25 MG; Start 11/29/16 at 09:00 Metoprolol Tartrate (Lopressor) 50 mg TID PO Last administered on 11/29/16 21: 39; Admin Dose 50 MG; Start 11/29/16 at 09:00 TALI PRINCE DO Nov 30, 2016 11:26
[2016-11-30] MEDS: LINAGLIPTIN 5 MG TABLET PO SCH (11:49)
[2016-11-30] MEDS: ACETAMINOPHEN 500 MG TAB PO SCH ×2 (11:49→23:17)
[2016-11-30] MEDS: DOCUSATE SODIUM 100 MG CAP PO SCH ×2 (11:49→23:16)
[2016-11-30] MEDS: METOPROLOL 50 MG TAB PO SCH (11:49)
[2016-11-30] MEDS: ESCITALOPRAM 10 MG TAB PO SCH (11:49)
--- NOTE | 2016-11-30 13:43 | PN ---
Date/Time of Note Date/Time of Note DATE: 11/29/16 TIME: 23:42 Assessment/Plan Lines/Catheters IV Catheter Type (from [facility]): PERMACATH Self in Place (from [facility]): No Assessment/Plan Chief Complaint/Hosp Course 1. Acute on chronic renal failure s/p right IJ Permacath 11/27. -HD 2. Rectal bleed, probably secondary to hemorrhoids, on Eliquis. Colonoscopy postponed 3. Esophagitis and gastritis. -Continue proton pump inhibitor and nutritional and lifestyle optimization. 4. Diabetes. Continue nutrition and medication optimization. 5. Hypertension. Continue nutrition and medication optimization. 6. Congestive heart failure. Continue judicious fluid management and cardiac optimization. 7. Depression. Continue medical and psychiatric management. 8. History of pneumonia with lung infiltrate and urinary tract infection status post antibiotics. Continue pulmonary toilet. Thank you Late entry 11/29 Problems: Subjective 24 Hr Interval Summary s/p Pacemaker and Right IJ Permacath 11/27. No fevers or chills. No nausea vomiting. No chest pain. No shortness of breath. No cough. No seizure. No blood per mouth or rectum. No pyuria. Exam/Review of Systems Vital Signs Vitals Vital Signs Date Time Temp Pulse Resp B/P Pulse Ox O2 Delivery O2 Flow Rate FiO2 11/30/16 12:25 99 11/30/16 11:43 16 165/74 11/30/16 11:37 98.5 100 11/30/16 00:52 3.0 11/29/16 19:00 Nasal Cannula Intake and Output 11/29/16 11/29/16 11/30/16 14:59 22:59 06:59 Intake Total 200 ml 200 ml 240 ml Balance 200 ml 200 ml 240 ml Exam Free Text/Dictation GENERAL: Flat affect, minimally communicative, no acute distress. HEENT: Pupils equal, reactive. No scleral icterus. Mucous membranes are moist. NECK: Supple. Minimal JVD. No crepitus. Right IJ Permacath and left sided pacemaker. PULMONARY: Normal respiratory effort. No wheezing. CARDIAC: S1, S2 present. ABDOMEN: Soft, nontender, no rebound, no guarding. EXTREMITIES: No edema. VASCULAR: Cap refill less than 2 seconds. NEUROLOGIC: Alert but confused and responsive; however, flat affect. Results Result Diagram: 11/30/16 0655 11/30/16 0655 SOFIA PRINCE MD Nov 30, 2016 13:43
--- NOTE | 2016-11-30 13:44 | PN ---
Date/Time of Note Date/Time of Note DATE: 11/30/16 TIME: 13:43 Assessment/Plan Lines/Catheters IV Catheter Type (from [facility]): PERMACATH Self in Place (from [facility]): No Assessment/Plan Chief Complaint/Hosp Course 1. Acute on chronic renal failure s/p right IJ Permacath 11/27. -HD 2. Rectal bleed, probably secondary to hemorrhoids, on Eliquis. Colonoscopy postponed 3. Esophagitis and gastritis. -Continue proton pump inhibitor and nutritional and lifestyle optimization. 4. Diabetes. Continue nutrition and medication optimization. 5. Hypertension. Continue nutrition and medication optimization. 6. Congestive heart failure. Continue judicious fluid management and cardiac optimization. 7. Depression. Continue medical and psychiatric management. 8. History of pneumonia with lung infiltrate and urinary tract infection status post antibiotics. Continue pulmonary toilet. Thank you Problems: Subjective 24 Hr Interval Summary s/p Pacemaker and Right IJ Permacath 11/27. No fevers or chills. No nausea vomiting. No chest pain. No shortness of breath. No cough. No seizure. No blood per mouth or rectum. No pyuria. Exam/Review of Systems Vital Signs Vitals Vital Signs Date Time Temp Pulse Resp B/P Pulse Ox O2 Delivery O2 Flow Rate FiO2 11/30/16 12:25 99 11/30/16 11:43 16 165/74 11/30/16 11:37 98.5 100 11/30/16 00:52 3.0 11/29/16 19:00 Nasal Cannula Intake and Output 11/29/16 11/29/16 11/30/16 14:59 22:59 06:59 Intake Total 200 ml 200 ml 240 ml Balance 200 ml 200 ml 240 ml Exam Free Text/Dictation GENERAL: Flat affect, minimally communicative, no acute distress. HEENT: Pupils equal, reactive. No scleral icterus. Mucous membranes are moist. NECK: Supple. Minimal JVD. No crepitus. Right IJ Permacath and left sided pacemaker. PULMONARY: Normal respiratory effort. No wheezing. CARDIAC: S1, S2 present. ABDOMEN: Soft, nontender, no rebound, no guarding. EXTREMITIES: No edema. VASCULAR: Cap refill less than 2 seconds. NEUROLOGIC: Alert but confused and responsive; however, flat affect. Results Result Diagram: 11/30/1665411/30/16654 SOFIA PRINCE MD Nov 30, 2016 13:43
--- NOTE | 2016-11-30 14:41 | PN ---
DATE: 11/30/2016 CARDIOLOGY FOLLOWUP SUBJECTIVE: Discussed with the staff, discussed with the daughter. Patient remains demand ventricu lar pacemaker. No chest pain or pressure. No palpitation. after dialysis. MEDICATIONS: Reviewed as per medication reconciliation, personally reviewed. PHYSICAL EXAMINATION: VITAL SIGNS: Temperature 98.5, heart rate 99, blood pressure 165/74, respiration rate of 18. HEENT: Normocephalic, atraumatic. Pupils are equal. CARDIOVASCULAR: Irregularly irregular. Systolic murmur. PULMONARY: No wheezes anteriorly. GASTROINTESTINAL: Soft, nontender. CHEST: Status post pacemaker with ecchymosis and small hematoma. NEUROLOGIC: Awake and responds appropriately. PSYCHIATRIC: Appears to be calm. There multiple ecchymoses throughout the body. LABORATORY: WBC of 8.5, hemoglobin 7.6, platelets of 194. Sodium 140, potassium 3.8, BUN of 35, cr eatinine 0.49, glucose 143. ASSESSMENT AND PLAN: 1. Sick sinus syndrome, heart block, status post permanent pacemaker. 2. Hypertension. 3. Renal failure on dialysis, now in atrial fibrillation and flutter, currently not anticoagulated due to the bleeding as well as severe anemia. 4. Diabetes. 5. General weakness. RECOMMENDATIONS: We will continue with the current cardiac care, anticoagulation is on hold due to severe anemia worse. DVT prophylaxis with sequential compression has been done. Dialysis to be cont inued. I will increase the metoprolol to 100 b.i.d. Dictated By: SUNDAR JACOBO MD AV/NTS Conf#: [id number] DID#: [id number] CC: ROXANA RODRIGUEZ MD;*EndCC*
--- NOTE | 2016-11-30 15:17 | RADRPT ---
Vent Rate: 68 bpm RR Interval: 0 msec MD Interval: 0 msec QRS Duration: 96 msec QT Interval: 432 msec QTC Interval: 459 msec P-R-T [place]: 114 - 77 - 109 degrees Atrial flutter with variable AV block Nonspecific ST and T wave abnormality Abnormal ECG Electronically Signed By: Rosalino Wong [id number]
--- NOTE | 2016-11-30 15:19 | RADRPT ---
Vent Rate: 64 bpm RR Interval: 0 msec [place] Interval: 0 msec QRS Duration: 94 msec QT Interval: 434 msec QTC Interval: 447 msec P-R-T [place]: 125 - 76 - 103 degrees Atrial flutter with 4:[address] amp; T wave abnormality, consider anterior ischemia Abnormal ECG Electronically Signed By: Rosalino Wong [id number]
--- NOTE | 2016-11-30 15:25 | RADRPT ---
Vent Rate: 88 bpm RR Interval: 0 msec PA Interval: 0 msec QRS Duration: 88 msec QT Interval: 368 msec QTC Interval: 445 msec P-R-T [place]: 0 - 64 - 115 degrees Atrial flutter/ fibrillation Nonspecific ST and T wave abnormality , probably digitalis effect Abnormal ECG Electronically Signed By: Rosalino Wong [id number]
--- NOTE | 2016-11-30 15:28 | RADRPT ---
Vent Rate: 72 bpm RR Interval: 0 msec MA Interval: 314 msec QRS Duration: 84 msec QT Interval: 390 msec QTC Interval: 427 msec P-R-T [place]: 68 - 89 - 0 degrees A Flutter with 4:1 conduction Anterior infarct , age undetermined ST amp; T wave abnormality, consider inferolateral ischemia Abnormal ECG Electronically Signed By: Rosalino Wong [id number]
--- NOTE | 2016-11-30 16:45 | PN ---
DATE: 11/30/2016 Patient seen lying in bed, no specific complaints. Noted decrease in H and H today to 7.6/24.6. Th e patient to be dialyzed and receive a unit of PRBC. PHYSICAL EXAMINATION: VITAL SIGNS: Temperature 98.8, pulse 77, respirations 18, blood pressure 110/44, saturation 99%. GENERAL: No acute distress. HEENT: Normocephalic, atraumatic. The patient is pale. HEENT: Decreased dentition. CARDIOVASCULAR: S1, S2, regular rate. LUNGS: Clear. ABDOMEN: Soft, nontender. EXTREMITIES: No clubbing, cyanosis, or edema. She does have a pacemaker in the left upper chest an d right IJ PermCath. LABORATORY DATA: Dated today shows a white count of 8.5, hemoglobin 7.6, hematocrit 24.6, platelet count 194, neutrophils 73%, lymphocytes 13%. Chemistry: Sodium 140, potassium 3.8, chloride 109, b icarbonate 25, BUN is 35, creatinine 4.49, glucose of 143. Last glucose level 144 and 139. MEDICATIONS: 1. Lopressor 100 b.i.d. 2. Hydralazine 25 b.i.d. 3. Tylenol p.r.n. 4. Morphine p.r.n. 5. Motrin p.r.n. 6. [place] p.r.n. 7. Tylenol 500 b.i.d. 8. Routine Lantus 4 units daily. 9. Accu-Chek q.a.c. and at bedtime. 10. Senna 1 tab at bedtime. 11. Colace 100 b.i.d. 12. Lexapro 5 mg daily. 13. Tradjenta 5 mg daily. 14. Protonix 40 mg daily. 15. DuoNeb as directed. 16. Milk of magnesia p.r.n. 17. Dulcolax p.r.n. 18. Hypoglycemia protocol as directed. 19. Colace p.r.n. 20. Hydralazine p.r.n. 21. Lactulose. 22. Milk of magnesia. 23. Nitroglycerin. 24. Zofran p.r.n. ASSESSMENT AND PLAN: This is an 85-year-old [place] female with history of congestive heart failur e, paroxysmal atrial fibrillation, heart block, diabetes mellitus and chronic kidney disease who was started on dialysis secondary to fluid overload state and uremia. Also status post treatment for p neumonia and was also found with rectal bleeding and worsening anemia. 1. Respiratory. Continue O2 support, currently no evidence of fluid overload state, status post tr eatment with antibiotics with cefepime for pneumonia seen on imaging tests. 2. Acute renal failure stage V, on dialysis. To be dialyzed today. 3. One unit of packed red blood cells to be given. 4. Rectal bleeding. Dr. Bowen is involved. Family for now is declining procedure. 5. Hyperglycemia. The patient is diabetic, continue low dose Lantus and continue Tradjenta. 6. Physical therapy as tolerated. 7. Continue Protonix for gastrointestinal prophylaxis. 8. Likely will need [facility] at the [facility] facility, will discuss with the daughter merle huitron the discharge planning and followup a.m. labs. If hemoglobin and hematocrit remains stable, th e patient can be discharged. 9. Monitor patient's p.o. intake. 10. Continue stool softeners. We will follow. Dictated By: ROXANA JEFFRIES/DESTINY Conf#: [id number] DID#: [id number]
--- NOTE | 2016-11-30 17:54 | CONS ---
Date/Time of Note Date/Time of Note DATE: 11/30/16 TIME: 17:54 Assessment/Plan Assessment/Plan Additional Assessment/Plan IMPRESSION: 1. Rectal bleeding appears to be hemorrhoidal. We will observe, especially when patient is on Eliquis. 2. Renal failure. 3. Diabetes mellitus. 4. Anorexia. 5. Depression. 6. Diastolic heart failure. 7. Pneumonia. 8. Incision of tunneled dialysis catheter 9. Insertion of dual pacemaker Plan Monitor H&H physical therapy Patient had hemodialysis today Colonoscopy when family agrees. Consultation Date/Type/Reason Admit Date/Time Nov 16, 2016 at 00:30 24 HR Interval Summary Constitutional: no complaints Exam/Review of Systems Vital Signs Vitals Vital Signs Date Time Temp Pulse Resp B/P Pulse Ox O2 Delivery O2 Flow Rate FiO2 11/30/16 16:57 86 11/30/16 15:30 98.8 18 110/44 99 11/30/16 00:52 3.0 11/29/16 19:00 Nasal Cannula Intake and Output 11/29/16 11/29/16 11/30/16 15:00 23:00 07:00 Intake Total 200 ml 200 ml 240 ml Balance 200 ml 200 ml 240 ml Exam Constitutional: alert, oriented, well developed Psych: nl mood/affect, no complaints Head: atraumatic, normocephalic Eyes: EOMI, PERRL, nl conjunctiva, nl lids, nl sclera ENMT: nl external ears & nose, nl lips & teeth, nl nasal mucosa & septum Neck: non-tender, supple Respiratory: clear to auscultation, normal air movement Cardiovascular: nl pulses, regular rate and rhythm Gastrointestinal: nl liver, spleen, non-tender, soft Musculoskeletal: nl extremities to inspection, nl gait and stance Extremities: normal pulses 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: MESMERIST II-XII intact, nl mental status, nl speech, nl strength Skin: nl turgor, No rash or lesions Lymph: nl lymph nodes Results Result Diagram: 11/30/16 0655 11/30/16 0655 Results 24 hrs Laboratory Tests Test 11/29/16 20:04 11/30/16 02:44 11/30/16 06:55 11/30/16 08:08 Bedside Glucose 167 143 139 White Blood Count 8.5 Red Blood Count 2.45 L Hemoglobin 7.6 L Hematocrit 24.6 L Mean Corpuscular Volume 100.4 Mean Corpuscular Hemoglobin 31.0 Mean Corpuscular Hemoglobin Concent 30.9 L Red Cell Distribution Width 17.6 H Platelet Count 194 Mean Platelet Volume 10.9 H Neutrophils % 73.4 Lymphocytes % 12.8 L Monocytes % 9.9 Eosinophils % 2.7 Basophils % 0.6 Nucleated Red Blood Cells % 0.0 Neutrophils # 6.2 Lymphocytes # 1.1 Monocytes # 0.8 Eosinophils # 0.2 Basophils # 0.1 Nucleated Red Blood Cells # 0.0 Sodium Level 140 Potassium Level 3.8 Chloride Level 109 Carbon Dioxide Level 25 Anion Gap 10 Blood Urea Nitrogen 35 #H Creatinine 4.49 #H Glucose Level 143 Calcium Level 8.3 L Phosphorus Level 4.1 Magnesium Level 1.9 Test 11/30/16 12:10 11/30/16 17:18 Bedside Glucose 144 158 Medications Medications Current Medications Al Hydrox/Mg Hydrox/Simethicone (Mag-Al Plus) 30 ml BID PRN PO GASTROINTESTINAL UPSET; Start 11/16/16 at 02:00 Bisacodyl (Dulcolax Supp) [address] CONSTIPATION; Start 11/16/16 at 02 :00 Miscellaneous Information 1 ea NOTE XX ; Start 11/16/16 at 02:00 Glucose (Glutose) 15 gm Q15M PRN PO DECREASED GLUCOSE; Start 11/16/16 at 02:00 Glucose (Glutose) 22.5 gm Q15M PRN PO DECREASED GLUCOSE; Start 11/16/16 at 02: 00 Dextrose (D50w Syringe) 25 ml Q15M PRN IV DECREASED GLUCOSE; Start 11/16/16 at 02:00 Dextrose (D50w Syringe) 50 ml Q15M PRN IV DECREASED GLUCOSE; Start 11/16/16 at 02:00 Glucagon (Glucagen) 1 mg Q15M PRN IM DECREASED GLUCOSE; Start 11/16/16 at 02:00 Glucose (Glutose) 15 gm Q15M PRN BUCCAL DECREASED GLUCOSE; Start 11/16/16 at 02 :00 Docusate Sodium (Colace) 100 mg Q12H PRN PO CONSTIPATION; Start 11/16/16 at 02: 00 Docusate Sodium (Colace) 100 mg BID PO Last administered on 11/30/16t 11:49; Admin Dose 100 MG; Start 11/16/16 at 09:00 Escitalopram Oxalate (Lexapro) 5 mg DAILY PO Last administered on 11/30/16 11: 49; Admin Dose 5 MG; Start 11/16/16 at 09:00 Diagnostic Test (Pha) (Accu-Chek) 1 ea 02 XX Last administered on 11/24/16 02: 20; Admin Dose 1 EA; Start 11/17/16 at 02:00 Hydralazine HCl (Apresoline) 25 mg Q4H PRN PO ELEVATED SYSTOLIC BP Last administered on 11/19/16 05:18; Admin Dose 25 MG; Start 11/16/16 at 02:00 Lactulose (Enulose) 20 gm DAILY PRN PO CONSTIPATION; Start 11/16/16 at 02:00 Linagliptin (Tradjenta) 5 mg DAILY PO Last administered on 11/30/16 11:49; Admin Dose 5 MG; Start 11/16/16 at 09:00 Magnesium Hydroxide (Milk Of Mag) 30 ml DAILY PRN PO CONSTIPATION Last administered on 11/24/16 17:29; Admin Dose 30 ML; Start 11/16/16 at 02:00 Nitroglycerin (Nitroglycerin (Sl Tab) 0.4 Mg) 1 tab Q5M PRN SL CHEST PAIN; Start 11/16/16 at 02:00 Ondansetron HCl (Zofran Inj) 4 mg Q6H PRN IV NAUSEA AND/OR VOMITING Last administered on 11/18/16 03:00; Admin Dose 4 MG; Start 11/16/16 at 02:00 Pantoprazole (Protonix Tab) 40 mg DAILY@06 PO Last administered on 11/30/16 06: 08; Admin Dose 40 MG; Start 11/16/16 at 06:00 Senna (Senokot) 1 tab HS PO Last administered on 11/29/16 21:41; Admin Dose 1 TAB; Start 11/16/16 at 21:00 Insulin Glargine (Lantus) 4 unit DAILY@20 SC Last administered on 11/29/16 20: 10; Admin Dose 4 UNIT; Start 11/19/16 at 20:00 Acetaminophen (Tylenol Tab) 500 mg BID PO Last administered on 11/30/16 11:49; Admin Dose 500 MG; Start 11/20/16 at 21:00 Acetaminophen/ Hydrocodone Bitart ([place] (5/325)) 1 tab Q4H PRN PO pain, headaches Last administered on 11/28/16 12:43; Admin Dose 1 TAB; Start 11/22/16 at 14:30 Ibuprofen (Motrin) 400 mg Q6H PRN PO PAIN OR TEMP ABOVE 38C; Start 11/23/16 at 16:30 Hydralazine HCl (Apresoline) 25 mg Q6H PRN PO hypertension Last administered on 11/25/16 06:58; Admin Dose 25 MG; Start 11/25/16 at 06:30 Acetaminophen (Tylenol Tab) 650 mg Q4H PRN PO NON-CARDIAC PAIN LEVEL (1-3); Start 11/27/16 at 16:00 Morphine Sulfate (morphine) 1 mg Q1H PRN IV PAIN; Start 11/27/16 at 16:00 Hydralazine HCl (Apresoline) 25 mg BID PO Last administered on 11/30/16 11:48; Admin Dose 25 MG; Start 11/29/16 at 09:00 Metoprolol Tartrate 100 mg 100 mg BID PO ; Start 11/30/16 at 21:00 Sodium Chloride (NS) 250 ml @ 0 mls/hr Q0M ONCE IV* ; Start 12/01/16 at 07:00; Stop 12/01/16 at 07:01 RADHA PRETTY MD Nov 30, 2016 17:54
[2016-11-30 21:05] LABS: D-DIMER 3059.99 ng/ml (<460)
[2016-11-30 21:13] LABS: CK-MB 1.16 ng/ml (0.0-2.4)
[2016-11-30 21:16] LABS: TROPONIN-I 0.052 ng/ml (0.00-0.12)
[2016-11-30] MEDS: INSULIN GLARGINE [LANtus] 3 ML PEN SC SCH (22:09)
[2016-11-30] MEDS: SENNA TAB PO SCH (23:18)
[2016-11-30] MEDS: METOPROLOL 100 MG TAB PO SCH (23:18)
[2016-12-01] VITALS (19 sets, daily range): BP systolic 108–169; BP diastolic 41–82; PULSE 59–90; RESP 16–18
[2016-12-01] MEDS: ACCUCHECK AT 2AM (Patients on SS coverage) XX SCH (02:00)
[2016-12-01] MEDS: PANTOPRAZOLE (EC) 40 MG TAB PO SCH (06:00)
[2016-12-01] MEDS ORDERED: SOD CHLORIDE 0.9% 250 ML IV* ONE (07:00)
[2016-12-01] MEDS: Insulin NOVOLOG SS MILD Algorithm (SS with meals and bedtime) SC SCH ×4 (07:30→20:51)
[2016-12-01 07:36] LABS: ADD SCAN DIFF NO
[2016-12-01 07:53] LABS: POTASSIUM 3.8 mmol/L (3.5-5.1)
[2016-12-01 07:55] LABS: CREATININE 4.03 mg/dl (0.44-1.00)
[2016-12-01 07:56] LABS: CALCIUM 8.9 mg/dl (8.4-10.2)
[2016-12-01 08:14] LABS: MAGNESIUM 2.1 mg/dl (1.7-2.5); PHOSPHORUS 4.3 mg/dl (2.5-4.9)
[2016-12-01] MEDS: LINAGLIPTIN 5 MG TABLET PO SCH (08:53)
[2016-12-01] MEDS: DOCUSATE SODIUM 100 MG CAP PO SCH ×2 (08:54→20:49)
[2016-12-01] MEDS: ACETAMINOPHEN 500 MG TAB PO SCH ×2 (08:54→20:49)
[2016-12-01] MEDS: ESCITALOPRAM 10 MG TAB PO SCH (08:54)
[2016-12-01] MEDS: METOPROLOL 100 MG TAB PO SCH ×2 (08:55→20:49)
[2016-12-01 09:03] LABS: BASOPHILS % 0.5 % (0.0-2.0); EOSINOPHILS # 0.2 10^3/ul (0.0-0.5); EOSINOPHILS % 2.3 % (0.0-7.0); HEMATOCRIT 29.3 % (37.0-47.0); HEMOGLOBIN 8.9 g/dl (12.0-16.0); LYMPHOCYTES % 11.8 % (15.0-51.0); MEAN CORPUSCULAR HEMOGLOBIN 30.6 pg (29.0-33.0); MEAN CORPUSCULAR HGB CONC 30.4 g/dl (32.0-37.0); MEAN CORPUSCULAR VOLUME 100.7 fl (82.0-101.0); MEAN PLATELET VOLUME 10.2 fl (7.4-10.4); MONOCYTE # 0.9 10^3/ul (0.3-0.9); NEUTROPHIL # 6.5 10^3/ul (1.6-7.5); NEUTROPHILS % 74.8 % (39.0-77.0); PLATELET COUNT 218 10^3/UL (140-415); RED BLOOD COUNT 2.91 10^6/ul (4.20-5.40); RED CELL DISTRIBUTION WIDTH 16.9 % (11.5-14.5); WHITE BLOOD COUNT 8.7 10^3/ul (4.8-10.8)
--- NOTE | 2016-12-01 09:16 | CONS ---
Date/Time of Note Date/Time of Note DATE: 12/01/16 TIME: 09:14 Consult Date/Type/Reason Admit Date/Time Nov 16, 2016 at 00:30 Subjective all noted d/w nursing staff s/p permcath placement tolerating HD treatments well more anemic Currently, no other acute events. poc reviewed with dr. lagos. OBJECTIVE: HEENT: Head is normocephalic. NECK: Supple. HEART: Regular rate. LUNGS: Show diminished breath sounds at the base. ABDOMEN: Soft, nontender to palpation. No rebound or guarding. EXTREMITIES: Negative for clubbing, cyanosis. No edema. DERMATOLOGIC: No rashes. MUSCULOSKELETAL: No joint effusions. NEUROLOGIC: No change in exam. MEDICATIONS: The patient's medications have been reviewed. Objective Vital Signs Date Time Temp Pulse Resp B/P Pulse Ox O2 Delivery O2 Flow Rate FiO2 12/01/16 08:36 88 12/01/16 07:30 98.2 18 161/70 100 12/01/16 05:25 3.0 12/01/16 01:02 Nasal Cannula Intake and Output 11/30/16 11/30/16 12/01/16 15:00 23:00 07:00 Intake Total 400 ml 600 ml 150 ml Output Total 3400 ml Balance -3000 ml 600 ml 150 ml Results/Medications Result Diagram: 12/01/16 0846 12/01/16 0655 Results 24 hrs Laboratory Tests Test 11/30/16 12:10 11/30/16 17:18 11/30/16 20:30 11/30/16 22:05 Bedside Glucose 144 158 206 D-Dimer 3059.99 H D-Dimer Comment Creatine Kinase 37 Creatine Kinase Index 3.1 Creatinine Kinase MB (Mass) 1.16 Troponin I 0.052 Test 12/01/16 04:21 12/01/16 06:22 12/01/16 06:55 12/01/16 07:30 Bedside Glucose 78 107 110 Sodium Level 147 H Potassium Level 3.8 Chloride Level 105 Carbon Dioxide Level 29 Anion Gap 17 #H Blood Urea Nitrogen 29 H Creatinine 4.03 H Glucose Level 106 Calcium Level 8.9 Phosphorus Level 4.3 Magnesium Level 2.1 Test 12/01/16 08:46 White Blood Count 8.7 Red Blood Count 2.91 L Hemoglobin 8.9 L Hematocrit 29.3 L Mean Corpuscular Volume 100.7 Mean Corpuscular Hemoglobin 30.6 Mean Corpuscular Hemoglobin Concent 30.4 L Red Cell Distribution Width 16.9 H Platelet Count 218 Mean Platelet Volume 10.2 Neutrophils % 74.8 Lymphocytes % 11.8 L Monocytes % 10.0 Eosinophils % 2.3 Basophils % 0.5 Nucleated Red Blood Cells % 0.0 Neutrophils # 6.5 Lymphocytes # 1.0 Monocytes # 0.9 Eosinophils # 0.2 Basophils # 0.0 Nucleated Red Blood Cells # 0.0 Medications Current Medications Al Hydrox/Mg Hydrox/Simethicone (Mag-Al Plus) 30 ml BID PRN PO GASTROINTESTINAL UPSET; Start 11/16/16 at 02:00 Bisacodyl (Dulcolax Supp) 10 mg DAILY PRN OR CONSTIPATION; Start 11/16/16 at 02 :00 Miscellaneous Information 1 ea NOTE XX ; Start 11/16/16 at 02:00 Glucose (Glutose) 15 gm Q15M PRN PO DECREASED GLUCOSE; Start 11/16/16 at 02:00 Glucose (Glutose) 22.5 gm Q15M PRN PO DECREASED GLUCOSE; Start 11/16/16 at 02: 00 Dextrose (D50w Syringe) 25 ml Q15M PRN IV DECREASED GLUCOSE; Start 11/16/16 at 02:00 Dextrose (D50w Syringe) 50 ml Q15M PRN IV DECREASED GLUCOSE; Start 11/16/16 at 02:00 Glucagon (Glucagen) 1 mg Q15M PRN IM DECREASED GLUCOSE; Start 11/16/16 at 02:00 Glucose (Glutose) 15 gm Q15M PRN BUCCAL DECREASED GLUCOSE; Start 11/16/16 at 02 :00 Docusate Sodium (Colace) 100 mg Q12H PRN PO CONSTIPATION; Start 11/16/16 at 02: 00 Docusate Sodium (Colace) 100 mg BID PO Last administered on 12/01/16 08:54; Admin Dose 100 MG; Start 11/16/16 at 09:00 Escitalopram Oxalate (Lexapro) 5 mg DAILY PO Last administered on 12/01/16 08: 54; Admin Dose 5 MG; Start 11/16/16 at 09:00 Diagnostic Test (Pha) (Accu-Chek) 1 ea 02 XX Last administered on 11/24/16 02: 20; Admin Dose 1 EA; Start 11/17/16 at 02:00 Hydralazine HCl (Apresoline) 25 mg Q4H PRN PO ELEVATED SYSTOLIC BP Last administered on 11/19/16 05:18; Admin Dose 25 MG; Start 11/16/16 at 02:00 Lactulose (Enulose) 20 gm DAILY PRN PO CONSTIPATION; Start 11/16/16 at 02:00 Linagliptin (Tradjenta) 5 mg DAILY PO Last administered on 12/01/16 08:53; Admin Dose 5 MG; Start 11/16/16 at 09:00 Magnesium Hydroxide (Milk Of Mag) 30 ml DAILY PRN PO CONSTIPATION Last administered on 11/24/16 17:29; Admin Dose 30 ML; Start 11/16/16 at 02:00 Nitroglycerin (Nitroglycerin (Sl Tab) 0.4 Mg) 1 tab Q5M PRN SL CHEST PAIN; Start 11/16/16 at 02:00 Ondansetron HCl (Zofran Inj) 4 mg Q6H PRN IV NAUSEA AND/OR VOMITING Last administered on 11/18/16 03:00; Admin Dose 4 MG; Start 11/16/16 at 02:00 Pantoprazole (Protonix Tab) 40 mg DAILY@06 PO Last administered on 12/01/16 06: 00; Admin Dose 40 MG; Start 11/16/16 at 06:00 Senna (Senokot) 1 tab HS PO Last administered on 11/30/16 23:18; Admin Dose 1 TAB; Start 11/16/16 at 21:00 Insulin Glargine (Lantus) 4 unit DAILY@20 SC Last administered on 11/30/16 22: 09; Admin Dose 4 UNIT; Start 11/19/16 at 20:00 Acetaminophen (Tylenol Tab) 500 mg BID PO Last administered on 12/01/16 08:54; Admin Dose 500 MG; Start 11/20/16 at 21:00 Acetaminophen/ Hydrocodone Bitart ([place] (5/325)) 1 tab Q4H PRN PO pain, headaches Last administered on 11/28/16 12:43; Admin Dose 1 TAB; Start 11/22/16 at 14:30 Ibuprofen (Motrin) 400 mg Q6H PRN PO PAIN OR TEMP ABOVE 38C; Start 11/23/16 at 16:30 Hydralazine HCl (Apresoline) 25 mg Q6H PRN PO hypertension Last administered on 11/25/16 06:58; Admin Dose 25 MG; Start 11/25/16 at 06:30 Acetaminophen (Tylenol Tab) 650 mg Q4H PRN PO NON-CARDIAC PAIN LEVEL (1-3); Start 11/27/16 at 16:00 Morphine Sulfate (morphine) 1 mg Q1H PRN IV PAIN; Start 11/27/16 at 16:00 Hydralazine HCl (Apresoline) 25 mg BID PO Last administered on 12/01/16 08:54; Admin Dose 25 MG; Start 11/29/16 at 09:00 Metoprolol Tartrate (Lopressor) 100 mg BID PO Last administered on 12/01/16 08: 55; Admin Dose 100 MG; Start 11/30/16 at 21:00 Assessment/Plan Chief Complaint/Hosp Course ASSESSMENT AND PLAN: 1. End-stage renal disease. The patient is status post PermCath placement,. The patient is being arranged for outpatient dialysis. Continue to evaluate daily for hd needs. all meds dosed ok. 2. Congestive heart failure, clinically improved. Continue medical management. Continue ultrafiltration with dialysis. 3. Hypertension. Continue current blood pressure regimen. 4. Anemia of chronic disease. Continue to monitor hemoglobin and hematocrit levels. Continue Epogen. 5. Mineral bone disorder. Continue to monitor calcium and phosphorus levels. 6. Sepsis secondary to pneumonia. Continue current antibiotic regimen. 7. Arrhythmia, status post pacemaker placement. Continue to monitor. 8. Encephalopathy secondary to uremia, improving. Problems: HANK GARCÍA MD Dec 01, 2016 09:15
[2016-12-01] MEDS ORDERED: AMIODARONE 150MG/D5W BOLUS 100 ML IV ONE (15:00)
--- NOTE | 2016-12-01 15:40 | PN ---
DATE: 12/01/2016 SUBJECTIVE: The patient seen. The patient with no complaints, looks better. Case discussed with t he patient's daughter, Edwige. The patient is status post 1 unit of PRBC. PHYSICAL EXAMINATION: VITAL SIGNS: Temperature 98.4, pulse 81, respirations 18, blood pressure 116/74, saturation 98% on 2 liters. GENERAL: No acute distress. The patient is pale. CARDIOVASCULAR: S1, S2, regular rate. LUNGS: Clear. ABDOMEN: Soft, nontender. EXTREMITIES: No clubbing, cyanosis, or edema. LABORATORY DATA: White count 8.7, hemoglobin 8.9, hematocrit 29, platelet count 218, neutrophils 75 %, lymphocytes 12%. Chemistry: Sodium 147, potassium 3.8, chloride 105, bicarbonate 29, BUN is 29, creatinine 4.03, glucose of 106. Last glucose levels were 153 and 110. MEDICATIONS: Include: 1. Lopressor 100 b.i.d. 2. Hydralazine 25 b.i.d. 3. Tylenol p.r.n. 4. Morphine sulfate p.r.n. 5. Hydralazine p.r.n. 6. Motrin p.r.n. 7. [place] p.r.n. 8. Tylenol t.i.d. 500. 9. Lantus 4 units daily. 10. Accu-Chek before meals and at bedtime. 11. Senna 1 tab at bedtime. 12. Colace 100 b.i.d. 13. Lexapro 5 mg daily. 14. Tradjenta 5 mg daily. 15. Insulin aspart per sliding scale. 16. Protonix 40 mg daily. 17. DuoNeb every 4 hours p.r.n. 18. Dulcolax. 19. Milk of magnesia. 20. Hypoglycemia protocol as directed. 21. Colace 100 q.12 hours p.r.n. 22. Lactulose p.r.n. 23. Zofran p.r.n. ASSESSMENT AND PLAN: This is an 85-year-old Filip[place] female with history of congestive heart failur e, paroxysmal atrial fibrillation, heart block, now status post pacemaker placement, diabetes mellit us, chronic kidney disease who was initiated on dialysis, status post treatment for pneumonia, uremi a, acute renal failure, brief episodes of rectal bleeding was noted as well with worsening anemia, s tatus post transfusion. 1. Respiratory. Continue O2 support. Continue dialysis for fluid removal. Finished a course of a ntibiotic with cefepime for pneumonia. 2. Acute renal failure stage V, now on dialysis. 3. Anemia, status post packed red blood cell, observe. 4. Rectal bleeding: Blood thinners are on hold. May resume soon as patient has atrial fibrillatio n. 5. Hyperglycemia as patient is diabetic. Continue low-dose Lantus and Tradjenta. 6. Physical therapy as tolerated. 7. The patient is improving. 8. Continue Protonix for gastrointestinal prophylaxis. 9. Placement at home per family request with home health. Home health is [facility], phone number [phone]. 10. Hypertension. Titrate medications up. Physical therapy as tolerated. 11. Tachybrady syndrome, status post pacemaker placement, now on high-dose beta blockers. We will follow. Dictated By: ROXANA JEFFRIES/DESTINY Conf#: [id number] DID#: [id number]
[2016-12-01] MEDS: INSULIN GLARGINE [LANtus] 3 ML PEN SC SCH (20:49)
[2016-12-01] MEDS: SENNA TAB PO SCH (20:49)
[2016-12-01] MEDS ORDERED: HEPARIN 5,000 UNIT/0.5 ML VIAL SC SCH (21:00)
[2016-12-01] MEDS: AMIODARONE 900 MG in DEXTROSE 5% 482 ML IV SCH (21:11)
[2016-12-02] VITALS (13 sets, daily range): BP systolic 110–149; BP diastolic 48–69; PULSE 69–72; RESP 18–20
[2016-12-02] MEDS: ACCUCHECK AT 2AM (Patients on SS coverage) XX SCH (01:36)
[2016-12-02] MEDS: AMIODARONE 900 MG in DEXTROSE 5% 482 ML IV SCH (03:16)
[2016-12-02] MEDS: PANTOPRAZOLE (EC) 40 MG TAB PO SCH (05:09)
--- NOTE | 2016-12-02 10:08 | CONS ---
Date/Time of Note Date/Time of Note DATE: 12/02/16 TIME: 10:05 Consult Date/Type/Reason Admit Date/Time Nov 16, 2016 at 00:30 Subjective all noted d/w nursing staff s/p permcath placement tolerated HD treatments well Currently, no other acute events. poc reviewed with dr. lagos. OBJECTIVE: HEENT: Head is normocephalic. NECK: Supple. HEART: Regular rate. LUNGS: Show diminished breath sounds at the base. ABDOMEN: Soft, nontender to palpation. No rebound or guarding. EXTREMITIES: Negative for clubbing, cyanosis. No edema. DERMATOLOGIC: No rashes. MUSCULOSKELETAL: No joint effusions. NEUROLOGIC: No change in exam. MEDICATIONS: The patient's medications have been reviewed. Objective Vital Signs Date Time Temp Pulse Resp B/P Pulse Ox O2 Delivery O2 Flow Rate FiO2 12/02/16 08:00 70 12/02/16 07:33 97.7 19 149/65 100 12/01/16 22:10 3.0 12/01/16 19:15 Nasal Cannula Intake and Output 12/01/16 12/01/16 12/02/16 15:00 23:00 07:00 Intake Total 2240 ml Output Total 3200 ml Balance -960 ml Results/Medications Result Diagram: 12/01/16 0846 12/01/16 0655 Results 24 hrs Laboratory Tests Test 12/01/16 11:33 12/01/16 17:07 12/01/16 20:46 12/02/16 07:54 Bedside Glucose 153 151 123 142 Medications Current Medications Al Hydrox/Mg Hydrox/Simethicone (Mag-Al Plus) 30 ml BID PRN PO GASTROINTESTINAL UPSET; Start 11/16/16 at 02:00 Bisacodyl (Dulcolax Supp) 10 mg DAILY PRN [place] CONSTIPATION; Start 11/16/16 at 02 :00 Miscellaneous Information 1 ea NOTE XX ; Start 11/16/16 at 02:00 Glucose (Glutose) 15 gm Q15M PRN PO DECREASED GLUCOSE; Start 11/16/16 at 02:00 Glucose (Glutose) 22.5 gm Q15M PRN PO DECREASED GLUCOSE; Start 11/16/16 at 02: 00 Dextrose (D50w Syringe) 25 ml Q15M PRN IV DECREASED GLUCOSE; Start 11/16/16 at 02:00 Dextrose (D50w Syringe) 50 ml Q15M PRN IV DECREASED GLUCOSE; Start 11/16/16 at 02:00 Glucagon (Glucagen) 1 mg Q15M PRN IM DECREASED GLUCOSE; Start 11/16/16 at 02:00 Glucose (Glutose) 15 gm Q15M PRN BUCCAL DECREASED GLUCOSE; Start 11/16/16 at 02 :00 Docusate Sodium (Colace) 100 mg Q12H PRN PO CONSTIPATION; Start 11/16/16 at 02: 00 Docusate Sodium (Colace) 100 mg BID PO Last administered on 12/01/16 20:49; Admin Dose 100 MG; Start 11/16/16 at 09:00 Escitalopram Oxalate (Lexapro) 5 mg DAILY PO Last administered on 12/01/16 08: 54; Admin Dose 5 MG; Start 11/16/16 at 09:00 Diagnostic Test (Pha) (Accu-Chek) 1 ea 02 XX Last administered on 11/24/16 02: 20; Admin Dose 1 EA; Start 11/17/16 at 02:00 Hydralazine HCl (Apresoline) 25 mg Q4H PRN PO ELEVATED SYSTOLIC BP Last administered on 11/19/16 05:18; Admin Dose 25 MG; Start 11/16/16 at 02:00 Lactulose (Enulose) 20 gm DAILY PRN PO CONSTIPATION; Start 11/16/16 at 02:00 Linagliptin (Tradjenta) 5 mg DAILY PO Last administered on 12/01/16 08:53; Admin Dose 5 MG; Start 11/16/16 at 09:00 Magnesium Hydroxide (Milk Of Mag) 30 ml DAILY PRN PO CONSTIPATION Last administered on 11/24/16 17:29; Admin Dose 30 ML; Start 11/16/16 at 02:00 Nitroglycerin (Nitroglycerin (Sl Tab) 0.4 Mg) 1 tab Q5M PRN SL CHEST PAIN; Start 11/16/16 at 02:00 Ondansetron HCl (Zofran Inj) 4 mg Q6H PRN IV NAUSEA AND/OR VOMITING Last administered on 11/18/16 03:00; Admin Dose 4 MG; Start 11/16/16 at 02:00 Pantoprazole (Protonix Tab) 40 mg DAILY@06 PO Last administered on 12/02/16 05: 09; Admin Dose 40 MG; Start 11/16/16 at 06:00 Senna (Senokot) 1 tab HS PO Last administered on 12/01/16 20:49; Admin Dose 1 TAB; Start 11/16/16 at 21:00 Insulin Glargine (Lantus) 4 unit DAILY@20 SC Last administered on 12/01/16 20: 49; Admin Dose 4 UNIT; Start 11/19/16 at 20:00 Acetaminophen (Tylenol Tab) 500 mg BID PO Last administered on 12/01/16 20:49; Admin Dose 500 MG; Start 11/20/16 at 21:00 Acetaminophen/ Hydrocodone Bitart ([place] (5/325)) 1 tab Q4H PRN PO pain, headaches Last administered on 11/28/16 12:43; Admin Dose 1 TAB; Start 11/22/16 at 14:30 Ibuprofen (Motrin) 400 mg Q6H PRN PO PAIN OR TEMP ABOVE 38C; Start 11/23/16 at 16:30 Hydralazine HCl (Apresoline) 25 mg Q6H PRN PO hypertension Last administered on 11/25/16 06:58; Admin Dose 25 MG; Start 11/25/16 at 06:30 Acetaminophen (Tylenol Tab) 650 mg Q4H PRN PO NON-CARDIAC PAIN LEVEL (1-3); Start 11/27/16 at 16:00 Morphine Sulfate (morphine) 1 mg Q1H PRN IV PAIN; Start 11/27/16 at 16:00 Hydralazine HCl (Apresoline) 25 mg BID PO Last administered on 12/01/16 20:50; Admin Dose 25 MG; Start 11/29/16 at 09:00 Metoprolol Tartrate 100 mg 100 mg BID PO Last administered on 12/01/16 20:49; Admin Dose 100 MG; Start 11/30/16 at 21:00 Amiodarone HCl/ Dextrose (Cordarone Iv/ D5W) 500 ml @ 0 mls/hr Q0M IV Last administered on 12/02/16 03:16; Admin Dose 16.7 MLS/HR; Start 12/01/16 at 15:00; Stop 12/02/16 at 14:59 Assessment/Plan Chief Complaint/Hosp Course ASSESSMENT AND PLAN: 1. End-stage renal disease. The patient is status post PermCath placement,. The patient is being arranged for outpatient dialysis. Continue to evaluate daily for hd needs. all meds dosed ok. 2. Congestive heart failure, clinically improved. Continue medical management. Continue ultrafiltration with dialysis. 3. Hypertension. Continue current blood pressure regimen. 4. Anemia of chronic disease. Continue to monitor hemoglobin and hematocrit levels. Continue Epogen. sp prbc 5. Mineral bone disorder. Continue to monitor calcium and phosphorus levels. 6. Sepsis secondary to pneumonia. Continue current antibiotic regimen. 7. Arrhythmia, status post pacemaker placement. Continue to monitor. 8. Encephalopathy secondary to uremia, improving. Problems: HANK GARCÍA MD Dec 02, 2016 10:08
[2016-12-02] MEDS: ACETAMINOPHEN 500 MG TAB PO SCH ×2 (10:25→20:54)
[2016-12-02] MEDS: ESCITALOPRAM 10 MG TAB PO SCH (10:25)
[2016-12-02] MEDS: DOCUSATE SODIUM 100 MG CAP PO SCH ×2 (10:26→20:52)
[2016-12-02] MEDS: METOPROLOL 100 MG TAB PO SCH ×2 (10:26→20:54)
[2016-12-02] MEDS: LINAGLIPTIN 5 MG TABLET PO SCH (10:27)
[2016-12-02] MEDS: Insulin NOVOLOG SS MILD Algorithm (SS with meals and bedtime) SC SCH ×4 (10:28→20:51)
[2016-12-02 12:48] LABS: ADD SCAN DIFF NO
[2016-12-02 12:53] LABS: BASOPHILS % 0.4 % (0.0-2.0); EOSINOPHILS # 0.1 10^3/ul (0.0-0.5); EOSINOPHILS % 1.9 % (0.0-7.0); HEMATOCRIT 37.1 % (37.0-47.0); HEMOGLOBIN 12.7 g/dl (12.0-16.0); LYMPHOCYTES % 13.7 % (15.0-51.0); MEAN CORPUSCULAR HEMOGLOBIN 31.2 pg (29.0-33.0); MEAN CORPUSCULAR HGB CONC 34.2 g/dl (32.0-37.0); MEAN CORPUSCULAR VOLUME 91.2 fl (82.0-101.0); MEAN PLATELET VOLUME 10.3 fl (7.4-10.4); MONOCYTE # 0.7 10^3/ul (0.3-0.9); MONOCYTES % 10.2 % (0.0-11.0); NEUTROPHIL # 5.4 10^3/ul (1.6-7.5); NEUTROPHILS % 73.4 % (39.0-77.0); PLATELET COUNT 217 10^3/UL (140-415); RED BLOOD COUNT 4.07 10^6/ul (4.20-5.40); RED CELL DISTRIBUTION WIDTH 17.2 % (11.5-14.5); WHITE BLOOD COUNT 7.3 10^3/ul (4.8-10.8)
[2016-12-02 13:07] LABS: CALCIUM 8.3 mg/dl (8.4-10.2); CREATININE 3.75 mg/dl (0.44-1.00); POTASSIUM 3.2 mmol/L (3.5-5.1)
--- NOTE | 2016-12-02 15:26 | PN ---
DATE: 12/02/2016 SUBJECTIVE: Patient seen. I received a call overnight that the patient had some bleeding noted com ing out of the right IJ Perm-A-Cath. Bleeding stopped. Pressure was applied. I just ordered the C BC to make sure there is no significant drop in the patient's H and H. The patient otherwise appear s comfortable, resting in bed, alert and responsive. PHYSICAL EXAMINATION: VITAL SIGNS: Temperature 97.7, pulse 70, respiration 19, blood pressure 149/65, saturation 100% on 2 liters. GENERAL: The patient is in no acute distress. The patient overall weak looking, pale. CARDIOVASCULAR: S1 and S2, regular rate. LUNGS: Clear. ABDOMEN: Soft, nontender. EXTREMITIES: No clubbing, cyanosis, or edema. LABORATORY DATA: No new labs today, but I did order labs to be drawn soon. MEDICATIONS: 1. Amiodarone p.r.n. 2. Lopressor 100 b.i.d. 3. Hydralazine 25 b.i.d. 4. Tylenol p.r.n. 5. Morphine sulfate p.r.n. 6. Hydralazine p.r.n. 7. Motrin p.r.n. 8. [place] p.r.n. 9. Lantus 4 units daily. 10. Accu-Chek q.a.c. and at bedtime. 11. Senna 1 tab at bedtime. 12. Colace 100 b.i.d. 13. Lexapro 5 mg daily. 14. Tradjenta 5 mg daily. 15. Protonix 40 mg daily. 16. DuoNebs p.r.n. 17. Milk of magnesia p.r.n. 18. Dulcolax p.r.n. 19. Colace p.r.n. 20. Lactulose p.r.n. 21. Nitroglycerin. 22. Zofran p.r.n. ASSESSMENT AND PLAN: This is an 85-year-old [place] female with history of congestive heart failur e, paroxysmal atrial fibrillation, diabetes mellitus, chronic kidney disease, status post acute vitaliy l failure, pacemaker placement, treated for pneumonia, as well. 1. Respiratory: Continue O2 support as needed. No evidence of fluid overload state. 2. Acute renal failure: Dialysis per nephrology team. Outpatient dialysis to be arranged. 3. Anemia, status post recent 1 unit of packed red blood cells. She was noted to have some blood c oming from the right Perm-A-Cath. Would follow up hemoglobin and hematocrit, p.r.n. transfusion. 4. We are still holding the blood thinners secondary to bleeding and anemia. The patient does need blood thinners, as she has paroxysmal atrial fibrillation, but again we will hold blood thinners. 5. Diabetes mellitus. Continue Tradjenta and low dose Lantus. Monitor the patient's p.o. intake, which is variable. 6. Physical therapy as tolerated, as the patient is very weak. 7. Continue Protonix for gastrointestinal prophylaxis. 8. Hypertension, better controlled. The patient is on Lopressor, hydralazine. 9. Depression. Continue Lexapro. 10. Case discussed with continuous pillowcase cutter and family regarding placement options, including skilled nurs ing facility if family cannot care for the patient or will discharge home with home health with some support from the family. We will follow disposition hopefully in the a.m. Dictated By: ROXANA JEFFRIES/DESTINY Conf#: [id number] DID#: [id number]
[2016-12-02] MEDS ORDERED: POTASSIUM CHLORIDE (SR) 20 MEQ TAB PO STA (19:36)
--- NOTE | 2016-12-02 20:25 | PN ---
Date/Time of Note Date/Time of Note DATE: 12/01/16 TIME: 20:24 Assessment/Plan Lines/Catheters IV Catheter Type (from [facility]): Permacath Self in Place (from [facility]): No Assessment/Plan Chief Complaint/Hosp Course 1. Acute on chronic renal failure s/p right IJ Permacath 11/27. -HD 2. Rectal bleed, probably secondary to hemorrhoids, on Eliquis. Colonoscopy postponed 3. Esophagitis and gastritis. -Continue proton pump inhibitor and nutritional and lifestyle optimization. 4. Diabetes. Continue nutrition and medication optimization. 5. Hypertension. Continue nutrition and medication optimization. 6. Congestive heart failure. Continue judicious fluid management and cardiac optimization. 7. Depression. Continue medical and psychiatric management. 8. History of pneumonia with lung infiltrate and urinary tract infection status post antibiotics. Continue pulmonary toilet. Thank you Late entry 12/01 Problems: Subjective 24 Hr Interval Summary No fevers or chills. No nausea vomiting. No chest pain. No shortness of breath. No cough. No seizure. No blood per mouth or rectum. No pyuria. Exam/Review of Systems Vital Signs Vitals Vital Signs Date Time Temp Pulse Resp B/P Pulse Ox O2 Delivery O2 Flow Rate FiO2 12/02/16 20:18 97.9 71 20 129/62 96 12/02/16 13:14 21 12/01/16 22:10 3.0 12/01/16 19:15 Nasal Cannula Intake and Output 12/01/16 12/01/16 12/02/16 15:00 23:00 07:00 Intake Total 2240 ml Output Total 3200 ml Balance -960 ml Exam Free Text/Dictation GENERAL: Flat affect, minimally communicative, no acute distress. HEENT: Pupils equal, reactive. No scleral icterus. Mucous membranes are moist. NECK: Supple. Minimal JVD. No crepitus. Right IJ Permacath and left sided pacemaker. PULMONARY: Normal respiratory effort. No wheezing. CARDIAC: S1, S2 present. ABDOMEN: Soft, nontender, no rebound, no guarding. EXTREMITIES: No edema. VASCULAR: Cap refill less than 2 seconds. NEUROLOGIC: Alert but confused and responsive; however, flat affect. Results Result Diagram: 12/02/16 1150 12/02/16 1150 SOFIA PRINCE MD Dec 02, 2016 20:24
--- NOTE | 2016-12-02 20:25 | PN ---
Date/Time of Note Date/Time of Note DATE: 12/02/16 TIME: 20:24 Assessment/Plan Lines/Catheters IV Catheter Type (from [facility]): Permacath Self in Place (from [facility]): No Assessment/Plan Chief Complaint/Hosp Course 1. Acute on chronic renal failure s/p right IJ Permacath 11/27. -HD 2. Rectal bleed, probably secondary to hemorrhoids, on Eliquis. Colonoscopy postponed 3. Esophagitis and gastritis. -Continue proton pump inhibitor and nutritional and lifestyle optimization. 4. Diabetes. Continue nutrition and medication optimization. 5. Hypertension. Continue nutrition and medication optimization. 6. Congestive heart failure. Continue judicious fluid management and cardiac optimization. 7. Depression. Continue medical and psychiatric management. 8. History of pneumonia with lung infiltrate and urinary tract infection status post antibiotics. Continue pulmonary toilet. Thank you, Problems: Subjective 24 Hr Interval Summary No fevers or chills. No nausea vomiting. No chest pain. No shortness of breath. No cough. No seizure. No blood per mouth or rectum. No pyuria. Exam/Review of Systems Vital Signs Vitals Vital Signs Date Time Temp Pulse Resp B/P Pulse Ox O2 Delivery O2 Flow Rate FiO2 12/02/16 20:18 97.9 71 20 129/62 96 12/02/16 13:14 21 12/01/16 22:10 3.0 12/01/16 19:15 Nasal Cannula Intake and Output 12/01/16 12/01/16 12/02/16 15:00 23:00 07:00 Intake Total 2240 ml Output Total 3200 ml Balance -960 ml Exam Free Text/Dictation GENERAL: Flat affect, minimally communicative, no acute distress. HEENT: Pupils equal, reactive. No scleral icterus. Mucous membranes are moist. NECK: Supple. Minimal JVD. No crepitus. Right IJ Permacath and left sided pacemaker. PULMONARY: Normal respiratory effort. No wheezing. CARDIAC: S1, S2 present. ABDOMEN: Soft, nontender, no rebound, no guarding. EXTREMITIES: No edema. VASCULAR: Cap refill less than 2 seconds. NEUROLOGIC: Alert but confused and responsive; however, flat affect. Results Result Diagram: 12/02/16 1150 12/02/16 1150 SOFIA PRINCE MD Dec 02, 2016 20:25
[2016-12-02] MEDS: INSULIN GLARGINE [LANtus] 3 ML PEN SC SCH (20:50)
[2016-12-02] MEDS: SENNA TAB PO SCH (20:52)
[2016-12-03] VITALS (18 sets, daily range): BP systolic 98–156; BP diastolic 55–88; PULSE 69–84; RESP 16–18
[2016-12-03] MEDS: ACCUCHECK AT 2AM (Patients on SS coverage) XX SCH (01:48)
[2016-12-03] MEDS: PANTOPRAZOLE (EC) 40 MG TAB PO SCH (05:47)
[2016-12-03 07:18] LABS: ADD SCAN DIFF NO; BASOPHIL # 0.1 10^3/ul (0.0-0.1); BASOPHILS % 0.5 % (0.0-2.0); EOSINOPHILS # 0.2 10^3/ul (0.0-0.5); EOSINOPHILS % 1.8 % (0.0-7.0); HEMATOCRIT 40.3 % (37.0-47.0); HEMOGLOBIN 13.4 g/dl (12.0-16.0); LYMPHOCYTES # 1.2 10^3/ul (0.8-2.9); LYMPHOCYTES % 12.6 % (15.0-51.0); MEAN CORPUSCULAR HEMOGLOBIN 30.3 pg (29.0-33.0); MEAN CORPUSCULAR HGB CONC 33.3 g/dl (32.0-37.0); MEAN CORPUSCULAR VOLUME 91.2 fl (82.0-101.0); MEAN PLATELET VOLUME 10.4 fl (7.4-10.4); MONOCYTES % 10.4 % (0.0-11.0); NEUTROPHIL # 7.2 10^3/ul (1.6-7.5); NUCLEATED RED BLOOD CELLS% 0.2 /100WBC (0.0-0.0); PLATELET COUNT 221 10^3/UL (140-415); RED BLOOD COUNT 4.42 10^6/ul (4.20-5.40); RED CELL DISTRIBUTION WIDTH 16.6 % (11.5-14.5); WHITE BLOOD COUNT 9.7 10^3/ul (4.8-10.8)
[2016-12-03] MEDS: Insulin NOVOLOG SS MILD Algorithm (SS with meals and bedtime) SC SCH ×4 (07:30→20:42)
--- NOTE | 2016-12-03 07:35 | PN ---
DATE: 12/03/2016 CARDIOLOGY FOLLOWUP SUBJECTIVE: The patient was discussed with the staff. Rhythm strip was reviewed. The patient had no chest pain or pressure. Wants SCDs off though. MEDICATIONS: Reviewed. OBJECTIVE: VITAL SIGNS: Temperature 97.9, heart rate of 70, blood pressure 156/70, respiration rate of 18, sat urating 96%. HEENT: Normocephalic, atraumatic. Pupils are equal. CARDIOVASCULAR: Regular rate and rhythm, systolic murmur. CHEST: Status post permanent pacemaker with small hematoma, ecchymosis. Right-sided status post di alysis access. PULMONARY: With no wheezes. GASTROINTESTINAL: Soft, nontender. EXTREMITIES: Positive trivial edema. NEUROLOGIC: Awake, responds appropriately. PSYCHIATRIC: Pleasant. LABORATORY: Glucose 172 this morning. ASSESSMENT AND PLAN: 1. Sick sinus syndrome on heart block. 2. Status post permanent pacemaker. 3. Renal failure on dialysis. 4. Hypertension, currently improved. 5. Diabetes. 6. Encephalopathy. 7. Generalized weakness. RECOMMENDATIONS: I will continue with the beta sis at the current dose. Respiratory care will be continued. Deep venous thrombosis prophylaxis will be continued. P.o. amiodarone has been initi ated. Dictated By: SUNDAR JACOBO MD AV/NTS Conf#: [id number] DID#: [id number] CC: ROXANA RODRIGUEZ MD;*End*
--- NOTE | 2016-12-03 07:40 | PN ---
DATE: 12/02/2016 CARDIOLOGY FOLLOWUP SUBJECTIVE: Discussed with the staff. Rhythm strip was reviewed. The patient remains on demand pa roxy. On amiodarone drip. No reported chest pain or pressure. No palpitations. MEDICATIONS: Reviewed. PHYSICAL EXAMINATION: VITAL SIGNS: Temperature 97.8, heart rate of 70, blood pressure 114/48, respiration rate of 18, sat urating 98%. HEENT: Normocephalic, atraumatic. No acute distress. Pupils are equal. CARDIOVASCULAR: Regular rate and rhythm. PULMONARY: With no wheezes, mild rhonchi at the base. GASTROINTESTINAL: Soft, nontender. EXTREMITIES: Chest with permanent pacemaker, ____ hematoma. NEUROLOGIC: Awake and alert. PSYCHIATRIC: Calm, pleasant. LABORATORY: WBC of 7.3, hemoglobin 12.7, platelets of 217. Sodium 134, potassium 3.2, BUN of 29, c reatinine 3.75, glucose 162. ASSESSMENT AND PLAN: 1. Atrial fibrillation/flutter, paroxysmal, currently persistent. 2. Sick sinus syndrome and heart block, status post permanent pacemaker. 3. Renal failure, on dialysis now. 4. Hypertension, under good control now. 5. Diabetes. General weakness. RECOMMENDATIONS: We will continue with the current cardiac care. I will start the patient on amiod arone p.o. as well. Dialysis as per renal. Electrolytes including potassium and magnesium will be replaced as per renal. Dictated By: SUNDAR JACOBO MD AV/NTS Conf#: [id number] DID#: [id number] CC: ROXANA RODRIGUEZ MD;*End*
[2016-12-03 07:48] LABS: CALCIUM 8.8 mg/dl (8.4-10.2); CREATININE 5.36 mg/dl (0.44-1.00); POTASSIUM 3.9 mmol/L (3.5-5.1)
[2016-12-03 07:50] LABS: MAGNESIUM 1.8 mg/dl (1.7-2.5); PHOSPHORUS 4.2 mg/dl (2.5-4.9)
--- NOTE | 2016-12-03 08:53 | PN ---
DATE: 12/01/2016 CARDIOLOGY FOLLOWUP SUBJECTIVE: Discussed with the staff. Rhythm strip was reviewed. The patient remains in ventricul ar paced rhythm. Intermittently has gone into sinus rhythm and paroxysmal atrial fibrillation. No chest pain or pressure. Discussed with his daughter. MEDICATIONS: Reviewed, which include: 1. Metoprolol 100 b.i.d. 2. Hydralazine 25 b.i.d. 3. Insulin. PHYSICAL EXAMINATION: VITAL SIGNS: Temperature 98.4, heart rate of 80, blood pressure 169/74, respiration rate of 18, sat urating 98%. HEENT: Normocephalic, atraumatic. Pupils are equal. CARDIOVASCULAR: Regular rate and rhythm, systolic murmur. PULMONARY: With no wheezes anteriorly, mild rhonchi. CHEST: Status post pacemaker with mild small hematoma. There are multiple ecchymoses. GASTROINTESTINAL: Soft, nontender. EXTREMITIES: Trivial edema. NEUROLOGIC: Awake, responds appropriately. LABORATORY: WBC of 8.7, hemoglobin 8.9, platelets 218. Sodium 147, potassium 3.7, BUN of 29, creat inine of 4, glucose 106. ASSESSMENT AND PLAN: 1. Sick sinus syndrome with heart block, status post permanent pacemaker. 2. Paroxysmal atrial fibrillation and flutter. 3. Renal failure on dialysis. 4. Anemia. RECOMMENDATIONS: ____ liquids with concern about anemia and bleeding. I will start her on heparin subq for DVT prophylaxis. The patient has been in and out of atrial fibrillation on the monitor int ermittently would go into sinus rhythm. I will start her on amiodarone drip to try to keep her main tained in sinus rhythm. Will continue to monitor on telemetry. Electrolytes will be corrected. Di alysis per renal. Dictated By: SUNDAR JACOBO MD AV/NTS Conf#: [id number] DID#: [id number]
[2016-12-03] MEDS: ACETAMINOPHEN 500 MG TAB PO SCH ×2 (09:18→20:41)
[2016-12-03] MEDS: METOPROLOL 100 MG TAB PO SCH ×2 (09:18→20:41)
[2016-12-03] MEDS: AMIODARONE 200 MG TAB PO SCH (09:19)
[2016-12-03] MEDS: LINAGLIPTIN 5 MG TABLET PO SCH (09:19)
[2016-12-03] MEDS: ESCITALOPRAM 10 MG TAB PO SCH (09:19)
[2016-12-03] MEDS: DOCUSATE SODIUM 100 MG CAP PO SCH ×2 (09:19→20:41)
--- NOTE | 2016-12-03 10:09 | PN ---
DATE: 12/03/2016 SUBJECTIVE: The patient is stable, no acute events overnight. No fevers, chills, nausea, vomiting. The patient is pending hemodialysis today. OBJECTIVE: VITAL SIGNS: Blood pressure is 140/88, respiration 18, pulse 60, temperature 98.3. HEENT: Head is normocephalic. NECK: Supple. HEART: Regular rate. LUNGS: Show diminished breath sounds at the base. ABDOMEN: Soft, nontender to palpation. No rebound or guarding. EXTREMITIES: Negative for clubbing, cyanosis. No edema. DERMATOLOGIC: No rashes. MUSCULOSKELETAL: No joint effusions. NEUROLOGIC: No change in exam. MEDICATIONS: The patient's medications have been reviewed. LABORATORY DATA: Shows a sodium 134, potassium 3.9, BUN 44, creatinine 5.36. White count 9.7, hemo globin 13.4, hematocrit 40.3, platelet count 221. ASSESSMENT AND PLAN: 1. End-stage renal disease. The patient is status post Perm-A-Cath placement. Continue hemodialys is 3 times weekly. Plan for dialysis today. 2. Congestive heart failure, clinically improved. Continue current medical management. 3. Hypertension. Continue current blood pressure regimen. 4. Anemia of chronic disease. Continue to monitor hemoglobin and hematocrit levels. We will give Epogen as needed. 5. Mineral bone disorder. Continue to monitor calcium and phosphorus levels. 6. Sepsis secondary to pneumonia. The patient has completed antibiotic course. 7. Arrhythmia, status post pacemaker. Continue to monitor. 8. Encephalopathy, improving. Continue current medical management. 9. General weakness. Continue physical therapy. Dictated By: TIFFANIE MCHUGH/DESTINY Conf#: [id number] DID#: [id number]
--- NOTE | 2016-12-03 12:20 | PN ---
Date/Time of Note Date/Time of Note DATE: 12/03/16 TIME: 12:19 Assessment/Plan Lines/Catheters IV Catheter Type (from [facility]): Permacath Self in Place (from [facility]): No Assessment/Plan Chief Complaint/Hosp Course 1. Acute on chronic renal failure s/p right IJ Permacath 11/27. -HD per renal team 2. Rectal bleed, probably secondary to hemorrhoids, on Eliquis. Colonoscopy postponed 3. Esophagitis and gastritis. -Continue proton pump inhibitor and nutritional and lifestyle optimization. 4. Diabetes. Continue nutrition and medication optimization. 5. Hypertension. Continue nutrition and medication optimization. 6. Congestive heart failure. Continue judicious fluid management and cardiac optimization. 7. Depression. Continue medical and psychiatric management. 8. History of pneumonia with lung infiltrate and urinary tract infection status post antibiotics. Continue pulmonary toilet. Thank you, Problems: Subjective 24 Hr Interval Summary No fevers or chills. No nausea vomiting. No chest pain. No shortness of breath. No cough. No seizure. No blood per mouth or rectum. No pyuria. Exam/Review of Systems Vital Signs Vitals Vital Signs Date Time Temp Pulse Resp B/P Pulse Ox O2 Delivery O2 Flow Rate FiO2 12/03/16 11:00 76 12/03/16 10:30 16 12/03/16 07:47 98.3 140/88 98 12/02/16 13:14 21 12/01/16 22:10 3.0 12/01/16 19:15 Nasal Cannula Intake and Output 12/02/16 12/02/16 12/03/16 15:00 23:00 07:00 Intake Total 790 ml 300 ml Balance 790 ml 300 ml Exam Free Text/Dictation GENERAL: Flat affect, minimally communicative, no acute distress. HEENT: Pupils equal, reactive. No scleral icterus. Mucous membranes are moist. NECK: Supple. Minimal JVD. No crepitus. Right IJ Permacath and left sided pacemaker. PULMONARY: Normal respiratory effort. No wheezing. CARDIAC: S1, S2 present. ABDOMEN: Soft, nontender, no rebound, no guarding. EXTREMITIES: No edema. VASCULAR: Cap refill less than 2 seconds. NEUROLOGIC: Alert but confused and responsive; however, flat affect. Results Result Diagram: 12/03/1665412/03/16654 SOFIA PRINCE MD Dec 03, 2016 12:20
--- NOTE | 2016-12-03 15:00 | CONS ---
Date/Time of Note Date/Time of Note DATE: 12/03/16 TIME: 14:59 Assessment/Plan Assessment/Plan Additional Assessment/Plan IMPRESSION: 1. Rectal bleeding appears to be hemorrhoidal. We will observe, especially when patient is on Eliquis. 2. Renal failure. 3. Diabetes mellitus. 4. Anorexia. 5. Depression. 6. Diastolic heart failure. 7. Pneumonia. 8. Incision of tunneled dialysis catheter 9. Insertion of dual pacemaker Plan Monitor H&H stable physical therapy Colonoscopy when family agrees. Consultation Date/Type/Reason Admit Date/Time Nov 16, 2016 at 00:30 24 HR Interval Summary Constitutional: no complaints Exam/Review of Systems Vital Signs Vitals Vital Signs Date Time Temp Pulse Resp B/P Pulse Ox O2 Delivery O2 Flow Rate FiO2 12/03/16 13:30 82 16 12/03/16 12:00 97.8 120/70 97 12/02/16 13:14 21 12/01/16 22:10 3.0 12/01/16 19:15 Nasal Cannula Intake and Output 12/02/16 12/02/16 12/03/16 15:00 23:00 07:00 Intake Total 790 ml 300 ml Balance 790 ml 300 ml Exam Constitutional: alert, oriented, well developed Psych: nl mood/affect, no complaints Head: atraumatic, normocephalic Eyes: EOMI, PERRL, nl conjunctiva, nl lids, nl sclera ENMT: nl external ears & nose, nl lips & teeth, nl nasal mucosa & septum Neck: non-tender, supple Respiratory: clear to auscultation, normal air movement Cardiovascular: nl pulses, regular rate and rhythm Gastrointestinal: nl liver, spleen, non-tender, soft Musculoskeletal: nl extremities to inspection, nl gait and stance Extremities: normal pulses 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, nl mental status, nl speech, nl strength Skin: nl turgor, No rash or lesions Lymph: nl lymph nodes Results Result Diagram: 12/03/16 0655 12/03/16 0655 Results 24 hrs Laboratory Tests Test 12/02/16 17:20 12/02/16 18:32 12/02/16 20:47 12/03/16 01:45 Bedside Glucose 175 192 208 172 Test 12/03/16 06:55 12/03/16 07:27 12/03/16 11:43 White Blood Count 9.7 # Red Blood Count 4.42 Hemoglobin 13.4 Hematocrit 40.3 Mean Corpuscular Volume 91.2 Mean Corpuscular Hemoglobin 30.3 Mean Corpuscular Hemoglobin Concent 33.3 Red Cell Distribution Width 16.6 H Platelet Count 221 Mean Platelet Volume 10.4 Neutrophils % 74.0 Lymphocytes % 12.6 L Monocytes % 10.4 Eosinophils % 1.8 Basophils % 0.5 Nucleated Red Blood Cells % 0.2 H Neutrophils # 7.2 Lymphocytes # 1.2 Monocytes # 1.0 H Eosinophils # 0.2 Basophils # 0.1 Nucleated Red Blood Cells # 0.0 Sodium Level 134 L Potassium Level 3.9 Chloride Level 97 Carbon Dioxide Level 25 Anion Gap 16 Blood Urea Nitrogen 44 #H Creatinine 5.36 H Glucose Level 129 Calcium Level 8.8 Phosphorus Level 4.2 Magnesium Level 1.8 Bedside Glucose 124 136 Medications Medications Current Medications Al Hydrox/Mg Hydrox/Simethicone (Mag-Al Plus) 30 ml BID PRN PO GASTROINTESTINAL UPSET; Start 11/16/16 at 02:00 Bisacodyl (Dulcolax Supp) 10 mg DAILY PRN [place] CONSTIPATION; Start 11/16/16 at 02 :00 Miscellaneous Information 1 ea NOTE XX ; Start 11/16/16 at 02:00 Glucose (Glutose) 15 gm Q15M PRN PO DECREASED GLUCOSE; Start 11/16/16 at 02:00 Glucose (Glutose) 22.5 gm Q15M PRN PO DECREASED GLUCOSE; Start 11/16/16 at 02: 00 Dextrose (D50w Syringe) 25 ml Q15M PRN IV DECREASED GLUCOSE; Start 11/16/16 at 02:00 Dextrose (D50w Syringe) 50 ml Q15M PRN IV DECREASED GLUCOSE; Start 11/16/16 at 02:00 Glucagon (Glucagen) 1 mg Q15M PRN IM DECREASED GLUCOSE; Start 11/16/16 at 02:00 Glucose (Glutose) 15 gm Q15M PRN BUCCAL DECREASED GLUCOSE; Start 11/16/16 at 02 :00 Docusate Sodium (Colace) 100 mg Q12H PRN PO CONSTIPATION; Start 11/16/16 at 02: 00 Docusate Sodium (Colace) 100 mg BID PO Last administered on 12/03/16t 09:19; Admin Dose 100 MG; Start 11/16/16 at 09:00 Escitalopram Oxalate (Lexapro) 5 mg DAILY PO Last administered on 12/03/16 09: 19; Admin Dose 5 MG; Start 11/16/16 at 09:00 Diagnostic Test (Pha) (Accu-Chek) 1 ea 02 XX Last administered on 12/03/16 01: 48; Admin Dose 1 EA; Start 11/17/16 at 02:00 Hydralazine HCl (Apresoline) 25 mg Q4H PRN PO ELEVATED SYSTOLIC BP Last administered on 11/19/16 05:18; Admin Dose 25 MG; Start 11/16/16 at 02:00 Lactulose (Enulose) 20 gm DAILY PRN PO CONSTIPATION; Start 11/16/16 at 02:00 Linagliptin (Tradjenta) 5 mg DAILY PO Last administered on 12/03/16 09:19; Admin Dose 5 MG; Start 11/16/16 at 09:00 Magnesium Hydroxide (Milk Of Mag) 30 ml DAILY PRN PO CONSTIPATION Last administered on 11/24/16 17:29; Admin Dose 30 ML; Start 11/16/16 at 02:00 Nitroglycerin (Nitroglycerin (Sl Tab) 0.4 Mg) 1 tab Q5M PRN SL CHEST PAIN; Start 11/16/16 at 02:00 Ondansetron HCl (Zofran Inj) 4 mg Q6H PRN IV NAUSEA AND/OR VOMITING Last administered on 11/18/16 03:00; Admin Dose 4 MG; Start 11/16/16 at 02:00 Pantoprazole (Protonix Tab) 40 mg DAILY@06 PO Last administered on 12/03/16 05 :47; Admin Dose 40 MG; Start 11/16/16 at 06:00 Senna (Senokot) 1 tab HS PO Last administered on 12/02/16 20:52; Admin Dose 1 TAB; Start 11/16/16 at 21:00 Insulin Glargine (Lantus) 4 unit DAILY@20 SC Last administered on 12/02/16 20: 50; Admin Dose 4 UNIT; Start 11/19/16 at 20:00 Acetaminophen (Tylenol Tab) 500 mg BID PO Last administered on 12/03/16 09:18 ; Admin Dose 500 MG; Start 11/20/16 at 21:00 Acetaminophen/ Hydrocodone Bitart ([place] (5/325)) 1 tab Q4H PRN PO pain, headaches Last administered on 11/28/16 12:43; Admin Dose 1 TAB; Start 11/22/16 at 14:30 Ibuprofen (Motrin) 400 mg Q6H PRN PO PAIN OR TEMP ABOVE 38C; Start 11/23/16 at 16:30 Hydralazine HCl (Apresoline) 25 mg Q6H PRN PO hypertension Last administered on 11/25/16 06:58; Admin Dose 25 MG; Start 11/25/16 at 06:30 Acetaminophen (Tylenol Tab) 650 mg Q4H PRN PO NON-CARDIAC PAIN LEVEL (1-3); Start 11/27/16 at 16:00 Morphine Sulfate (morphine) 1 mg Q1H PRN IV PAIN; Start 11/27/16 at 16:00 Hydralazine HCl (Apresoline) 25 mg BID PO Last administered on 12/03/16 09:18 ; Admin Dose 25 MG; Start 11/29/16 at 09:00 Metoprolol Tartrate (Lopressor) 100 mg BID PO Last administered on 12/03/16 09 :18; Admin Dose 100 MG; Start 11/30/16 at 21:00 Amiodarone HCl (Cordarone) 200 mg DAILY PO Last administered on 12/03/16 09:19 ; Admin Dose 200 MG; Start 12/03/16 at 09:00 RDAHA PRETTY MD Dec 03, 2016 15:00
--- NOTE | 2016-12-03 15:17 | PN ---
DATE: 12/03/2016 SUBJECTIVE: Patient seen over the weekend. She was briefly on amiodarone drip and now switched to amiodarone orally as she was in atrial fibrillation. Currently, she was noted to be V pacing but on exam, heart beat was irregular. The patient says she is not feeling great. She cannot specify and tell me what was going on. Currently she is getting dialysis. PHYSICAL EXAMINATION: VITAL SIGNS: Temperature 97.8, pulse 69, respirations 18, blood pressure 120/70, saturation 97%. GENERAL: The patient is in no acute distress. CARDIOVASCULAR: S1 and S2, regular rate and rhythm. LUNGS: Clear. ABDOMEN: Soft, nontender. EXTREMITIES: No clubbing, cyanosis, or edema. LABORATORY DATA: White count 9.7, hemoglobin 13.4, hematocrit 40, platelet count 221 with normal di fferential. Chemistry: Sodium 134, potassium 3.9, chloride 97, bicarbonate 25, BUN is 44, creatini ne 5.36, glucose 129. Last glucose of 136 and 124. MEDICATIONS: 1. Amiodarone 200 mg daily. 2. Lopressor 100 b.i.d. 3. Hydralazine 25 b.i.d. 4. Tylenol p.r.n. 5. Morphine p.r.n. 6. Hydralazine p.r.n. 7. Motrin p.r.n. 8. [place] p.r.n. 9. Tylenol 500 b.i.d. 10. Routine Lantus 4 units daily. 11. Accu-Chek q.a.c. and at bedtime. 12. Senna 1 tab at bedtime. 13. Colace 100 b.i.d. 14. Lexapro 5 mg daily. 15. Tradjenta 5 mg daily. 16. Protonix 40 mg daily. 17. DuoNeb as directed hyperglycemia protocol as directed p.r.n. 18. Milk of magnesia, nitroglycerin. 19. Zofran. ASSESSMENT AND PLAN: This is an 85-year-old Filip[place] female with history of congestive heart failur e, paroxysmal atrial fibrillation, diabetes mellitus and chronic kidney disease who overall had prol onged hospitalization. She presented with acute renal failure, congestive heart failure exacerbatio n, fluid overload state and uremia. She was also treated for pneumonia. 1. Respiratory. Stable O2 support. No evidence of fluid overload state. 2. Acute renal failure, now on dialysis 3 times a week. Outpatient dialysis is being arranged. 3. Anemia, status post transfusion. Hemoglobin and hematocrit is okay now. 4. Diabetes mellitus. Glucose levels are good. Epogen and low dose Lantus. 5. Physical therapy as tolerated. Awaiting assisted facility placement or home health with physical therapy. Family to see if they can take care of her. 6. Continue Protonix for gastrointestinal prophylaxis. 7. Hypertension on multiple, now well controlled on beta blockers, hydralazine and also on amiodaro ne for her arrhythmia. 8. Depression. On Lexapro 5 mg, may increase to 10 mg 9. Physical therapy as tolerated. We will discuss the discharge planning with daughter and with ca se management. We will follow. Dictated By: ROXANA JEFFRIES/DESTINY Conf#: [id number] DID#: [id number]
[2016-12-03] MEDS: INSULIN GLARGINE [LANtus] 3 ML PEN SC SCH (20:47)
[2016-12-03] MEDS: SENNA TAB PO SCH (20:48)
[2016-12-04] VITALS (8 sets, daily range): BP systolic 131–196; BP diastolic 63–89; PULSE 69–85; RESP 17–18
[2016-12-04] MEDS: ACCUCHECK AT 2AM (Patients on SS coverage) XX SCH ×2 (01:59→02:00)
[2016-12-04] MEDS: PANTOPRAZOLE (EC) 40 MG TAB PO SCH (05:20)
[2016-12-04] MEDS: Insulin NOVOLOG SS MILD Algorithm (SS with meals and bedtime) SC SCH ×2 (07:30→11:54)
[2016-12-04] MEDS: ESCITALOPRAM 10 MG TAB PO SCH (08:25)
[2016-12-04] MEDS: LINAGLIPTIN 5 MG TABLET PO SCH (08:26)
[2016-12-04] MEDS: AMIODARONE 200 MG TAB PO SCH (08:26)
[2016-12-04] MEDS: DOCUSATE SODIUM 100 MG CAP PO SCH (08:26)
[2016-12-04] MEDS: ACETAMINOPHEN 500 MG TAB PO SCH (08:26)
[2016-12-04] MEDS: METOPROLOL 100 MG TAB PO SCH (08:26)
[2016-12-04] MEDS ORDERED: LISINOPRIL 20 MG TAB PO SCH (10:00)
--- NOTE | 2016-12-04 10:43 | PN ---
DATE: SUBJECTIVE: The patient had hemodialysis yesterday with 2 liters removed, tolerated well. This mor lizzy, the patient was noted to be hypertensive, but otherwise stable. OBJECTIVE: VITAL SIGNS: Blood pressure is 196//89, respirations 18, pulse 70, temperature 98.3. HEENT: Head is normocephalic. NECK: Supple. HEART: Regular rate. LUNGS: Show diminished breath sounds at base. ABDOMEN: Soft, nontender to palpation without rebound or guarding. EXTREMITIES: Negative for clubbing, cyanosis. No edema. DERMATOLOGIC: No rashes. MUSCULOSKELETAL: No joint effusions. NEUROLOGIC: No change in exam. MEDICATIONS: Have been reviewed. LABORATORY DATA: Has been reviewed. No new labs. ASSESSMENT AND PLAN: 1. End-stage renal disease. The patient had hemodialysis yesterday, tolerated well. Plan for dial ysis tomorrow for 3 hours, 3K bath, calcium 2.5. 2. Hypertension. Blood pressure remains elevated. Will start the patient on lisinopril 20 mg anthony y. Continue current blood pressure regimen. Continue ultrafiltration dialysis. 4. Congestive heart failure, clinically improved. Continue current medical management. 5. Anemia of chronic disease. Continue to monitor H and H levels. We will give Epogen as needed. 6. Mineral bone disorder. Continue to monitor calcium and phosphorus levels. 7. Sepsis secondary to pneumonia. The patient has completed antibiotic course. 8. Arrhythmia, status post pacemaker. Continue to monitor. 9. Encephalopathy, improving. 10. General weakness. Continue physical therapy. Dictated By: TIFFANIE MCHUGH/DESTINY Conf#: [id number] DID#: [id number]
--- NOTE | 2016-12-04 11:09 | PDOCDIS ---
Discharge Instructions CONDITION Patient Condition: Stable HOME CARE INSTRUCTIONS: Special Diet: 2gm Na, carb controlled diet ACTIVITY: Activity Restrictions: Slowly Increase Activity FOLLOW UP/APPOINTMENTS [facility], see reconciliation, Hemodialysis MWF as instructed ROXANA RODRIGUEZ MD Dec 04, 2016 11:09
--- NOTE | 2016-12-04 11:33 | CONS ---
Date/Time of Note Date/Time of Note DATE: 12/04/16 TIME: 11:32 Assessment/Plan Assessment/Plan Additional Assessment/Plan Additional Assessment/Plan IMPRESSION: 1. Rectal bleeding appears to be hemorrhoidal. We will observe, especially when patient is on Eliquis. 2. Renal failure. 3. Diabetes mellitus. 4. Anorexia. 5. Depression. 6. Diastolic heart failure. 7. Pneumonia. 8. Incision of tunneled dialysis catheter 9. Insertion of dual pacemaker Plan Monitor H&H stable physical therapy Colonoscopy when family agrees. Patient appears stronger than before and will follow the patient as an outpatient Consultation Date/Type/Reason Admit Date/Time Nov 16, 2016 at 00:30 24 HR Interval Summary Free Text/Dictation No further bleeding No abdominal pain Constitutional: no complaints Exam/Review of Systems Vital Signs Vitals Vital Signs Date Time Temp Pulse Resp B/P Pulse Ox O2 Delivery O2 Flow Rate FiO2 12/04/16 08:30 69 12/04/16 07:46 98.3 18 196/89 99 12/02/16 13:14 21 12/01/16 22:10 3.0 12/01/16 19:15 Nasal Cannula Intake and Output 12/03/16 12/03/16 12/04/16 15:00 23:00 07:00 Intake Total 300 ml 1440 ml 200 ml Output Total 2300 ml Balance -2000 ml 1440 ml 200 ml Exam Constitutional: alert, oriented, well developed Psych: nl mood/affect, no complaints Head: atraumatic, normocephalic Eyes: EOMI, PERRL, nl conjunctiva, nl lids, nl sclera ENMT: nl external ears & nose, nl lips & teeth, nl nasal mucosa & septum Neck: non-tender, supple Respiratory: clear to auscultation, normal air movement Cardiovascular: nl pulses, regular rate and rhythm Gastrointestinal: nl liver, spleen, non-tender, soft Musculoskeletal: nl extremities to inspection, nl gait and stance Extremities: normal pulses 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, nl mental status, nl speech, nl strength Skin: nl turgor, No rash or lesions Lymph: nl lymph nodes Results Result Diagram: 12/03/16 0655 12/03/16 0655 Results 24 hrs Laboratory Tests Test 12/03/16 11:43 12/03/16 17:22 12/03/16 20:33 12/04/16 08:15 Bedside Glucose 136 154 148 106 Medications Medications Current Medications Al Hydrox/Mg Hydrox/Simethicone (Mag-Al Plus) 30 ml BID PRN PO GASTROINTESTINAL UPSET; Start 11/16/16 at 02:00 Bisacodyl (Dulcolax Supp) 10 mg DAILY PRN [place] CONSTIPATION; Start 11/16/16 at 02 :00 Miscellaneous Information 1 ea NOTE XX ; Start 11/16/16 at 02:00 Glucose (Glutose) 15 gm Q15M PRN PO DECREASED GLUCOSE; Start 11/16/16 at 02:00 Glucose (Glutose) 22.5 gm Q15M PRN PO DECREASED GLUCOSE; Start 11/16/16 at 02: 00 Dextrose (D50w Syringe) 25 ml Q15M PRN IV DECREASED GLUCOSE; Start 11/16/16 at 02:00 Dextrose (D50w Syringe) 50 ml Q15M PRN IV DECREASED GLUCOSE; Start 11/16/16 at 02:00 Glucagon (Glucagen) 1 mg Q15M PRN IM DECREASED GLUCOSE; Start 11/16/16 at 02:00 Glucose (Glutose) 15 gm Q15M PRN BUCCAL DECREASED GLUCOSE; Start 11/16/16 at 02 :00 Docusate Sodium (Colace) 100 mg Q12H PRN PO CONSTIPATION; Start 11/16/16 at 02: 00 Docusate Sodium (Colace) 100 mg BID PO Last administered on 12/04/16 08:26; Admin Dose 100 MG; Start 11/16/16 at 09:00 Escitalopram Oxalate (Lexapro) 5 mg DAILY PO Last administered on 12/04/16 08: 25; Admin Dose 5 MG; Start 11/16/16 at 09:00 Diagnostic Test (Pha) (Accu-Chek) 1 ea 02 XX Last administered on 12/03/16 01: 48; Admin Dose 1 EA; Start 11/17/16 at 02:00 Hydralazine HCl (Apresoline) 25 mg Q4H PRN PO ELEVATED SYSTOLIC BP Last administered on 11/19/16 05:18; Admin Dose 25 MG; Start 11/16/16 at 02:00 Lactulose (Enulose) 20 gm DAILY PRN PO CONSTIPATION; Start 11/16/16 at 02:00 Linagliptin (Tradjenta) 5 mg DAILY PO Last administered on 12/04/16 08:26; Admin Dose 5 MG; Start 11/16/16 at 09:00 Magnesium Hydroxide (Milk Of Mag) 30 ml DAILY PRN PO CONSTIPATION Last administered on 11/24/16 17:29; Admin Dose 30 ML; Start 11/16/16 at 02:00 Nitroglycerin (Nitroglycerin (Sl Tab) 0.4 Mg) 1 tab Q5M PRN SL CHEST PAIN; Start 11/16/16 at 02:00 Ondansetron HCl (Zofran Inj) 4 mg Q6H PRN IV NAUSEA AND/OR VOMITING Last administered on 11/18/16 03:00; Admin Dose 4 MG; Start 11/16/16 at 02:00 Pantoprazole (Protonix Tab) 40 mg DAILY@06 PO Last administered on 12/04/16 05 :20; Admin Dose 40 MG; Start 11/16/16 at 06:00 Senna (Senokot) 1 tab HS PO Last administered on 12/03/16 20:48; Admin Dose 1 TAB; Start 11/16/16 at 21:00 Insulin Glargine (Lantus) 4 unit DAILY@20 SC Last administered on 12/03/16 20: 47; Admin Dose 4 UNIT; Start 11/19/16 at 20:00 Acetaminophen (Tylenol Tab) 500 mg BID PO Last administered on 12/04/16 08:26 ; Admin Dose 500 MG; Start 11/20/16 at 21:00 Acetaminophen/ Hydrocodone Bitart ([place] (5/325)) 1 tab Q4H PRN PO pain, headaches Last administered on 11/28/16 12:43; Admin Dose 1 TAB; Start 11/22/16 at 14:30 Ibuprofen (Motrin) 400 mg Q6H PRN PO PAIN OR TEMP ABOVE 38C; Start 11/23/16 at 16:30 Hydralazine HCl (Apresoline) 25 mg Q6H PRN PO hypertension Last administered on 11/25/16 06:58; Admin Dose 25 MG; Start 11/25/16 at 06:30 Acetaminophen (Tylenol Tab) 650 mg Q4H PRN PO NON-CARDIAC PAIN LEVEL (1-3); Start 11/27/16 at 16:00 Morphine Sulfate (morphine) 1 mg Q1H PRN IV PAIN; Start 11/27/16 at 16:00 Hydralazine HCl (Apresoline) 25 mg BID PO Last administered on 12/04/16 08:26 ; Admin Dose 25 MG; Start 11/29/16 at 09:00 Metoprolol Tartrate (Lopressor) 100 mg BID PO Last administered on 12/04/16 08 :26; Admin Dose 100 MG; Start 11/30/16 at 21:00 Amiodarone HCl (Cordarone) 200 mg DAILY PO Last administered on 12/04/16 08:26 ; Admin Dose 200 MG; Start 12/03/16 at 09:00 Lisinopril (Zestril) 20 mg DAILY PO ; Start 12/04/16 at 10:00 RADHA PRETTY MD Dec 04, 2016 11:33
--- NOTE | 2016-12-04 12:19 | DS ---
DATE OF ADMISSION: 11/16/2016 DATE OF DISCHARGE: 12/04/2016 REASON FOR ADMISSION: Congestive heart failure exacerbation and acute renal failure. 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 Unfortunately, she has been doing poorly recently with decreased p.o. intake, weight loss and more flat affect. She was admitted to [facility] recently with urinary tract inf ection and pneumonia and then she was transferred to the rehab unit at [facility]. Unfortu nately, she did not do very well. She continued to be weak. Kidney function worsened and there was evidence of fluid overload state. She had CHF exacerbation. It was decided to transfer her to [facility] for further treatment plan. During her stay, she received diuretics and u ltimately she was started on dialysis. After 3 sessions of dialysis, we monitored for renal recover y, but unfortunately kidney function continues to worsen and it was decided to initiate hemodialysis . The patient underwent initially Spike catheter and then this was switched to a PermCath. [facility] physicians were involved during patient's stay including Dr. Yfn Triana the coat padder, Dr. Salbador Winkler the surgeon, and he placed a Perm-Cath, Dr. Lio Bowen the GI specialist, as nani ent had episodes of GI bleed, and Dr. Chaudhari and Dr. Blanca the nephrologists. The patient a lso was noted to be bradycardic down to the 40s, as patient still has history of tachybrady syndrome . After the discussion with family, patient underwent implementation of dual-chamber pacemaker usin g a [employer] MRI compatible device. This was done on 11/27/2016. The patient tolerated the procedu re well. The patient was seen by physical therapy. The patient had bed mobility with maximal assist. The alfredo walker's overall impression was poor tolerance to treatment. Continue with physical therapy. As we discussed with the daughter, the patient would likely benefit from half-way facility placemen t for ongoing strengthening and monitor her condition as the patient needs a lot of care, which she may not get at home. Again, the patient improved. During her stay, she also received blood transfu sions as hemoglobin dropped to 7.6. She was noted to have rectal bleeding and that is why we stoppe d the patient's blood thinners. We also discussed with cardiology and GI regarding initiation again on blood thinners, maybe just an aspirin at least and not Eliquis. Overall, the patient stabilized . H and H is stable, most recent labs done yesterday shows a white count of 9.7, hemoglobin 13.4, h ematocrit of 40, platelet count is 221 with normal differential. The patient also was treated for p neumonia with cefepime as recent CT scan of the chest confirmed an infiltrate in the right upper lob e. DISCHARGE MEDICATIONS: The patient was discharged to [facility] with the following medications: 1. Accu-Cheks before meals and at bedtime. 2. Tylenol 500 b.i.d., routine. 3. Milk of magnesia b.i.d. p.r.n. 4. Amiodarone 200 mg daily. 5. Dulcolax p.r.n. 6. Colace 100 q.12h. p.r.n. and routine. 7. Lexapro 5 mg, we will increase it to 10 mg daily. 8. Hydralazine 25 q.4h. p.r.n. for systolic blood pressure greater than 170. We will increase the patient's hydralazine from 25 to 50 mg p.o. We will make it t.i.d. as her blood pressure is noted to be still high. 9. [place] 5/325 q.4h. p.r.n. for moderate pain. 10. Insulin NovoLog mild scale as the patient has end-stage renal disease. 11. Lantus 4 units daily. 12. Lactulose daily p.r.n. 13. Tradjenta 5 mg daily. 14. Zestril 20 mg daily. 15. Milk of magnesia p.r.n. 16. Lopressor 100 b.i.d. 17. Treatment of hypoglycemia. 18. Nitroglycerin p.r.n. for chest pain. 19. Zofran 4 mg p.o. q.4h. p.r.n. 20. Protonix 40 mg daily. 21. Senna 1 tab at bedtime. FINAL DIAGNOSES: 1. Acute renal failure. 2. Congestive heart failure exacerbation, diastolic dysfunction heart failure. 3. Initiation of hemodialysis as now she has end-stage renal disease. 4. Hypertension. 5. Paroxysmal atrial fibrillation. 6. Tachybrady syndrome, status post pacemaker placement during this admission. 7. Pneumonia, treated with cefepime. 8. Diabetes mellitus. 9. Anemia of chronic disease and iron deficiency anemia. We will add ferrous sulfate 325 p.o. anthony y. 10. Osteoarthritis. 11. Compression fracture of vertebral body. 12. Weight loss. The patient's stool occult blood initially was negative, but since then she had b leeding. She is hepatitis A, B and C negative. She is immune to hepatitis B as she has hepatitis B antibody positive 13. Depression, now on Lexapro. 14. Rectal bleed, further procedure on hold as family wants the patient to get stronger. DIET: 2 g sodium, ADA 1800. ACTIVITY: As tolerated with physical therapy at the half-way facility. I was in touch with the patient's daughter on a regular basis, her name is Edwige. CONDITION ON DISCHARGE: Fair to guarded. The patient to be monitored. Dictated By: ROXANA JEFFRIES/DESTINY Conf#: [id number] DID#: [id number]
== END 2016-12-04 15:49 | DRG 242 ==
LOC: PP2 00:30 → MS4 11-27 18:17
PROVIDERS: ADMIT Internal Medicine; ATTEND Internal Medicine
PROC: 5A1D60Z (ICD-10-PCS; 2016-11-16)
PROC: 02H633Z Insertion of Infusion Device into Right Atrium, Percutaneous Approach (ICD-10-PCS; 2016-11-19)
PROC: B244ZZZ Ultrasonography of Right Heart (ICD-10-PCS; 2016-11-19)
PROC: 0JH606Z Insertion of Pacemaker, Dual Chamber into Chest Subcutaneous Tissue and Fascia, Open Approach (ICD-10-PCS; principal; 2016-11-27)
PROC: 02H63JZ Insertion of Pacemaker Lead into Right Atrium, Percutaneous Approach (ICD-10-PCS; 2016-11-27)
PROC: 02HK3JZ Insertion of Pacemaker Lead into Right Ventricle, Percutaneous Approach (ICD-10-PCS; 2016-11-27)
PROC: 02HV33Z Insertion of Infusion Device into Superior Vena Cava, Percutaneous Approach (ICD-10-PCS; 2016-11-27)
PROC: B548ZZA Ultrasonography of Superior Vena Cava, Guidance (ICD-10-PCS; 2016-11-27)
PROC: 30243N1 Transfusion of Nonautologous Red Blood Cells into Central Vein, Percutaneous Approach (ICD-10-PCS; 2016-12-01)
DX: I13.2 Hypertensive heart and chronic kidney disease with heart failure and with stage 5 chronic kidney disease, or end stage renal disease (principal); A41.9 Sepsis, unspecified organism; N17.0 Acute kidney failure with tubular necrosis; J96.90 Respiratory failure, unspecified, unspecified whether with hypoxia or hypercapnia; G92 Toxic encephalopathy; J18.9 Pneumonia, unspecified organism; E87.0 Hyperosmolality and hypernatremia; N18.6 End stage renal disease; I50.33 Acute on chronic diastolic (congestive) heart failure; I48.92 Unspecified atrial flutter; K92.1 Melena; I49.5 Sick sinus syndrome; I48.0 Paroxysmal atrial fibrillation; E11.22 Type 2 diabetes mellitus with diabetic chronic kidney disease; F32.9 Major depressive disorder, single episode, unspecified; E87.5 Hyperkalemia; G89.29 Other chronic pain; R63.4 Abnormal weight loss; D63.8 Anemia in other chronic diseases classified elsewhere; K20.9 Esophagitis, unspecified; K29.70 Gastritis, unspecified, without bleeding; I45.9 Conduction disorder, unspecified; K64.9 Unspecified hemorrhoids; R63.0 Anorexia; D50.9 Iron deficiency anemia, unspecified; M48.54XD Collapsed vertebra, not elsewhere classified, thoracic region, subsequent encounter for fracture with routine healing; Z79.4 Long term (current) use of insulin; Z86.011 Personal history of benign neoplasm of the brain
CPT/HCPCS: 36430; 36556; 71010; 71250; 76942; 80048; 80053; 82270; 82550; 82553; 82962; 83735; 84100; 84484; 85025; 85378; 85610; 85730; 86704; 86709; 86803; 86850; 86900; 86901; 86920; 87340; 90935; 93005; 94640; 94664; 97110; 97116; 97162; 97530; C1750; C1752; C1769; C1785; C1898; C2629; J0282; J0360; J0690; J0692; J1644; J1815; J1956; J2405; J3010; J3370; J7040; J7042; J7060; P9016; Q9967